=== PATIENT | female | born 1935 | race Caucasian/White ===

== ENCOUNTER 2021-02-10 12:30 | Inpatient (IN) | payer MEDICARE, MEDICAID, SELFPAY ==
[2021-02-10] VITALS (8 sets, daily range): BP systolic 115–154; BP diastolic 71–98; PULSE 78–94; RESP 16–22; TEMP 36.4–37.2; O2SAT 92–98; BMI 27.4
--- NOTE | 2021-02-10 12:38 | W.ED.FALL ---
HPI - Fall General: Chief Complaint: Fall Stated Complaint: FALL, DEFORMITY Time Seen by Provider: 02/10/21 12:37 History of Present Illness: HPI Narrative: Ms. Alston is a 85-year-old lady with history of stroke not on anticoagulation presents emergency department due to fall and hip pain. She reports being at her baseline health yesterday and at about 7 PM was taking her nighttime medications. She tripped and fell on the ground primarily landing on her right side. There was head strike but no loss of consciousness. She immediately had pain which was sharp and severe in the right hip and worse with movement. She was unable to get up and laid on the ground overnight until being found this morning just prior to coming in. No associated chest pain or shortness of breath. No dizziness or lightheadedness. She reports longstanding decline in balance though no other neurologic symptoms. Prehospitally the patient received 100 mcg fentanyl intramuscularly and an additional 100 mcg intranasally with improvement in pain. Additional information obtained endorses history of hypertension, hyperlipidemia, history of sudden cardiac in 1985 and history of Brugada currently on quinidine. 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 Eyes - PERRL, no conjunctival injection ENMT - Atraumatic external nose and ears. Moist mucous membranes NECK - c-collar in place. trachea midline CARDIOVASCULAR - regular rate and rhythm. Peripheral pulses 2+ and equal RESPIRATORY - diminished to auscultation bilaterally. No retractions or accessory muscle use. ABDOMEN/GI - Nontender/Nondistended. No tenderness to percussion or evidence of peritonitis MSK - tenderness palpation of right hip region, tenderness/pain reproducible with minimal movement. Distal CMS intact. SKIN - Warm, Dry NEURO - alert and appropriately oriented. Moves all extremities equally. Course ED course: - Patient was seen and evaluated by me at bedside - Patient placed on cardiac monitors, IV access obtained - Initial evaluation notable for exam as above - Labs notable for leukocytosis which is likely reactive. Metabolic panel with evidence of dehydration. 2-hour troponin negative. 6 hours troponin pending at time of admission. Negative urinalysis - Imaging notable for negative head CT, CT neck with chronic appearing changes, the patient denies acute neurologic changes secondary to fall. Hip with fracture noted. - Upon serial reexamination after treatment the patient was improved with analgesia - Based on patient history, evaluation, labs, and imaging as interpreted the most likely cause of the patient's condition is fall, rhabdomyolysis, transcervical hip fracture. Discussed with orthopedics. - The results of ED evaluation were discussed with the patient including plan for admission due to requirement for level of care not available if discharged to prevent significant worsening/deterioration. -Hospitalist service contacted and agreed with the patient - Patient was admitted without further deterioration or significant events. Vital Signs: Vital signs: Vital Signs Temperature 98.5 F 02/16/21 15:37 Pulse Rate 75 02/16/21 15:37 Respiratory Rate 16 02/16/21 18:16 Blood Pressure 124/73 02/16/21 15:37 Pulse Oximetry 97 02/16/21 15:37 MDM - Fall Medical Records: Attestation: I reviewed the patient's medical records. Lab Data: Attestation: I reviewed the patient's lab results. Labs: Lab Results 02/10/21 02/10/21 02/10/21 13:15 13:15 13:15 WBC 13.0 10^3/uL H 10 ^3/uL (4.0-10.0) RBC 4.69 10^6/uL 10^6 /uL (4.1-5.3) Hgb 14.5 g/dL g/dL (11.5-15.3) Hct 43.7 % % (37.0-47.0) MCV 93.2 fl fl (81-99) MCH 30.9 pg pg (28.0-34.0) MCHC 33.2 g/dL g/dL (30.0-36.0) RDW 13.6 % % (12.1-15.1) Plt Count 289 10^3/cmm 10^3 /cmm (130-400) MPV 8.6 fL fL (7.4-10.4) Neut % (Auto) 88.3 % % Lymph % (Auto) 4.1 % % [place] % (Auto) 6.9 % % Eos % (Auto) 0.0 % % Baso % (Auto) 0.2 % % Neut # (Auto) 11.49 10^3/uL H 1 0^3/uL (1.8-7.7) Lymph # (Auto) 0.5 10^3/uL L 10^ 3/uL (0.8-4.8) [place] # (Auto) 0.9 10^3/uL 10^3/ uL (0.2-0.9) Eos # (Auto) 0.0 10^3/uL 10^3/ uL (0.0-0.8) Baso # (Auto) 0.0 10^3/uL 10^3/ uL (0.0-0.1) Nucleated RBC % (a uto) 0 % % Nucleated RBCs # 0.0 /100WBC /100W BC Sodium 136 mmol/L mmol/L (136-145) Potassium 3.7 mmol/L mmol/L (3.5-5.1) Chloride 100 mmol/L mmol/L (98-107) Carbon Dioxide 19 mmol/L L mmol/ L (22-29) Anion Gap 20.7 H (5-19) BUN 11 mg/dL mg/dL (8-23) Creatinine 0.6 mg/dL mg/dL (0.5-0.9) GFR Calculation Not Reportable Glucose 123 mg/dL H mg/dL (65-115) Calculated Osmolal ity 283 mOsm/kg L mOs m/kg (285-295) Calcium 8.8 mg/dL mg/dL (8.5-10.5) Total Bilirubin 1.3 mg/dL H mg/dL (0.15-1.2) AST 41 U/L H U/L (0-32) ALT 21 U/L U/L (0-33) Alkaline Phosphata se 80 IU/L IU/L (35-105) Creatine Kinase 337 U/L H* U/L (26-192) Troponin T Baselin e 18 ng/L H ng/L (0-10) NT-Pro-B Natriuret Pep Total Protein 7.0 g/dL g/dL (6.6-8.7) Albumin 4.2 g/dL g/dL (3.5-5.2) Globulin 2.8 g/dL g/dL (1.3-4.6) 02/10/21 13:15 WBC RBC Hgb Hct MCV MCH MCHC RDW Plt Count MPV Neut % (Auto) Lymph % (Auto) [place] % (Auto) Eos % (Auto) Baso % (Auto) Neut # (Auto) Lymph # (Auto) [place] # (Auto) Eos # (Auto) Baso # (Auto) Nucleated RBC % (a uto) Nucleated RBCs # Sodium Potassium Chloride Carbon Dioxide Anion Gap BUN Creatinine GFR Calculation Glucose Calculated Osmolal ity Calcium Total Bilirubin AST ALT Alkaline Phosphata se Creatine Kinase Troponin T Baselin e NT-Pro-B Natriuret Pep 383 pg/mL pg/mL (0-450) Total Protein Albumin Globulin EKG Data^: EKG 1: Attestation: I personally reviewed and interpreted this EKG as follows: EKG interpretation date: 02/10/21 EKG interpretation time: 14:00 Interpretation: Twelve-lead EKG regular rhythm at a rate of 88. WV interval 244, QRS duration 165, QTc 475. Left axis deviation. Interpretation: Sinus rhythm. First-degree AV block. Left bundle branch block. EKG 2: Attestation: I personally reviewed and interpreted this EKG as follows: EKG interpretation date: 02/10/21 EKG interpretation time: 15:41 Interpretation: Twelve-lead EKG shows an irregular rhythm at a rate of 77. WV interval 250, QRS duration 164, QTc 468. Left axis deviation. Interpretation: Sinus rhythm. Irregularity, PVC, first-degree AV block. Left bundle branch block. Discharge Plan Discharge Patient Disposition: Admitted As Inpatient Admit Provider: Gil Abbott Clinical Impression: Closed hip fracture, Fall, Elevated CK Condition: Stable Discharge Diet: Advance as tolerated and Usual diet Discharge Activity: Increase activity as tolerated, Limit activity as instructed and Use walker/crutches as instructed Coding Level of Care Code ED Commercial Property Manager for Jens Wheeler
--- NOTE | 2021-02-10 12:43 | XRR_ITS ---
PROCEDURE INFORMATION: Exam: XR Chest Exam date and time: 02/10/2021 12:43 PM Age: 85 years old Clinical indication: Fall with blunt trauma. Tachypnea. Diminished breath sounds. TECHNIQUE: Imaging protocol: XR of the chest. Views: 1 view. COMPARISON: No relevant prior studies available. FINDINGS: Lungs: There are multiple pulmonary nodules identified bilaterally measuring up to 0.6 cm. There is patchy left basilar opacity. There is smooth bulging of the right hilum that may reflect an ascending thoracic aortic aneurysm. Pleural spaces: Small left pleural effusion. No pneumothorax. Heart/Mediastinum: The heart appears enlarged. No gross evidence of pneumomediastinum. Bones/joints: No gross fracture. XR/XR chest 1V portable [id number] IMPRESSION: 1. Patchy left basilar opacity with small left pleural effusion. 2. Cardiomegaly with smooth bulging of the right hilum that may reflect an ascending thoracic aortic aneurysm. 3. Multiple pulmonary nodules identified bilaterally measuring up to 0.[address] chest to further assess.
--- NOTE | 2021-02-10 12:43 | XRR_ITS ---
PROCEDURE INFORMATION: Exam: XR Right Hip Exam date and time: 02/10/2021 12:43 PM Age: 85 years old Clinical indication: Fall with blunt trauma. Right hip pain. TECHNIQUE: Imaging protocol: XR Right hip. Views: 1 view hip with pelvis when performed. COMPARISON: No relevant prior studies available. FINDINGS: Bones/joints: There is a displaced transcervical fracture involving the proximal right femur. Soft tissues: There is mild soft tissue swelling. XR/XR hip RT 2-3V wo/w pel* [id number] IMPRESSION: 1. Displaced transcervical fracture involving the proximal right femur. 2. Mild soft tissue swelling.
--- NOTE | 2021-02-10 12:43 | CT_ITS ---
WS: [id number] CT CERVICAL SPINE HISTORY: fall, neck pain TECHNIQUE: Contiguous 2.5 mm axial imaging performed through the entire cervical spine. Sagittal and coronal reformats also performed. All CT scans at [facility] use at least one of these dose o ptimization techniques: automated exposure control; mA and/or kV adjustment per patient size (include s targeted exams where dose is matched to clinical indication); or iterative reconstruction. DLP: 532.43 mGy.cm COMPARISON: None available. Markedly abnormal alignment of the cervical spine. C4 anterolisthesis by 6.6 mm. There is bony fusion across the disc space of C5-6. Severe disc space narrowing at C6-7. Fusion across the facet joints o f C3-4 bilateral. Lateral masses of C1 and C2 are aligned. Craniocervical junction is normally aligned. C2-C3: Osteophytic ridging and severe facet arthritis. Moderate foraminal stenosis. C3-C4: Marked facet joint arthritis. C4-C5: Severe encroachment upon the ventral thecal sac by the reversal of normal curvature and the an terolisthesis of C4. Severe central and bilateral foraminal stenosis. No fracture. C5-C6: Central and foraminal stenosis. C6-C7: Normal. C7-T1: Normal. Soft tissues are normal. Lung apices are clear. CT/CT cervical spin wo con* [id number] IMPRESSION: 1. Marked reversal of the normal cervical lordosis with C4 anterolisthesis by 6.6 mm. There is significant compression upon the ventral thecal sac and stenos is. No acute fractures identified. There are no prior studies for comparison bu t I suspect these findings are all chronic. No widening of the facet joints. 2. Severe central and bilateral foraminal stenosis at C4-5. 3. Ankylosis across the facet joints of C3-4 and the C5-6 disc.
--- NOTE | 2021-02-10 12:43 | CT_ITS ---
WS: [id number] CT HEAD NONCONTRAST HISTORY: fall TECHNIQUE: Contiguous axial imaging performed through the brain in 2.5 mm imaging. Bone and soft tiss ue windows. Sagittal and coronal reformats reviewed. All CT scans at [facility] use at least one of these dose optimization techniques: automated exposure control; mA and/or kV adjustment per pa tient size (includes targeted exams where dose is matched to clinical indication); or iterative recon struction. DLP: 895.25 mGy.cm COMPARISON: None available. No acute intracranial hemorrhage, midline shift or mass effect. Mild atrophy and moderate chronic microvascular ischemic disease. Ventricles: Mild ventriculomegaly on the basis of atrophy. Paranasal sinuses: As visualized are clear. Mastoid air cells: Normal LEFT mastoid air cells. There is a very small amount of soft tissue associa luis with the LEFT inner air ossicles. Postsurgical changes are noted in the RIGHT mastoid air cells. Calvarium and scalp: Skull is intact with no soft tissue edema or swelling. CT/CT head wo con* [id number] IMPRESSION: 1. No acute intracranial hemorrhage or edema. 2. Atrophy and moderate chronic microvascular ischemic disease.
--- NOTE | 2021-02-10 12:57 | ECG_ITS ---
[facility] Test Date: 2021-02-10 Pat Name: Medina Alston Department: Room: Gender: Female E Learning Manager: : 1935 Requested By: Jeff Burkett Order Number: [id number] Donnie MD: Ryan Sanchez M.D. Measurements Intervals [place] Rate: 88 P: 77 WV: 244 QRS: -60 QRSD: 165 T: 123 QT: 429 QTc: 521 Interpretive Statements SINUS RHYTHM WITH FIRST DEGREE AV BLOCK LEFT AXIS DEVIATION [QRS AXIS < -30] LEFT BUNDLE BRANCH BLOCK [120+ ms QRS DURATION, 80+ ms Q/S IN V1/V2, 85+ ms R IN I/aVL/V5/V6] No previous ECG available for comparison Electronically Signed On 02-10-2021 20:37:13 JIG BORING MACHINE SET UP OPERATOR by Ryan Sanchez M.D. [email or web address] [id number]
[2021-02-10 13:32] LABS: Basophils % 0.2 %; Hematocrit 43.7 % (37.0-47.0); Hemoglobin 14.5 g/dL (11.5-15.3); Lymphocytes # 0.5 10^3/uL (0.8-4.8); Lymphocytes % 4.1 %; Mean Corpuscular HGB Conc 33.2 g/dL (30.0-36.0); Mean Corpuscular Hemoglobin 30.9 pg (28.0-34.0); Mean Corpuscular Volume 93.2 fl (81-99); Mean Platelet Volume 8.6 fL (7.4-10.4); Monocytes # 0.9 10^3/uL (0.2-0.9); Monocytes % 6.9 %; Neutrophils # 11.49 10^3/uL (1.8-7.7); Neutrophils % 88.3 %; Nucleated Red Blood Cells % 0 %; Platelet Count 289 10^3/cmm (130-400); Red Blood Count 4.69 10^6/uL (4.1-5.3); Red Cell Distribution Width 13.6 % (12.1-15.1)
[2021-02-10 14:01] LABS: Troponin(5th) Baseline 18 ng/L (0-10)
[2021-02-10 14:24] LABS: Anion Gap 20.7 (5-19); Blood Urea Nitrogen 11 mg/dL (8-23); Carbon Dioxide 19 mmol/L (22-29); Chloride 100 mmol/L (98-107); Creatinine Clr Calc Pharmacy 47.3319; Glucose 123 mg/dL (65-115); Osmolality Calculated 283 mOsm/kg (285-295); Potassium 3.7 mmol/L (3.5-5.1); Sodium 136 mmol/L (136-145)
[2021-02-10 14:25] LABS: Alanine Aminotransferase 21 U/L (0-33); Albumin Level 4.2 g/dL (3.5-5.2); Alkaline Phosphatase 80 IU/L (35-105); Aspartate Amino Transferase 41 U/L (0-32); Calcium 8.8 mg/dL (8.5-10.5); Globulin 2.8 g/dL (1.3-4.6); Total Bilirubin 1.3 mg/dL (0.15-1.2)
[2021-02-10 14:26] LABS: Creatine Phosphokinase 337 U/L (26-192)
--- NOTE | 2021-02-10 14:57 | ECG_ITS ---
[facility] Test Date: 2021-02-10 Pat Name: Medina Alston Department: Room: Gender: Female Clinical Field Specialist: : 1935 Requested By: Jeff Burkett Order Number: [id number] Donnie MD: Ryan Sanchez M.D. Measurements Intervals [place] Rate: 77 P: 74 GA: 250 QRS: -61 QRSD: 164 T: 123 QT: 437 QTc: 495 Interpretive Statements LEFT AXIS DEVIATION [QRS AXIS < -30] LEFT BUNDLE BRANCH BLOCK [120+ ms QRS DURATION, 80+ ms Q/S IN V1/V2, 85+ ms R IN I/aVL/V5/V6] Compared to ECG 02/10/2021 13:58:40 Sinus rhythm no longer present First degree AV block no longer present Electronically Signed On 02-10-2021 20:40:09 LANDMAN by Ryan Sanchez M.D. [id number]
--- NOTE | 2021-02-10 14:57 | PM.HP ---
Providers/Chief Complaint Chief Complaint: FALL, DEFORMITY History of Present Illness Medina Alston is a 85 year old female, presenting today after sustaining a fall at home. Patient stating that yesterday around 7 PM she went to the kitchen when she lost her balance and fell just next to her sink, because excruciating pain she could not get up, she stayed on the floor until her care provider came in the morning, because of her history of fibromyalgia she attributed her pain to muscle/joint disorder, she did not call 911 last night. She did not experience prodromal symptoms, no chest pain, nausea, vomiting or syncopal event. 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 In the ER she was diagnosed with right-sided hip fracture, EKG showing left bundle branch block, baseline troponin XVIII without significant delta BNP 383 Patient is chest pain-free no active shortness of breath, saturating well on room air She does have a pansystolic murmur Recommended cardiac clearance before her surgery, echo with serial troponin and EKGs I did speak with her sister was trying to convince her to go for the surgery, patient is reluctant for the surgery in the morning, she is stating that there are 2 family members who are probably not going to make it and she wants to spend some time at [place] with them Review of Systems Const: Reports: fatigue and malaise; Denies: fever(s) or chills Eyes: Denies: change in vision ENMT: Denies: throat pain Card: Denies: chest pain Resp: Denies: dyspnea GI: Denies: abdominal pain : Denies: flank pain Musc: Reports: back pain, extremity pain and joint redness; Denies: neck pain Skin/Breast: Denies: rash Neuro: Denies: headache(s) Psych: Denies: anxiety Endo: Denies: polyuria José Miguel/Lymph: Denies: easy bruising All/Imm: Denies: urticaria Medications/Allergies Home Medications Medication Instructions Recorded Confirmed Last Taken Type acetaminophen-codeine 1 tab PO Q4H PRN 02/10/21 02/10/21 Unknown History amlodipine 5 mg PO DAILY 02/10/21 02/10/21 02/09/21 History duloxetine 30 mg PO DAILY 02/10/21 02/10/21 02/09/21 History duloxetine 60 mg PO DAILY 02/10/21 02/10/21 02/09/21 History levothyroxine 75 mcg PO DAILY 02/10/21 02/10/21 02/09/21 History pantoprazole 40 mg PO BID 02/10/21 02/10/21 02/09/21 History potassium chloride 20 meq PO DAILY 02/10/21 02/10/21 02/09/21 History pravastatin 40 mg PO DAILY 02/10/21 02/10/21 02/09/21 History quinidine gluconate 324 mg PO TID 02/10/21 02/10/21 02/09/21 History Allergies Allergy/AdvReac Type Severity Reaction Status Date / Time NSAIDS (Non-Steroidal Allergy Unknown Unknown Verified 02/10/21 15:27 Anti-Inflamma vancomycin Allergy Unknown Unknown Verified 02/10/21 15:27 PFSH Acute PFSH: Medical History (Updated 02/10/21 @ 17:08 by Gil Abbott MD) Brugada syndrome CAD (coronary artery disease) Cardiac arrest 1985 CVA (cerebral vascular accident) Fibromyalgia HTN (hypertension) LBBB (left bundle branch block) burgada syndrome Lymphocytic colitis SLE (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 Surgical History (Updated 02/10/21 @ 17:06 by Gil Abbott MD) H/O: hysterectomy History of appendectomy Hx of cholecystectomy Family History (Updated 02/10/21 @ 14:58 by Gil Abbott MD) Other Family history non-contributory Social History (Updated 02/10/21 @ 14:59 by Gil Abbott MD) Smoking and tobacco status: current some day smoker Housing: House Vitals/I&O/Wt Last Vital Signs Temp 97.6 F 02/10/21 12:33 Pulse 78 02/10/21 13:16 Resp 20 H 02/10/21 13:16 BP 154/94 02/10/21 12:33 Pulse Ox 96 02/10/21 13:16 Weight last 48 hrs Weight 68.039 kg Physical Exam Narrative: EXAM NARRATIVE: elderly female Severe joint deformities/arthritis S1, S2, pansystolic murmur Clinically dehydrated Abdomen is soft Right leg is short however not rotated upwards No vascular compromise EOMI, PERRLA Nonfocal neuro exam Hess catheter draining concentrated urine Data : 02/10/21 13:15 02/10/21 13:15 A&P Assessment and plan (1) Subcapital fracture of right hip: Status: Acute (2) Closed hip fracture: Status: Acute (3) Fall: Status: Acute (4) Elevated CK: Status: Acute Additional A&P Information Mechanical fall Right hip fracture History of Brugada syndrome, left bundle branch block Pansystolic murmur Takes quinidine at home 3 times a day History of cardiac arrest 1985 Plan Patient will need preoperative cardiac clearance will consult Dr. Sepulveda Echo before surgery QTc 495, 521, QTc prolongation noted Troponin XVIII without significant delta Continue antiarrhythmic medication for now, will follow up with Dr. Sepulveda's recommendation We will request records from [facility] Dr. Alford has been updated, I spoke with front end web developer as well Patient has not decided to go for the surgery yet, Dr. Alford planning to come talk with the patient tonight We will keep her n.p.o. after midnight DVT prophylaxis: SCDs Continue IV fluids, CPK 337, trend CPK Serial troponin and EKG Stat echo requested in the ER She carries high risk for perioperative complications, this was conveyed to the patient and her family, Patient does not want any chest compressions or intubation, she is DNR/DNI, her sister is aware of her wishes I have told the patient that she definitely needs hip surgery and putting off surgery for next 1 to 2 weeks would do more harm and put her life at risk perioperative complication risk is high because of her underlying multiple comorbid conditions such as SLE, left bundle branch, Brugada, deconditioning Attestations Medical Necessity Statement*: More than 2 midnights anticipated Time Spent in Patient Care: Greater than 35 minutes Coding Level of Care Code Acute Senior Software Developer for Chg Fwd Diagnoses Subcapital fracture of right hip S72.011A Closed hip fracture S72.009A Fall W19.XXXA Elevated CK R74.8
[2021-02-10] MEDS: morphine 4 mg/mL SDV 1 mL IVP ×2 (15:13→19:27)
[2021-02-10] MEDS: sodium chloride 0.9% 500 ML 999 ML IV (15:13)
--- NOTE | 2021-02-10 15:14 | P.CONIM_ITS ---
Providers/Reason For Consult Consulting Physician/Specialty*: Brittany Alford MD Reason for Consult*: Right subcapital hip fracture, displaced Requesting Physician: Dr. Jeff Burkett Attending Physician: Dr. Gil Abbott History of Present Illness History of Present Illness Medina Alston is a 85 year old female who was in her usual state of health when she tripped at home and fell. 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 I was called by the emergency room physician who suggested admission to the medical service for optimization. She was diagnosed in the emergency department with a right subcapital hip fracture. This is displaced. The patient is seen in her room with nursing present. She is adamant that she wants to delay her surgery for 1 to 2 weeks as she does not want it before the holiday. Review of Systems General: Reports: 10 or more systems reviewed and unremarkable except in HPI and below Const: Reports: fatigue and malaise; Denies: fever(s) or chills Eyes: Denies: change in vision ENMT: Denies: throat pain Card: Denies: chest pain Resp: Denies: dyspnea GI: Denies: abdominal pain : Denies: flank pain Musc: Reports: back pain, extremity pain and joint redness; Denies: neck pain Skin/Breast: Denies: rash Neuro: Denies: headache(s) Psych: Denies: anxiety Endo: Denies: polyuria José Miguel/Lymph: Denies: easy bruising All/Imm: Denies: urticaria Meds/Allergies Home Medications and Allergies Home Medications Medication Instructions Recorded Confirmed Last Taken Type acetaminophen-codeine 1 tab PO Q4H PRN 02/10/21 02/10/21 Unknown History amlodipine 5 mg PO DAILY 02/10/21 02/10/21 02/09/21 History duloxetine 30 mg PO DAILY 02/10/21 02/10/21 02/09/21 History duloxetine 60 mg PO DAILY 02/10/21 02/10/21 02/09/21 History levothyroxine 75 mcg PO DAILY 02/10/21 02/10/21 02/09/21 History pantoprazole 40 mg PO BID 02/10/21 02/10/21 02/09/21 History potassium chloride 20 meq PO DAILY 02/10/21 02/10/21 02/09/21 History pravastatin 40 mg PO DAILY 02/10/21 02/10/21 02/09/21 History quinidine gluconate 324 mg PO TID 02/10/21 02/10/21 02/09/21 History Allergies Allergy/AdvReac Type Severity Reaction Status Date / Time NSAIDS (Non-Steroidal Allergy Unknown Unknown Verified 02/10/21 15:27 Anti-Inflamma vancomycin Allergy Unknown Unknown Verified 02/10/21 15:27 PFSH Acute PFSH: Medical History Brugada syndrome CAD (coronary artery disease) Cardiac arrest 1985 CVA (cerebral vascular accident) Fibromyalgia HTN (hypertension) LBBB (left bundle branch block) burgada syndrome Lymphocytic colitis SLE (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) 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 involvement Surgical History H/O: hysterectomy History of appendectomy Hx of cholecystectomy Family History Other Family history non-contributory Social History Smoking and tobacco status: current some day smoker Housing: House Vitals/I&O/Wt Last Vital Signs Temp 97.6 F 02/10/21 12:33 Pulse 78 02/10/21 13:16 Resp 20 H 02/10/21 13:16 BP 154/94 02/10/21 12:33 Pulse Ox 96 02/10/21 13:16 Weight last 48 hrs Weight 150 lb Physical Exam Const: COMMON NORMALS: no acute distress, average body habitus, patient oriented x3 and alert GENERAL APPEARANCE: cooperative and comfortable ORIENTATION/CONSCIOUSNESS: Yes awake HENMT: COMMON NORMALS: normocephalic and atraumatic HEAD & SCALP: normocephalic and atraumatic Eye: GENERAL EYE: appearance normal, both eyes and all related structures Chest: COMMONS NORMALS: normal inspection of the chest Resp: COMMON NORMALS: normal respiratory effort EFFORT & INSPECTION: Yes able to speak in complete sentences and Yes symmetric chest movement Extremity: RIGHT LOWER EXTREMITY: Yes hip joint Right hip: Yes inspection (Patient is laying in bed without moving.), Yes ROM (Not evaluated secondary to fracture) and Yes neurovascular exam (Able to move her toes) Neuro: COMMON NORMALS: patient oriented x3 SENSORIUM/ORIENTATION: Yes alert Psych: COMMON NORMALS: mental status grossly normal APPEARANCE: Yes grossly normal ATTITUDE: Yes calm and Yes engaged ATTENTION/CONCENTRATION: Yes attention grossly intact Skin: COMMON NORMALS: no rashes or lesions noted GENERAL SKIN EXAM: no rashes or lesions noted Data Imaging^: Xray Ortho: I personally reviewed and interpreted this imaging study as follows: My impression: 2 views of the patient's right hip were reviewed. There is a 100% displaced angulated subcapital hip fracture. No other evidence of fracture is noted on these 2 imaging studies. A&P Assessment and plan (1) Subcapital fracture of right hip: Patient was admitted through the emergency department this evening. She was diagnosed with a right subcapital hip fracture by x-ray after being admitted through the emergency department. The patient will be seen and evaluated and optimized for possible surgical intervention tomorrow, February 11. I have personally reviewed the x-rays and confirmed that this is a displaced subcapital right hip fracture. Once patient is admitted to the hospital, she states that she absolutely does not want surgery over the holidays. She states that she has several issues in her family, and she wants to go home and come back in 1 to 2 weeks for surgical intervention. I had a very lengthy extended discussion with her as well as associated providers regarding the risks of doing this. Also, I discussed with her the impact on her family as she would not be able to weight-bear or even transition comfortably from laying to sitting. We talked about the medical risks of urinary tract infection, pressure sores, and pneumonias. The patient stated she understood, but even after all the discussion, she stated that she still wanted to be home with her family for . We extended that discussion even more. To allow the patient to evaluate the wisdom of her choices, she will be allowed to get up to the bedside commode to see whether or not she can functionally and safely carry unnecessary activities of daily living. This was also discussed with Dr. Abbott. The meantime, she will be left on the surgical schedule for possible surgery. I advised her that provided she had no medical issues after the surgery, she could go home as early as early morning or even tomorrow evening for Yany ellyn. Status: Acute Consult Attestations Medical Necessity Statement: Patient has a subcapital hip fracture which is displaced. This will require surgical intervention. Coding Level of Care Code New Pt Acute Military Nurse for Chg Fwd Patient Type New Exam Comprehensive Medical Decision Making High Complexity Diagnoses Subcapital fracture of right hip S72.011A Time Spent (min) 60 Comment Extended discussion of risks, complications, and reasons for not delaying surgery
[2021-02-10 15:17] LABS: NT Pro B Type Natriuretic Pept 383 pg/mL (0-450)
[2021-02-10 15:33] LABS: Troponin 5 2HR 20.87 ng/L (0-10); Troponin 5 2HR Delta 2.87 ABS# (0-10)
[2021-02-10 15:44] LABS: INR 0.95 (0.8-1.2)
[2021-02-10 17:09] LABS: Add Urine Microscopic? NO; Charge for UA Resulting for Rev
[2021-02-10 17:11] LABS: Urine Appearance Clear (CLEAR); Urine Color Yellow (Yellow); pH Urine 6 (5-7)
[2021-02-10 17:12] LABS: Bilirubin Urine Neg (Negative); Blood Urine Neg (Negative); Glucose Urine UA Norm (Normal); Ketones Urine 1+ (Negative); Leukocyte Esterase Urine Negative (Negative); Nitrate Urine Negative (Negative); Protein Urine Neg (Negative); Specific Gravity, Urine 1.015 (1.005-1.030); Urobilinogen Urine Norm (Negative)
[2021-02-10 17:46] LABS: Magnesium 1.9 mg/dL (1.7-2.3); Thyroid Stimulating Hormone 1.96 uIU/mL (0.27-4.20)
--- NOTE | 2021-02-10 18:50 | P.CONIM_ITS ---
Providers/Reason For Consult Consulting Physician/Specialty*: Dr. Sepulveda, cardiology Reason for Consult*: Preop clearance, history of Brugada syndrome Attending Physician: Gil Abbott MD History of Present Illness History of Present Illness Medina Alston is a 85 year old female with past medical history of Brugada syndrome, hypothyroidism, history of cardiac arrest in 1985, OA, h/o lupus. She underwent EP study and was started on quinidine. No ICD implanted as she was doing well on medications. She sees Dr. Stanley Moore at [facility] and last saw him about 2 years back. She presented after falling yesterday around 7 PM and lost her balance and fell just next to her sink. She could not get up d/t pain and stayed on the floor until her caregiver came in the morning. No chest pain, dizziness, SOB, nausea, vomiting or syncopal event. She lives by herself but does need assistance for most of her daily activities. She was found to have displaced transcervical fracture involving proximal right femur. Chest x-ray showed patchy left basilar opacity with small left pleural effusion. Cardiomegaly with small bulging of right hilum that may reflect his thoracic ascending aortic aneurysm. EKG on arrival showed sinus rhythm with first-degree AV block at 244 ms. Left axis deviation. Left bundle branch block. Review of Systems Const: Reports: fatigue and malaise; Denies: fever(s) or chills Eyes: Denies: change in vision ENMT: Denies: throat pain Card: Denies: chest pain Resp: Denies: dyspnea GI: Denies: abdominal pain : Denies: flank pain Musc: Reports: back pain, extremity pain and joint redness; Denies: neck pain Skin/Breast: Denies: rash Neuro: Denies: headache(s) Psych: Denies: anxiety Endo: Denies: polyuria José Miguel/Lymph: Denies: easy bruising All/Imm: Denies: urticaria Meds/Allergies Home Medications and Allergies Home Medications Medication Instructions Recorded Confirmed Last Taken Type acetaminophen-codeine 1 tab PO Q4H PRN 02/10/21 02/10/21 Unknown History amlodipine 5 mg PO DAILY 02/10/21 02/10/21 02/09/21 History duloxetine 30 mg PO DAILY 02/10/21 02/10/21 02/09/21 History duloxetine 60 mg PO DAILY 02/10/21 02/10/21 02/09/21 History levothyroxine 75 mcg PO DAILY 02/10/21 02/10/21 02/09/21 History pantoprazole 40 mg PO BID 02/10/21 02/10/21 02/09/21 History potassium chloride 20 meq PO DAILY 02/10/21 02/10/21 02/09/21 History pravastatin 40 mg PO DAILY 02/10/21 02/10/21 02/09/21 History quinidine gluconate 324 mg PO TID 02/10/21 02/10/21 02/09/21 History Allergies Allergy/AdvReac Type Severity Reaction Status Date / Time NSAIDS (Non-Steroidal Allergy Unknown Unknown Verified 02/10/21 15:27 Anti-Inflamma vancomycin Allergy Unknown Unknown Verified 02/10/21 15:27 Current Medications Current Medications Generic Name Dose Route Start Last Admin Trade Name Freq PRN Reason Stop Dose Admin Morphine Sulfate 4 mg 02/10/21 14:33 02/10/21 15:13 Morphine 4 Mg/Ml Sdv 1 Ml IVP 4 mg Q1H PRN Administration pain PFSH Acute PFSH: Medical History (Updated 02/10/21 @ 18:57 by Marcie Sepulveda MD) Brugada syndrome CAD (coronary artery disease) Cardiac arrest 1985 CVA (cerebral vascular accident) Fibromyalgia HTN (hypertension) LBBB (left bundle branch block) burgada syndrome Lymphocytic colitis SLE (systemic 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) w 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 No pallor or icterus. NECK: No JVD, No carotid bruit. CARDIOVASCULAR SYSTEM: S1-S2 regular. Systolic murmur + RESPIRATORY SYSTEM: Chest clear to auscultation. No wheezes heard. No use of accessory muscles. ABDOMEN: Soft, nontender and nondistended. Normal bowel sounds present. EXTREMITIES: No cyanosis or edema. No signs of chronic venous insufficiency. DATABASE ADMINISTRATION MANAGER: Patient is alert oriented ?3. Urinary Catheter Management^: Hess: Cath Placed During This Visit: yes Urinary Catheter Date of Insertion: 02/10/21 Urinary Catheter Time of Insertion: 16:10 Data Labs: Other Labs: Baseline troponin T of 18 at 2 hours 21. NT proBNP 383. Normal TSH. A&P Assessment and plan (1) Pre-operative cardiovascular examination: F/u on records and plan for echo. -Further management based on clinical progression Status: Acute (2) Subcapital fracture of right hip: Status: Acute (3) Brugada syndrome: Status: Acute (4) LBBB (left bundle branch block): Chronic Status: Acute Additional A&P Information First-degree AV block Hypertension Hypothyroidism Gastroesophageal reflux disease Thank you like me to participate in patient's care. Please feel free to call with questions or concerns. Consult Attestations Time Spent in Patient Care: 16 - 35 minutes (>than 50% of time spent in counselling and/or direct pt care on unit) . Coding Level of Care Code Acute Dedenter for Jens Wheeler Diagnoses Pre-operative cardiovascular examination Z01.810 Subcapital fracture of right hip S72.011A Brugada syndrome I49.8 LBBB (left bundle branch block) I44.7
[2021-02-10] MEDS: pantoprazole DR 40 mg Tablet PO (19:29)
[2021-02-10] MEDS: sodium chloride 0.9% 1,000 ML 75 ML IV (19:30)
[2021-02-10 19:41] LABS: Troponin 5 6HR 31.57 ng/L (0-10)
[2021-02-10 20:01] LABS: Troponin 5 6HR Delta 13.57 ng/L (0-12)
[2021-02-11] VITALS (25 sets, daily range): BP systolic 91–150; BP diastolic 50–88; PULSE 68–103; RESP 14–18; TEMP 36.3–37.7; O2SAT 92–99
[2021-02-11] MEDS: morphine 4 mg/mL SDV 1 mL IVP ×2 (00:38→04:09)
--- NOTE | 2021-02-11 01:01 | PC.NURSE ---
no SCD due to pain from hip fx.
--- NOTE | 2021-02-11 01:03 | PC.NURSE ---
right hip externall rotated. braced with pillow.
[2021-02-11 05:02] LABS: Basophils % 0.3 %; Eosinophils # 0.1 10^3/uL (0.0-0.8); Eosinophils % 0.7 %; Hematocrit 38.9 % (37.0-47.0); Hemoglobin 12.9 g/dL (11.5-15.3); Lymphocytes # 0.8 10^3/uL (0.8-4.8); Lymphocytes % 7.6 %; Mean Corpuscular HGB Conc 33.2 g/dL (30.0-36.0); Mean Corpuscular Hemoglobin 31.2 pg (28.0-34.0); Mean Corpuscular Volume 94.2 fl (81-99); Mean Platelet Volume 8.6 fL (7.4-10.4); Monocytes # 0.8 10^3/uL (0.2-0.9); Monocytes % 7.2 %; Neutrophils # 8.83 10^3/uL (1.8-7.7); Neutrophils % 83.5 %; Nucleated Red Blood Cells % 0 %; Platelet Count 216 10^3/cmm (130-400); Red Blood Count 4.13 10^6/uL (4.1-5.3); Red Cell Distribution Width 14.1 % (12.1-15.1); White Blood Count 10.6 10^3/uL (4.0-10.0)
[2021-02-11 05:37] LABS: Anion Gap 18.6 (5-19); Blood Urea Nitrogen 11 mg/dL (8-23); Carbon Dioxide 19 mmol/L (22-29); Chloride 103 mmol/L (98-107); Creatine Phosphokinase 201 U/L (26-192); Creatinine Clr Calc Pharmacy 47.3319; Glucose 124 mg/dL (65-115); Osmolality Calculated 285 mOsm/kg (285-295); Potassium 3.6 mmol/L (3.5-5.1); Sodium 137 mmol/L (136-145)
--- NOTE | 2021-02-11 07:17 | PC.NURSE ---
Surgery Pt taken down for surgery.
--- NOTE | 2021-02-11 07:21 | P.ANESASSM_ITS ---
Pre-Anesthetic Assessment Pre-Anesthetic Assessment: Height/Weight: Height 1.57 m Weight 68.039 kg Temp Pulse Resp BP Pulse Ox 99.8 F H 83 18 113/70 93 02/11/21 04:29 02/11/21 04:29 02/11/21 04:29 02/11/21 04:29 02/11/21 04:29 Preop Diagnosis: Right subcapital hip fracture Proposed Procedure: Hemiarthroplasty hip Familial anesthetic complications: None Was Beta Cheikh taken within 24 hours: N/A Was Clonidine taken within 24 hours: N/A Last intake: Intake Last Liquid Date 02/10/21 Last Liquid Time 23:17 Last Solid Date 02/10/21 Last Solid Time 23:16 Social: Social History: No alcohol and No tobacco Exam: Pre-Anes Outpt Exam: alert, oriented x 3, clear to auscultation bilaterally and regular rate & rhythm Airway: Cervical ROM: WNL MP: 1 Dentition: Other (very poor dentition) Additional comments: patient misisng multiple teeth d/t osteonecrosis jaw - patient informed of risk of dental injury with intubation and during extubation CV/HEM: Comments: Brugada syndrome w/ hx of sudden cardiac in 1985. No ICD in place. Take quinidine. Occassional symtpoms include palpitations and shortness of breath. LBBB Metabolic: Comments: lupus Neuropsych: Neuropsych: CVA (year ago - residual deficits include R face) Anesthetic Plan: ASA status: 4 Anesthesia: General Risk of > 500 ml blood loss (7ml/kg in children): No Meds/Allergies Current Medications: Current Medications Generic Name Dose Route Start Last Admin Trade Name Freq PRN Reason Stop Dose Admin Sodium Chloride 1,000 mls @ 75 ml s/hr 02/10/21 18:37 02/10/21 19:30 Sodium Chloride 0.9% IV 75 mls/hr .[id number] ELIGIO Administration Morphine Sulfate 4 mg 02/10/21 14:33 02/11/21 04:09 Morphine 4 Mg/Ml Sdv 1 Ml IVP 4 mg Q1H PRN Administration pain Non-Formulary Medi cation 324 mg 02/10/21 21:00 02/10/21 21:28 Quinidine Glucon ate PO Not Given TID ELIGIO Pantoprazole Sodiu m 40 mg 02/10/21 18:37 02/10/21 19:[address] 40 Mg Tablet PO 40 mg BID ELIGIO Administration PFSH Anesthesia PFSH: Medical History (Updated 02/10/21 @ 18:57 by Marcie Sepulveda MD) Brugada syndrome CAD (coronary artery disease) Cardiac arrest 1985 CVA (cerebral vascular accident) Fibromyalgia HTN (hypertension) LBBB (left bundle branch block) burgada syndrome Lymphocytic colitis 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 Surgical History H/O: hysterectomy History of appendectomy Hx of cholecystectomy Family History Other Family history non-contributory Social History Smoking and tobacco status: current some day smoker Housing: House Data Anesthesia CBC & Chem 7: 02/11/21 04:32 02/11/21 04:32 Other Labs: Laboratory Results - last 48 hr 02/10/21 02/10/21 02/10/21 13:15 13:15 13:15 WBC 13.0 H RBC 4.69 Hgb 14.5 Hct 43.7 MCV 93.2 MCH 30.9 MCHC 33.2 RDW 13.6 Plt Count 289 MPV 8.6 Neut % (Auto) 88.3 Lymph % (Auto) 4.1 [place] % (Auto) 6.9 Eos % (Auto) 0.0 Baso % (Auto) 0.2 Neut # (Auto) 11.49 H Lymph # (Auto) 0.5 L [place] # (Auto) 0.9 Eos # (Auto) 0.0 Baso # (Auto) 0.0 Nucleated RBC % (auto) 0 Nucleated RBCs # 0.0 PT INR Sodium 136 Potassium 3.7 Chloride 100 Carbon Dioxide 19 L Anion Gap 20.7 H BUN 11 Creatinine 0.6 GFR Calculation Not Reportable Glucose 123 H Calculated Osmolality 283 L Calcium 8.8 Magnesium Total Bilirubin 1.3 H AST 41 H ALT 21 Alkaline Phosphatase 80 Creatine Kinase 337 H* Troponin T Baseline 18 H Troponin T 120 Minute Delta Troponin T Troponin T Hi Sens 6Hr Troponin T Hi Sens 6Hr Delta NT-Pro-B Natriuret Pep Total Protein 7.0 Albumin 4.2 Globulin 2.8 TSH Urine Color Urine Appearance Urine pH Ur Specific [place] Urine Protein Urine Glucose (UA) Urine Ketones Urine Blood Urine Nitrate Urine Bilirubin Urine Urobilinogen Ur Leukocyte Esterase 02/10/21 02/10/21 02/10/21 13:15 15:05 15:05 WBC RBC Hgb Hct MCV MCH MCHC RDW Plt Count MPV Neut % (Auto) Lymph % (Auto) [place] % (Auto) Eos % (Auto) Baso % (Auto) Neut # (Auto) Lymph # (Auto) [place] # (Auto) Eos # (Auto) Baso # (Auto) Nucleated RBC % (auto) Nucleated RBCs # PT INR Sodium Potassium Chloride Carbon Dioxide Anion Gap BUN Creatinine GFR Calculation Glucose Calculated Osmolality Calcium Magnesium 1.9 Total Bilirubin AST ALT Alkaline Phosphatase Creatine Kinase Troponin T Baseline Troponin T 120 Minute 20.87 H Delta Troponin T 2.87 Troponin T Hi Sens 6Hr Troponin T Hi Sens 6Hr Delta NT-Pro-B Natriuret Pep 383 Total Protein Albumin Globulin TSH 1.96 Urine Color Urine Appearance Urine pH Ur Specific [place] Urine Protein Urine Glucose (UA) Urine Ketones Urine Blood Urine Nitrate Urine Bilirubin Urine Urobilinogen Ur Leukocyte Esterase 02/10/21 02/10/21 02/10/21 15:29 16:49 19:12 WBC RBC Hgb Hct MCV MCH MCHC RDW Plt Count MPV Neut % (Auto) Lymph % (Auto) [place] % (Auto) Eos % (Auto) Baso % (Auto) Neut # (Auto) Lymph # (Auto) [place] # (Auto) Eos # (Auto) Baso # (Auto) Nucleated RBC % (auto) Nucleated RBCs # PT 13.00 INR 0.95 Sodium Potassium Chloride Carbon Dioxide Anion Gap BUN Creatinine GFR Calculation Glucose Calculated Osmolality Calcium Magnesium Total Bilirubin AST ALT Alkaline Phosphatase Creatine Kinase Troponin T Baseline Troponin T 120 Minute Delta Troponin T Troponin T Hi Sens 6Hr 31.57 H Troponin T Hi Sens 6Hr Delta 13.57 H* NT-Pro-B Natriuret Pep Total Protein Albumin Globulin TSH Urine Color Yellow Urine Appearance Clear Urine pH 6 Ur Specific [place] 1.015 Urine Protein Neg Urine Glucose (UA) Norm Urine Ketones 1+ H Urine Blood Neg Urine Nitrate Negative Urine Bilirubin Neg Urine Urobilinogen Norm Ur Leukocyte Esterase Negative 02/11/21 02/11/21 04:32 04:32 WBC 10.6 H RBC 4.13 Hgb 12.9 Hct 38.9 MCV 94.2 MCH 31.2 MCHC 33.2 RDW 14.1 Plt Count 216 MPV 8.6 Neut % (Auto) 83.5 Lymph % (Auto) 7.6 [place] % (Auto) 7.2 Eos % (Auto) 0.7 Baso % (Auto) 0.3 Neut # (Auto) 8.83 H Lymph # (Auto) 0.8 [place] # (Auto) 0.8 Eos # (Auto) 0.1 Baso # (Auto) 0.0 Nucleated RBC % (auto) 0 Nucleated RBCs # 0.0 PT INR Sodium 137 Potassium 3.6 Chloride 103 Carbon Dioxide 19 L Anion Gap 18.6 BUN 11 Creatinine 0.7 GFR Calculation Not Reportable Glucose 124 H Calculated Osmolality 285 Calcium 8.0 L Magnesium Total Bilirubin AST ALT Alkaline Phosphatase Creatine Kinase 201 H Troponin T Baseline Troponin T 120 Minute Delta Troponin T Troponin T Hi Sens 6Hr Troponin T Hi Sens 6Hr Delta NT-Pro-B Natriuret Pep Total Protein Albumin Globulin TSH Urine Color Urine Appearance Urine pH Ur Specific [place] Urine Protein Urine Glucose (UA) Urine Ketones Urine Blood Urine Nitrate Urine Bilirubin Urine Urobilinogen Ur Leukocyte Esterase Cardiac Studies: No Data to Display
[2021-02-11] MEDS: acetaminophen 1,000 MG/100 ML PIGGYBACK 400 MG IV ×2 (07:39→15:49)
[2021-02-11] MEDS: sodium chloride 0.9% 1,000 ML 30 ML IV (07:47)
--- NOTE | 2021-02-11 07:49 | PM.PN ---
Subjective Subjective: Interval history: No events overnight Medications: Reviewed: Yes Vitals/I&O/Wt Last Vital Signs Temp 98.6 F 02/11/21 07:33 Pulse 75 02/11/21 07:33 Resp 18 02/11/21 07:33 BP 116/88 02/11/21 07:33 Pulse Ox 94 02/11/21 07:33 02/10/21 02/11/21 02/11/21 22:59 06:59 14:59 Intake Total 500 / 500 Output Total 475 / 475 Balance 500 / 500 -475 / 25 Weight last 48 hrs Weight 150 lb Physical Exam Narrative: EXAM NARRATIVE: Patient was taken to OR before being seen this morning Urinary Catheter Management^: Hess: Cath Placed During This Visit: yes Reason for Continuing Indwelling Catheter: Required Immobilization for Trauma or Surgery or Anesthesia Urinary Catheter Date of Insertion: 02/10/21 Urinary Catheter Time of Insertion: 16:10 Data : 02/11/21 04:32 02/11/21 04:32 A&P Assessment and plan (1) Pre-operative cardiovascular examination: No records obtained and echo showed normal LV function, mild and moderate TR. SEvere pHTN. -May proceed with hip sx with perioperative management targeted towards Brugada syndrome. Last Lexiscan sestamibi myocardial perfusion imaging in July 2019 was normal (records were obtained from [facility] and reviewed). -Avoid beta blockers, metoclopramide. -May use propofol and volatile anesthetics per anesthesia. Maintain electrolytes in normal range and prepare for cardioversion if needed -Maintain normothermia. Will need close intra op and 24-36 hr post op telemetery monitoring. Status: Acute (2) Subcapital fracture of right hip: Status: Acute (3) Brugada syndrome: She used to be on quinidine 324 mg 3 times a day the dose was recently was decreased to twice a day last year. continue Quinidine 324 mg twice daily Status: Acute (4) LBBB (left bundle branch block): Chronic Status: Acute Additional A&P Information First-degree AV block History of SVT Hypertension Hypothyroidism Gastroesophageal reflux disease History of anal cancer status post surgery History of lupus Osteoarthritis Anxiety History of CVA Thank you like me to participate in patient's care. Please feel free to call with questions or concerns. Attestations Medical Necessity Statement*: As per primary team Time Spent in Patient Care: 16 - 35 minutes Coding Level of Care Code Acute Net Front End Developer for Danteg Fweloy Diagnoses Pre-operative cardiovascular examination Z01.810 Subcapital fracture of right hip S72.011A Brugada syndrome I49.8 LBBB (left bundle branch block) I44.7
[2021-02-11] MEDS: clindamycin 600 MG/50 ML PREMIX 100 MG IV (07:57)
[2021-02-11 08:22] LABS: Magnesium 1.9 mg/dL (1.7-2.3)
[2021-02-11] MEDS: ceFAZolin 1,000 mg SDV 1000 MG IRRIGATION ×2 (09:27→09:28)
--- NOTE | 2021-02-11 09:57 | P.OP_ITS ---
Operative Report Date of procedure: February 11, 2021 Pre-op Diagnosis: Right subcapital hip fracture Post-op diagnosis: same Post-op Findings: Displaced comminuted subcapital right hip fracture Procedure Done: Right bipolar hip arthroplasty Implants: The Jack hip system with the following implants: The Accolade II 127 degree neck angle size 4 femoral stem with a V40 LFIT femoral head size 28 mm x -4 mm and a universal head component bipolar size 46 mm outer diameter by 28 mm inner diameter Specimens removed/disposition: Femoral head, disposed of Pathology: none sent Surgeon: Brittany Alford Spinner Hand: [facility] operating room technicians Anesthesia: General (Intubated, ASA 4) Estimated blood loss (mL): 300 IV fluids (mL): 600 Urine output (mL): 25 Complications: None Findings: Displaced right subcapital hip fracture. Following surgical procedure, I was able to flex the hip to 90 degrees internally rotate 80 degrees and adduction 30 degrees without dislocation. She was stable to external rotation as well. Leg lengths were felt to be appropriately restored. Condition: stable Disposition: PACU (Then return to floor for postoperative care and pain management) Brief History: Medina Alston is a 85 year old female who was in her usual state of health when she tripped at home and fell. 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 I was called by the emergency room physician who suggested admission to the medical service for optimization. She was diagnosed in the emergency department with a right subcapital hip fracture. This is displaced. The patient is seen in her room with nursing present. After an extended discussion, she agreed to the surgical intervention and had an understanding of the risks and benefits of the surgical procedure. She also had preoperative cardiac work-up. Procedure: The patient was brought to the operating theater, and after undergoing adequate general anesthesia, intubated a 4, she was transferred to the operating room table. The patient was placed in the full lateral position and held in place with the pegboard. Patient's right lower extremity was draped free and was subsequently prepped and further draped free. A surgical pause was performed prior to commencement of the surgical procedure. During the surgical pause, we confirmed the site and side of surgery as well as availability of equipment. Additionally, we confirmed preoperative surgical markings. X-rays are also reviewed during this time. Preoperatively, the patient was given clindamycin 600 mg as well as 1 g of TXA. Following the surgical pause, an incision was made centering over the greater trochanter continuing proximally and distally as necessary to allow access to the hip joint. Dissection continued through skin and soft tissue using scalpel. Hemostasis was obtained using electrocautery. Tensor fascia arsenio was identified and incised longitudinally. Sciatic nerve was identified and protected throughout the surgical procedure. A Charnley U retractor was placed with care being taken to protect the sciatic nerve during placement. The hip was internally rotated. Piriformis muscle was then identified, tagged, and subsequently incised from the posterior aspect of the hip joint. The remaining short external rotators were also incised. These were then elevated off the capsule and the capsule was entered in a T-type fashion. Each side of the capsule was then tagged. The proximal femur was brought into an appropriate position of the femoral neck osteotomy was accomplished. This was in appropriate position for placement of the prosthetic component. Femoral head was then removed from the acetabulum utilizing a corkscrew. It was subsequently measured. The appropriate size trial was chosen. This was a size 46 mm. Initially, we tried with both a 44, 45, and 46 mm outer diameter femoral head. Head size was based on the removed femoral head. 46 mm outer diameter gave us the best stability. Therefore, this was the chosen size for implantation. The femoral robot technician was then placed and attention was directed to the proximal femur. An oscillating saw was used to excise excess bone from the femoral neck. Initially, the proximal femur was addressed with a box chisel, and this was followed by a canal finder and subsequently broaches. The hip was broached to a size 4 which was noted to fit nicely and have good fit and fill. Therefore this was to be the chosen component. Trial reduction was then accomplished with a 46 mm by 28 mm universal bipolar head component, a +0mm by 28 mm femoral head. This was felt to over lengthen the leg, therefore, we performed a subsequent trial with a -4 mm offset femoral head. With this, the above-noted stabilities were accomplished. This was felt to be appropriate and therefore trial compo nents were removed and the hip was irrigated. Acetabulum was evaluated for any loose bodies or other soft tissues requiring resection. We then prepared for implantation. The size 4 Accolade II 127 degree neck angle hip stem was then impacted into position. On the back table, we assembled the 46 mm universal bipolar head component with a -4 mm offset by 28 mm femoral head. Care was taken to ensure that this was appropriately assembled. This was placed onto the trunnion of the femoral component. It was impacted into position and pulled upon to assure that there was no dissociation. Once again the hip was irrigated and suctioned dry and was reduced. We then irrigated the hip further with 20 mL of Betadine mixed into 500 mL of normal saline. This was allowed to remain in the wound for appr oximately 3 minutes. It was then suctioned dry and irrigated with normal saline. This was suctioned dry again and closure was accomplished with 0 Vicryl in the capsular tissues followed by reattachment of the piriformis with 0 Vicryl. Additionally, the tensor was closed with 0 Vicryl in an interrupted fashion. Subcutaneous tissues were closed with 2-0 Monocryl. Skin was closed with 3-0 Monocryl. This was followed by Dermabond and Steri-Strips. A sterile dressing was placed consisting of Opsite. The patient was returned the Recovery Room in satisfactory condition. There were no complications. The patient will be discharged to the floor for postoperative rehabilitation and pain management. Associated Problem List Diagnoses (1) Subcapital fracture of right hip: Qualifiers: Encounter type: initial encounter Fracture type: closed Qualified Code(s): S72.011A - Unspecified intracapsular fracture of right femur, initial encounter for closed fracture
--- NOTE | 2021-02-11 10:08 | XR_ITS ---
WS: [id number] PELVIS: AP VIEW SUBMITTED HISTORY: S/P RT BIPOLAR HIP ARTHROPLASTY COMPARISON: 02/10/2021 Interval placement of a RIGHT hip bipolar arthroplasty. Components are in good position and alignment on this single AP radiograph. Appropriate soft tissue changes from the surgery are noted. Mild narro wing of the LEFT hip joint. Calcifications in the pelvis are probably related to fibroids. XR/XR pelvis 1-2V* [id number] IMPRESSION: Satisfactory appearance of RIGHT hip arthroplasty.
[2021-02-11] MEDS: fentaNYL 50 mcg/mL INJ 2mL IVP (10:12)
--- NOTE | 2021-02-11 10:30 | SUR.PHASEI ---
PT AWAKE ALERT FOLLOWS COMMANDS PT ORIENTED X 3 PT STATES PAIN IS BETTER, SEE PAIN MED GIVEN BY POCKETBOOK MAKER AT BEDSIDE AND DURING X RAY PT SLEEPS NOW, REPORT CALLED TO FLOOR PT HAS RT HIP DRESSING D/I ABD PILLOW, RT FOOT PINK WARM WITH STRONG REGULAR PULSE MARKED AND NOTED FOOT PUMP TO LT FOOT. HICKMAN PATENT ON YELLOW URINE TO TUBING AND BAG STATLOCK TO LT THIGH.
--- NOTE | 2021-02-11 11:45 | P.PN_ITS ---
Subjective Subjective: Interval history: Seen post - op hip surgery. says she is able to move a bit better after surgery, when seen she in process of working with physical therapy. offers no complaints Vitals/I&O/Wt Last Vital Signs Temp 97.4 F L 02/11/21 10:30 Pulse 88 02/11/21 10:30 Resp 18 02/11/21 10:30 BP 125/60 02/11/21 10:30 Pulse Ox 95 02/11/21 10:30 02/10/21 02/11/21 02/11/21 22:59 06:59 14:59 Intake Total 500 / 500 160 / 160 Output Total 475 / 475 350 / 350 Balance 500 / 500 -475 / 25 -190 / -190 Weight last 48 hrs Weight 68.039 kg Physical Exam Narrative: EXAM NARRATIVE: elderly female Severe joint deformities/arthritis S1, S2, pansystolic murmur Abdomen is soft, non tender Right leg s/p surgery, surgical bandage in place EOMI, PERRLA Nonfocal neuro exam Urinary Catheter Management^: Hess: Cath Placed During This Visit: yes Reason for Continuing Indwelling Catheter: Required Immobilization for Trauma or Surgery or Anesthesia Urinary Catheter Date of Insertion: 02/10/21 Urinary Catheter Time of Insertion: 16:10 Data : 02/12/21 04:59 02/12/21 04:59 A&P Assessment and plan (1) Subcapital fracture of right hip: Status: Acute Qualifiers: Encounter type: initial encounter Fracture type: closed Qualified Code(s): S72.011A - Unspecified intracapsular fracture of right femur, initial encounter for closed fracture (2) Closed hip fracture: Status: Acute (3) Fall: Status: Acute (4) Elevated CK: Status: Acute Additional A&P Information #Mechanical fall with hip fracture on right side s/p surgery today. #History of Brugada syndrome, left bundle branch block, Cardiology on board. Pansystolic murmur Takes quinidine at home 3 times a day History of cardiac arrest 1985 Plan Patient seen by cardiology. Recommend to monitor on telemetry for 24-36 hours post op. Echo shows: severe pulm HTN, normal LVEF, no regional wall motion abnormalities QTc 495, 521, QTc prolongation noted Troponin slightly elevated without significant delta Continue antiarrhythmic medication for now, will follow up with Dr. Sepulveda's recommendation. Avoid BB, reglan. She is now s/p surgery. Order physical therapy. Allergic to NSAIDS, unsure about aspirin. WIll discuss with patient for DVT ppx after surgery. Continue to monitor in hospital. DVT prophylaxis: SCDs Continue IV fluids, CPK 337, trend CPK Code status: DNR/DNI. She carries high risk for perioperative complications, this was conveyed to the patient and her family by admitting physician., Perioperative complication risk is high because of her underlying multiple comorbid conditions such as SLE, left bundle branch, Brugada, deconditioning Attestations Medical Necessity Statement*: > 24 hours Coding Level of Care Code Acute Health Management Consult[facility] Diagnoses Subcapital fracture of right hip S72.011A Encounter type: initial encounter Fracture type: closed Closed hip fracture S72.009A Fall W19.XXXA Elevated CK R74.8
--- NOTE | 2021-02-11 11:51 | PC.CHAP ---
Pastoral Care Encounter/Spiritual Assessment Type of Contact [] Declined well service pump equipment operator visit [] Patient/Family/Request visit [] Outpatient visit [] Follow-up visit [] Physician referral [] Code/Alert [] Routine visit [] Staff referral [] Actively dying [] Patient sleeping [] Family support [] [xx] Out of room [] Palliative care [] [] Receiving care in room [] Pre-surgical visit [] Trauma [] Long length of stay [] ICU visit [] Other: Relational/Emotional Strength [] Patient feels connected with others/family/visitors/staff [] Distress [] Loneliness/isolation [] Abandonment Spirituality of Patient [] Person of Bonnie [] Attends Bahai of their Bonnie [] Believes in Prayer [] Reads Bible or Caodaism materials [] There are Spiritual issues to be addressed Ballistician Interventions [] Prayer [] Active listening [] Non-anxious presence [] Spiritual/emotional support [] Crisis/trauma care [] Spiritual counseling [] Bereavement support [] Provided bereavement packet [] Provided Bible/devotional materials [] Provided toy/stuffed animal, coloring book to patient or family member [] Provided Communion [] Anointing/[place] [] Salvation [] Completed spiritual assessment [] Other: Impact on Illness or Injury [] Angry [] Fearful [] Anxious [] Often cries [] Exhaustion [] Unable to work [] Unable to attend orthodoxy [] Unable to walk/stand [] Unable to read [] Unable to drive [] Unable to eat/drink [] Unable to sleep [] Unable to be with family [] Patient intubated [] Other: Summary Follow up needed Time spent with patient
[2021-02-11] MEDS: oxyCODONE 5 mg IR Tab/Cap PO ×2 (13:40→21:20)
[2021-02-11] MEDS: chlorhexidine gluconate 0.12% Btl 473 mL 30 ML MUCOUS MEM ×3 (13:40→21:31)
[2021-02-11] MEDS: clindamycin 900 MG/50 ML PREMIX 100 MG IV (16:19)
--- NOTE | 2021-02-11 17:03 | USCV_ITS ---
Alston Medina Age: 85 Gender: F : 1935 Exam Date: 02/11/2021 06:15 Ordering Phys: Jeff Burkett MD Technologist: Lorraine Ferris Exam Location: [facility] [place] Indication: BRUGAD, LBBB, PRE HIP REPAIR BP: 113 / 70 HR: 79 Rhythm: Sinus Technical Quality: Adequate MEASUREMENTS (Male / Female) Normal Values 2D ECHO LV Diastolic Diameter PLAX 2.1 cm 4.2 - 5.9 / 3.9 - 5.3 cm LV Systolic Diameter PLAX 1.8 cm IVS Diastolic Thickness 1.0 cm 0.6 - 1.0 / 0.6 - 0.9 cm IVS Systolic Thickness 1.5 cm LVPW Diastolic Thickness 1.1 cm 0.6 - 1.0 / 0.6 - 0.9 cm LVPW Systolic Thickness 1.3 cm LVOT Diameter 2.0 cm LV Ejection Fraction 2D Teich 27.0 % LV Ejection Fraction MOD 2C 40.4 % LV Ejection Fraction 2C AL 37.8 % LA Diameter 2.8 cm LA Width 3.2 cm LA Height 2.9 cm RA Width 3.0 cm RA Height 4.1 cm Aorta at Sinotubular Diameter 3.3 cm M-MODE LV Diastolic Diameter MM 4.8 cm 4.2 - 5.9 / 3.9 - 5.3 cm LV Systolic Diameter MM 2.9 cm LV Ejection Fraction MM Teich 71.3 % IVS Diastolic Thickness MM 1.3 cm 0.6 - 1.0 / 0.6 - 0.9 cm IVS Systolic Thickness MM 1.3 cm LVPW Diastolic Thickness MM 1.1 cm 0.6 - 1.0 / 0.6 - 0.9 cm LVPW Systolic Thickness MM 1.8 cm Aortic Annulus Diameter 3.5 cm LA Ao Ratio MM 0.9 MV E Point Septal Separation 0.4 cm DOPPLER AV Peak Velocity 247.0 cm/s LVOT Peak Velocity 116.0 cm/s AV Area Cont Eq vti 1.4 cm squared AV Area Cont Eq pk 1.5 cm squared MV Area PHT 8.1 cm squared Mitral E to A Ratio 0.9 MV E' Velocity 45.0 cm/s Mitral E to MV E' Ratio 6.1 Mitral E to LV E' Lateral Ratio 6.0 Mitral E to LV E' Septal Ratio 6.3 TR Peak Velocity 381.4 cm/s TR Peak Gradient 58.2 mmHg TR Mean Velocity 262.6 cm/s TR Mean Gradient 32.5 mmHg TR Velocity Time Integral 107.0 cm TV Peak E Velocity 77.0 cm/s Right Atrial Pressure 3.0 mmHg Pulmonary Artery Systolic Pressu 61.2 mmHg PV Peak Velocity 94.0 cm/s RV Acceleration Time 0.2 s RV Ejection Time 0.3 s RV AcT/ET 0.5 FINDINGS Left Ventricle Normal left ventricular size, systolic function and mildly increased wall thickness, with no regional wall motion abnormalities. Left ventricular ejection fraction is estimated at 65 %. Normal diastolic function. Abnormal septal motion consistent with conduction abnormality. Right Ventricle Normal right ventricular size and systolic function. Right ventricular systolic pressure 57 mmHg. Right Atrium Mildly increased right atrial size. Left Atrium Mildly increased left atrial size. Mitral Valve Mitral annular calcification. Thickened mitral valve. No mitral valve stenosis. Trace mitral valve regurgitation. Aortic Valve Thickened trileaflet aortic valve. Mild aortic valve stenosis, mean gradient 12.3 mmHg, DES 1.4 cm squared. No aortic valve regurgitation. Tricuspid Valve Structurally normal tricuspid valve. At least moderate somewhat eccentric tricuspid valve regurgitation. Pulmonic Valve Pulmonic valve not well visualized. Trace pulmonary valve regurgitation. Pericardium No pericardial effusion. Prominent epicardial fat. Aorta Normal size aortic root and proximal ascending aorta. CONCLUSIONS 1. Normal left ventricular size, systolic function and mildly increased wall thickness, with no regional wall motion abnormalities. Left ventricular ejection fraction is estimated at 65 %. Normal diastolic function. 2. Mild biatril enlargement. 3. Mild aortic valve stenosis, mean gradient 12.3 mmHg, DES 1.4 cm squared. 4. At least moderate somewhat eccentric tricuspid valve regurgitation. 5. Severe pulmonary hypertension with pulmonary artery pressure estimated at 57 mm Hg. 6. No prior similar studies to compare. Marcie Sepulveda MD (Electronically Signed) Final Date: 11 February 2021 07:45 S
[2021-02-11] MEDS: mupirocin oint 22 gm 1 APPLIC NASAL (17:59)
[2021-02-11] MEDS: iron polysaccharide complex 150 mg Capsule PO (18:00)
[2021-02-11] MEDS: pantoprazole DR 40 mg Tablet PO (18:00)
[2021-02-11] MEDS: sennosides-docusate Tablet 2 TAB PO (18:00)
[2021-02-11] MEDS: calcium carbonate 500 mg Chew Tablet 1000 MG PO (18:00)
--- NOTE | 2021-02-11 18:11 | P.PN_ITS ---
Subjective Subjective: Interval history: Seen post - op hip surgery. Patient is doing well. She states she is in less pain than she was preoperatively. She had difficulty with physical therapy, however. She will continue to work with them and be ready for discharge from my perspective when she is felt safe and functional. Medications: Reviewed: Yes Vitals/I&O/Wt Last Vital Signs Temp 98 F 02/11/21 17:50 Pulse 73 02/11/21 17:50 Resp 16 02/11/21 17:50 BP 94/57 02/11/21 17:50 Pulse Ox 96 02/11/21 17:50 02/11/21 02/11/21 02/11/21 06:59 14:59 22:59 Intake Total 280 / 280 270 / 550 Output Total 475 / 475 350 / 350 Balance -475 / 25 -70 / -70 270 / 200 Weight last 48 hrs Weight 150 lb Physical Exam Const: COMMON NORMALS: no acute distress, average body habitus, patient oriented x3 and alert GENERAL APPEARANCE: cooperative and comfortable ORIENTATION/CONSCIOUSNESS: Yes awake HENMT: COMMON NORMALS: normocephalic and atraumatic HEAD & SCALP: n ormocephalic and atraumatic Eye: GENERAL EYE: appearance normal, both eyes and all related structures Chest: COMMONS NORMALS: normal inspection of the chest Resp: COMMON NORMALS: normal respiratory effort EFFORT & INSPECTION: Yes able to speak in complete sentences and Yes symmetric chest movement Extremity: RIGHT LOWER EXTREMITY: Yes hip joint (No swelling or ecchymosis) Right hip: Yes inspection (Dressing is clean and dry), Yes palpation (Minimal tenderness), Yes ROM (Not evaluated) and Yes neurovascular exam (Intact distally) Neuro: COMMON NORMALS: patient oriented x3 SENSORIUM/ORIENTATION: Yes alert Psych: COMMON NORMALS: mental status grossly normal APPEARANCE: Yes grossly normal ATTITUDE: Yes calm and Yes engaged ATTENTION/CONCENTRATION: Yes attention grossly intact Skin: COMMON NORMALS: no rashes or lesions noted GENERAL SKIN EXAM: no rashes or lesions noted Urinary Catheter Management^: Hess: Cath Placed During This Visit: yes Reason for Continuing Indwelling Catheter: Required Immobilization for Trauma or Surgery or Anesthesia Urinary Catheter Date of Insertion: 02/10/21 Urinary Catheter Time of Insertion: 16:10 Data : 02/11/21 04:32 02/11/21 04:32 A&P Assessment and plan (1) Subcapital fracture of right hip: Patient is several hours post right bipolar hip arthroplasty for displaced subcapital hip fracture. She notes that she does feel improved when compared with preoperative pain level. She did have some difficulty attempting to get up with physical therapy, but she made improvement from her first to her second session. She is encouraged. She is willing to spend time in the hospital until she is functional and independent, and I am in agreement with this. I have written a discharge order from my perspective as she may be discharged when she works with physical therapy and is felt to be ambulatory and safe. Status: Acute Qualifiers: Encounter type: initial encounter Fracture type: closed Qualified C ode(s): S72.011A - Unspecified intracapsular fracture of right femur, initial encounter for closed fracture Attestations Medical Necessity Statement*: Patient requires postoperative pain management and physical therapy for independent ambulation. Coding Level of Care Code Acute Irrigation Service Technician for Jens Wheeler Diagnoses Subcapital fracture of right hip S72.011A Encounter type: initial encounter Fracture type: closed
[2021-02-12] VITALS (14 sets, daily range): BP systolic 99–131; BP diastolic 50–69; PULSE 62–76; RESP 14–20; TEMP 36.8–37.3; O2SAT 93–99
[2021-02-12] MEDS: acetaminophen 1,000 MG/100 ML PIGGYBACK 400 MG IV ×2 (00:37→07:41)
[2021-02-12] MEDS: oxyCODONE 5 mg IR Tab/Cap PO ×5 (02:15→22:10)
[2021-02-12] MEDS: clindamycin 900 MG/50 ML PREMIX 100 MG IV ×2 (03:31→14:02)
[2021-02-12 05:28] LABS: Basophils % 0.3 %; Eosinophils % 0.4 %; Hematocrit 36.2 % (37.0-47.0); Hemoglobin 11.9 g/dL (11.5-15.3); Lymphocytes # 0.7 10^3/uL (0.8-4.8); Lymphocytes % 7.3 %; Mean Corpuscular HGB Conc 32.9 g/dL (30.0-36.0); Mean Corpuscular Volume 94.3 fl (81-99); Mean Platelet Volume 9.2 fL (7.4-10.4); Monocytes # 0.8 10^3/uL (0.2-0.9); Monocytes % 8.8 %; Neutrophils # 7.38 10^3/uL (1.8-7.7); Neutrophils % 82.6 %; Nucleated Red Blood Cells % 0 %; Platelet Count 185 10^3/cmm (130-400); Red Blood Count 3.84 10^6/uL (4.1-5.3); White Blood Count 8.9 10^3/uL (4.0-10.0)
[2021-02-12 05:46] LABS: Blood Urea Nitrogen 8 mg/dL (8-23); Calcium 7.9 mg/dL (8.5-10.5); Carbon Dioxide 20 mmol/L (22-29); Chloride 103 mmol/L (98-107); Creatinine Clr Calc Pharmacy 47.3319; Glucose 120 mg/dL (65-115); Magnesium 1.9 mg/dL (1.7-2.3); Osmolality Calculated 282 mOsm/kg (285-295); Sodium 136 mmol/L (136-145)
[2021-02-12 05:51] LABS: Anion Gap 16.7 (5-19); Potassium 3.7 mmol/L (3.5-5.1)
[2021-02-12] MEDS: calcium carbonate 500 mg Chew Tablet 1000 MG PO ×2 (07:37→18:34)
[2021-02-12] MEDS: levothyroxine 75 mcg Tablet PO (07:37)
[2021-02-12] MEDS: cholecalciferol (vitamin D3) 1,000 unit Tablet 1000 UNIT PO (07:38)
[2021-02-12] MEDS: magnesium lactate 84 mg Tablet PO (07:38)
[2021-02-12] MEDS: iron polysaccharide complex 150 mg Capsule PO ×2 (07:38→18:35)
[2021-02-12] MEDS: multivitamin therapeutic Tablet 1 TAB PO (07:38)
[2021-02-12] MEDS: sennosides-docusate Tablet 2 TAB PO ×2 (07:38→18:35)
[2021-02-12] MEDS: pantoprazole DR 40 mg Tablet PO ×2 (07:39→18:35)
--- NOTE | 2021-02-12 08:00 | ECG_ITS ---
[facility] Test Date: 2021-02-12 Pat Name: Medina Alston Department: Room: 273 Gender: Female Denture Packer: : 1935 Requested By: Janette Barnes Order Number: [id number] Donnie MD: Marcie Sepulveda M.D. Measurements Intervals [place] Rate: 78 P: 97 CO: 229 QRS: -62 QRSD: 159 T: 116 QT: 432 QTc: 494 Interpretive Statements SINUS RHYTHM WITH FIRST DEGREE AV BLOCK LEFT AXIS DEVIATION [QRS AXIS < -30] LEFT BUNDLE BRANCH BLOCK [120+ ms QRS DURATION, 80+ ms Q/S IN V1/V2, 85+ ms R IN I/aVL/V5/V6] Compared to ECG 02/10/2021 15:39:23 First degree AV block now present Electronically Signed On 02-12-2021 17:11:56 LIGHT TRUCK DRIVER by Marcie Sepulveda M.D. [id number]
[2021-02-12] MEDS: lidocaine 1% 5 ML in potassium chloride premix 100 ML 50 ML IV (08:30)
[2021-02-12] MEDS: chlorhexidine gluconate 0.12% Btl 473 mL 30 ML MUCOUS MEM ×4 (11:13→22:11)
[2021-02-12] MEDS: mupirocin oint 22 gm 1 APPLIC NASAL ×2 (11:13→18:41)
--- NOTE | 2021-02-12 15:27 | PM.PN ---
Subjective Subjective: Interval history: Patient continues to work with physical therapy postoperatively. She is concerned about managing at home, and she is considering transfer to group home. Medications: Reviewed: Yes Vitals/I&O/Wt Last Vital Signs Temp 98.4 F 02/12/21 11:24 Pulse 71 02/12/21 11:24 Resp 18 02/12/21 14:35 BP 105/58 02/12/21 11:24 Pulse Ox 98 02/12/21 11:24 02/12/21 02/12/21 02/12/21 06:59 14:59 22:59 Intake Total 150.000 / 3040.000 405 / 405 Output Total 800 / 1675 Balance -650.000 / 1365.000 405 / 405 Physical Exam Const: COMMON NORMALS: no acute distress, average body habitus, patient oriented x3 and alert GENERAL APPEARANCE: cooperative and comfortable ORIENTATION/CONSCIOUSNESS: Yes awake HENMT: COMMON NORMALS: normocephalic and atraumatic HEAD & SCALP: normocephalic and atraumatic Eye: GENERAL EYE: appearance normal, both eyes and all related structures Chest: COMMONS NORMALS: normal inspection of the chest Resp: COMMON NORMALS: normal respiratory effort EFFORT & INSPECTION: Yes able to speak in complete sentences and Yes symmetric chest movement Extremity: RIGHT LOWER EXTREMITY: Yes hip joint (No significant swelling or ecchymosis.) Right hip: Yes inspection (Minimal tenderness to palpation.), Yes palpation (Slight swelling.), Yes ROM (Not evaluated.) and Yes neurovascular exam (Intact distally.) Neuro: COMMON NORMALS: patient oriented x3 SENSORIUM/ORIENTATION: Yes alert Psych: COMMON NORMALS: mental status grossly normal APPEARANCE: Yes grossly normal ATTITUDE: Yes calm and Yes engaged ATTENTION/CONCENTRATION: Yes attention grossly intact Skin: COMMON NORMALS: no rashes or lesions noted GENERAL SKIN EXAM: no rashes or lesions noted Urinary Catheter Management^: Hess: Cath Placed During This Visit: yes Reason for Continuing Indwelling Catheter: Required Immobilization for Trauma or Surgery or Anesthesia Urinary Catheter Date of Insertion: 02/10/21 Urinary Catheter Time of Insertion: 16:10 Data : 02/12/21 04:59 02/12/21 04:59 A&P Assessment and plan (1) Subcapital fracture of right hip: This is postop day 1 following right bipolar hip arthroplasty. The patient is doing well. She continues to work with physical therapy, but she states that she now recognizes her issues with being able to manage at home. She notes that she does feel improved when compared with preoperative pain level. She did have some difficulty attempting to get up with physical therapy, but she continues to improve with each session. She is encouraged. She is willing to spend time in the hospital until she is functional and independent, and I am in agreement with this. She has also considered group home at the time of discharge as she has concerns about returning home. At this point, she is not strong enough to be able to return home. I have written a discharge order from my perspective as she may be discharged when she works with physical therapy and is felt to be ambulatory and safe. Status: Acute Qualifiers: Encounter type: initial encounter Fracture type: closed Qualified Code(s): S72.011A - Unspecified intracapsular fracture of right femur, initial encounter for closed fracture Attestations Medical Necessity Statement*: Patient continues to require inpatient rehabilitation for safety and ambulation. Coding Level of Care Code Acute Secondary Set Up Man for Jens Wheeler Exam Comprehensive Diagnoses Subcapital fracture of right hip S72.011A Encounter type: initial encounter Fracture type: closed
--- NOTE | 2021-02-12 15:44 | PM.PN ---
Subjective Subjective: Interval history: Seen this morning. Patient states she has tried to call her family member to bring over her quinidine from home but they cannot do so till tomorrow morning. She is aware that is an important medication that she needs to take. She was told that we do not have it on formulary in the hospital. Outpatient pharmacies are closed today as well. Patient has not received it during this hospital stay. She states the pain is a little bit better in her right hip and she feels she is getting better but still requires assistance with moving around and is looking forward to going to a [place] [facility] for rehab. Patient would like to keep the Hess catheter in for another day. Vitals/I&O/Wt Last Vital Signs Temp 98.4 F 02/12/21 11:24 Pulse 71 02/12/21 11:24 Resp 18 02/12/21 14:35 BP 105/58 02/12/21 11:24 Pulse Ox 98 02/12/21 11:24 02/12/21 02/12/21 02/12/21 06:59 14:59 22:59 Intake Total 150.000 / 3040.000 405 / 405 Output Total 800 / 1675 Balance -650.000 / 1365.000 405 / 405 Physical Exam Narrative: EXAM NARRATIVE: General: Alert oriented x3, patient seen laying in bed appearing comfortable at this time. HEENT: Normocephalic, atraumatic, EOMI, breathing on room air, missing a lot of teeth Cardio: Regular rate rhythm, normal S1-S2, no murmurs Respiratory: Good bilateral air entry, no wheezes no rhonchi appreciated GI: Abdomen soft, nontender, nondistended, bowel sounds + Behavior: Appropriate and cooperative Extremities: Pulses 2+, no edema, no cyanosis, small area of ecchymosis that medial right thigh area. Area minimally tender to palpation. Urinary Catheter Management^: Hess: Cath Placed During This Visit: yes Reason for Continuing Indwelling Catheter: Required Immobilization for Trauma or Surgery or Anesthesia Urinary Catheter Date of Insertion: 02/10/21 Urinary Catheter Time of Insertion: 16:10 Data : 02/12/21 04:59 02/12/21 04:59 A&P Assessment and plan (1) Subcapital fracture of right hip: Status: Acute Qualifiers: Encounter type: initial encounter Fracture type: closed Qualified Code(s): S72.011A - Unspecified intracapsular fracture of right femur, initial encounter for closed fracture (2) Closed hip fracture: Status: Acute (3) Fall: Status: Acute (4) Elevated CK: Status: Acute Additional A&P Information #Mechanical fall with hip fracture on right side s/p surgery POD2 #History of Brugada syndrome, left bundle branch block, Cardiology on board. Pansystolic murmur Takes quinidine at home 3 times a day. Not getting during this hospital stay since it is nonformulary and patient did not bring it from home. She has informed her family however will bring it in tomorrow morning. History of cardiac arrest 1986 Plan Patient seen by cardiology. Recommend to monitor on telemetry for 24-36 hours post op. Echo shows: severe pulm HTN, normal LVEF, no regional wall motion abnormalities QTc 495, 521, QTc prolongation noted Troponin slightly elevated without significant delta Continue antiarrhythmic medication for now, will follow up with Dr. Sepulveda's recommendation. Avoid BB, reglan. She is now s/p surgery., Postop day 2. Physical therapy recommended rehab. Allergic to NSAIDS, unsure about aspirin. WIll discuss with patient for DVT ppx after surgery. Discussed with patient in detail and she is not interested in taking aspirin or any other NSAIDs since she had a GI bleed where she had to be hospitalized. Hemoglobin has been stable. I will place her on Lovenox 40 subcu daily and cover her for a total of 3 weeks. Continue to monitor in hospital. Continue to monitor on telemetry. Quinidine will be here tomorrow morning by family as per patient. DVT prophylaxis: SCDs Continue IV fluids, CPK 337, trend CPK Code status: DNR/DNI. She carries high risk for perioperative complications, this was conveyed to the patient and her family by admitting physician., Perioperative complication risk is high because of her underlying multiple comorbid conditions such as SLE, left bundle branch, Brugada, deconditioning Attestations Medical Necessity Statement*: > 24 hour stay. [place] [facility] [place]. Coding Level of Care Code Acute Housekeeper/Laundry Assistant for Jens Wheeler Diagnoses Subcapital fracture of right hip S72.011A Encounter type: initial encounter Fracture type: closed Closed hip fracture S72.009A Fall W19.XXXA Elevated CK R74.8
[2021-02-12] MEDS: acetaminophen 500 mg Tablet 1000 MG PO (17:30)
[2021-02-12] MEDS: enoxaparin 40 mg/0.4 mL Syringe SUBCUT (17:30)
--- NOTE | 2021-02-12 17:36 | P.PN_ITS ---
Subjective Subjective: Interval history: Patient complains of pain near her shoulder and hip. Isolated PVCs on telemetry. (Now that finally she is on telemetry monitor) Medications: Reviewed: Yes Vitals/I&O/Wt Last Vital Signs Temp 98.8 F 02/12/21 15:54 Pulse 72 02/12/21 15:54 Resp 18 02/12/21 15:54 BP 111/50 02/12/21 15:54 Pulse Ox 97 02/12/21 15:54 02/12/21 02/12/21 02/12/21 06:59 14:59 22:59 Intake Total 150.000 / 3040.000 605 / 605 50 / 655 Output Total 800 / 1675 200 / 200 Balance -650.000 / 1365.000 605 / 605 -150 / 455 Physical Exam Narrative: EXAM NARRATIVE: GENERAL: Pleasant elderly lady laying in bed in no acute distress HEENT: No pallor or icterus. NECK: No JVD, No carotid bruit. CARDIOVASCULAR SYSTEM: S1-S2 regular. Systolic murmur LLSB+ RESPIRATORY SYSTEM: Chest clear to auscultation. No wheezes heard. No use of accessory muscles. EXTREMITIES: No cyanosis or edema. Right hip dressing present HOSPICE PLAN ADMINISTRATOR: Patient is alert oriented ?3. Urinary Catheter Management^: Hess: Cath Placed During This Visit: yes Reason for Continuing Indwelling Catheter: Required Immobilization for Trauma or Surgery or Anesthesia Urinary Catheter Date of Insertion: 02/10/21 Urinary Catheter Time of Insertion: 16:10 Data : 02/12/21 04:59 02/12/21 04:59 A&P Assessment and plan (1) Pre-operative cardiovascular examination: No records obtained and echo showed normal LV function, mild and moderate TR. SEvere pHTN. -Patient did well with hip sx. Last Lexiscan sestamibi myocardial perfusion imaging in July 2019 was normal (records were obtained from [facility] and reviewed). -PT and postop management as per primary team. Status: Acute (2) Subcapital fracture of right hip: Mechanical fall. POD #2 Status: Acute Qualifiers: Encounter type: initial encounter Fracture type: closed Qualified Code(s): S72.011A - Unspecified intracapsular fracture of right femur, initial encounter for closed fracture (3) Brugada syndrome: She used to be on quinidine 324 mg 3 times a day the dose was was decreased to twice a day last year. -Unfortunately quinidine is unavailable at our pharmacy and in spite of multiple attempts her family member was unable to bring quinidine yesterday . -Restart quinidine 324 mg twice daily tomorrow morning Status: Acute (4) LBBB (left bundle branch block): Chronic Status: Acute Additional A&P Information First-degree AV block History of SVT Hypertension Hypothyroidism Gastroesophageal reflux disease History of anal cancer status post surgery History of lupus Osteoarthritis Anxiety History of CVA Thank you like me to participate in patient's care. Please feel free to call with questions or concerns. Attestations Medical Necessity Statement*: As per primary team Time Spent in Patient Care: 16 - 35 minutes (>than 50% of time spent in counselling and/or direct pt care on unit) . Coding Level of Care Code Acute Design Printer Balloon for Jens Wheeler Diagnoses Pre-operative cardiovascular examination Z01.810 Subcapital fracture of right hip S72.011A Encounter type: initial encounter Fracture type: closed Brugada syndrome I49.8 LBBB (left bundle branch block) I44.7
--- NOTE | 2021-02-12 20:04 | PC.NURSE ---
Shift report received from Kathy CHAO. Patient in bed/ awake/watching TV. Rates pain at a 6/10. PRN administered recently. Telemetry monitoring present. O2 2L NC. IV patent/SL. Bed linens changed at this time. No needs voiced at this time.
[2021-02-12] MEDS: acetaminophen 500 mg Tablet PO (21:30)
[2021-02-12] MEDS: duloxetine 60 mg Capsule PO (22:10)
[2021-02-12] MEDS: duloxetine 30 mg Capsule PO (22:10)
[2021-02-13] VITALS (14 sets, daily range): BP systolic 100–137; BP diastolic 62–75; PULSE 71–86; RESP 14–20; TEMP 36.4–37.1; O2SAT 93–99
--- NOTE | 2021-02-13 00:41 | PC.NURSE ---
patient sleeping at this time/ no s/s of pain or discomfort
--- NOTE | 2021-02-13 03:13 | PC.NURSE ---
Patient rates pain at a 04/28/ PRN at this time.
--- NOTE | 2021-02-13 03:48 | PC.NURSE ---
Patient's bed linen and gown changed at this time
[2021-02-13 04:34] LABS: Basophils % 0.5 %; Eosinophils # 0.3 10^3/uL (0.0-0.8); Eosinophils % 4.4 %; Hemoglobin 11.5 g/dL (11.5-15.3); Lymphocytes # 0.9 10^3/uL (0.8-4.8); Mean Corpuscular HGB Conc 32.9 g/dL (30.0-36.0); Mean Corpuscular Hemoglobin 31.3 pg (28.0-34.0); Mean Corpuscular Volume 95.4 fl (81-99); Mean Platelet Volume 9.5 fL (7.4-10.4); Monocytes # 0.7 10^3/uL (0.2-0.9); Monocytes % 11.1 %; Neutrophils # 4.55 10^3/uL (1.8-7.7); Neutrophils % 69.4 %; Nucleated Red Blood Cells % 0 %; Platelet Count 209 10^3/cmm (130-400); Red Blood Count 3.67 10^6/uL (4.1-5.3); Red Cell Distribution Width 14.1 % (12.1-15.1); White Blood Count 6.6 10^3/uL (4.0-10.0)
[2021-02-13 05:01] LABS: Anion Gap 13.6 (5-19); Blood Urea Nitrogen 9 mg/dL (8-23); Calcium 7.8 mg/dL (8.5-10.5); Carbon Dioxide 24 mmol/L (22-29); Chloride 107 mmol/L (98-107); Creatinine Clr Calc Pharmacy 47.3319; Glucose 117 mg/dL (65-115); Magnesium 1.8 mg/dL (1.7-2.3); Osmolality Calculated 292 mOsm/kg (285-295); Potassium 3.6 mmol/L (3.5-5.1); Sodium 141 mmol/L (136-145)
[2021-02-13] MEDS: oxyCODONE 5 mg IR Tab/Cap PO ×4 (06:42→21:06)
--- NOTE | 2021-02-13 08:00 | ECG_ITS ---
[facility] Test Date: 2021-02-13 Pat Name: Medina Alston Department: Room: 273 Gender: Female Director Manufacturing Engineering: : [id number] Requested By: Marcie Sepulveda Order Number: [id number] Donnie MD: Marcie Sepulveda M.D. Measurements Intervals [place] Rate: 71 P: 74 DE: 217 QRS: -62 QRSD: 157 T: 117 QT: 434 QTc: 473 Interpretive Statements SINUS RHYTHM WITH FIRST DEGREE AV BLOCK LEFT AXIS DEVIATION [QRS AXIS < -30] LEFT BUNDLE BRANCH BLOCK [120+ ms QRS DURATION, 80+ ms Q/S IN V1/V2, 85+ ms R IN I/aVL/V5/V6] Compared to ECG 02/12/2021 07:12:08 No significant changes Electronically Signed On 02-14-2021 16:58:21 VETERAN APPEALS REVIEWER by Marcie Sepulveda M.D. [id number]
[2021-02-13] MEDS: iron polysaccharide complex 150 mg Capsule PO ×2 (09:05→16:18)
[2021-02-13] MEDS: multivitamin therapeutic Tablet 1 TAB PO (09:05)
[2021-02-13] MEDS: sennosides-docusate Tablet 2 TAB PO ×2 (09:05→16:18)
[2021-02-13] MEDS: atorvastatin 40 mg Tablet 20 MG PO (09:06)
[2021-02-13] MEDS: potassium chloride ER 20 mEq Tablet PO (09:06)
[2021-02-13] MEDS: acetaminophen 500 mg Tablet 1000 MG PO ×2 (09:06→16:18)
[2021-02-13] MEDS: magnesium lactate 84 mg Tablet PO (09:06)
[2021-02-13] MEDS: pantoprazole DR 40 mg Tablet PO ×2 (09:07→16:18)
[2021-02-13] MEDS: calcium carbonate 500 mg Chew Tablet 1000 MG PO ×2 (09:07→16:18)
[2021-02-13] MEDS: levothyroxine 75 mcg Tablet PO (09:07)
[2021-02-13] MEDS: cholecalciferol (vitamin D3) 1,000 unit Tablet 1000 UNIT PO (09:08)
--- NOTE | 2021-02-13 09:40 | PC.SOCIAL ---
IMM Update pg 2 of IMM updated and reviewed w/ patient. Copy provided.
[2021-02-13] MEDS: mupirocin oint 22 gm 1 APPLIC NASAL ×2 (10:03→16:23)
[2021-02-13] MEDS: chlorhexidine gluconate 0.12% Btl 473 mL 30 ML MUCOUS MEM ×3 (10:04→20:37)
--- NOTE | 2021-02-13 16:18 | PM.PN ---
Subjective Subjective: Interval history: Seen this morning. Patient states she feels a little bit better compared to before but states is good ready to go to a assisted for rehab. Her clonidine also arrived today from home. We will restart that today. No acute events overnight. He does not report any other issues today. Vitals/I&O/Wt Last Vital Signs Temp 98.4 F 02/13/21 16:00 Pulse 77 02/13/21 16:00 Resp 18 02/13/21 16:00 BP 100/68 02/13/21 16:00 Pulse Ox 97 02/13/21 16:00 Physical Exam Narrative: EXAM NARRATIVE: General: Alert oriented x3, patient seen laying in bed appearing comfortable at this time. HEENT: Normocephalic, atraumatic, EOMI, breathing on room air, missing a lot of teeth Cardio: Regular rate rhythm, normal S1-S2, no murmurs Respiratory: Good bilateral air entry, no wheezes no rhonchi appreciated GI: Abdomen soft, nontender, nondistended, bowel sounds + Behavior: Appropriate and cooperative Extremities: Pulses 2+, no edema, no cyanosis, small area of ecchymosis that medial right thigh area. Area minimally tender to palpation. Urinary Catheter Management^: Hess: Cath Placed During This Visit: yes, but has since been removed by the nurse Reason for Continuing Indwelling Catheter: Not indwelling catheter Urinary Catheter Date of Insertion: 02/10/21 Urinary Catheter Time of Insertion: 16:10 Date Urinary Catheter Removed: 02/12/21 Time Urinary Catheter Discontinued: 18:12 Data : 02/13/21 03:27 02/13/21 03:27 A&P Assessment and plan (1) Subcapital fracture of right hip: Status: Acute Qualifiers: Encounter type: initial encounter Fracture type: closed Qualified Code(s): S72.011A - Unspecified intracapsular fracture of right femur, initial encounter for closed fracture (2) Closed hip fracture: Status: Acute (3) Fall: Status: Acute (4) Elevated CK: Status: Acute Additional A&P Information #Mechanical fall with hip fracture on right side s/p surgery POD2 #History of Brugada syndrome, left bundle branch block, Cardiology on board. Pansystolic murmur Takes quinidine at home 3 times a day. Not getting during this hospital stay since it is nonformulary and patient did not bring it from home. She has informed her family however will bring it in tomorrow morning. History of cardiac arrest 1986 Plan Patient seen by cardiology. Recommend to monitor on telemetry for 24-36 hours post op. Echo shows: severe pulm HTN, normal LVEF, no regional wall motion abnormalities QTc 495, 521, QTc prolongation noted Troponin slightly elevated without significant delta Continue antiarrhythmic medication for now, will follow up with Dr. Sepulveda's recommendation. Avoid BB, reglan. She is now s/p surgery., Postop day 3. Physical therapy recommended rehab. Allergic to NSAIDS, unsure about aspirin. WIll discuss with patient for DVT ppx after surgery. Discussed with patient in detail and she is not interested in taking aspirin or any other NSAIDs since she had a GI bleed where she had to be hospitalized. Hemoglobin has been stable. I will place her on Lovenox 40 subcu daily and cover her for a total of 3 weeks. Continue to monitor in hospital. Continue to monitor on telemetry. Continue quinidine home dose. Discussed with cardiology. If everything looking okay on telemetry by tomorrow she may go to her assisted. She is pending placement.. Please get cardiac clearance before discharging the patient DVT prophylaxis: SCDs Code status: DNR/DNI. She carries high risk for perioperative complications, this was conveyed to the patient and her family by admitting physician., Perioperative complication risk is high because of her underlying multiple comorbid conditions such as SLE, left bundle branch, Brugada, deconditioning Attestations Medical Necessity Statement*: >24 hr stay, pending placement Coding Level of Care Code Acute Crimping Press Operator for Jens Wheeler Diagnoses Subcapital fracture of right hip S72.011A Encounter type: initial encounter Fracture type: closed Closed hip fracture S72.009A Fall W19.XXXA Elevated CK R74.8
[2021-02-13] MEDS: enoxaparin 40 mg/0.4 mL Syringe SUBCUT (16:20)
--- NOTE | 2021-02-13 17:38 | PM.PN ---
Subjective Subjective: Interval history: No new complaints. Medications: Reviewed: Yes Vitals/I&O/Wt Last Vital Signs Temp 98.4 F 02/13/21 16:00 Pulse 77 02/13/21 16:00 Resp 18 02/13/21 16:19 BP 100/68 02/13/21 16:00 Pulse Ox 97 02/13/21 16:00 Physical Exam Narrative: EXAM NARRATIVE: GENERAL: Pleasant elderly lady laying in bed in no acute distress HEENT: No pallor or icterus. NECK: No JVD, No carotid bruit. CARDIOVASCULAR SYSTEM: S1-S2 regular. Systolic murmur LLSB+ RESPIRATORY SYSTEM: Chest clear to auscultation. No wheezes heard. No use of accessory muscles. EXTREMITIES: No cyanosis or edema. Right hip dressing present OFFICE CASHIER: Patient is alert oriented ?3. Urinary Catheter Management^: Hess: Cath Placed During This Visit: yes, but has since been removed by the nurse Reason for Continuing Indwelling Catheter: Not indwelling catheter Urinary Catheter Date of Insertion: 02/10/21 Urinary Catheter Time of Insertion: 16:10 Date Urinary Catheter Removed: 02/12/21 Time Urinary Catheter Discontinued: 18:12 Data : 02/13/21 03:27 02/13/21 03:27 A&P Assessment and plan (1) Pre-operative cardiovascular examination: No records obtained and echo showed normal LV function, mild and moderate TR. SEvere pHTN. -Patient did well with hip sx. Last Lexiscan sestamibi myocardial perfusion imaging in July 2019 was normal (records were obtained from [facility] and reviewed). -PT and postop management as per primary team. -placement as per primary team. Status: Acute (2) Subcapital fracture of right hip: Mechanical fall. POD #3 Status: Acute Qualifiers: Encounter type: initial encounter Fracture type: closed Qualified Code(s): S72.011A - Unspecified intracapsular fracture of right femur, initial encounter for closed fracture (3) Brugada syndrome: She used to be on quinidine 324 mg 3 times a day the dose was was decreased to twice a day last year. -Unfortunately quinidine is unavailable at our pharmacy and in spite of multiple attempts her family member was unable to bring quinidine yesterday . -Restarted quinidine 324 mg twice daily this morning (once her family member was able to bring it.) -I will sign off. -f/u in 1 month in [facility]. Status: Acute (4) LBBB (left bundle branch block): Chronic Status: Acute Additional A&P Information First-degree AV block History of SVT Hypertension Hypothyroidism Gastroesophageal reflux disease History of anal cancer status post surgery History of lupus Osteoarthritis Anxiety History of CVA Thank you like me to participate in patient's care. Please feel free to call with questions or concerns. Attestations Medical Necessity Statement*: As per primary team Time Spent in Patient Care: 16 - 35 minutes (>than 50% of time spent in counselling and/or direct pt care on unit). Coding Level of Care Code Acute Behaviour Support Teacher for Jens Wheeler Diagnoses Pre-operative cardiovascular examination Z01.810 Subcapital fracture of right hip S72.011A Encounter type: initial encounter Fracture type: closed Brugada syndrome I49.8 LBBB (left bundle branch block) I44.7
--- NOTE | 2021-02-13 18:54 | PC.NURSE ---
Shift report received from Kimberly ESTRADA. Patient awake in bed/watching TV. IV patent/SL. Foot pumps bilaterally. Rates pain at a 4/10. No needs voiced at this time.
[2021-02-13] MEDS: duloxetine 60 mg Capsule PO (20:35)
[2021-02-13] MEDS: duloxetine 30 mg Capsule PO (20:36)
--- NOTE | 2021-02-13 23:19 | PC.NURSE ---
Patient resting at this time. No s/s of pain or discomfort.
[2021-02-14] VITALS (13 sets, daily range): BP systolic 118–134; BP diastolic 68–77; PULSE 72–87; RESP 16–20; TEMP 36.4–37.2; O2SAT 94–98
[2021-02-14] MEDS: oxyCODONE 5 mg IR Tab/Cap PO ×5 (03:59→21:40)
--- NOTE | 2021-02-14 06:09 | PC.NURSE ---
patient sleeping / no s/s of pain or discomfort at this time
[2021-02-14 06:25] LABS: Basophils % 0.5 %; Eosinophils # 0.3 10^3/uL (0.0-0.8); Eosinophils % 4.5 %; Lymphocytes # 0.8 10^3/uL (0.8-4.8); Lymphocytes % 12.5 %; Mean Corpuscular HGB Conc 32.4 g/dL (30.0-36.0); Mean Corpuscular Hemoglobin 30.4 pg (28.0-34.0); Mean Corpuscular Volume 93.9 fl (81-99); Mean Platelet Volume 9.2 fL (7.4-10.4); Monocytes # 0.8 10^3/uL (0.2-0.9); Monocytes % 11.6 %; Neutrophils # 4.52 10^3/uL (1.8-7.7); Neutrophils % 69.7 %; Nucleated Red Blood Cells % 0 %; Platelet Count 245 10^3/cmm (130-400); Red Blood Count 3.62 10^6/uL (4.1-5.3); Red Cell Distribution Width 14.1 % (12.1-15.1); White Blood Count 6.5 10^3/uL (4.0-10.0)
[2021-02-14 06:46] LABS: Anion Gap 12.7 (5-19); Blood Urea Nitrogen 11 mg/dL (8-23); Calcium 7.9 mg/dL (8.5-10.5); Carbon Dioxide 24 mmol/L (22-29); Chloride 106 mmol/L (98-107); Glucose 112 mg/dL (65-115); Magnesium 1.9 mg/dL (1.7-2.3); Osmolality Calculated 288 mOsm/kg (285-295); Potassium 3.7 mmol/L (3.5-5.1); Sodium 139 mmol/L (136-145)
[2021-02-14 06:57] LABS: Creatinine Clr Calc Pharmacy 47.3319
[2021-02-14] MEDS: acetaminophen 500 mg Tablet 1000 MG PO ×2 (08:34→17:14)
[2021-02-14] MEDS: calcium carbonate 500 mg Chew Tablet 1000 MG PO ×2 (08:34→17:13)
[2021-02-14] MEDS: sennosides-docusate Tablet 2 TAB PO ×2 (08:34→17:14)
[2021-02-14] MEDS: potassium chloride ER 20 mEq Tablet PO (08:35)
[2021-02-14] MEDS: levothyroxine 75 mcg Tablet PO (08:35)
[2021-02-14] MEDS: iron polysaccharide complex 150 mg Capsule PO ×2 (08:35→17:14)
[2021-02-14] MEDS: pantoprazole DR 40 mg Tablet PO ×2 (08:35→17:14)
[2021-02-14] MEDS: cholecalciferol (vitamin D3) 1,000 unit Tablet 1000 UNIT PO (08:35)
[2021-02-14] MEDS: magnesium lactate 84 mg Tablet PO (08:35)
[2021-02-14] MEDS: atorvastatin 40 mg Tablet 20 MG PO (08:36)
[2021-02-14] MEDS: chlorhexidine gluconate 0.12% Btl 473 mL 30 ML MUCOUS MEM ×3 (08:37→17:18)
[2021-02-14] MEDS: mupirocin oint 22 gm 1 APPLIC NASAL ×2 (08:39→17:18)
[2021-02-14] MEDS: multivitamin therapeutic Tablet 1 TAB PO (08:51)
--- NOTE | 2021-02-14 13:01 | PM.PN ---
Subjective Subjective: Interval history: Seen this AM. She is pending penitentiary placement. Quinidine restarted 02/13. Cardiology has signed off. She offers no complaints today. Vitals/I&O/Wt Last Vital Signs Temp 98.4 F 02/14/21 07:20 Pulse 83 02/14/21 08:35 Resp 18 02/14/21 08:39 BP 126/75 02/14/21 07:20 Pulse Ox 94 02/14/21 08:35 02/13/21 02/14/21 02/14/21 22:59 06:59 14:59 Intake Total 120 / 120 Output Total 200 / 650 Balance -80 / -530 Physical Exam Narrative: EXAM NARRATIVE: General: Alert oriented x3, patient seen laying in bed appearing comfortable at this time. HEENT: Normocephalic, atraumatic, EOMI, breathing on room air, missing a lot of teeth Cardio: Regular rate rhythm, normal S1-S2, no murmurs Respiratory: Good bilateral air entry, no wheezes no rhonchi appreciated GI: Abdomen soft, nontender, nondistended, bowel sounds + Behavior: Appropriate and cooperative Extremities: Pulses 2+, no edema, no cyanosis, small area of ecchymosis that medial right thigh area. Area minimally tender to palpation. Urinary Catheter Management^: Hess: Cath Placed During This Visit: yes, but has since been removed by the nurse Reason for Continuing Indwelling Catheter: Not indwelling catheter Urinary Catheter Date of Insertion: 02/10/21 Urinary Catheter Time of Insertion: 16:10 Date Urinary Catheter Removed: 02/12/21 Time Urinary Catheter Discontinued: 18:12 Data : 02/14/21 05:20 02/14/21 05:20 A&P Assessment and plan (1) Subcapital fracture of right hip: Status: Acute Qualifiers: Encounter type: initial encounter Fracture type: closed Qualified Code(s): S72.011A - Unspecified intracapsular fracture of right femur, initial encounter for closed fracture (2) Closed hip fracture: Status: Acute (3) Fall: Status: Acute (4) Elevated CK: Status: Acute Additional A&P Information #Mechanical fall with hip fracture on right side s/p surgery POD2 #History of Brugada syndrome, left bundle branch block, Cardiology on board. Pansystolic murmur Takes quinidine at home twice a day. Pt unable to get quinidine for 3 days due to family member not able to bring it in. However it was brought in on 02/13 and restarted at bid dosing after discussion with cardiology. History of cardiac arrest 1986 Plan Patient seen by cardiology. Recommend to monitor on telemetry for 24-36 hours post op. Cardiology has signed off. Echo shows: severe pulm HTN, normal LVEF, no regional wall motion abnormalities QTc 495, 521, QTc prolongation noted at admission.. Physical therapy recommended rehab. Pending placement. Lovenox 40 subcu daily and cover her for a total of 3 weeks for DVT PPX after hip surgery. Pt in agreement. Continue to monitor in hospital. Continue to monitor on telemetry. Continue quinidine home dose at BID after discussion with cardiology. Pt pending placement. DVT prophylaxis: SCDs , lovenox 40 daily. Code status: DNR/DNI. Attestations Medical Necessity Statement*: Pending penitentiary placement. Coding Level of Care Code Acute Ditch Rider for Jens Wheeler Diagnoses Subcapital fracture of right hip S72.011A Encounter type: initial encounter Fracture type: closed Closed hip fracture S72.009A Fall W19.XXXA Elevated CK R74.8
--- NOTE | 2021-02-14 14:01 | PM.PN ---
Subjective Subjective: Interval history: Seen this AM. She is pending intermediate placement. Quinidine restarted 02/13. Cardiology has signed off. She offers no complaints today. She seems in good spirits. Medications: Reviewed: Yes Vitals/I&O/Wt Last Vital Signs Temp 98.4 F 02/14/21 07:20 Pulse 83 02/14/21 08:35 Resp 18 02/14/21 13:09 BP 126/75 02/14/21 07:20 Pulse Ox 94 02/14/21 08:35 02/13/21 02/14/21 02/14/21 22:59 06:59 14:59 Intake Total 120 / 120 Output Total 200 / 650 Balance -80 / -530 Physical Exam Const: COMMON NORMALS: no acute distress, average body habitus, patient oriented x3 and alert GENERAL APPEARANCE: cooperative and comfortable ORIENTATION/CONSCIOUSNESS: Yes awake HENMT: COMMON NORMALS: normocephalic and atraumatic HEAD & SCALP: normocephalic and atraumatic Eye: GENERAL EYE: appearance normal, both eyes and all related structures Chest: COMMONS NORMALS: normal inspection of the chest Resp: COMMON NORMALS: normal respiratory effort EFFORT & INSPECTION: Yes able to speak in complete sentences and Yes symmetric chest movement Extremity: RIGHT LOWER EXTREMITY: Yes hip joint (Thigh is soft and nontender.) Right hip: Yes inspection (No ecchymosis.), Yes palpation (Minimal tenderness), Yes ROM (Not evaluated) and Yes neurovascular exam (Intact) Neuro: COMMON NORMALS: patient oriented x3 SENSORIUM/ORIENTATION: Yes alert Psych: COMMON NORMALS: mental status grossly normal APPEARANCE: Yes grossly normal ATTITUDE: Yes calm and Yes engaged ATTENTION/CONCENTRATION: Yes attention grossly intact Skin: COMMON NORMALS: no rashes or lesions noted GENERAL SKIN EXAM: no rashes or lesions noted Urinary Catheter Management^: Hess: Cath Placed During This Visit: yes, but has since been removed by the nurse Reason for Continuing Indwelling Catheter: Not indwelling catheter Urinary Catheter Date of Insertion: 02/10/21 Urinary Catheter Time of Insertion: 16:10 Date Urinary Catheter Removed: 02/12/21 Time Urinary Catheter Discontinued: 18:12 Data : 02/14/21 05:20 02/14/21 05:20 A&P Assessment and plan (1) Subcapital fracture of right hip: The patient continues to do well. She continues to work with physical therapy, but she states that she now recognizes her issues with being able to manage at home. She notes that she does feel improved when compared with preoperative pain level. She did have some difficulty attempting to get up with physical therapy, but she continues to improve with each session. She is encouraged. She is willing to spend time in the hospital until she is functional and independent, and I am in agreement with this. She has also considered longterm at the time of discharge as she has concerns about returning home. At this point, she is not strong enough to be able to return home. I have written a discharge order from my perspective as she may be discharged when she works with physical therapy and is felt to be ambulatory and safe. Status: Acute Qualifiers: Encounter type: initial encounter Fracture type: closed Qualified Code(s): S72.011A - Unspecified intracapsular fracture of right femur, initial encounter for closed fracture Attestations Medical Necessity Statement*: Ongoing inpatient needs secondary to deconditioning and inability to aggressively participate with physical therapy. Coding Level of Care Code Acute Insulation Batting Machine Operator for Jens Wheeler Diagnoses Subcapital fracture of right hip S72.011A Encounter type: initial encounter Fracture type: closed
[2021-02-14] MEDS: enoxaparin 40 mg/0.4 mL Syringe SUBCUT (17:13)
[2021-02-14] MEDS: duloxetine 60 mg Capsule PO (21:29)
[2021-02-14] MEDS: duloxetine 30 mg Capsule PO (21:29)
[2021-02-14] MEDS: lanolin oint 7 gm 1 APPLIC TOPICAL (21:40)
[2021-02-15] VITALS (15 sets, daily range): BP systolic 127–151; BP diastolic 64–85; PULSE 64–98; RESP 16–19; TEMP 36.4–37; O2SAT 95–98
[2021-02-15] MEDS: acetaminophen 500 mg Tablet 1000 MG PO ×4 (01:06→23:36)
[2021-02-15] MEDS: oxyCODONE 5 mg IR Tab/Cap PO ×3 (02:30→10:42)
[2021-02-15 06:17] LABS: Basophils % 0.8 %; Eosinophils # 0.3 10^3/uL (0.0-0.8); Eosinophils % 5.9 %; Hematocrit 33.7 % (37.0-47.0); Hemoglobin 11.1 g/dL (11.5-15.3); Lymphocytes % 18.9 %; Mean Corpuscular HGB Conc 32.9 g/dL (30.0-36.0); Mean Corpuscular Hemoglobin 30.7 pg (28.0-34.0); Mean Corpuscular Volume 93.4 fl (81-99); Mean Platelet Volume 8.9 fL (7.4-10.4); Monocytes # 0.6 10^3/uL (0.2-0.9); Monocytes % 12.2 %; Neutrophils # 3.17 10^3/uL (1.8-7.7); Neutrophils % 60.7 %; Nucleated Red Blood Cells % 0 %; Platelet Count 265 10^3/cmm (130-400); Red Blood Count 3.61 10^6/uL (4.1-5.3); Red Cell Distribution Width 13.9 % (12.1-15.1); White Blood Count 5.2 10^3/uL (4.0-10.0)
[2021-02-15 06:31] LABS: Anion Gap 14.9 (5-19); Blood Urea Nitrogen 10 mg/dL (8-23); Calcium 7.8 mg/dL (8.5-10.5); Carbon Dioxide 23 mmol/L (22-29); Chloride 106 mmol/L (98-107); Creatinine Clr Calc Pharmacy 47.3319; Glucose 102 mg/dL (65-115); Magnesium 1.9 mg/dL (1.7-2.3); Osmolality Calculated 289 mOsm/kg (285-295); Potassium 3.9 mmol/L (3.5-5.1); Sodium 140 mmol/L (136-145)
[2021-02-15] MEDS: levothyroxine 75 mcg Tablet PO (08:13)
[2021-02-15] MEDS: iron polysaccharide complex 150 mg Capsule PO (08:13)
[2021-02-15] MEDS: pantoprazole DR 40 mg Tablet PO ×2 (08:13→17:52)
[2021-02-15] MEDS: potassium chloride ER 20 mEq Tablet PO (08:13)
[2021-02-15] MEDS: multivitamin therapeutic Tablet 1 TAB PO (08:14)
[2021-02-15] MEDS: magnesium lactate 84 mg Tablet PO (08:14)
[2021-02-15] MEDS: sennosides-docusate Tablet 2 TAB PO ×2 (08:14→17:52)
[2021-02-15] MEDS: calcium carbonate 500 mg Chew Tablet 1000 MG PO (08:14)
[2021-02-15] MEDS: atorvastatin 40 mg Tablet 20 MG PO (08:14)
[2021-02-15] MEDS: cholecalciferol (vitamin D3) 1,000 unit Tablet 1000 UNIT PO (08:15)
[2021-02-15] MEDS: mupirocin oint 22 gm 1 APPLIC NASAL ×2 (08:20→17:50)
--- NOTE | 2021-02-15 08:21 | PC.NURSE ---
Patient refuses scheduled morning dose of perigard states, It dries out my mouth, I cannot tolerate it.
--- NOTE | 2021-02-15 10:46 | PC.NURSE ---
DANITZA Abdi reports to this nurse patient pulled IV out, this nurse in to see patient states, I do not want another IV, it is a source for infection. Dr. Abbott notified and okay with patient not having a new IV placed.
--- NOTE | 2021-02-15 11:36 | PC.SOCIAL ---
IMM update IMM updated with patient. Copy Pg 2 provided. Verbalized an understanding. Initialled, dated, timed, and placed in chart.
--- NOTE | 2021-02-15 11:57 | P.PN_ITS ---
Subjective Subjective: Interval history: Patient is stating that she does not feel like eating breakfast, she is constipated, passing excessive flatus, will give her bowel regimen this morning, she wants to avoid enema because of her cancer history Vitals/I&O/Wt Last Vital Signs Temp 98.2 F 02/15/21 07:18 Pulse 68 02/15/21 07:18 Resp 16 02/15/21 10:42 BP 145/77 02/15/21 07:18 Pulse Ox 95 02/15/21 07:18 02/14/21 02/15/21 02/15/21 22:59 06:59 14:59 Intake Total 120 / 120 Output Total 200 / 750 400 / 1150 Balance -80 / -630 -400 / -1030 Physical Exam Narrative: EXAM NARRATIVE: Patient was laying supine Abdomen is soft Bowel sounds hyperactive No signs of rigidity or peritonitis Doing well on room air Clinical looks slightly dehydrated No hip pain EOMI, PERRLA No audible stridor or wheezing Urinary Catheter Management^: Hess: Cath Placed During This Visit: yes, but has since been removed by the nurse Reason for Continuing Indwelling Catheter: Not indwelling catheter Urinary Catheter Date of Insertion: 02/10/21 Urinary Catheter Time of Insertion: 16:10 Date Urinary Catheter Removed: 02/12/21 Time Urinary Catheter Discontinued: 18:12 Data : 02/15/21 05:54 02/15/21 05:54 A&P Assessment and plan (1) LBBB (left bundle branch block): Status: Acute (2) Brugada syndrome: Status: Acute (3) Closed hip fracture: Status: Acute (4) Fall: Status: Acute (5) Elevated CK: Status: Acute (6) Subcapital fracture of right hip: Status: Acute Qualifiers: Encounter type: initial encounter Fracture type: closed Qualified Code(s): S72.011A - Unspecified intracapsular fracture of right femur, initial encounter for closed fracture Additional A&P Information Hip fracture status post intervention No postoperative or perioperative complications Started quinidine for her Brugada syndrome, she will follow up with radio/tv technician in a month Appreciate cardiology recommendations 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
[2021-02-15] MEDS: magnesium hydroxide 30 mL UDC 15 ML PO (12:11)
[2021-02-15] MEDS: lactulose oral liq 20 gm/30 mL UDC PO (12:11)
[2021-02-15] MEDS: enoxaparin 40 mg/0.4 mL Syringe SUBCUT (15:05)
[2021-02-15] MEDS: morphine IR 15 mg Tablet PO ×2 (17:50→22:15)
[2021-02-15] MEDS: magnesium oxide 400 mg tablet PO (17:51)
[2021-02-15] MEDS: duloxetine 60 mg Capsule PO (20:29)
[2021-02-15] MEDS: duloxetine 30 mg Capsule PO (20:31)
[2021-02-15] MEDS: acetaminophen 500 mg Tablet PO (20:32)
--- NOTE | 2021-02-15 21:09 | PM.PN ---
Subjective Subjective: Interval history: Patient continues to work with physical therapy. She is preparing for discharge to assisted, but we are still waiting approval. Medications: Reviewed: Yes Vitals/I&O/Wt Last Vital Signs Temp 97.7 F 02/15/21 20:00 Pulse 98 02/15/21 20:00 Resp 18 02/15/21 20:00 BP 148/85 02/15/21 20:00 Pulse Ox 98 02/15/21 20:00 02/15/21 02/15/21 02/15/21 06:59 14:59 22:59 Intake Total 236 / 236 Output Total 400 / 1150 Balance -400 / -1030 236 / 236 Physical Exam Const: COMMON NORMALS: no acute distress, average body habitus, patient oriented x3 and alert GENERAL APPEARANCE: cooperative and comfortable ORIENTATION/CONSCIOUSNESS: Yes awake HENMT: COMMON NORMALS: normocephalic and atraumatic HEAD & SCALP: normocephalic and atraumatic Eye: GENERAL EYE: appearance normal, both eyes and all related structures Chest: COMMONS NORMALS: normal inspection of the chest Resp: COMMON NORMALS: normal respiratory effort EFFORT & INSPECTION: Yes able to speak in complete sentences and Yes symmetric chest movement Extremity: RIGHT LOWER EXTREMITY: Yes hip joint (Dressings are dry and intact) Right hip: Yes inspection (No ecchymosis), Yes palpation (Soft with minimal tenderness), Yes ROM (Not evaluated) and Yes neurovascular exam (Intact distally with no DVT) LEFT LOWER EXTREMITY: Yes hip joint Neuro: COMMON NORMALS: patient oriented x3 SENSORIUM/ORIENTATION: Yes alert Psych: COMMON NORMALS: mental status grossly normal APPEARANCE: Yes grossly normal ATTITUDE: Yes calm and Yes engaged ATTENTION/CONCENTRATION: Yes attention grossly intact Skin: COMMON NORMALS: no rashes or lesions noted GENERAL SKIN EXAM: no rashes or lesions noted Urinary Catheter Management^: Hess: Cath Placed During This Visit: yes, but has since been removed by the nurse Reason for Continuing Indwelling Catheter: Not indwelling catheter Urinary Catheter Date of Insertion: 02/10/21 Urinary Catheter Time of Insertion: 16:10 Date Urinary Catheter Removed: 02/12/21 Time Urinary Catheter Discontinued: 18:12 Data : 02/15/21 05:54 02/15/21 05:54 A&P Assessment and plan (1) Subcapital fracture of right hip: The patient continues to do well. She continues to work with physical therapy, but she states that she now recognizes her issues with being able to manage at home. She notes that she does feel improved when compared with preoperative pain level. She did have some difficulty attempting to get up with physical therapy, but she continues to improve with each session. She is encouraged. She is willing to spend time in the hospital until she is functional and independent, and I am in agreement with this. She has agreed to assisted at the time of discharge as she has concerns about returning home. At this point, she is not strong enough to be able to return home. I have written a discharge order from my perspective as she may be discharged when she works with physical therapy and is felt to be ambulatory and safe. Status: Acute Qualifiers: Encounter type: initial encounter Fracture type: closed Qualified Code(s): S72.011A - Unspecified intracapsular fracture of right femur, initial encounter for closed fracture Attestations Medical Necessity Statement*: Ongoing physical therapy is for safety and improvement in independence. Coding Level of Care Code Acute Trauma Registrar for Jens Wheeler Diagnoses Subcapital fracture of right hip S72.011A Encounter type: initial encounter Fracture type: closed
[2021-02-16] VITALS (7 sets, daily range): BP systolic 115–143; BP diastolic 55–78; PULSE 60–78; RESP 16–19; TEMP 36.6–37.1; O2SAT 93–97
[2021-02-16] MEDS: pantoprazole DR 40 mg Tablet PO (10:42)
[2021-02-16] MEDS: levothyroxine 75 mcg Tablet PO (10:42)
[2021-02-16] MEDS: magnesium oxide 400 mg tablet PO (10:42)
[2021-02-16] MEDS: cholecalciferol (vitamin D3) 1,000 unit Tablet 1000 UNIT PO (10:42)
[2021-02-16] MEDS: sennosides-docusate Tablet 2 TAB PO (10:42)
[2021-02-16] MEDS: potassium chloride ER 20 mEq Tablet PO (10:43)
[2021-02-16] MEDS: mupirocin oint 22 gm 1 APPLIC NASAL (10:43)
[2021-02-16] MEDS: multivitamin therapeutic Tablet 1 TAB PO (10:43)
[2021-02-16] MEDS: atorvastatin 40 mg Tablet 20 MG PO (10:43)
[2021-02-16] MEDS: acetaminophen 500 mg Tablet 1000 MG PO (10:43)
--- NOTE | 2021-02-16 10:53 | PM.DCS ---
Discharge Providers Date of Admission: 02/10/21 14:59 Date of Discharge: February 16, 2021 Attending Provider at Admission: Gil Abbott MD Attending Provider at Discharge: Gil Abbott MD Primary Care Provider: Kylee Pederson MD Diagnoses at Discharge Discharge Diagnosis (1) Subcapital fracture of right hip: Status: Acute Qualifiers: Encounter type: initial encounter Fracture type: closed Qualified Code(s): S72.011A - Unspecified intracapsular fracture of right femur, initial encounter for closed fracture Reason for Visit Reason for Visit: FALL, DEFORMITY Hospital Course Hospital Course Pt was admitted on 02/10 for management and evaluation of hip fracture. She carries history of Brugada syndrome left bundle branch block. Before surgery cardiac clearance was obtained. Patient went for surgery on 02/11. No perioperative or postoperative complications. She was resumed on her Quinidine twice daily regimen. This regimen has been recommended by motion and time study teacher at [facility]. Patient could not afford deductible for [place] expenditure hence decided to go home with home health services. She does have a walker at home. She takes potassium supplementation on daily basis, I will add magnesium as well. for dvt ppx we will add Eliquis as she has allergies to nonsteroidals. Physical Exam Narrative: EXAM NARRATIVE: Patient was laying supine Abdomen is soft Bowel sounds hyperactive No signs of rigidity or peritonitis Doing well on room air Clinical looks slightly dehydrated No hip pain EOMI, PERRLA No audible stridor or wheezing Urinary Catheter Management^: Hess: Cath Placed During This Visit: yes, but has since been removed by the nurse Reason for Continuing Indwelling Catheter: Not indwelling catheter Urinary Catheter Date of Insertion: 02/10/21 Urinary Catheter Time of Insertion: 16:10 Date Urinary Catheter Removed: 02/12/21 Time Urinary Catheter Discontinued: 18:12 Discharge Data Data Completed and Pending: Completed Studies During Hospitalization Category Date Time Status CT cervical spin wo con* [id number] Urge nt Cat Scan 02/10/21 12:[address] head wo con* 7 0450 Urgent Cat Scan 02/10/21 12:43 Completed XR chest 1V palak ble [id number] Urgent Exams 02/10/21 12:43 Completed XR hip RT 2-3V wo /w pel* [id number] Urge nt Exams 02/10/21 12:43 Completed XR pelvis 1-2V* 7 2170 Routine Exams 02/11/21 10:08 Completed CV. echo complete * [id number] Urgent Ultrasound 02/11/21 17:03 Completed Vitals: Last Vital Signs Temp 98.8 F 02/16/21 07:40 Pulse 60 02/16/21 07:40 Resp 18 02/16/21 07:40 BP 143/78 02/16/21 07:40 Pulse Ox 95 02/16/21 07:40 Discharge Plan Discharge Patient Disposition: Home Health Service Condition: Stable Prescriptions: New acetaminophen 500 mg Tablet 500 mg PO Q4H PRN (Reason: fever) Qty: 60 RF: 0 oxycodone 5 mg tablet 5 mg PO Q4H PRN (Reason: pain) 7 Days Qty: 30 RF: 0 Stool Softener-Laxative 8.6-50 mg Tablet 2 tab PO BID Qty: 30 RF: 0 magnesium oxide 400 mg magnesium tablet 400 mg PO BID Qty: 10 RF: 0 Eliquis 2.5 mg tablet 2.5 mg PO BID Qty: 28 RF: 0 Continued pravastatin 40 mg tablet 40 mg PO DAILY RF: 0 amlodipine 5 mg tablet 5 mg PO DAILY RF: 0 levothyroxine 75 mcg tablet 75 mcg PO DAILY RF: 0 quinidine gluconate 324 mg tablet extended release 324 mg PO TID RF: 0 potassium chloride 20 mEq tablet,ER particles/crystals 20 meq PO DAILY RF: 0 pantoprazole 40 mg tablet,delayed release (DR/EC) 40 mg PO BID RF: 0 duloxetine 30 mg capsule,delayed release(DR/EC) 30 mg PO DAILY RF: 0 duloxetine 60 mg capsule,delayed release(DR/EC) 60 mg PO DAILY RF: 0 Discontinued acetaminophen-codeine 300-60 mg tablet 1 tab PO Q4H PRN (Reason: Pain) RF: 0 Discharge Orders: Discharge Order (Routine); Ordered 02/16/21 Ordered By: Brittany Alford Referrals: Brittany Alford MD [Physician] - 03/03/21 3:00 pm ( MATTHEW ) Discharge Diet: Advance as tolerated and Usual diet Discharge Activity: Increase activity as tolerated, Limit activity as instructed and Use walker/crutches as instructed Patient Instructions: Oxycodone/Acetaminophen (By mouth), Laxative, Stool Softeners (By mouth), Magnesium Oxide (By mouth), Opioid Safety Activity Restrictions/Additional Instructions: Posterior hip precautions as instructed. Weight-bear as tolerated right lower extremity. Maintain clear plastic dressing. Discharge Attestations Time Spent in Discharge Care*: less than 30 min Quality Metrics Clinical Quality Measures During this hospital stay, did patient experience: None Coding Level of Care Code Acute [facility] [place] note Diagnoses Subcapital fracture of right hip S72.011A Encounter type: initial encounter Fracture type: closed
[2021-02-16] MEDS: morphine IR 15 mg Tablet PO (16:33)
--- NOTE | 2021-02-16 17:10 | PM.PN ---
Subjective Subjective: Interval history: Patient continues to work with physical therapy. She was waiting for clearance for [facility], however, she now feels that she is safe for home. Physical therapy also feels that she will be able to manage at home. She will be scheduled for home PT. Medications: Reviewed: Yes Vitals/I&O/Wt Last Vital Signs Temp 98.5 F 02/16/21 15:37 Pulse 75 02/16/21 15:37 Resp 16 02/16/21 16:33 BP 124/73 02/16/21 15:37 Pulse Ox 97 02/16/21 15:37 02/16/21 02/16/21 02/16/21 06:59 14:59 22:59 Intake Total 360 / 596 540 / 540 Balance 360 / 596 540 / 540 Physical Exam Const: COMMON NORMALS: no acute distress, average body habitus, patient oriented x3 and alert GENERAL APPEARANCE: cooperative and comfortable ORIENTATION/CONSCIOUSNESS: Yes awake HENMT: COMMON NORMALS: normocephalic and atraumatic HEAD & SCALP: normocephalic and atraumatic Eye: GENERAL EYE: appearance normal, both eyes and all related structures Chest: COMMONS NORMALS: normal inspection of the chest Resp: COMMON NORMALS: normal respiratory effort EFFORT & INSPECTION: Yes able to speak in complete sentences and Yes symmetric chest movement Extremity: RIGHT LOWER EXTREMITY: Yes hip joint (Dressing is dry and intact.) Right hip: Yes inspection (No significant swelling or ecchymosis.), Yes palpation (No significant tenderness.), Yes ROM (Not evaluated.) and Yes neurovascular exam (Intact distally.) Neuro: COMMON NORMALS: patient oriented x3 SENSORIUM/ORIENTATION: Yes alert Psych: COMMON NORMALS: mental status grossly normal APPEARANCE: Yes grossly normal ATTITUDE: Yes calm and Yes engaged ATTENTION/CONCENTRATION: Yes attention grossly intact Skin: COMMON NORMALS: no rashes or lesions noted GENERAL SKIN EXAM: no rashes or lesions noted Urinary Catheter Management^: Hess: Cath Placed During This Visit: yes, but has since been removed by the nurse Reason for Continuing Indwelling Catheter: Not indwelling catheter Urinary Catheter Date of Insertion: 02/10/21 Urinary Catheter Time of Insertion: 16:10 Date Urinary Catheter Removed: 02/12/21 Time Urinary Catheter Discontinued: 18:12 Data : 02/15/21 05:54 02/15/21 05:54 A&P Assessment and plan (1) Subcapital fracture of right hip: The patient continues to do well. The patient has now decided that she wants to be discharged to home. She has had enough physical therapy and conditioning that physical therapy also feels that she is safe for discharge home. This will be arranged for her. She will follow up with me in the office as previously scheduled. She understands her posterior hip precautions. Status: Acute Qualifiers: Encounter type: initial encounter Fracture type: closed Qualified Code(s): S72.011A - Unspecified intracapsular fracture of right femur, initial encounter for closed fracture Attestations Medical Necessity Statement*: Patient is ready for discharge to [facility]. Coding Level of Care Code Acute Regional Marketing Manager for [facility] Fwd Exam Comprehensive Diagnoses Subcapital fracture of right hip S72.011A Encounter type: initial encounter Fracture type: closed
== END 2021-02-16 18:00 | disposition home health service (06) | DRG 522 ==
LOC: ER 15:46 → MEDSURG 16:25
PROVIDERS: Internal Medicine; Internal Medicine Cardiovascular Disease; Specialist; Admitting Provider Internal Medicine; Emergency Provider Emergency Medicine; PCP Family Medicine; Visit Provider Internal Medicine
PROC: 0SRR0JZ Replacement of Right Hip Joint, Femoral Surface with Synthetic Substitute, Open Approach (ICD-10-PCS; CPT 27125; principal; 2021-02-11 08:00)
DX: S72.031A Displaced midcervical fracture of right femur, initial encounter for closed fracture (principal); W01.0XXA Fall on same level from slipping, tripping and stumbling without subsequent striking against object, initial encounter; Z86.73 Personal history of transient ischemic attack (TIA), and cerebral infarction without residual deficits; I49.8 Other specified cardiac arrhythmias; I44.7 Left bundle-branch block, unspecified; I25.10 Atherosclerotic heart disease of native coronary artery without angina pectoris; Z86.74 Personal history of sudden cardiac arrest; M79.7 Fibromyalgia; I10 Essential (primary) hypertension; M32.19 Other organ or system involvement in systemic 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; F17.210 Nicotine dependence, cigarettes, uncomplicated; M19.90 Unspecified osteoarthritis, unspecified site; I34.0 Nonrheumatic mitral (valve) insufficiency; E03.9 Hypothyroidism, unspecified; I71.6 Thoracoabdominal aortic aneurysm, without rupture; I44.0 Atrioventricular block, first degree; K21.9 Gastro-esophageal reflux disease without esophagitis; Z66 Do not resuscitate; K59.00 Constipation, unspecified; I27.20 Pulmonary hypertension, unspecified; I07.1 Rheumatic tricuspid insufficiency
CPT/HCPCS: 36415; 51702; 70450; 71045; 72125; 72170; 73502; 80048; 80053; 81003; 82550; 83735; 83880; 84443; 84484; 85025; 85610; 93005; 93306; 94640; 94664; 96372; 97110; 97116; 97162; 97166; 97530; 97535; 99285; C1776; J0690; J1100; J1650; J2270; J2370; J2405; J2704; J3010; J3480; J3490; J7030; J7040

== ENCOUNTER 2021-02-18 06:00 | Outpatient (RCR) | payer MEDICARE, MEDICAID, SELFPAY | END 2021-02-18 23:59 | disposition home or self-care (01) | LOC: WPT 06:00 | PROVIDERS: PCP Family Medicine; Referring Provider Internal Medicine; Visit Provider Internal Medicine | DX: S72.011A Unspecified intracapsular fracture of right femur, initial encounter for closed fracture (principal); X58.XXXA Exposure to other specified factors, initial encounter | CPT/HCPCS: 97162 ==

== ENCOUNTER 2021-02-19 06:00 | Outpatient (RCR) | payer MEDICARE, MEDICAID, SELFPAY | END 2021-03-21 23:59 | disposition home or self-care (01) | LOC: WPT 06:00 | PROVIDERS: PCP Family Medicine; Referring Provider Internal Medicine; Visit Provider Internal Medicine | DX: S72.011D Unspecified intracapsular fracture of right femur, subsequent encounter for closed fracture with routine healing (principal); X58.XXXD Exposure to other specified factors, subsequent encounter | CPT/HCPCS: 97110; 97112; 97116; 97530 ==

== ENCOUNTER → 2021-03-03 08:14 | Outpatient (BNVA) | payer MEDICARE, MEDICAID, SELFPAY | PROVIDERS: PCP Family Medicine; Visit Provider Specialist | DX: Z47.89 Encounter for other orthopedic aftercare (principal); Z96.641 Presence of right artificial hip joint | CPT/HCPCS: 73502 ==

== ENCOUNTER 2021-03-22 06:00 | Outpatient (RCR) | payer MEDICARE, MEDICAID, SELFPAY | END 2021-04-18 23:59 | disposition home or self-care (01) | LOC: WPT 06:00 | PROVIDERS: PCP Family Medicine; Referring Provider Internal Medicine; Visit Provider Internal Medicine | DX: S72.011D Unspecified intracapsular fracture of right femur, subsequent encounter for closed fracture with routine healing (principal); X58.XXXD Exposure to other specified factors, subsequent encounter | CPT/HCPCS: 97110; 97112; 97116; 97164; 97530 ==

== ENCOUNTER 2021-04-19 06:00 | Outpatient (RCR) | payer MEDICARE, MEDICAID, SELFPAY | END 2021-05-19 23:59 | disposition home or self-care (01) | LOC: WPT 06:00 | PROVIDERS: PCP Family Medicine; Referring Provider Internal Medicine; Visit Provider Internal Medicine | DX: S72.011D Unspecified intracapsular fracture of right femur, subsequent encounter for closed fracture with routine healing (principal); X58.XXXD Exposure to other specified factors, subsequent encounter | CPT/HCPCS: 97110; 97112; 97530 ==

== ENCOUNTER 2021-05-20 06:00 | Outpatient (RCR) | payer MEDICARE, MEDICAID, SELFPAY | END 2021-06-18 23:59 | disposition home or self-care (01) | LOC: WPT 06:00 | PROVIDERS: PCP Family Medicine; Referring Provider Internal Medicine; Visit Provider Internal Medicine | DX: S72.011D Unspecified intracapsular fracture of right femur, subsequent encounter for closed fracture with routine healing (principal) | CPT/HCPCS: 97110; 97112; 97530 ==

== ENCOUNTER 2021-06-19 06:00 | Outpatient (RCR) | payer MEDICARE, MEDICAID, SELFPAY | END 2021-07-19 23:59 | disposition home or self-care (01) | LOC: WPT 06:00 | PROVIDERS: PCP Family Medicine; Referring Provider Internal Medicine; Visit Provider Internal Medicine | DX: S72.011A Unspecified intracapsular fracture of right femur, initial encounter for closed fracture (principal) | CPT/HCPCS: 97110; 97112; 97164; 97530 ==

== ENCOUNTER 2021-07-07 10:01 | Emergency (ER) | payer MEDICARE, MEDICAID, SELFPAY ==
[2021-07-07 10:07] VITALS: BP 111/52; PULSE 63; RESP 16; TEMP 36.4; O2SAT 97
--- NOTE | 2021-07-07 10:13 | W.ED.NEUROSD ---
HPI - Neuro Symptoms/Deficit General: Chief Complaint: General Medical Stated Complaint: L SIDED FACIAL NUMBNESS Time Seen by Provider: 07/07/21 10:10 Source: patient Mode of arrival: ambulatory Limitations: no limitations History of Present Illness: 85-year-old female presents emergency room complaining of left-sided facial weakness on the lower side and some pain anterior to her ear. Is been going on for several days she is concerned about poor blood flow in her head. She is to relates that because when she had pain in her legs they told her it was because of poor blood flow in her legs. She denies any chest pain or shortness of breath no difficulty speaking or swallowing. No change in vision. She has been able to walk without difficulty no ataxia no falls. Onset (ago): day(s) (-) Location: left face (Lower face only) History of same: No Severity: mild Quality: weak and tingling Relieving factors: none Exacerbating factors: none Context: sudden onset Associated symptoms: Deny chest pain, cough, diaphoresis, fevers/chills, headache(s), anorexia, malaise, nausea, seizures, short of breath, syncope, tingling, vertigo, vomiting or weakness Treatments Prior to Arrival: none Review of Systems Const: Denies: fever(s), chills, body aches, malaise or diaphoresis ENMT: Denies: throat pain, ear or mastoid pain, nasal discharge or nasal congestion Card: Denies: chest pain or syncope Resp: Denies: dyspnea, productive cough or non-productive cough GI: Denies: nausea or vomiting : Denies: flank pain, difficulty voiding, dysuria, urinary frequency or urinary urgency Musc: Denies: neck pain or back pain Skin/Breast: Denies: rash or pruritus Neuro: Denies: headache(s) or vertigo PFSH ED PFSH: Medical History Brugada syndrome CAD (coronary artery disease) Cardiac arrest 1985 Closed hip fracture CVA (cerebral vascular accident) Elevated CK Fall Fibromyalgia HTN (hypertension) LBBB (left bundle branch block) burgada syndrome Lymphocytic colitis Pre-operative cardiovascular examination SLE (systemic 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) w NURSING INFORMATION SYSTEMS COORDINATOR involvement Subcapital fracture of right hip (02/10/21) Surgical History H/O: hysterectomy History of appendectomy Hx of cholecystectomy Family History Other Family history non-contributory Social History Smoking and tobacco status: never smoked Housing: [place] NIH stroke score NIHSS: Level Of Consciousness - 1a: 0 Level Of Consciousness Questions - 1b: Both Correct Level Of Consciousness Commands - 1c: Both Correct Best Gaze - 2: Normal Visual Coughlin - 3: No Visual Loss Facial Palsy - 4: Minor Paralysis Motor Arm Right - 5: No Drift Motor Arm Left - 5: No Drift Motor Leg Right - 6: No Drift Motor Leg Left - 6: No Drift Limb Ataxia - 7: Absent Sensory - 8: Normal Best Language - 9: No Aphasia Dysarthia - 10: Normal Extinction And Inattention - 11: 0 Score: Total Score: 1 Physical Exam Const: COMMON NORMALS: no acute distress GENERAL APPEARANCE: cooperative and comfortable ORIENTATION/CONSCIOUSNESS: Yes awake, Yes oriented to person, Yes oriented to place and Yes oriented to time HENMT: COMMON NORMALS: normocephalic, atraumatic and hearing grossly normal bilaterally HEAD & SCALP: normocephalic and atraumatic Neck/C-Spine: COMMON NORMALS: no JVD Resp: COMMON NORMALS: normal respiratory effort, No retractions, No use of accessory muscles and clear to auscultation bilaterally AUSCULTATION: clear to auscultation bilaterally Cardio: COMMON NORMALS: no JVD, regular rate, regular rhythm and No murmurs present (Cardio) RATE: regular rate RHYTHM: regular rhythm GI: COMMON NORMALS: Soft to palpation and No hepatosplenomegaly present AUSCULTATION: Yes normoactive bowel sounds PALPATION: Yes Soft to palpation, No Tenderness to palpation present (GI), No Guarding due to palpation present (GI) and Yes No hepatosplenomegaly present Extremity: COMMON NORMALS: normal to inspection, capillary refill normal, no clubbing, cyanosis or edema, no calf tenderness and no pedal edema Neuro: SENSORIUM/ORIENTATION: Yes oriented to person, Yes oriented to place and Yes oriented to time Skin: COMMON NORMALS: no rashes or lesions noted GENERAL SKIN EXAM: no rashes or lesions noted Course Vital Signs: Vital signs: Vital Signs Temperature 97.6 F 07/07/21 13:00 Pulse Rate 63 07/07/21 13:00 Respiratory Rate 16 07/07/21 13:00 Blood Pressure 111/52 07/07/21 13:00 Pulse Oximetry 97 07/07/21 13:00 MDM - Neuro Symptoms/Deficit Medical Decision Making CT shows old stroke but nothing that appears to be subacute or recent. Discussed the patient she would prefer to go home I suspect she may have a partial High's palsy we will see you pain in the lower facial numbness and weakness does not extend to the upper portion of her face she has no drooping on the eyelid. At this point I discussed possible observation she would prefer to go home her stroke score is 1. I suspect it is a High's palsy but will complete work-up for stroke she prefer to do it as an outpatient we will set her up for echocardiogram carotids and 48-hour Holter as well as MRI of the head. Numbness started Plavix also started on atorvastatin she has any worsening or change symptoms return to the emergency room. Medical Records I reviewed the patient's medical records. Lab Data I reviewed the patient's lab results. : 07/07/21 11:40 07/07/21 11:[address] 07/07/21 10:14 IMPRESSION: 1. No evidence of intracranial hemorrhage or mass effect. 2. Moderate small vessel changes. Moderate parenchymal loss 3. Prior postoperative changes RIGHT canal wall up mastoidectomy. 4. No acute intracranial findings. Notified Alexi Maddox DO at 07/07/2021 11:00 AM. Laboratory Results WBC 5.5 10^3/uL (4.0-10.0) 07/07/21 11:40 RBC 4.41 10^6/uL (4.1-5.3) 07/07/21 11:40 Hgb 13.4 g/dL (11.5-15.3) 07/07/21 11:40 Hct 42.6 % (37.0-47.0) 07/07/21 11:40 MCV 96.6 fl (81-99) 07/07/21 11:40 MCH 30.4 pg (28.0-34.0) 07/07/21 11:40 MCHC 31.5 g/dL (30.0-36.0) 07/07/21 11:40 RDW 14.6 % (12.1-15.1) 07/07/21 11:40 Plt Count 263 10^3/cmm (130-400) 07/07/21 11:40 MPV 8.6 fL (7.4-10.4) 07/07/21 11:40 Neut % (Auto) 66.5 % 07/07/21 11:40 Lymph % (Auto) 17.0 % 07/07/21 11:40 [place] % (Auto) 11.4 % 07/07/21 11:40 Eos % (Auto) 4.0 % 07/07/21 11:40 Baso % (Auto) 0.7 % 07/07/21 11:40 Neut # (Auto) 3.69 10^3/uL (1.8-7.7) 07/07/21 11:40 Lymph # (Auto) 0.9 10^3/uL (0.8-4.8) 07/07/21 11:40 [place] # (Auto) 0.6 10^3/uL (0.2-0.9) 07/07/21 11:40 Eos # (Auto) 0.2 10^3/uL (0.0-0.8) 07/07/21 11:40 Baso # (Auto) 0.0 10^3/uL (0.0-0.1) 07/07/21 11:40 Nucleated RBC % (auto) 0 % 07/07/21 11:40 Nucleated RBCs # 0.0 /100WBC 07/07/21 11:40 PT 12.70 SECONDS (12.1-14.9) 07/07/21 11:40 INR 0.93 (0.8-1.2) 07/07/21 11:40 APTT 30.3 SECONDS (23.9-36.7) 07/07/21 11:40 Sodium 140 mmol/L (136-145) 07/07/21 11:40 Potassium 4.0 mmol/L (3.5-5.1) 07/07/21 11:40 Chloride 105 mmol/L (98-107) 07/07/21 11:40 Carbon Dioxide 22 mmol/L (22-29) 07/07/21 11:40 Anion Gap 17.0 (5-19) 07/07/21 11:40 BUN 14 mg/dL (8-23) 07/07/21 11:40 Creatinine 0.6 mg/dL (0.5-0.9) 07/07/21 11:40 GFR Calculation Not Reportable 07/07/21 11:40 Glucose 104 mg/dL (65-115) 07/07/21 11:40 Calculated Osmolality 291 mOsm/kg (285-295) 07/07/21 11:40 Calcium 8.6 mg/dL (8.5-10.5) 07/07/21 11:40 Total Bilirubin 0.6 mg/dL (0.15-1.2) 07/07/21 11:40 AST 22 U/L (0-32) 07/07/21 11:40 ALT 18 U/L (0-33) 07/07/21 11:40 Alkaline Phosphatase 94 IU/L (35-105) 07/07/21 11:40 Total Protein 5.9 g/dL (6.6-8.7) L 07/07/21 11:40 Albumin 4.2 g/dL (3.5-5.2) 07/07/21 11:40 Globulin 1.7 g/dL (1.3-4.6) 07/07/21 11:40 Discharge Plan Discharge Patient Disposition: Home Clinical Impression: CVA (cerebrovascular accident), Facial nerve palsy Condition: Stable Prescriptions: New atorvastatin 40 mg tablet 40 mg PO QPM Qty: 30 0RF clopidogrel 75 mg tablet 75 mg PO DAILY Qty: 30 0RF aspirin 81 mg tablet,delayed release (DR/EC) 81 mg PO DAILY Qty: 30 0RF No Action pravastatin 40 mg tablet 40 mg PO DAILY 0RF amlodipine 5 mg tablet 5 mg PO DAILY 0RF levothyroxine 75 mcg tablet 75 mcg PO DAILY 0RF quinidine gluconate 324 mg tablet extended release 324 mg PO TID 0RF potassium chloride 20 mEq tablet,ER particles/crystals 20 meq PO DAILY 0RF pantoprazole 40 mg tablet,delayed release (DR/EC) 40 mg PO BID 0RF duloxetine 30 mg capsule,delayed release(DR/EC) 30 mg PO DAILY 0RF Rx Instructions: take with 60mg po daily to equal 90mg duloxetine 60 mg capsule,delayed release(DR/EC) 60 mg PO DAILY 0RF Rx Instructions: take with 30mg po daily to equal 90 mg daily acetaminophen 500 mg Tablet 500 mg PO Q4H PRN (Reason: fever) Qty: 60 0RF Stool Softener-Laxative 8.6-50 mg Tablet 2 tab PO BID Qty: 30 0RF magnesium oxide 400 mg magnesium tablet 400 mg PO BID Qty: 10 0RF Eliquis 2.5 mg tablet 2.5 mg PO BID Qty: 28 0RF Discharge Orders: Discharge ED (Routine); Ordered 07/07/21 Ordered By: Alexi Maddox Referrals: Kylee Pederson MD [Primary Care Provider] - Discharge Diet: Usual diet Discharge Activity: Resume usual activity Patient Instructions: Opioid Safety Activity Restrictions/Additional Instructions: Start aspirin Plavix and atorvastatin. Case management will call to make follow-up appointment with neurology and outpatient testing for MRI of the head carotid duplex and Holter monitor Coding Level of Care Code ED Circuit Court Clerk for Jens Wheeler
--- NOTE | 2021-07-07 10:14 | ECG_ITS ---
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 Measurements Intervals [place] Rate: 59 P: 41 AK: 225 QRS: -62 QRSD: 156 T: 112 QT: 497 QTc: 493 Interpretive Statements SINUS BRADYCARDIA WITH FIRST DEGREE AV BLOCK LEFT AXIS DEVIATION [QRS AXIS < -30] LEFT BUNDLE BRANCH BLOCK [120+ ms QRS DURATION, 80+ ms Q/S IN V1/V2, 85+ ms R IN I/aVL/V5/V6] Compared to ECG 02/13/2021 07:41:55 Sinus rhythm no longer present Electronically Signed On 07-07-2021 17:16:59 CDT by Ryan Sanchez M.D. [id number]
--- NOTE | 2021-07-07 10:14 | CT_ITS ---
WS: [id number] CT HEAD TECHNIQUE: Noncontrast CT of the head obtained from the skullbase to the vertex. CLINICAL INFORMATION: Symptoms of Acute Stroke COMPARISON: None. DLP: 752.[address] scans at [facility] use at least one of these dose optimization techniques: automated e xposure control; mA and/or kV adjustment per patient size (includes targeted exams where dose is matc hed to clinical indication); or iterative reconstruction. FINDINGS: No evidence of intracranial hemorrhage or mass effect. Ventricular system and basal cisterns are ulrich nt. Moderate small vessel changes with moderate parenchymal volume loss. No extra-axial fluid collect ions. No evidence of mass or mass effect. Paranasal sinuses are well aerated. Trace mucosal thickening ethmoid air cells. Prior postoperative c hanges RIGHT canal wall up mastoidectomy. LEFT mastoid air cells well aerated. RIGHT mastoid bowl is well aerated. CT/CT head wo con* [id number] IMPRESSION: 1. No evidence of intracranial hemorrhage or mass effect. 2. Moderate small vessel changes. Moderate parenchymal loss 3. Prior postoperative changes RIGHT canal wall up mastoidectomy. 4. No acute intracranial findings. Notified Alexi Maddox DO at 07/07/2021 11:00 AM.
[2021-07-07 10:19] VITALS: BP 111/52; PULSE 63; RESP 16; TEMP 36.4; O2SAT 97
[2021-07-07 11:50] LABS: Basophils % 0.7 %; Eosinophils # 0.2 10^3/uL (0.0-0.8); Hematocrit 42.6 % (37.0-47.0); Hemoglobin 13.4 g/dL (11.5-15.3); Lymphocytes # 0.9 10^3/uL (0.8-4.8); Mean Corpuscular HGB Conc 31.5 g/dL (30.0-36.0); Mean Corpuscular Hemoglobin 30.4 pg (28.0-34.0); Mean Corpuscular Volume 96.6 fl (81-99); Mean Platelet Volume 8.6 fL (7.4-10.4); Monocytes # 0.6 10^3/uL (0.2-0.9); Monocytes % 11.4 %; Neutrophils # 3.69 10^3/uL (1.8-7.7); Neutrophils % 66.5 %; Nucleated Red Blood Cells % 0 %; Platelet Count 263 10^3/cmm (130-400); Red Blood Count 4.41 10^6/uL (4.1-5.3); Red Cell Distribution Width 14.6 % (12.1-15.1); White Blood Count 5.5 10^3/uL (4.0-10.0)
[2021-07-07 11:58] LABS: INR 0.93 (0.8-1.2)
[2021-07-07 11:59] LABS: Partial Thromboplastin Time 30.3 SECONDS (23.9-36.7)
[2021-07-07 12:26] LABS: Alanine Aminotransferase 18 U/L (0-33); Albumin Level 4.2 g/dL (3.5-5.2); Alkaline Phosphatase 94 IU/L (35-105); Aspartate Amino Transferase 22 U/L (0-32); Blood Urea Nitrogen 14 mg/dL (8-23); Calcium 8.6 mg/dL (8.5-10.5); Carbon Dioxide 22 mmol/L (22-29); Chloride 105 mmol/L (98-107); Globulin 1.7 g/dL (1.3-4.6); Glucose 104 mg/dL (65-115); Osmolality Calculated 291 mOsm/kg (285-295); Sodium 140 mmol/L (136-145); Total Bilirubin 0.6 mg/dL (0.15-1.2); Total Protein 5.9 g/dL (6.6-8.7)
[2021-07-07 13:00] VITALS: BP 111/52; PULSE 63; RESP 16; TEMP 36.4; O2SAT 97
[2021-07-08 01:02] LABS: Glucose Point of Care 108 mg/dL (70-110)
== END 2021-07-07 13:01 | disposition home or self-care (01) ==
PROVIDERS: Emergency Provider Family Medicine; PCP Family Medicine
DX: G51.0 Bell's palsy (principal); Z86.73 Personal history of transient ischemic attack (TIA), and cerebral infarction without residual deficits; Z79.01 Long term (current) use of anticoagulants
CPT/HCPCS: 36415; 36416; 70450; 80053; 82962; 85025; 85610; 85730; 93005; 99284

== ENCOUNTER 2021-07-20 06:00 | Outpatient (RCR) | payer MEDICARE, MEDICAID, SELFPAY | END 2021-08-18 23:59 | disposition home or self-care (01) | LOC: WPT 06:00 | PROVIDERS: PCP Family Medicine; Referring Provider Internal Medicine; Visit Provider Internal Medicine | DX: S72.011D Unspecified intracapsular fracture of right femur, subsequent encounter for closed fracture with routine healing (principal); X58.XXXD Exposure to other specified factors, subsequent encounter | CPT/HCPCS: 97110; 97112 ==

== ENCOUNTER 2021-12-15 13:29 | Emergency (ER) | payer MEDICARE, MEDICAID, SELFPAY ==
[2021-12-15 13:32] VITALS: BP 142/87; PULSE 75; RESP 16; TEMP 36.9; O2SAT 94; BMI 24.9
--- NOTE | 2021-12-15 13:42 | XR_ITS ---
WS: [id number] Exam: XR chest 1V portable [id number] Date/Time of Exam: 12/15/2021 1:43 PM Reason For Exam: chest pain Comparison 02/10/2021. The lungs are fully expanded. No acute infiltrates. Chronic changes in the left base. The heart is no t enlarged for technique. No pleural effusions. Scattered calcified granulomas in both lungs. The med iastinum is normal in contour. Monitoring leads superimpose the chest. Degenerative change and mild s coliosis of the thoracic spine. XR/XR chest 1V portable [id number] IMPRESSION: 1. Chronic changes in the left lung base. No acute cardiopulmonary finding.
--- NOTE | 2021-12-15 13:42 | ECG_ITS ---
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 Measurements Intervals [place] Rate: 68 P: 60 ND: 223 QRS: -59 QRSD: 162 T: 113 QT: 479 QTc: 510 Interpretive Statements SINUS RHYTHM WITH FIRST DEGREE AV BLOCK LEFT AXIS DEVIATION [QRS AXIS < -30] LEFT BUNDLE BRANCH BLOCK [120+ ms QRS DURATION, 80+ ms Q/S IN V1/V2, 85+ ms R IN I/aVL/V5/V6] Compared to ECG 07/07/2021 10:31:21 Sinus bradycardia no longer present Electronically Signed On 12-15-2021 18:03:49 CDT by Marcie Sepulveda M.D. [email or web address].oort Incjohn [facility].[email or web address]/store/[id number] f
[2021-12-15 14:00] VITALS: BP 144/88
[2021-12-15 14:20] LABS: Basophils % 0.2 %; Eosinophils % 0.2 %; Hematocrit 42.8 % (37.0-47.0); Hemoglobin 13.8 g/dL (11.5-15.3); Lymphocytes # 1.1 10^3/uL (0.8-4.8); Lymphocytes % 12.3 %; Mean Corpuscular HGB Conc 32.2 g/dL (30.0-36.0); Mean Corpuscular Hemoglobin 31.3 pg (28.0-34.0); Mean Corpuscular Volume 97.1 fl (81-99); Mean Platelet Volume 8.3 fL (7.4-10.4); Monocytes % 10.5 %; Neutrophils # 7.07 10^3/uL (1.8-7.7); Neutrophils % 76.2 %; Nucleated Red Blood Cells % 0 %; Platelet Count 320 10^3/cmm (130-400); Red Blood Count 4.41 10^6/uL (4.1-5.3); Red Cell Distribution Width 14.9 % (12.1-15.1); White Blood Count 9.3 10^3/uL (4.0-10.0)
[2021-12-15 14:37] LABS: Alanine Aminotransferase 17 U/L (0-33); Albumin Level 3.7 g/dL (3.5-5.2); Alkaline Phosphatase 83 U/L (35-105); Anion Gap 15.9 (5-19); Aspartate Amino Transferase 21 U/L (0-32); Blood Urea Nitrogen 12 mg/dL (8-23); Calcium 9.3 mg/dL (8.5-10.5); Carbon Dioxide 22 mmol/L (22-29); Chloride 107 mmol/L (98-107); Globulin 2.8 g/dL (1.3-4.6); Glucose 105 mg/dL (65-115); Osmolality Calculated 292 mOsm/kg (285-295); Potassium 3.9 mmol/L (3.5-5.1); Sodium 141 mmol/L (136-145); Total Bilirubin 0.5 mg/dL (0.15-1.2); Total Protein 6.5 g/dL (6.6-8.7)
[2021-12-15 14:40] LABS: Troponin(5th) Baseline 15 ng/L (0-10)
[2021-12-15 15:00] VITALS: BP 128/74; PULSE 84; O2SAT 96
--- NOTE | 2021-12-15 15:19 | W.ED.CHESTPA ---
HPI - Chest Pain General: Chief Complaint: Chest Pain Stated Complaint: SOB Time Seen by Provider: 12/15/21 13:41 Source: patient Mode of arrival: ambulatory History of Present Illness: 86-year-old female with a history of coronary artery disease. She presents emergency room today with chest discomfort for the last several weeks is worse when she gets up and walks. She has not really taken anything for it she is not having any chest pain or discomfort at this time. MD complaint: chest pain Pertinent past history: other (Patient reports history of Brugada syndrome) Onset (ago): week(s) Timing of current episode: episodic Onset: during exertion Pain location: substernal Pain radiation: none Severity: mild Relieving factors: nothing Exacerbating factors: nothing Associated symptoms: Deny abdominal pain, diaphoresis, dyspnea, fever(s), leg edema, nausea, palpitations, sense of impending doom, syncope or vomiting Treatment prior to arrival: none Review of Systems Const: Denies: fever(s), chills, fatigue, malaise or diaphoresis ENMT: Denies: throat pain, ear or mastoid pain, nasal discharge or nasal congestion Card: Denies: chest pain, palpitations or syncope Resp: Denies: dyspnea, productive cough or non-productive cough GI: Denies: abdominal pain, nausea or vomiting : Denies: flank pain, difficulty voiding, dysuria, urinary frequency or urinary urgency Skin/Breast: Denies: rash or pruritus PFS ED PFSH: Medical History Brugada syndrome CAD (coronary artery disease) Cardiac arrest 1985 Closed hip fracture CVA (cerebral vascular accident) Elevated CK Fall Fibromyalgia HTN (hypertension) LBBB (left bundle branch block) burgada syndrome Lymphocytic colitis Pre-operative cardiovascular examination SLE (systemic 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) w HAIRSPRING TRUING INSPECTOR involvement Subcapital fracture of right hip (02/10/21) Surgical History H/O: hysterectomy History of appendectomy Hx of cholecystectomy Family History Other Family history non-contributory Social History Smoking and tobacco status: never smoked Housing: House Physical Exam Const: COMMON NORMALS: no acute distress GENERAL APPEARANCE: cooperative and comfortable ORIENTATION/CONSCIOUSNESS: Yes awake, Yes oriented to person, Yes oriented to place and Yes oriented to time HENMT: COMMON NORMALS: normocephalic, atraumatic and hearing grossly normal bilaterally HEAD & SCALP: normocephalic and atraumatic Resp: COMMON NORMALS: normal respiratory effort, No retractions, No use of accessory muscles and clear to auscultation bilaterally AUSCULTATION: clear to auscultation bilaterally Cardio: COMMON NORMALS: regular rate, regular rhythm and No murmurs present (Cardio) RATE: regular rate RHYTHM: regular rhythm GI: COMMON NORMALS: Soft to palpation and No hepatosplenomegaly present AUSCULTATION: Yes normoactive bowel sounds PALPATION: Yes Soft to palpation, No Tenderness to palpation present (GI), No Guarding due to palpation present (GI) and Yes No hepatosplenomegaly present Extremity: COMMON NORMALS: normal to inspection, capillary refill normal, no clubbing, cyanosis or edema, no calf tenderness and no pedal edema Neuro: SENSORIUM/ORIENTATION: Yes oriented to person, Yes oriented to place and Yes oriented to time Skin: COMMON NORMALS: no rashes or lesions noted GENERAL SKIN EXAM: no rashes or lesions noted Course Vital Signs: Vital signs: Vital Signs Temperature 98.4 F 12/15/21 13:32 Pulse Rate 84 12/15/21 15:00 Respiratory Rate 16 12/15/21 13:32 Blood Pressure 145/74 12/15/21 16:15 Pulse Oximetry 96 12/15/21 15:00 Oxygen Delivery Me thod 12/15/21 13:32 MDM - Chest Pain Medical Decision Making Reviewed findings with patient and EKG remains unchanged from previous she has normal troponins with a no significant delta she is asymptomatic at this time. She has had the symptoms intermittently for several months. At this point I do not examining she would need to be hospitalized for. We offered her referral to our [facility] versus follow-up with her cardiology office that she has been seeing in [place] she prefers to follow-up with them. Will add isosorbide mononitrate 30 mg daily, continue her current medications return to the ER if she has further problems. Medical Records I reviewed the patient's medical records. Lab Data I reviewed the patient's lab results. : 12/15/21 14:12 12/15/21 14:12 Radiology Impressions Chest X-Ray 12/15/21 13:42 IMPRESSION: 1. Chronic changes in the left lung base. No acute cardiopulmonary finding. Laboratory Results WBC 9.3 10^3/uL (4.0-10.0) 12/15/21 14:12 RBC 4.41 10^6/uL (4.1-5.3) 12/15/21 14:12 Hgb 13.8 g/dL (11.5-15.3) 12/15/21 14:12 Hct 42.8 % (37.0-47.0) 12/15/21 14:12 MCV 97.1 fl (81-99) 12/15/21 14:12 MCH 31.3 pg (28.0-34.0) 12/15/21 14:12 MCHC 32.2 g/dL (30.0-36.0) 12/15/21 14:12 RDW 14.9 % (12.1-15.1) 12/15/21 14:12 Plt Count 320 10^3/cmm (130-400) 12/15/21 14:12 MPV 8.3 fL (7.4-10.4) 12/15/21 14:12 Neut % (Auto) 76.2 % 12/15/21 14:12 Lymph % (Auto) 12.3 % 12/15/21 14:12 Love % (Auto) 10.5 % 12/15/21 14:12 Eos % (Auto) 0.2 % 12/15/21 14:12 Baso % (Auto) 0.2 % 12/15/21 14:12 Neut # (Auto) 7.07 10^3/uL (1.8-7.7) 12/15/21 14:12 Lymph # (Auto) 1.1 10^3/uL (0.8-4.8) 12/15/21 14:12 Love # (Auto) 1.0 10^3/uL (0.2-0.9) H 12/15/21 14:12 Eos # (Auto) 0.0 10^3/uL (0.0-0.8) 12/15/21 14:12 Baso # (Auto) 0.0 10^3/uL (0.0-0.1) 12/15/21 14:12 Nucleated RBC % (auto) 0 % 12/15/21 14:12 Nucleated RBCs # 0.0 /100WBC 12/15/21 14:12 Sodium 141 mmol/L (136-145) 12/15/21 14:12 Potassium 3.9 mmol/L (3.5-5.1) 12/15/21 14:12 Chloride 107 mmol/L (98-107) 12/15/21 14:12 Carbon Dioxide 22 mmol/L (22-29) 12/15/21 14:12 Anion Gap 15.9 (5-19) 12/15/21 14:12 BUN 12 mg/dL (8-23) 12/15/21 14:12 Creatinine 0.7 mg/dL (0.5-0.9) 12/15/21 14:12 GFR Calculation Not Reportable 12/15/21 14:12 Glucose 105 mg/dL (65-115) 12/15/21 14:12 Calculated Osmolality 292 mOsm/kg (285-295) 12/15/21 14:12 Calcium 9.3 mg/dL (8.5-10.5) 12/15/21 14:12 Total Bilirubin 0.5 mg/dL (0.15-1.2) 12/15/21 14:12 AST 21 U/L (0-32) 12/15/21 14:12 ALT 17 U/L (0-33) 12/15/21 14:12 Alkaline Phosphatase 83 U/L (35-105) 12/15/21 14:12 Troponin T Baseline 15 ng/L (0-10) H 12/15/21 14:12 Troponin T 120 Minute 17.27 ng/L (0-10) H 12/15/21 16:40 Delta Troponin T 2.27 ABS# (0-10) 12/15/21 16:40 Total Protein 6.5 g/dL (6.6-8.7) L 12/15/21 14:12 Albumin 3.7 g/dL (3.5-5.2) 12/15/21 14:12 Globulin 2.8 g/dL (1.3-4.6) 12/15/21 14:12 Discharge Plan Discharge Patient Disposition: Home Clinical Impression: Atypical chest pain Condition: Stable Prescriptions: New isosorbide mononitrate 30 mg tablet extended release 24 hr 30 mg PO DAILY Qty: 30 0RF No Action pravastatin 40 mg tablet 40 mg PO DAILY amlodipine 5 mg tablet 5 mg PO DAILY levothyroxine 75 mcg tablet 75 mcg PO DAILY quinidine gluconate 324 mg tablet extended release 324 mg PO TID potassium chloride 20 mEq tablet,ER particles/crystals 20 meq PO DAILY pantoprazole 40 mg tablet,delayed release (DR/EC) 40 mg PO BID duloxetine 30 mg capsule,delayed release(DR/EC) 30 mg PO DAILY Rx Instructions: take with 60mg po daily to equal 90mg duloxetine 60 mg capsule,delayed release(DR/EC) 60 mg PO DAILY Rx Instructions: take with 30mg po daily to equal 90 mg daily sennosides-docusate sodium [Stool Softener-Laxative] 8.6-50 mg Tablet 2 tab PO BID Qty: 30 0RF hydrocodone-acetaminophen 5-325 mg tablet 2 tab PO TID pregabalin 75 mg capsule 75 mg PO BID PRN (Reason: Pain) zinc acetate 50 mg (zinc) Capsule 50 mg PO DAILY Vitamin B-12 500 mcg Tablet 500 mcg PO DAILY Vitamin B-6 100 mg Tablet 100 mg PO DAILY Miralax 17 gram/dose Powder 4 g PO DAILY PRN (Reason: Constipation) folic acid 800 mcg Tablet 0.8 mg PO DAILY Vitamin D3 25 mcg (1,000 unit) Tablet 25 mcg PO DAILY copper gluconate 2 mg Capsule 2 mg PO DAILY Women's 50 Plus Multivitamin 400 mcg-500 mg calcium-20 mcg Tablet 1 tab PO DAILY magnesium oxide 400 mg magnesium Tablet 400 mg PO DAILY Discharge Orders: Discharge ED (Routine); Ordered 12/15/21 Ordered By: Alexi Maddox Referrals: Kylee Pederson MD [Primary Care Provider] - Discharge Diet: Usual diet Discharge Activity: Limit activity as instructed Patient Instructions: Opioid Safety, Pain Management Activity Restrictions/Additional Instructions: Avoid exertional activity. 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 Return to the ER if you have further problems. Continue all of your other medications as previously prescribed. Coding Level of Care Code ED It Technical Architect for Chg Fwd Exam Detailed
--- NOTE | 2021-12-15 15:42 | ECG_ITS ---
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 Measurements Intervals [place] Rate: 60 P: 259 [place]: 212 QRS: -57 QRSD: 157 T: 111 QT: 496 QTc: 499 Interpretive Statements ECTOPIC ATRIAL RHYTHM WITH FIRST DEGREE AV BLOCK LEFT AXIS DEVIATION [QRS AXIS < -30] LEFT BUNDLE BRANCH BLOCK [120+ ms QRS DURATION, 80+ ms Q/S IN V1/V2, 85+ ms R IN I/aVL/V5/V6] Compared to ECG 12/15/2021 13:43:42 Ectopic atrial rhythm now present Sinus rhythm no longer present Electronically Signed On 12-15-2021 18:04:55 CDT by Marcie Sepulveda M.D. [id number]
[2021-12-15 16:15] VITALS: BP 145/74
[2021-12-15 17:04] LABS: Troponin 5 2HR 17.27 ng/L (0-10)
[2021-12-15 17:06] LABS: Troponin 5 2HR Delta 2.27 ABS# (0-10)
[2021-12-15 18:33] VITALS: BP 145/74; PULSE 84; O2SAT 96
== END 2021-12-15 18:34 | disposition home or self-care (01) ==
PROVIDERS: Emergency Provider Family Medicine; PCP Family Medicine
DX: R07.89 Other chest pain (principal); I25.10 Atherosclerotic heart disease of native coronary artery without angina pectoris; Z86.73 Personal history of transient ischemic attack (TIA), and cerebral infarction without residual deficits; I10 Essential (primary) hypertension; M32.9 Systemic 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, unspecified
CPT/HCPCS: 36415; 71045; 80053; 84484; 85025; 93005; 99285

== ENCOUNTER → 2022-12-12 12:12 | Outpatient (BNVA) | payer MEDICARE, MEDICAID, SELFPAY | PROVIDERS: PCP Family Medicine; Visit Provider Dermatology | DX: L82.1 Other seborrheic keratosis (principal); Z85.828 Personal history of other malignant neoplasm of skin; D48.5 Neoplasm of uncertain behavior of skin; L73.8 Other specified follicular disorders; L57.0 Actinic keratosis; D17.23 Benign lipomatous neoplasm of skin and subcutaneous tissue of right leg; L82.0 Inflamed seborrheic keratosis | CPT/HCPCS: 11102; 17000; 17110; 99203 ==

== ENCOUNTER 2024-06-29 22:53 | Emergency (ER) | payer OTHER, MEDICAID, SELFPAY ==
[2024-06-29 22:55] VITALS: BP 150/77; PULSE 67; RESP 16; TEMP 36.7; O2SAT 96; BMI 22.8
--- NOTE | 2024-06-29 23:21 | CTR_ITS ---
PROCEDURE INFORMATION: Exam: CT Head Without Contrast Exam date and time: 06/29/2024 11:31 PM Age: 88 years old Clinical indication: Injury or trauma; Blunt trauma (contusions or hematomas); Patient fell from standing falling face first onto kitchen floor. Contusion/hematoma to left orbit and maxilla with laceration to upper lip. ; Additional info: Fall TECHNIQUE: Imaging protocol: Computed tomography of the head without contrast. Radiation optimization: All CT scans at this facility use at least one of these dose optimization techniques: automated exposure control; mA and/or kV adjustment per patient size (includes targeted exams where dose is matched to clinical indication); or iterative reconstruction. COMPARISON: CT head wo con* [id number] 07/07/2021 10:49 AM RADIATION DOSE METRICS: Total DLP (mGy-cm): 998.19 FINDINGS: Brain: Large amount of diffuse white matter disease likely reflecting chronic microvascular ischemic changes. Cerebral ventricles: No ventriculomegaly. Paranasal sinuses: Visualized sinuses are unremarkable. No fluid levels. Mastoid air cells: Visualized mastoid air cells are well aerated. Bones: Unremarkable. No acute fracture. Soft tissues: Unremarkable. CT/CT head wo con* [id number] IMPRESSION: Negative for intracranial hemorrhage or mass effect
--- NOTE | 2024-06-29 23:21 | CTR_ITS ---
PROCEDURE INFORMATION: Exam: CT Cervical Spine Without Contrast Exam date and time: 06/29/2024 11:36 PM Age: 88 years old Clinical indication: Injury or trauma; Blunt trauma; Patient fell from standing falling face first onto kitchen floor. Contusion/hematoma to left orbit and maxilla with laceration to upper lip. ; Additional info: Fall TECHNIQUE: Imaging protocol: Computed tomography of the cervical spine without contrast. Radiation optimization: All CT scans at this facility use at least one of these dose optimization techniques: automated exposure control; mA and/or kV adjustment per patient size (includes targeted exams where dose is matched to clinical indication); or iterative reconstruction. COMPARISON: CT cervical spin wo con* [id number] 02/10/2021 1:44 PM RADIATION DOSE METRICS: Total DLP (mGy-cm): 123.47 FINDINGS: Bones/joints: Stable retrolisthesis of C5 relative to C4 of 7.3 mm with localized kyphosis at this level, similar to prior exam. Multilevel severe disc space narrowing and productive endplate changes throughout the spine. C2-C3: No significant disc bulge or herniation. No severe spinal canal stenosis. No significant neural foraminal narrowing. C3-C4: No significant disc bulge or herniation. No severe spinal canal stenosis. No significant neural foraminal narrowing. C4-C5: No significant disc bulge or herniation. No severe spinal canal stenosis. No significant neural foraminal narrowing. C5-C6: No significant disc bulge or herniation. No severe spinal canal stenosis. No significant neural foraminal narrowing. C6-C7: No significant disc bulge or herniation. No severe spinal canal stenosis. No significant neural foraminal narrowing. C7-T1: No significant disc bulge or herniation. No severe spinal canal stenosis. No significant neural foraminal narrowing. Lungs: Lung apices are normal. Vasculature: Carotid artery atherosclerotic calcifications. Soft tissues: Unremarkable. CT/CT cervical spin wo con* [id number] IMPRESSION: 1. Negative for fracture or dislocation. 2. Stable retrolisthesis of C5 relative to C4 of 7.3 mm with localized kyphosis at this level, similar to prior exam. 3. Multilevel severe disc space narrowing and productive endplate changes throughout the spine. 4. Carotid artery atherosclerotic calcifications.
--- NOTE | 2024-06-29 23:21 | CTR_ITS ---
PROCEDURE INFORMATION: Exam: CT Maxillofacial Without Contrast Exam date and time: 06/29/2024 11:34 PM Age: 88 years old Clinical indication: Injury or trauma; Blunt trauma (contusions or hematomas); Orbit/periorbital and maxilla and lip/oral cavity; Patient fell from standing falling face first onto kitchen floor. Contusion/hematoma to left orbit and maxilla with laceration to upper lip. ; Additional info: Fall TECHNIQUE: Imaging protocol: Computed tomography of the face without contrast. Radiation optimization: All CT scans at this facility use at least one of these dose optimization techniques: automated exposure control; mA and/or kV adjustment per patient size (includes targeted exams where dose is matched to clinical indication); or iterative reconstruction. COMPARISON: CT head wo con* [id number] 06/29/2024 11:31 PM RADIATION DOSE METRICS: Total DLP (mGy-cm): 530.49 FINDINGS: Paranasal sinuses: No air-fluid levels. Orbital cavities: Orbits are normal. Globes are unremarkable. Teeth: Diffuse chronic odontogenic disease. Bones: No acute fracture. Soft tissues: Left cheek [address]/CT facial bones wo con* [id number] IMPRESSION: 1. Negative for fracture or dislocation. 2. Left cheek 17 mm subcutaneous hematoma. 3. Diffuse chronic odontogenic disease.
--- NOTE | 2024-06-29 23:24 | ECG_ITS ---
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 Measurements Intervals [place] Rate: 69 P: 55 [place]: 259 QRS: -49 QRSD: 165 T: 125 QT: 477 QTc: 513 Interpretive Statements SINUS RHYTHM WITH FIRST DEGREE AV BLOCK LEFT AXIS DEVIATION [QRS AXIS < -30] LEFT BUNDLE BRANCH BLOCK [120+ ms QRS DURATION, 80+ ms Q/S IN V1/V2, 85+ ms R IN I/aVL/V5/V6] Compared to ECG 12/15/2021 16:09:31 Ectopic atrial rhythm no longer present Electronically Signed On 06-30-2024 15:20:55 CDT by Keiko Post M.D. [id number]
[2024-06-29 23:32] VITALS: BP 145/62; PULSE 76; O2SAT 91
[2024-06-30 00:02] VITALS: BP 152/62; PULSE 73; O2SAT 95
--- NOTE | 2024-06-30 00:14 | W.ED.FALL ---
HPI - Fall General: Chief Complaint: Fall Stated Complaint: FALL Time Seen by Provider: 06/29/24 23:31 History of Present Illness: 88-year-old female who usually walks with a cane. She forgot it, and on the way back into the kitchen, had a mechanical fall, falling to hit her face on the hard linoleum floor. She sustained injuries to her left cheek, upper lip, and head. She denies neck pain. She is not on blood thinners, but does take Plavix. She was not knocked unconscious. She has not been ill otherwise. Related Data Home Medications ?Medication ?Instructions ?Recorded ?Confirmed amlodipine 5 mg tablet 5 mg PO DAILY 02/10/21 12/15/21 duloxetine 30 mg capsule,delayed 30 mg PO DAILY 02/10/21 12/15/21 release duloxetine 60 mg capsule,delayed 60 mg PO DAILY 02/10/21 12/15/21 release levothyroxine 75 mcg tablet 75 mcg PO DAILY 02/10/21 12/15/21 pantoprazole 40 mg tablet,delayed 40 mg PO BID 02/10/21 12/15/21 release potassium chloride 20 mEq 20 meq PO DAILY 02/10/21 12/15/21 tablet,extended release(part/cryst) pravastatin 40 mg tablet 40 mg PO DAILY 02/10/21 12/15/21 quinidine gluconate 324 mg 324 mg PO TID 02/10/21 12/15/21 tablet,extended release cholecalciferol (vitamin D3) 25 25 mcg PO DAILY 12/15/21 12/15/21 mcg (1,000 unit) tablet (Vitamin D3) copper gluconate 2 mg capsule 2 mg PO DAILY 12/15/21 12/15/21 cyanocobalamin (vitamin B-12) 500 500 mcg PO DAILY 12/15/21 12/15/21 mcg tablet (Vitamin B-12) folic acid 800 mcg tablet 0.8 mg PO DAILY 12/15/21 12/15/21 hydrocodone 5 mg-acetaminophen 325 2 tab PO TID 12/15/21 12/15/21 mg tablet magnesium oxide 400 mg PO DAILY 12/15/21 12/15/21 undccikb-qbg-ebppz ac 400 1 tab PO DAILY 12/15/21 12/15/21 mcg-calcium carb 500 mg-vit K1 20 mcg tablet (Women's 50 Plus Multivitamin) polyethylene glycol 3350 17 4 g PO DAILY PRN Constipation 12/15/21 12/15/21 gram/dose oral powder (Miralax) pregabalin 75 mg capsule 75 mg PO BID PRN Pain 12/15/21 12/15/21 pyridoxine (vitamin B6) 100 mg 100 mg PO DAILY 12/15/21 12/15/21 tablet (Vitamin B-6) zinc acetate 50 mg (zinc) capsule 50 mg PO DAILY 12/15/21 12/15/21 Previous Rx's ?Medication ?Instructions ?Recorded sennosides 8.6 mg-docusate sodium 2 tab PO BID #30 tabs 02/16/21 50 mg tablet (Stool Softener-Laxative) isosorbide mononitrate 30 mg 30 mg PO DAILY #30 tabs 12/15/21 tablet,extended release 24 hr Allergies Allergy/AdvReac Type Severity Reaction Status Date / Time NSAIDS (Non-Steroidal Allergy Unknown Unknown Verified 12/15/21 14:41 Anti-Inflamma vancomycin Allergy Unknown Unknown Verified 12/15/21 14:41 PFSH ED PFSH: Medical History Brugada syndrome CAD (coronary artery disease) Cardiac arrest 1985 Closed hip fracture CVA (cerebral vascular accident) Elevated CK Fall Fibromyalgia HTN (hypertension) LBBB (left bundle branch block) burgada syndrome Lymphocytic colitis Pre-operative cardiovascular examination 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 Subcapital fracture of right hip (02/10/21) Surgical History H/O: hysterectomy History of appendectomy Hx of cholecystectomy Family History Other Family history non-contributory Social History Smoking and tobacco/nicotine status: never used tobacco/nicotine Substance/Drug Use: never Housing: House Physical Exam Const: COMMON NORMALS: no acute distress GENERAL APPEARANCE: cooperative and frail appearing (mildly) HENMT: FACE & SINUS: ecchymosis, erythema, edema and laceration (3cm upper lip) Neck/C-Spine: OTHER: non tender Chest: CHEST: Yes Symmetrical chest wall rise Resp: COMMON NORMALS: normal respiratory effort and clear to auscultation bilaterally AUSCULTATION: clear to auscultation bilaterally Cardio: COMMON NORMALS: regular rate and regular rhythm RATE: regular rate RHYTHM: regular rhythm Extremity: NARRATIVE EXTREMITY EXAM: atraumatic Procedures Laceration Laceration 1: Site: lip Size (cm): 3 Description: linear Depth: simple, single layer Local Anesthetic: lidocaine 1% Amount of anesthesia used (mL): 4 Skin layer closed with: other (5-0 prolene) Size (cm): 5-0 Number of sutures: 5 Technique: simple, interrupted Course Vital Signs: Vital signs: Vital Signs Temperature 98.0 F 06/29/24 22:55 Pulse Rate 71 06/30/24 01:30 Respiratory Rate 16 06/29/24 22:55 Blood Pressure 145/86 06/30/24 01:30 Pulse Oximetry 94 06/30/24 01:30 Oxygen Delivery Me thod Room Air 06/29/24 22:55 MDM - Fall Medical Decision Making Laceration repaired. No complication. CTs are negative for fracture, bleeding, etc. Will discharge home. Sutures out in a week. Return for any new symptoms Lab Data Radiology Impressions Cervical Spine CT 06/29/24 23:21 IMPRESSION: 1. Negative for fracture or dislocation. 2. Stable retrolisthesis of C5 relative to C4 of 7.3 mm with localized kyphosis at this level, similar to prior exam. 3. Multilevel severe disc space narrowing and productive endplate changes throughout the spine. 4. Carotid artery atherosclerotic calcifications. Face CT 06/29/24 23:21 IMPRESSION: 1. Negative for fracture or dislocation. 2. Left cheek 17 mm subcutaneous hematoma. 3. Diffuse chronic odontogenic disease. Head CT 06/29/24 23:21 IMPRESSION: Negative for intracranial hemorrhage or mass effect All radiology interpretation(s) finalized by discharge Discharge Plan Discharge Patient Disposition: Home Clinical Impression: Contusion of face, Facial hematoma, Laceration of lip Condition: Stable Prescriptions: No Action pravastatin 40 mg tablet 40 mg PO DAILY amlodipine 5 mg tablet 5 mg PO DAILY levothyroxine 75 mcg tablet 75 mcg PO DAILY quinidine gluconate 324 mg tablet extended release 324 mg PO TID potassium chloride 20 mEq tablet,ER particles/crystals 20 meq PO DAILY pantoprazole 40 mg tablet,delayed release (DR/EC) 40 mg PO BID duloxetine 30 mg capsule,delayed release(DR/EC) 30 mg PO DAILY Rx Instructions: take with 60mg po daily to equal 90mg duloxetine 60 mg capsule,delayed release(DR/EC) 60 mg PO DAILY Rx Instructions: take with 30mg po daily to equal 90 mg daily sennosides-docusate sodium [Stool Softener-Laxative] 8.6-50 mg Tablet 2 tab PO BID Qty: 30 0RF hydrocodone-acetaminophen 5-325 mg tablet 2 tab PO TID pregabalin 75 mg capsule 75 mg PO BID PRN (Reason: Pain) zinc acetate 50 mg (zinc) Capsule 50 mg PO DAILY Vitamin B-12 500 mcg Tablet 500 mcg PO DAILY Vitamin B-6 100 mg Tablet 100 mg PO DAILY Miralax 17 gram/dose Powder 4 g PO DAILY PRN (Reason: Constipation) folic acid 800 mcg Tablet 0.8 mg PO DAILY Vitamin D3 25 mcg (1,000 unit) Tablet 25 mcg PO DAILY copper gluconate 2 mg Capsule 2 mg PO DAILY Women's 50 Plus Multivitamin 400 mcg-500 mg calcium-20 mcg Tablet 1 tab PO DAILY magnesium oxide 400 mg magnesium Tablet 400 mg PO DAILY isosorbide mononitrate 30 mg tablet extended release 24 hr 30 mg PO DAILY Qty: 30 0RF Discharge Orders: Discharge ED (Routine); Ordered 06/30/24 Ordered By: Betito Meng Referrals: Kylee Pederson MD [Primary Care Provider, [facility]] - 4-7 days Patient Instructions: Facial Contusion (ED), Facial Laceration (ED), Opioid Safety, Pain Management Activity Restrictions/Additional Instructions: You may clean with soap and running water. Sutures out in 7 days. Call your for a follow-up appointment. Return for any problems. Print Language: Kazakh Coding Level of Care Code ED Brand Leader for Jens Wheeler
[2024-06-30 00:30] VITALS: BP 141/52; PULSE 73; O2SAT 94
[2024-06-30 01:00] VITALS: BP 145/65; PULSE 71; O2SAT 95
[2024-06-30] MEDS: ondansetron 2 mg/ML SDV 2 mL 4 MG IVP (01:01)
[2024-06-30] MEDS: morphine 4 mg/mL SDV 1 mL 2 MG IVP (01:02)
[2024-06-30 01:30] VITALS: BP 145/86; PULSE 71; O2SAT 94
[2024-06-30 03:57] VITALS: BP 145/96; PULSE 65; O2SAT 97
== END 2024-06-30 01:50 | disposition home or self-care (01) ==
PROVIDERS: Emergency Provider Emergency Medicine; PCP Family Medicine
DX: S01.511A Laceration without foreign body of lip, initial encounter (principal); I25.10 Atherosclerotic heart disease of native coronary artery without angina pectoris; Z86.73 Personal history of transient ischemic attack (TIA), and cerebral infarction without residual deficits; W19.XXXA Unspecified fall, initial encounter
CPT/HCPCS: 12013; 70450; 70486; 72125; 93005; 96374; 96375; 99285; J2270; J2405

== ENCOUNTER 2024-08-20 08:30 | Inpatient (IN) | payer OTHER, MEDICAID, SELFPAY ==
[2024-08-20] VITALS (9 sets, daily range): BP systolic 110–149; BP diastolic 60–75; PULSE 68–83; RESP 15–18; TEMP 36.5–36.7; O2SAT 91–96; BMI 23.4; BMI 23.2
--- NOTE | 2024-08-20 08:33 | XR_ITS ---
WS: [email or web address] XR elbow RT min 3V* [id number] REASON FOR EXAM: fall FINDINGS: There is displacement of the anterior fat pad indicating joint effusion. This is associated with nondisplaced transverse compression fracture of the radial head, subarticular with no involvement of the articular surface. Mild osteoarthritic changes in the medial elbow joint. XR/XR elbow RT min 3V* [id number] IMPRESSION: Radial head fracture and joint effusion as above.
--- NOTE | 2024-08-20 08:33 | XR_ITS ---
WS: [id number] XR hip RT 2-3V wo/w pel* [id number] REASON FOR EXAM: fall FINDINGS: Total right hip arthroplasty. Components of the arthroplasty are intact and in proper position and alignment. No acute fracture identified. XR/XR hip RT 2-3V wo/w pel* [id number] IMPRESSION: Right TKA without acute abnormality.
--- NOTE | 2024-08-20 08:33 | XR_ITS ---
WS: [id number] XR shoulder RT min 2V* [id number] REASON FOR EXAM: fall FINDINGS: No acute fracture. The acromioclavicular joint is intact with normal alignment. Significant osteoarthritic change in the glenohumeral joint and decreased humeral acromial interval. Moderate sclerotic and cystic change in the greater biceps tuberosity. XR/XR shoulder RT min 2V* [id number] IMPRESSION: No acute abnormality. 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 Probable significant chronic rotator cuff tendinosis/tear.
--- NOTE | 2024-08-20 08:33 | W.ED.FALL ---
HPI - Fall General: Chief Complaint: Fall Stated Complaint: Fall, R hip/shouldeer pain Time Seen by Provider: 08/20/24 08:30 Source: patient and EMS Mode of arrival: EMS Limitations: no limitations History of Present Illness: 88-year-old female states that she tripped and fell at home this morning. States she landed on her right side she has right hip pain along with right elbow and shoulder pain. States pain is worse with movement was not able to bear weight she denies any head or neck pain or injuries. Associated symptoms-after fall: Denies abdominal pain, chest pain, headache(s) or neck pain Related Data Home Medications ?Medication ?Instructions ?Recorded ?Confirmed amlodipine 5 mg tablet 5 mg PO QAM 02/10/21 08/20/24 duloxetine 30 mg capsule,delayed 30 mg PO DAILY 02/10/21 08/20/24 release duloxetine 60 mg capsule,delayed 60 mg PO DAILY 02/10/21 08/20/24 release levothyroxine 75 mcg tablet 75 mcg PO QAM 02/10/21 08/20/24 pantoprazole 40 mg tablet,delayed 40 mg PO BID 02/10/21 08/20/24 release potassium chloride 20 mEq 20 meq PO QAM 02/10/21 08/20/24 tablet,extended release(part/cryst) pravastatin 40 mg tablet 40 mg PO BEDTIME 02/10/21 08/20/24 quinidine gluconate 324 mg 324 mg PO TID 02/10/21 08/20/24 tablet,extended release cholecalciferol (vitamin D3) 25 25 mcg PO QAM 12/15/21 08/20/24 mcg (1,000 unit) tablet (Vitamin D3) cyanocobalamin (vitamin B-12) 500 500 mcg PO QAM 12/15/21 08/20/24 mcg tablet (Vitamin B-12) folic acid 800 mcg tablet 0.8 mg PO QAM 12/15/21 08/20/24 magnesium oxide 400 mg PO DAILY 12/15/21 08/20/24 tkkiyuud-gfw-wfmur ac 400 1 tab PO BEDTIME 12/15/21 08/20/24 mcg-calcium carb 500 mg-vit K1 20 mcg tablet (Women's 50 Plus Multivitamin) pregabalin 75 mg capsule 75 mg PO BID Pain 12/15/21 08/20/24 pyridoxine (vitamin B6) 100 mg 100 mg PO QAM 12/15/21 08/20/24 tablet (Vitamin B-6) zinc acetate 50 mg (zinc) capsule 50 mg PO BEDTIME 12/15/21 08/20/24 biotin 10,000 mcg capsule 10,000 mcg PO BEDTIME 08/20/24 08/20/24 budesonide 3 mg See Rx Instructions .Route .COMPLEX 08/20/24 08/20/24 capsule,delayed,extended release bupropion HCl 300 mg 24 hr tablet, 300 mg PO QAM 08/20/24 08/20/24 extended release coenzyme Q10 100 mg capsule (Co 100 mg PO QAM 08/20/24 08/20/24 Q-10) docusate sodium 100 mg capsule 100 mg PO BEDTIME 08/20/24 08/20/24 (Colace) isosorbide mononitrate 30 mg 30 mg PO QAM 08/20/24 08/20/24 tablet,extended release 24 hr lidocaine 5 % topical patch 1 patch transdermal Q24H 08/20/24 08/20/24 loperamide 2 mg capsule See Rx Instructions .Route 08/20/24 08/20/24 .COMPLEX PRN Diarrhea mupirocin 2 % topical ointment 1 applic topical DAILY PRN Skin 08/20/24 08/20/24 Irritation nitroglycerin 0.4 mg sublingual See Rx Instructions .Route .COMPLEX 08/20/24 08/20/24 tablet oxycodone-acetaminophen 10 mg-325 1 tab PO Q6H PRN Severe Pain 08/20/24 08/20/24 mg tablet (Scale Score 7-10) trazodone 150 mg tablet 150 mg PO BEDTIME 08/20/24 08/20/24 vitamin E 268 mg (400 unit) capsule 268 mg PO BEDTIME 08/20/24 08/20/24 Allergies Allergy/AdvReac Type Severity Reaction Status Date / Time NSAIDS (Non-Steroidal Allergy Unknown Unknown Verified 12/15/21 14:41 Anti-Inflamma vancomycin Allergy Unknown Unknown Verified 12/15/21 14:41 Review of Systems Const: Denies: fever(s), chills, body aches or change in appetite ENMT: Denies: throat pain or dental pain Card: Denies: chest pain Resp: Denies: dyspnea GI: Denies: abdominal pain, nausea, vomiting or diarrhea Musc: Reports: extremity pain; Denies: neck pain or back pain Skin/Breast: Denies: rash Neuro: Denies: headache(s) PFSH ED PFSH: Medical History Pre-operative cardiovascular examination 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 Cardiac arrest 1985 Brugada syndrome Fibromyalgia Lymphocytic colitis LBBB (left bundle branch block) burgada syndrome Elevated CK Fall Closed hip fracture HTN (hypertension) CVA (cerebral vascular accident) CAD (coronary artery disease) Subcapital fracture of right hip (02/10/21) Surgical History H/O: hysterectomy History of appendectomy Hx of cholecystectomy Family History Other Family history non-contributory Social History Smoking and tobacco/nicotine status: never used tobacco/nicotine Substance/Drug Use: never Housing: House Physical Exam Const: COMMON NORMALS: patient oriented x3 HENMT: COMMON NORMALS: normocephalic and atraumatic HEAD & SCALP: normocephalic and atraumatic Eye: COMMON NORMALS: Equal, round and reactive pupils present and EOMs intact bilaterally PUPIL: Yes Equal, round and reactive pupils present Neck/C-Spine: COMMON NORMALS: full ROM and supple CERVICAL SPINE: Yes cervical ROM normal and No Cervical spine tenderness Chest: COMMONS NORMALS: normal inspection of the chest and normal palpation of entire chest wall Resp: COMMON NORMALS: normal respiratory effort, No retractions, No use of accessory muscles and clear to auscultation bilaterally AUSCULTATION: clear to auscultation bilaterally Cardio: COMMON NORMALS: regular rate, regular rhythm and No murmurs present (Cardio) RATE: regular rate RHYTHM: regular rhythm Extremity: COMMON NORMALS: full ROM NARRATIVE EXTREMITY EXAM: Tenderness noted to right hip from right elbow no obvious deformities Neuro: COMMON NORMALS: patient oriented x3, moves all extremities and no focal motor deficits Psych: COMMON NORMALS: mental status grossly normal, Normal thought process present and cooperative THOUGHT PROCESS: Normal thought process present Skin: COMMON NORMALS: no rashes or lesions noted and no wounds GENERAL SKIN EXAM: no rashes or lesions noted Course Vital Signs: Vital signs: Vital Signs Temperature 97.7 F 08/20/24 08:31 Pulse Rate 83 08/20/24 08:31 Respiratory Rate 16 08/20/24 08:37 Blood Pressure 126/65 08/20/24 08:31 Pulse Oximetry 95 08/20/24 08:37 Oxygen Delivery Me thod Room Air 08/20/24 08:37 MDM - Fall Medical Decision Making Patient presents here with right hip fracture along with right radial head fracture from a fall. Spoke to hospitalist along with orthopedics and will admit at this time. Medical Records I reviewed the patient's medical records. Lab Data I reviewed the patient's lab results. 08/20/24 10:43 Radiology Impressions Elbow X-Ray 08/20/24 08:33 IMPRESSION: Radial head fracture and joint effusion as above. Hip/Pelvis X-Ray 08/20/24 08:33 IMPRESSION: Right TKA without acute abnormality. Shoulder X-Ray 08/20/24 08:33 IMPRESSION: No acute abnormality. 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 Probable significant chronic rotator cuff tendinosis/tear. Hip CT 08/20/24 09:26 IMPRESSION: Some images degraded due to beam hardening artifact from hardware 1. Slightly comminuted fracture involving the greater trochanter. 2. Nondisplaced fracture extends from the lateral greater trochanter into the femoral shaft extending to the tip of the femoral georgina. 3. Osteopenia. Knee X-Ray 08/20/24 09:27 IMPRESSION: No acute abnormality. Moderate osteoarthritis. Laboratory Results WBC 7.19 10^3/uL (3.29-11.43) 08/20/24 10:43 RBC 3.74 10^6/uL (3.85-5.65) L 08/20/24 10:43 Hgb 12.10 g/dL (11.27-16.99) 08/20/24 10:43 Hct 38.5 % (36-47) 08/20/24 10:43 MCV 102.9 fl (85-98) H 08/20/24 10:43 MCH 32.4 pg (27-33) 08/20/24 10:43 MCHC 31.4 g/dL (30-55) 08/20/24 10:43 RDW 15.0 % (12.1-15.1) 08/20/24 10:43 Plt Count 215 10^3/cmm (157-399) 08/20/24 10:43 MPV 8.4 fL (7.4-10.4) 08/20/24 10:43 Neut % (Auto) 76.0 % 08/20/24 10:43 Lymph % (Auto) 11.3 % 08/20/24 10:43 Hinds % (Auto) 9.9 % 08/20/24 10:43 Eos % (Auto) 2.1 % 08/20/24 10:43 Baso % (Auto) 0.3 % 08/20/24 10:43 Neut # (Auto) 5.47 10^3/uL (1.8-7.7) 08/20/24 10:43 Lymph # (Auto) 0.8 10^3/uL (0.8-4.8) 08/20/24 10:43 Hinds # (Auto) 0.7 10^3/uL (0.2-0.9) 08/20/24 10:43 Eos # (Auto) 0.2 10^3/uL (0.0-0.8) 08/20/24 10:43 Baso # (Auto) 0.0 10^3/uL (0.0-0.1) 08/20/24 10:43 Nucleated RBC % (auto) 0 % 08/20/24 10:43 Nucleated RBCs # 0.0 /100WBC 08/20/24 10:43 All radiology interpretation(s) finalized by discharge Discharge Plan Discharge Patient Disposition: Admitted As Inpatient Clinical Impression: Closed fracture of right hip, Closed fracture of head of right radius, Fall Condition: Stable Coding Level of Care Code ED Weapons Mechanic for Jens Wheeler
--- OUTSIDE RECORDS SUMMARY | 2024-08-20 08:40 | XMS_ITS | Encounter Summary ---
Author Organization [facility] Address [address] [place] [address] Care Team Providers Care Potato Bucker Name Role Phone Kylee Pederson MD Primary Care Provider Reason for Visit * Reason Comments Medication Refill Encounter Details Date Type Department Care Team (Late st Contact Info) Description 11/01/2015 Refill [facility] Telemedicine Confidential - [place] [address] [place] [phone] Miguelito Jackson Jr., MD NO ADDRESS ON FILE Social History Tobacco Use Types Packs/Day Years Used Date Smoking Tobacco: Never Smokeless Tobacco: Never Alcohol Use Standard Drinks/Week Comments No 0 (1 standard drink = 0.6 oz pur e alcohol) social drinker years ago Comments No Sex and Gender Information Value Date Recorded Sex Assigned at Not on file Legal Sex Female 3:23 AM PET CAREGIVER Gender Identity Not on file Sexual Orientation Not on file documented as of this encounter Miscellaneous Notes * Telephone Encounter - [place] - 11/01/2015 4:03 PM CDT Ativan called into [facility] documented in this encounter Plan of Treatment Not on file documented as of this encounter Visit Diagnoses Not on filedocumented in this encounter Additional Health Concerns Infection Onset Date Last Indicated Resolved Time R/O C. diff 04/16/2020 04/16/2020 04/16/2020 10:2 7 PM PET CAREGIVER documented as of this encounter Care Teams Potato Bucker Relationship Specialty Start Date End Date Kylee Pederson MD [address] [phone] PCP - General Family Practice 10/18/17 documented as of this encounter
--- OUTSIDE RECORDS SUMMARY | 2024-08-20 08:40 | XMS_ITS | Encounter Summary ---
Author Organization [facility] Address [address] [place] [address] Care Team Providers Care Vocational Nurse Lvn Name Role Phone Kylee Pederson MD Primary Care Provider Reason for Visit * Reason Comments Medication Refill Encounter Details Date Type Department Care Team (Late st Contact Info) Description 01/05/2015 Refill [facility] Telemedicine Confidential - [place] [address] [facility] [address] [place] [phone] Miguelito Jackson Jr., MD NO ADDRESS ON FILE Social History Tobacco Use Types Packs/Day Years Used Date Smoking Tobacco: Never Smokeless Tobacco: Never Alcohol Use Standard Drinks/Week Comments No 0 (1 standard drink = 0.6 oz pur e alcohol) social drinker years ago Comments No Sex and Gender Information Value Date Recorded Sex Assigned at Not on file Legal Sex Female 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 diff 04/16/2020 04/16/2020 04/16/2020 10:2 7 PM INSPECTION MACHINE TENDER documented as of this encounter Care Teams Vocational Nurse Lvn Relationship Specialty Start Date End Date Kylee Pederson MD [address] [place] [phone] PCP - General Family Practice 10/18/17 documented as of this encounter
--- OUTSIDE RECORDS SUMMARY | 2024-08-20 08:40 | XMS_ITS | Encounter Summary ---
Author Organization [facility] Address [address] [place] [address] Care Team Providers Care Hotel Administrative Assistant Name Role Phone Kylee Pederson MD Primary Care Provider Encounter Details Date Type Department Care Team (Late st Contact Info) Description 06/21/[address] [facility] Oral and Maxillo Surgery[address] [place] [address] Luke Preciado, Cal Gardiner, BELKIS NO ADDRESS ON FILE Other specified disorders of bone, unspecified site (Primary Dx) Social History Tobacco Use Types Packs/Day Years Used Date Smoking Tobacco: Never Smokeless Tobacco: Never Alcohol Use Standard Drinks/Week Comments No 0 (1 standard drink = 0.6 oz pur e alcohol) social drinker years ago Comments No Sex and Gender Information Value Date Recorded Sex Assigned at Not on file Legal Sex Female 3:23 AM DROSS SKIMMER Gender Identity Not on file Sexual Orientation Not on file documented as of this encounter Plan of Treatment Not on file documented as of this encounter Results * XR PANOREX (06/28/2015 3:15 PM CDT) Anatomical Region Laterality Modality Head Computed Radiogr aphy Narrative 08/15/2015 10:32 PM CDT Condylar heads in the fossa No signs of any bony pathology No signs of condylar hyperplasia or hypoplasia DJD Cal Butler Jr., BELKIS DIAGNOSTIC IMAGING ORDERABLES Final Result documented in this encounter Visit Diagnoses Diagnosis Other specified disorders of bone, unspecified site- Primary documented in this encounter Additional Health Concerns Infection Onset Date Last Indicated Resolved Time R/O C. diff 04/16/2020 04/16/2020 04/16/2020 10:2 7 PM DROSS SKIMMER documented as of this encounter Care Teams Hotel Administrative Assistant Relationship Specialty Start Date End Date Kylee Pederson MD [address] [phone] PCP - General Family Practice 10/18/17 documented as of this encounter
--- OUTSIDE RECORDS SUMMARY | 2024-08-20 08:40 | XMS_ITS | Encounter Summary ---
Author Organization [facility] Address [address] [place] [address] Care Team Providers Care Secondary School Teacher Librarian Name Role Phone Kylee Pederson MD Primary Care Provider Encounter Details Date Type Department Care Team (Late st Contact Info) Description 10/05/2014 Ancillary Orders [facility] Oral and Maxillo Surgery[address] [place] [address] Luke Preciado, Cal Gardiner, BELKIS NO ADDRESS ON FILE Other disorders of bone and cartilage(733.99) (Primary Dx) Social History Tobacco Use Types Packs/Day Years Used Date Smoking Tobacco: Never Smokeless Tobacco: Never Alcohol Use Standard Drinks/Week Comments No 0 (1 standard drink = 0.6 oz pur e alcohol) social drinker years ago Comments No Sex and Gender Information Value Date Recorded Sex Assigned at Not on file Legal Sex Female 3:23 AM POLICE DISPATCHER Gender Identity Not on file Sexual Orientation Not on file documented as of this encounter Plan of Treatment Not on file documented as of this encounter Results * XR PANOREX (10/08/2014 11:59 AM CDT) Anatomical Region Laterality Modality Head Computed Radiogr aphy Narrative 10/17/2014 10:00 PM CDT Condyles in the fossa No signs of condylar hyper or hypoplasia No bony pathology us Cal Butler Jr., DMD DIAGNOSTIC IMAGING ORDERABLES Final Result documented in this encounter Visit Diagnoses Diagnosis Other disorders of bone and cartilage(733.99)- Primary Other disorders of bone and cartilage documented in this encounter Additional Health Concerns Infection Onset Date Last Indicated Resolved Time R/O C. diff 04/16/2020 04/16/2020 04/16/2020 10:2 7 PM POLICE DISPATCHER documented as of this encounter Care Teams Secondary School Teacher Librarian Relationship Specialty Start Date End Date Kylee Pederson MD [address] [phone] PCP - General Family Practice 10/18/17 documented as of this encounter
--- OUTSIDE RECORDS SUMMARY | 2024-08-20 08:40 | XMS_ITS | Encounter Summary ---
Author Organization [employer] [facility] Address [address] [place] [address] Care Team Providers Care Anvil Seating Press Operator Name Role Phone Kylee Pederson MD Primary Care Provider [phone] Reason for Visit * Reason Comments Medication Refill Encounter Details Date Type Department Care Team (Late st Contact Info) Description 02/23/2017 Refill [facility] Telemedicine Confidential - [place] [address] [facility] [address] [place] [phone] Miguelito Jackson Jr., MD NO ADDRESS ON FILE Social History Tobacco Use Types Packs/Day Years Used Date Smoking Tobacco: Never Smokeless Tobacco: Never Alcohol Use Standard Drinks/Week Comments No 0 (1 standard drink = 0.6 oz pur e alcohol) social drinker years ago Comments No Sex and Gender Information Value Date Recorded Sex Assigned at Not on file Legal Sex Female 3:23 AM BACK GRAY CLOTH WASHER Gender Identity Not on file Sexual Orientation Not on file documented as of this encounter Plan of Treatment Not on file documented as of this encounter Visit Diagnoses Not on filedocumented in this encounter Additional Health Concerns Infection Onset Date Last Indicated Resolved Time R/O C. diff 04/16/2020 04/16/2020 04/16/2020 10:2 7 PM BACK GRAY CLOTH WASHER Assessment Noted Time PHQ-9 Depression Total Score: 1 11/07/19 17 11:00 AM CDT documented as of this encounter Care Teams Anvil Seating Press Operator Relationship Specialty Start Date End Date Kylee Pederson MD [address] [facility] [address] [place] [phone] PCP - General Family Practice 10/18/17 documented as of this encounter
--- OUTSIDE RECORDS SUMMARY | 2024-08-20 08:40 | XMS_ITS | Clinical Summary ---
Author Organization [facility] Address [address] [place] [address] Phone Care Team Providers Care Fresh Food Manager Name Role Phone Kylee Pederson MD Primary Care Provider Allergies Active Allergy Reactions Criticality Noted Date Comments Tricyclic Antidepressants And Tricyclic Compounds Other (See Comments) 02/25/2014 Reports near Medications diclofenac sodium (VOLTAREN) 1 % Topical gel Apply to affected area 4 times daily. Active LIDOCAINE (LIDODERM TOPICAL) Apply to affected area. Active pravastatin (PRAVACHOL) 40 mg tablet Take 40 mg by mouth late in the day . Active amLODIPine (NORVASC) 5 mg Oral tablet Take 5 mg by mouth daily. Active potassium chloride (K-DUR) 20 mEq Extended Release tablet Take 20 mEq by mouth daily. 6 Active quiNIDine gluconate (QUINAGLUTE) 324 mg Extended Release tablet Take 1 Tablet (324 mg) by mouth every 8 hours. 270 Tablet 3 7 Active Cholecalciferol , Vitamin D3, 2,000 unit Capsule Take 2,000 Units by mouth 2 times daily. Active cyanocobalamin 1,000 mcg Tablet Take 1,000 mcg by mouth daily. Active folic acid (FOLVITE) 1 mg tablet Take 1 mg by mouth daily. Active COPPER ORAL Take 2 mg by mouth 2 times daily. Active escitalopram oxalate (LEXAPRO) 10 mg tablet Take 10 mg by mouth daily. Active lidocaine (LIDODERM) 5 % Adhesive Patch, Medicated Apply 1 Patch to affected area every 24 hours. Active budesonide (ENTOCORT EC) 3 mg Enteric Coated 24 hour capsule Take 3 mg by mouth daily. 3 capsults daily for 60 days, then 2 capsules for 60 days then [address] Sheridan Active acetaminophen-c odeine (TYLENOL #4) 300-60 mg tablet Take 1 Tablet by mouth every 6 hours as needed for Pain, Moderate. Dr. Mendes Active diphenoxylate-a tropine 2.5-0.025 mg tablet Take 2 Tablets by mouth 4 times daily as needed for Diarrhea/Loose Stools. Dr. Sheridan Active DULoxetine (CYMBALTA) 30 mg Capsule, Delayed Release(E.C.) Take 30 mg by mouth daily. Dr. Jimenez. Take along with 60mg. Active DULoxetine (CYMBALTA) 60 mg Capsule, Delayed Release(E.C.) Take 60 mg by mouth daily. Dr. Jimenez, take along with 30 mg. Active pregabalin (Lyrica) 75 mg Capsule Take 1 Capsule (75 mg) by mouth every 12 hours. 60 Capsule 1 1 Active levothyroxine 75 mcg tablet Take 1 Tablet (75 mcg) by mouth daily in the morning. 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 Sudden in 1985. 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 Attention deficit hyperactiv ity disorder (ADHD), predominantly inattentive type 11/04/2014 1 03/08/2014 ADHD (attention deficit hype ractivity disorder) 10/07/2014 11/04/2014 Osteonecrosis of mandible 06/24/2014 Major depressive disorder, r ecurrent severe without psychotic features 02/25/2014 09/22/2015 Insomnia 02/25/2014 12/09/2014 Immunizations Immunization Administration Dates Next Due (ADACEL/BOOSTRIX)(10 YR UP) TDAP VACCINE, 0.5ML, IM 07/23/2018 (TDVAX)(7 YRS UP) TETANUS AN D DIPHTHERIA TOXOIDS, ADSORBED (2 LF OF TETANUS TOXOID AND 2 LF OF DIPHTHERIA TOXOID), 0.5ML (PF), IM 01/06/2006 Influenza Seasonal Unspecifi ed Formulation IM 12/17/2019,12/02/1996,12/28/1995 Influenza Vaccine High Dose 65+ Yrs IM 8 PNEUMOVAX (PPSV23) pneumococ imtiaz polysaccharide 23-valent Vaccine 05/10/2014 PREVNAR (PCV13) pneumococcal 13-valent conjugate Vaccine 12/17/2019 Family History Medical History Relation Name Comments Other Father TB Other Maternal Grandfather arthrit is Other Maternal Grandmother flu epi demic Other Mother famile tremors Unknown Paternal Grandfather Other Paternal Grandmother TB Breast Cancer Neg Hx Colon Cancer Neg Hx Relation Name Status Comments Father Maternal Grandfather Maternal Grandmother Mother Paternal Grandfather Paternal Grandmother Social History Tobacco Use Types Packs/Day Years Used Date Smoking Tobacco: Never Smokeless Tobacco: Never Tobacco Cessation:Counseling Given: No Alcohol Use Standard Drinks/Week Comments No 0 (1 standard drink = 0.6 oz pur e alcohol) social drinker years ago Comments No Sex and Gender Information Value Date Recorded Sex Assigned at Not on file Legal Sex Female 3:23 AM TAX REPRESENTATIVE Gender Identity Not on file Sexual Orientation Not on file Last Filed Vital Signs Vital Sign Reading Time Taken Comments Blood Pressure 136/70 05/31/2020 3:43 PM CDT Pulse 83 05/31/2020 3:43 PM CDT Temperature 36.7 C (98.1 F) 05/31/2020 3:43 PM CDT Respiratory Rate 16 09/19/2019 1:55 PM CDT Oxygen Saturation 94% 05/31/2020 3:43 PM CDT Inhaled Oxygen Concentration - - Weight 60.3 kg (133 lb) 05/31/2020 3:43 PM CDT Height 152.4 cm (5') 05/31/2020 3:43 PM CDT Body Mass Index 25.97 05/31/2020 3:43 PM CDT Plan of Treatment Health Maintenance Due Date Last Done Comments ZOSTER VACCINE (1 of 2) 1986 RSV VACCINE (60+ or ) (1 - 1-dose 75+ series) 10/26/2011 [place] Preventative Visit/Annual Wellness Visit 02/20/2024 INFLUENZA VACCINE (#1) 2024 0, 10/19/2017, 12/02/1996, Additional history exists OSTEOPOROSIS SCREENING 10/11/2026 2, 05/17/2017, 07/22/2015 DTAP/TDAP/TD VACCINES (2 - T d or Tdap) 07/23/2028 07/23/2018, 01/06/2006 PNEUMOCOCCAL VACCINE 50+ YEARS Completed 12/17/2019 , 05/10/2014 Insurance [place] [address] [place] [id number] [facility] DUAL COMPLETE MCR PPO D-SNP [place]ICA[place] DUAL COMPLETE MCR PPO D-SNP Care Teams Fresh Food Manager Relationship Specialty Start Date End Date Kylee Pederson MD [address] [phone] PCP - General Family Practice 10/18/17
--- OUTSIDE RECORDS SUMMARY | 2024-08-20 08:40 | XMS_ITS | Encounter Summary ---
Author Organization [facility] Address [address] [place] [address] Care Team Providers Care Print Shop Manager Name Role Phone Kylee Pederson MD Primary Care Provider [phone] Reason for Visit * Reason Comments Medication Refill Encounter Details Date Type Department Care Team ([facility] Contact Info) Description 05/10/2016 Refill [facility] Telemedicine Confidential - [place] [address] [place] [phone] Miguelito Jackson Jr., MD NO ADDRESS ON FILE Social History Tobacco Use Types Packs/Day Years Used Date Smoking Tobacco: Never Smokeless Tobacco: Never Alcohol Use Standard Drinks/Week Comments No 0 (1 standard drink = 0.6 oz pur e alcohol) social drinker years ago Comments No Sex and Gender Information Value Date Recorded Sex Assigned at Not on file Legal Sex Female 3:23 AM CATTLE MANAGER Gender Identity Not on file Sexual Orientation Not on file documented as of this encounter Miscellaneous Notes * Telephone Encounter - Brown Curtis CMA - 05/11/2016 11:18 AM CDT Called into documented in this encounter Plan of Treatment Not on file documented as of this encounter Visit Diagnoses Not on filedocumented in this encounter Additional Health Concerns Infection Onset Date Last Indicated Resolved Time R/O C. diff 04/16/2020 04/16/2020 04/16/2020 10:2 7 PM CATTLE MANAGER documented as of this encounter Care Teams Print Shop Manager Relationship Specialty Start Date End Date Kylee Pederson MD [address] [phone] PCP - General Family Practice 10/18/17 documented as of this encounter
--- OUTSIDE RECORDS SUMMARY | 2024-08-20 08:40 | XMS_ITS | Encounter Summary ---
Author Organization [employer] Address [address] [place] [address] Care Team Providers Care Software Educator Name Role Phone Kylee Pederson MD Primary Care Provider Encounter Details Date Type Department Care Team (Late st Contact Info) Description 04/13/2004 Outpatient Historical [facility] [place], [address] [address] Social History Tobacco Use Types Packs/Day Years Used Date Smoking Tobacco: Never Assessed Comments Unknown Sex and Gender Information Value Date Recorded Sex Assigned at Not on file Legal Sex Female 3:23 AM HIDE CURER Gender Identity Not on file Sexual Orientation Not on file documented as of this encounter Plan of Treatment Not on file documented as of this encounter Visit Diagnoses Not on filedocumented in this encounter Additional Health Concerns Infection Onset Date Last Indicated Resolved Time R/O C. diff 04/16/2020 04/16/2020 04/16/2020 10:2 7 PM HIDE CURER documented as of this encounter Care Teams Software Educator Relationship Specialty Start Date End Date Kylee Pederson MD [address] [phone] PCP - General Family Practice 10/18/17 documented as of this encounter
--- OUTSIDE RECORDS SUMMARY | 2024-08-20 08:40 | XMS_ITS | Encounter Summary ---
Author Organization [employer] [facility] Address [address] [place] [address] Care Team Providers Care Compound Specialist Name Role Phone Kylee Pederson MD Primary Care Provider Reason for Visit * Reason Comments Medication Refill Encounter Details Date Type Department Care Team ([facility] st Contact Info) Description 09/07/2016 Refill [facility] Telemedicine Confidential - [place] [address] [place] [phone] Manuel Preciado, Miguelito Christie MD NO ADDRESS ON FILE Social History Tobacco Use Types Packs/Day Years Used Date Smoking Tobacco: Never Smokeless Tobacco: Never Alcohol Use Standard Drinks/Week Comments No 0 (1 standard drink = 0.6 oz pur e alcohol) social drinker years ago Comments No Sex and Gender Information Value Date Recorded Sex Assigned at Not on file Legal Sex Female 3:23 AM STORE DETECTIVE Gender Identity Not on file Sexual Orientation Not on file documented as of this encounter Miscellaneous Notes * Telephone Encounter - Vlad Meadows - 09/07/2016 2:49 PM CDT Ativan called into [facility] [id number] * Telephone Encounter - Vlad Meadows - 09/07/2016 1:09 PM CDT Last seen 07/26/16 Future appointment: 09/20/16 documented in this encounter Plan of Treatment Not on file documented as of this encounter Visit Diagnoses Not on filedocumented in this encounter Additional Health Concerns Infection Onset Date Last Indicated Resolved Time R/O C. diff 04/16/2020 04/16/2020 04/16/2020 10:2 7 PM STORE DETECTIVE documented as of this encounter Care Teams Compound Specialist Relationship Specialty Start Date End Date Kylee Pederson MD [address] [phone] PCP - General Family Practice 10/18/17 documented as of this encounter
--- OUTSIDE RECORDS SUMMARY | 2024-08-20 08:40 | XMS_ITS | Encounter Summary ---
Author Organization [facility] Address [address] [place] [address] Care Team Providers Care Tool Engine Lathe Set Up Operator Name Role Phone Kylee Pederson MD Primary Care Provider Reason for Visit * Reason Comments Medication Refill Encounter Details Date Type Department Care Team (Late Contact Info) Description 12/12/[address] [facility] Telemedicine Confidential - [place] [address] [address] Miguelito Jackson Jr., MD NO ADDRESS ON FILE Major depressive disorder, recurrent, in partial remission Social History Tobacco Use Types Packs/Day Years Used Date Smoking Tobacco: Never Smokeless Tobacco: Never Alcohol Use Standard Drinks/Week Comments No 0 (1 standard drink = 0.6 oz pur e alcohol) social drinker years ago Comments No Sex and Gender Information Value Date Recorded Sex Assigned at Not on file Legal Sex Female 3:23 AM EMERY GRINDER Gender Identity Not on file Sexual Orientation Not on file documented as of this encounter Plan of Treatment Not on file documented as of this encounter Visit Diagnoses Diagnosis Major depressive disorder, recurrent, in partial remission Major depressive disorder, recurrent episode, in partial or unspecified remission documented in this encounter Additional Health Concerns Infection Onset Date Last Indicated Resolved Time R/O C. diff 04/16/2020 04/16/2020 04/16/2020 10:2 7 PM EMERY GRINDER Assessment Noted Time PHQ-9 Depression Total Score: 1 11/07/19 17 11:00 AM CDT documented as of this encounter Care Teams Tool Engine Lathe Set Up Operator Relationship Specialty Start Date End Date Kylee Pederson MD [address] [facility] [address] [place] [address] PCP - General Family Practice 10/18/17 documented as of this encounter
--- OUTSIDE RECORDS SUMMARY | 2024-08-20 08:40 | XMS_ITS | Encounter Summary ---
Author Organization [employer] [facility] Address [address] [place] [address] Care Team Providers Care Valet Name Role Phone Kylee Pederson MD Primary Care Provider [phone] Reason for Visit * Reason Comments Medication Refill Encounter Details Date Type Department Care Team ([facility] Contact Info) Description 06/20/[address] [facility] Telemedicine Confidential - [place] [address] [place] [phone] Miguelito Jackson Jr., MD NO ADDRESS ON FILE Social History Tobacco Use Types Packs/Day Years Used Date Smoking Tobacco: Never Smokeless Tobacco: Never Alcohol Use Standard Drinks/Week Comments No 0 (1 standard drink = 0.6 oz pur e alcohol) social drinker years ago Comments No Sex and Gender Information Value Date Recorded Sex Assigned at Not on file Legal Sex Female 3:23 AM SAND OPERATOR Gender Identity Not on file Sexual Orientation Not on file documented as of this encounter Miscellaneous Notes * Telephone Encounter - Holly Smith CMA - 06/21/2016 9:48 AM CDT Called in with Jacqui gomez [facility] documented in this encounter Plan of Treatment Not on file documented as of this encounter Visit Diagnoses Not on filedocumented in this encounter Additional Health Concerns Infection Onset Date Last Indicated Resolved Time R/O C. diff 04/16/2020 04/16/2020 04/16/2020 10:2 7 PM SAND OPERATOR documented as of this encounter Care Teams Valet Relationship Specialty Start Date End Date Kylee Pederson MD [address] [phone] PCP - General Family Practice 10/18/17 documented as of this encounter
--- OUTSIDE RECORDS SUMMARY | 2024-08-20 08:40 | XMS_ITS | Encounter Summary ---
Author Organization [facility] Address [address] [place] [address] Care Team Providers Care Director Of Student Financial Services Name Role Phone Kylee Pederson MD Primary Care Provider Encounter Details Date Type Department Care Team (Late st Contact Info) Description 10/14/2004 Outpatient Historical [facility] FY06 Non-Staff, Physician NO ADDRESS ON FILE Social History Tobacco Use Types Packs/Day Years Used Date Smoking Tobacco: Never Assessed Comments Unknown Sex and Gender Information Value Date Recorded Sex Assigned at Not on file Legal Sex Female 3:23 AM MINILAB OPERATOR Gender Identity Not on file Sexual Orientation Not on file documented as of this encounter Plan of Treatment Not on file documented as of this encounter Procedures Procedure Name Priority Date/Time Associated Diagnosis Comments T3 FREE Routine 10/14/2004 10:38 AM CDT documented in this encounter Results * T3 FREE (10/14/2004 10:38 AM CDT) T3 FREE See Sep Report INTERFACE SYSTEM 10/14/2004 10:3 8 AM CDT us Physician Non-Staff CHEMISTRY ORDERABLES Final R esult INTERFACE SYSTEM Refer to clinic/hospital department documented in this encounter Visit Diagnoses Not on filedocumented in this encounter Additional Health Concerns Infection Onset Date Last Indicated Resolved Time R/O C. diff 04/16/2020 04/16/2020 04/16/2020 10:2 7 PM MINILAB OPERATOR documented as of this encounter Care Teams Director Of Student Financial Services Relationship Specialty Start Date End Date Kylee Pederson MD [address] [phone] PCP - General Family Practice 10/18/17 documented as of this encounter
--- OUTSIDE RECORDS SUMMARY | 2024-08-20 08:40 | XMS_ITS | Encounter Summary ---
Author Organization [employer] [facility] Address [address] [place] [address] Care Team Providers Care Party Host/Hostess Name Role Phone Kylee Pederson MD Primary Care Provider Reason for Visit * Reason Comments Medication Refill Encounter Details Date Type Department Care Team ([facility] Contact Info) Description 04/17/2014 Refill [facility] Telemedicine Confidential - [place] [address] [facility] [address] [place] [phone] Miguelito Jackson Jr., MD NO ADDRESS ON FILE Social History Tobacco Use Types Packs/Day Years Used Date Smoking Tobacco: Never Smokeless Tobacco: Never Comments No Sex and Gender Information Value Date Recorded Sex Assigned at Not on file Legal Sex Female 3:23 AM PRODUCT BUILDER Gender Identity Not on file Sexual Orientation Not on file documented as of this encounter Plan of Treatment Not on file documented as of this encounter Visit Diagnoses Not on filedocumented in this encounter Additional Health Concerns Infection Onset Date Last Indicated Resolved Time R/O C. diff 04/16/2020 04/16/2020 04/16/2020 10:2 7 PM PRODUCT BUILDER documented as of this encounter Care Teams Party Host/Hostess Relationship Specialty Start Date End Date Kylee Pederson MD [address] [facility] [address] [place] [phone] PCP - General Family Practice 10/18/17 documented as of this encounter
--- OUTSIDE RECORDS SUMMARY | 2024-08-20 08:40 | XMS_ITS | Encounter Summary ---
Author Organization [facility] [facility] Address [address] [place] [address] Care Team Providers Care Furniture Repairer Name Role Phone Kylee Pederson MD Primary Care Provider Reason for Visit * Reason Comments Medication Refill Encounter Details Date Type Department Care Team ([facility] Contact Info) Description 10/17/2016 Refill [facility] Telemedicine Confidential - [place] [address] [place] [address] Miguelito Jackson Jr., MD NO ADDRESS [...] on file Legal Sex Female 3:23 AM BALL HOLDER Gender Identity Not on file Sexual Orientation Not on file documented as of this encounter Miscellaneous Notes * Telephone Encounter - harman Ambrocio - 10/18/2016 11:17 AM CDT Called Ativan into [facility] [phone] documented in this encounter Plan of Treatment Not on file documented as of this encounter Visit Diagnoses Not on filedocumented in this encounter Additional Health Concerns Infection Onset Date Last Indicated Resolved Time R/O C. diff 04/16/2020 04/16/2020 04/16/2020 10:2 7 PM BALL HOLDER documented as of this encounter Care Teams Furniture Repairer Relationship Specialty Start Date End Date Kylee Pederson MD [address] [phone] PCP - General Family Practice 10/18/17 documented as of this encounter
--- OUTSIDE RECORDS SUMMARY | 2024-08-20 08:40 | XMS_ITS | Encounter Summary ---
Author Organization [employer] [facility] Address [address] [place] [address] Care Team Providers Care Rim Fire Priming Tool Setter Name Role Phone Kylee Pederson MD Primary Care Provider [phone] Reason for Visit * Reason Comments Medication Refill Encounter Details Date Type Department Care Team (Late st Contact Info) Description 10/19/2014 Refill [facility] Telemedicine Confidential - [place] [address] [facility] [address] [place] [phone] Miguelito Jackson Jr., MD NO ADDRESS ON FILE Social History Tobacco Use Types Packs/Day Years Used Date Smoking Tobacco: Never Smokeless Tobacco: Never Alcohol Use Standard Drinks/Week Comments No 0 (1 standard drink = 0.6 oz pur e alcohol) social drinker years ago Comments No Sex and Gender Information Value Date Recorded Sex Assigned at Not on file Legal Sex Female 3:23 AM OPTICIANRY TEACHER Gender Identity Not on file Sexual Orientation Not on file documented as of this encounter Plan of Treatment Not on file documented as of this encounter Visit Diagnoses Not on filedocumented in this encounter Additional Health Concerns Infection Onset Date Last Indicated Resolved Time R/O C. diff 04/16/2020 04/16/2020 04/16/2020 10:2 7 PM OPTICIANRY TEACHER documented as of this encounter Care Teams Rim Fire Priming Tool Setter Relationship Specialty Start Date End Date Kylee Pederson MD [address] [place] [phone] PCP - General Family Practice 10/18/17 documented as of this encounter
[2024-08-20] MEDS: HYDROcodone-acetaminophen 5-325 mg Tablet 1 TAB PO (08:56)
--- NOTE | 2024-08-20 09:03 | PC.PHAR ---
[phone] Nurse sets up her medications at home. They are faxing current med list 08/20/24 9:04am
--- NOTE | 2024-08-20 09:26 | CT_ITS ---
WS: [id number] Noncontrast CT RIGHT hip TECHNIQUE: Noncontrast CT RIGHT hip with coronal and sagittal reformatted images. CLINICAL INFORMATION: fx DLP: 266.[address] scans at [facility] use at least one of these dose optimization techniques: automated exposure control; mA and/or kV adjustment per patient size (includes targeted exams where dose is matched to clinical indication); or iterative reconstruction. FINDINGS: Prior postoperative changes RIGHT MARY. Osteopenia. Slightly comminuted fracture involving the greater trochanter. This has an acute appearance. Additional nondisplaced cortical fracture extending from the lateral greater trochanter into the femoral shaft. This extends to the mid femoral shaft along the posterior cortex. Acetabulum appears normal considering the morning artifact degrades images. Normal visualized RIGHT pubic ramus. Sigmoid diverticulosis. Urine distended bladder. Sebaceous cyst in the upper dorsal thigh. CT/CT hip RT wo con* [id number] IMPRESSION: Some images degraded due to beam hardening artifact from hardware 1. Slightly comminuted fracture involving the greater trochanter. 2. Nondisplaced fracture extends from the lateral greater trochanter into the femoral shaft extending to the tip of the femoral georgina. 3. Osteopenia.
--- NOTE | 2024-08-20 09:27 | XR_ITS ---
WS: [id number] XR knee RT 3V* [id number] REASON FOR EXAM: fall FINDINGS: No acute fracture, tibial plateaus and patella intact. Moderate changes of osteoarthritis in the 3 joint spaces of the knee. Calcified menisci medially and laterally. No radiopaque soft tissue foreign body. XR/XR knee RT 3V* [id number] IMPRESSION: No acute abnormality. Moderate osteoarthritis.
--- NOTE | 2024-08-20 09:48 | PC.PHAR ---
Pt has several medications on her list from [facility] that have not been filled since 2020-I did not add them to her current list. Pt has 2 sets of am medications . She has taken her first set this morning but did not get her second set taken prior to arrival.
--- NOTE | 2024-08-20 10:31 | ECG_ITS ---
[facility] Test Date: 2024-08-20 Pat Name: Medina Alston Department: Room: Gender: Female Fruit Packer Face And Fill: : 1935 Requested By: Kavitha Marcos Order Number: [id number] Donnie MD: Ryan Sanchez M.D. Measurements Intervals [place] Rate: 82 P: 65 WY: 268 QRS: -65 QRSD: 154 T: 110 QT: 457 QTc: 535 Interpretive Statements SINUS RHYTHM WITH SINUS ARRHYTHMIA WITH FIRST DEGREE AV BLOCK LEFT AXIS DEVIATION [QRS AXIS < -30] LEFT BUNDLE BRANCH BLOCK [120+ ms QRS DURATION, 80+ ms Q/S IN V1/V2, 85+ ms R IN I/aVL/V5/V6] Compared to ECG 06/29/2024 23:24:05 No significant changes Electronically Signed On 08-21-2024 08:54:58 CDT by Ryan Sanchez M.D. [email or web address]
[2024-08-20 10:50] LABS: Hematocrit 38.5 % (36-47); Hemoglobin 12.10 g/dL (11.27-16.99); Mean Corpuscular HGB Conc 31.4 g/dL (30-55); Mean Corpuscular Hemoglobin 32.4 pg (27-33); Mean Corpuscular Volume 102.9 fl (85-98); Nucleated Red Blood Cells % 0 %; Platelet Count 215 10^3/cmm (157-399); Red Blood Count 3.74 10^6/uL (3.85-5.65); White Blood Count 7.19 10^3/uL (3.29-11.43)
[2024-08-20] MEDS: morphine 4 mg/mL SDV 1 mL IVP (10:54)
[2024-08-20] MEDS: ondansetron 2 mg/ML SDV 2 mL 4 MG IVP (10:54)
[2024-08-20 11:20] LABS: INR 0.88 (0.8-1.2); Prothrombin Time 12.60 SECONDS (12.1-14.9)
[2024-08-20 11:28] LABS: Alanine Aminotransferase 60 U/L (0-33); Albumin Level 3.7 g/dL (3.5-5.2); Alkaline Phosphatase 87 U/L (35-105); Anion Gap 14.5 (5-19); Aspartate Amino Transferase 49 U/L (0-32); Blood Urea Nitrogen 16 mg/dL (8-23); Calcium 9.3 mg/dL (8.5-10.5); Carbon Dioxide 27 mmol/L (22-29); Chloride 105 mmol/L (98-107); Creatinine Clr Calc Pharmacy 38.3804; Globulin 2.1 g/dL (1.3-4.6); Glucose 94 mg/dL (65-115); Osmolality Calculated 295 mOsm/kg (285-295); Potassium 4.5 mmol/L (3.5-5.1); Sodium 142 mmol/L (136-145); Total Protein 5.8 g/dL (6.6-8.7)
--- OUTSIDE RECORDS SUMMARY | 2024-08-20 12:08 | XMS_ITS | Encounter Summary ---
Author Organization [employer] [facility] Address [address] [place] [address] Care Team Providers Care Spanish Medical Interpreter Name Role Phone Kylee Pederson MD Primary Care Provider Reason for Visit * Reason Comments Medication Refill Encounter Details Date Type Department Care Team ([facility] Contact Info) Description 05/10/2016 Refill [facility] Telemedicine Confidential - [place] [address] [place] [phone] Miguelito Jackson Jr., MD NO ADDRESS ON FILE Social History Tobacco Use Types Packs/Day Years Used Date Smoking Tobacco: Never Smokeless Tobacco: Never Alcohol Use Standard Drinks/Week Comments No 0 (1 standard drink = 0.6 oz pur e alcohol) social drinker years ago Comments No Sex and Gender Information Value Date Recorded Sex Assigned at Not on file Legal Sex Female 3:23 AM CAREGIVER ASSISTED LIVING Gender Identity Not on file Sexual Orientation [...] diff 04/16/2020 04/16/2020 04/16/2020 10:2 7 PM CAREGIVER ASSISTED LIVING documented as of this encounter Care Teams Spanish Medical Interpreter Relationship Specialty Start Date End Date Kylee Pederson MD [address] [phone] PCP - General Family Practice 10/18/17 documented as of this encounter
--- OUTSIDE RECORDS SUMMARY | 2024-08-20 12:08 | XMS_ITS | Encounter Summary ---
Author Organization [employer] [facility] Address [address] [place] [address] Care Team Providers Care Shaper And Presser Name Role Phone Kylee Pederson MD Primary Care Provider Reason for Visit * Reason Comments Medication Refill Encounter Details Date Type Department Care Team (Late st Contact Info) Description 01/05/2015 Refill [facility] Telemedicine Confidential - [place] [address] [facility] [address] [place] [phone] Miguelito Jackson Jr., MD NO ADDRESS ON FILE Social History Tobacco Use Types Packs/Day Years Used Date Smoking Tobacco: Never Smokeless Tobacco: Never Alcohol Use Standard Drinks/Week Comments No 0 (1 standard drink = 0.6 oz pur e alcohol) social drinker years ago Comments No Sex and Gender Information Value Date Recorded Sex Assigned at Not on file Legal Sex Female 3:23 AM WATER SAFETY TEACHER Gender Identity Not on file Sexual Orientation Not on file documented as of this encounter Plan of Treatment Not on file documented as of this encounter Visit Diagnoses Not on filedocumented in this encounter Additional Health Concerns Infection Onset Date Last Indicated Resolved Time R/O C. diff 04/16/2020 04/16/2020 04/16/2020 10:2 7 PM WATER SAFETY TEACHER documented as of this encounter Care Teams Shaper And Presser Relationship Specialty Start Date End Date Kylee Pederson MD [address] [place] [phone] PCP - General Family Practice 10/18/17 documented as of this encounter
--- OUTSIDE RECORDS SUMMARY | 2024-08-20 12:08 | XMS_ITS | Encounter Summary ---
Author Organization [facility] Address [address] [place] [address] Care Team Providers Care Diamond Sizer And Sorter Name Role Phone Kylee Pederson MD Primary Care Provider Encounter Details Date Type Department Care Team (Late st Contact Info) Description 10/05/2014 Ancillary Orders [facility] Oral and Maxillo Surgery[address] [place] [address] Luke Preciado, Cal Gardiner, BELKIS [...] on file Legal Sex Female 3:23 AM MOTOR LODGE CLERK Gender Identity Not on file Sexual Orientation [...] diff 04/16/2020 04/16/2020 04/16/2020 10:2 7 PM MOTOR LODGE CLERK documented as of this encounter Care Teams Diamond Sizer And Sorter Relationship Specialty Start Date End Date Kylee Pederson MD [address] [phone] PCP - General Family Practice 10/18/17 documented as of this encounter
--- OUTSIDE RECORDS SUMMARY | 2024-08-20 12:08 | XMS_ITS | Encounter Summary ---
Author Organization [employer] [facility] Address [address] [place] [address] Care Team Providers Care Public Safety Police Name Role Phone Kylee Pederson MD Primary Care Provider [phone] Reason for Visit * Reason Comments Medication Refill Encounter Details Date Type Department Care Team (Late Contact Info) Description 12/12/2016 Refill [facility] Telemedicine Confidential - [place] [address] [address] Miguelito Jackson Jr., MD NO [...] on file Legal Sex Female 3:23 AM SYSTEMS DEVELOPMENT MANAGER Gender Identity Not on file Sexual [...] diff 04/16/2020 04/16/2020 04/16/2020 10:2 7 PM SYSTEMS DEVELOPMENT MANAGER Assessment Noted Time PHQ-9 Depression Total Score: 1 11/07/19 17 11:00 AM CDT documented as of this encounter Care Teams Public Safety Police Relationship Specialty Start Date End Date Kylee Pederson MD [address] [facility] [address] [place] [address] PCP - General Family Practice 10/18/17 documented as of this encounter
--- OUTSIDE RECORDS SUMMARY | 2024-08-20 12:08 | XMS_ITS | Encounter Summary ---
Author Organization [employer] [facility] Address [address] [place] [address] Care Team Providers Care Devops Architect Name Role Phone Kylee Pederson MD Primary Care Provider Reason for Visit * Reason Comments Medication Refill Encounter Details Date Type Department Care Team ([facility] Contact Info) Description 10/17/2016 Refill [facility] Telemedicine Confidential - [place] [address] [place] [address] Miguelito Jackson Jr., MD NO [...] on file Legal Sex Female 3:23 AM TILE APPLICATOR Gender Identity Not on file Sexual Orientation Not on file documented as of this encounter Miscellaneous Notes * Telephone Encounter - harman Ambrocio - 10/18/2016 11:17 AM CDT Called Ativan into [facility] @ [facility] [phone] documented in this encounter Plan of Treatment Not on file documented as of this encounter Visit Diagnoses Not on filedocumented in this encounter Additional Health Concerns Infection Onset Date Last Indicated Resolved Time R/O C. diff 04/16/2020 04/16/2020 04/16/2020 10:2 7 PM TILE APPLICATOR documented as of this encounter Care Teams Devops Architect Relationship Specialty Start Date End Date Kylee Pederson MD [address] [phone] PCP - General Family Practice 10/18/17 documented as of this encounter
--- OUTSIDE RECORDS SUMMARY | 2024-08-20 12:08 | XMS_ITS | Encounter Summary ---
Author Organization [employer] [facility] Address [address] [place] [address] Care Team Providers Care Operations Recruiter Name Role Phone Kylee Pederson MD Primary Care Provider Reason for Visit * Reason Comments Medication Refill Encounter Details Date Type Department Care Team (Late st Contact Info) Description 10/19/2014 Refill [facility] Telemedicine Confidential - [place] [address] [facility] [address] [place] [phone] Miguelito Jackson Jr., MD NO ADDRESS ON FILE Social History Tobacco Use Types Packs/Day Years Used Date Smoking Tobacco: Never Smokeless Tobacco: Never Alcohol Use Standard Drinks/Week Comments No 0 (1 standard drink = 0.6 oz pur e alcohol) social drinker years ago Comments No Sex and Gender Information Value Date Recorded Sex Assigned at Not on file Legal Sex Female 3:23 AM SQUARING MACHINE OPERATOR Gender Identity Not on file Sexual Orientation Not on file documented as of this encounter Plan of Treatment Not on file documented as of this encounter Visit Diagnoses Not on filedocumented in this encounter Additional Health Concerns Infection Onset Date Last Indicated Resolved Time R/O C. diff 04/16/2020 04/16/2020 04/16/2020 10:2 7 PM SQUARING MACHINE OPERATOR documented as of this encounter Care Teams Operations Recruiter Relationship Specialty Start Date End Date Kylee Pederson MD [address] [place] [phone] PCP - General Family Practice 10/18/17 documented as of this encounter
--- OUTSIDE RECORDS SUMMARY | 2024-08-20 12:08 | XMS_ITS | Encounter Summary ---
Author Organization [facility] Address [address] [place] [address] Care Team Providers Care Supervisor Contingents Name Role Phone Kylee Pederson MD Primary Care Provider [phone] Encounter Details Date Type Department Care Team (Late st Contact Info) Description 04/13/2004 Outpatient Historical [facility] [place], [address] [address] Social History Tobacco Use Types Packs/Day Years Used Date Smoking Tobacco: Never Assessed Comments Unknown Sex and Gender Information Value Date Recorded Sex Assigned at Not on file Legal Sex Female 3:23 AM DRAW FIRE OPERATOR Gender Identity Not on file Sexual Orientation Not on file documented as of this encounter Plan of Treatment Not on file documented as of this encounter Visit Diagnoses Not on filedocumented in this encounter Additional Health Concerns Infection Onset Date Last Indicated Resolved Time R/O C. diff 04/16/2020 04/16/2020 04/16/2020 10:2 7 PM DRAW FIRE OPERATOR documented as of this encounter Care Teams Supervisor Contingents Relationship Specialty Start Date End Date Kylee Pederson MD [address] [phone] PCP - General Family Practice 10/18/17 documented as of this encounter
--- OUTSIDE RECORDS SUMMARY | 2024-08-20 12:08 | XMS_ITS | Clinical Summary ---
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 Sudden in 1985. Persistent atrial fibrillation 11/23/2015 [...] on file Legal Sex Female 3:23 AM MACHINE CLOTHING WORKER Gender Identity Not on file Sexual Orientation [...] - 1-dose 75+ series) 10/26/2011 [place] Preventative Visit/Annual Wellness Visit 02/20/2024 INFLUENZA VACCINE (#1) 2024 0, 10/19/2017, 12/02/1996, Additional history exists OSTEOPOROSIS SCREENING 10/11/2026 2, 05/17/2017, 07/22/2015 DTAP/TDAP/TD VACCINES (2 - T d or Tdap) 07/23/2028 07/23/2018, 01/06/2006 PNEUMOCOCCAL VACCINE 50+ YEARS Completed 12/17/2019 , 05/10/2014 Insurance MEDICAID [facility] DUAL COMPLETE MCR PPO D-SNP [place]ID [place] DUAL COMPLETE MCR PPO D-SNP Care Teams Manager Line Relationship Specialty Start Date End Date Kylee Pederson MD [address] [phone] PCP - General Family Practice 10/18/17
--- OUTSIDE RECORDS SUMMARY | 2024-08-20 12:08 | XMS_ITS | Encounter Summary ---
Author Organization [employer] [facility] Address [address] [place] [address] Care Team Providers Care Brewing Director Name Role Phone Kylee Pederson MD Primary Care Provider Reason for Visit * Reason Comments Medication Refill Encounter Details Date Type Department Care Team (Late st Contact Info) Description 11/01/2015 Refill [facility] Telemedicine Confidential - [place] [address] [place] [phone] Miguelito Jackson Jr., MD NO ADDRESS ON FILE Social History Tobacco Use Types Packs/Day Years Used Date Smoking Tobacco: Never Smokeless Tobacco: Never Alcohol Use Standard Drinks/Week Comments No 0 (1 standard drink = 0.6 oz pur e alcohol) social drinker years ago Comments No Sex and Gender Information Value Date Recorded Sex Assigned at Not on file Legal Sex Female 3:23 AM SPACE ENGINEER Gender Identity Not on file Sexual Orientation Not on file documented as of this encounter Miscellaneous Notes * Telephone Encounter - [place] - 11/01/2015 4:03 PM CDT Ativan called into [facility] documented in this encounter Plan of Treatment Not on file documented as of this encounter Visit Diagnoses Not on filedocumented in this encounter Additional Health Concerns Infection Onset Date Last Indicated Resolved Time R/O C. diff 04/16/2020 04/16/2020 04/16/2020 10:2 7 PM SPACE ENGINEER documented as of this encounter Care Teams Brewing Director Relationship Specialty Start Date End Date Kylee Pederson MD [address] [phone] PCP - General Family Practice 10/18/17 documented as of this encounter
--- OUTSIDE RECORDS SUMMARY | 2024-08-20 12:08 | XMS_ITS | Encounter Summary ---
Author Organization [employer] [facility] Address [address] [place] [address] Care Team Providers Care Senior Controls Technician Name Role Phone Kylee Pederson MD Primary Care Provider Reason for Visit * Reason Comments Medication Refill Encounter Details Date Type Department Care Team ([facility] Contact Info) Description 06/20/2016 Refill [facility] Telemedicine Confidential - [place] [address] [place] [phone] Miguelito Jackson Jr., MD NO ADDRESS ON FILE Social History Tobacco Use Types Packs/Day Years Used Date Smoking Tobacco: Never Smokeless Tobacco: Never Alcohol Use Standard Drinks/Week Comments No 0 (1 standard drink = 0.6 oz pur e alcohol) social drinker years ago Comments No Sex and Gender Information Value Date Recorded Sex Assigned at Not on file Legal Sex Female 3:23 AM DIRECTOR FUNERAL Gender Identity Not on file Sexual Orientation Not on file documented as of this encounter Miscellaneous Notes * Telephone Encounter - Holly Smith CMA - 06/21/2016 9:48 AM CDT Called in with Jacqui gomez [facility] documented in this encounter Plan of Treatment Not on file documented as of this encounter Visit Diagnoses Not on filedocumented in this encounter Additional Health Concerns Infection Onset Date Last Indicated Resolved Time R/O C. diff 04/16/2020 04/16/2020 04/16/2020 10:2 7 PM DIRECTOR FUNERAL documented as of this encounter Care Teams Senior Controls Technician Relationship Specialty Start Date End Date Kylee Pedreson MD [address] [phone] PCP - General Family Practice 10/18/17 documented as of this encounter
--- OUTSIDE RECORDS SUMMARY | 2024-08-20 12:08 | XMS_ITS | Encounter Summary ---
Author Organization [facility] Address [address] [place] [address] Care Team Providers Care Custom Shoemaker Name Role Phone Kylee Pederson MD Primary Care Provider Encounter Details Date Type Department Care Team (Late st Contact Info) Description 06/21/2015 Ancillary Orders [facility] Oral and Maxillo Surgery[address] [place] [address] Luke Preciado, Cal Gardiner, BELKIS [...] on file Legal Sex Female 3:23 AM CAR DEALER Gender Identity Not on file Sexual Orientation [...] diff 04/16/2020 04/16/2020 04/16/2020 10:2 7 PM CAR DEALER documented as of this encounter Care Teams Custom Shoemaker Relationship Specialty Start Date End Date Kylee Pederson MD [address] [phone] PCP - General Family Practice 10/18/17 documented as of this encounter
--- OUTSIDE RECORDS SUMMARY | 2024-08-20 12:08 | XMS_ITS | Encounter Summary ---
Author Organization [employer] [facility] Address [address] [place] [address] Care Team Providers Care Director Of Scout Work Name Role Phone Kylee Pederson MD Primary Care Provider Reason for Visit * Reason Comments Medication Refill Encounter Details Date Type Department Care Team ([facility] Contact Info) Description 04/17/2014 Refill [facility] Telemedicine Confidential - [place] [address] [facility] [address] [place] [phone] Miguelito Jackson Jr., MD NO ADDRESS ON FILE Social History Tobacco Use Types Packs/Day Years Used Date Smoking Tobacco: Never Smokeless Tobacco: Never Comments No Sex and Gender Information Value Date Recorded Sex Assigned at Not on file Legal Sex Female 3:23 AM CIVIL ATTORNEY Gender Identity Not on file Sexual Orientation Not on file documented as of this encounter Plan of Treatment Not on file documented as of this encounter Visit Diagnoses Not on filedocumented in this encounter Additional Health Concerns Infection Onset Date Last Indicated Resolved Time R/O C. diff 04/16/2020 04/16/2020 04/16/2020 10:2 7 PM CIVIL ATTORNEY documented as of this encounter Care Teams Director Of Scout Work Relationship Specialty Start Date End Date Kylee Pederson MD [address] [facility] [address] [place] [phone] PCP - General Family Practice 10/18/17 documented as of this encounter
--- OUTSIDE RECORDS SUMMARY | 2024-08-20 12:08 | XMS_ITS | Encounter Summary ---
Author Organization [facility] Address [address] [place] [address] Care Team Providers Care Prekindergarten Teacher Name Role Phone Kylee Pederson MD Primary Care Provider Encounter Details Date Type Department Care Team (Late st Contact Info) Description 10/14/2004 Outpatient Historical [facility] FY06 Non-Staff, Physician NO ADDRESS ON FILE Social History Tobacco Use Types Packs/Day Years Used Date Smoking Tobacco: Never Assessed Comments Unknown Sex and Gender Information Value Date Recorded Sex Assigned at Not on file Legal Sex Female 3:23 AM INSIDE TESTER Gender Identity Not on file Sexual Orientation [...] diff 04/16/2020 04/16/2020 04/16/2020 10:2 7 PM INSIDE TESTER documented as of this encounter Care Teams Prekindergarten Teacher Relationship Specialty Start Date End Date yKlee Pederson MD [address] [phone] PCP - General Family Practice 10/18/17 documented as of this encounter
--- OUTSIDE RECORDS SUMMARY | 2024-08-20 12:08 | XMS_ITS | Encounter Summary ---
Author Organization [employer] [facility] Address [address] [place] [address] Care Team Providers Care Air Conditioning Engineer Name Role Phone Kylee Pederson MD Primary Care Provider [phone] Reason for Visit * Reason Comments Medication Refill Encounter Details Date Type Department Care Team (Late st Contact Info) Description 02/23/2017 Refill [facility] Telemedicine Confidential - [place] [address] [facility] [address] [place] [phone] Miguelito Jackson Jr., MD NO ADDRESS ON FILE Social History Tobacco Use Types Packs/Day Years Used Date Smoking Tobacco: Never Smokeless Tobacco: Never Alcohol Use Standard Drinks/Week Comments No 0 (1 standard drink = 0.6 oz pur e alcohol) social drinker years ago Comments No Sex and Gender Information Value Date Recorded Sex Assigned at Not on file Legal Sex Female 3:23 AM CLASS C TRUCK DRIVER Gender Identity Not on file Sexual Orientation Not on file documented as of this encounter Plan of Treatment Not on file documented as of this encounter Visit Diagnoses Not on filedocumented in this encounter Additional Health Concerns Infection Onset Date Last Indicated Resolved Time R/O C. diff 04/16/2020 04/16/2020 04/16/2020 10:2 7 PM CLASS C TRUCK DRIVER Assessment Noted Time PHQ-9 Depression Total Score: 1 11/07/19 17 11:00 AM CDT documented as of this encounter Care Teams Air Conditioning Engineer Relationship Specialty Start Date End Date Kylee Pederson MD [address] [facility] [address] [place] [phone] PCP - General Family Practice 10/18/17 documented as of this encounter
--- OUTSIDE RECORDS SUMMARY | 2024-08-20 12:08 | XMS_ITS | Encounter Summary ---
Author Organization [employer] [facility] Address [address] [place] [address] Care Team Providers Care Tube Bender Name Role Phone Kylee Pederson MD Primary Care Provider Reason for Visit * Reason Comments Medication Refill Encounter Details Date Type Department Care Team ([facility] st Contact Info) Description 09/07/2016 Refill [facility] Telemedicine Confidential - [place] [address] [place] [id number] Manuel Preciado, Miguelito Christie MD NO ADDRESS [...] on file Legal Sex Female 3:23 AM MANAGING COGNITIVE ENGINEER Gender Identity Not on file Sexual Orientation Not on file documented as of this encounter Miscellaneous Notes * Telephone Encounter - Vlad Meadows - 09/07/2016 2:49 PM CDT Ativan called into [employer] [id number] * Telephone Encounter - Vlad Meadows - 09/07/2016 1:09 PM CDT Last seen 07/26/16 Future appointment: 09/20/16 documented in this encounter Plan of Treatment Not on file documented as of this encounter Visit Diagnoses Not on filedocumented in this encounter Additional Health Concerns Infection Onset Date Last Indicated Resolved Time R/O C. diff 04/16/2020 04/16/2020 04/16/2020 10:2 7 PM MANAGING COGNITIVE ENGINEER documented as of this encounter Care Teams Tube Bender Relationship Specialty Start Date End Date Kylee Pederson MD [address] [id number] PCP - General Family Practice 10/18/17 documented as of this encounter
--- NOTE | 2024-08-20 12:19 | PM.HP ---
Providers/Chief Complaint Admitting Physician: Cyrus Nguyen Primary Care Provider: Kylee Pederson MD Chief Complaint: Fall, R hip/shouldeer pain History of Present Illness Medina Alston is a 88 year old patient with a history of systemic 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, coronary artery disease with prior stent placement (July last year), microscopic colitis, hypertension, osteopenia, remote cardiac arrest in 1985, left bundle branch block/Brugada-type conduction abnormality, 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 She immediately noted pain in the right hip, elbow and shoulder but denied any head trauma or loss of consciousness. There have been no fevers, chills, sore throat, shortness of breath, chest pain, abdominal pain, vomiting, urinary symptoms or rash. 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 No history of diabetes. Home supports include a home-health aide five days per week for three hours and a helpful neighbor; she lives alone. She reports chronic balance problems and hearing impairment. Pain in the right shoulder radiates into the neck. No current swelling of the legs and no recent weight gain. She confirms a cousin (Heidi Merrill [phone]) as potential surrogate decision-maker. She does not wish CPR or intubation if her heart or breathing stop, though she desires routine medical/surgical care including hip repair. Review of Systems Const: Denies: fever(s), chills, body aches or malaise ENMT: Denies: throat pain Card: Denies: chest pain, edema, pre-syncope or dyspnea on exertion Resp: Denies: dyspnea, productive cough, change in phlegm color or hemoptysis GI: Denies: abdominal pain, nausea, vomiting, diarrhea, constipation, hematochezia or melena : Denies: flank pain, urinary frequency or hematuria Musc: Denies: back pain, joint swelling or joint redness Skin/Breast: Denies: rash or new lesions Neuro: Reports: frequent falls and other; Denies: headache(s) or confusion Medications/Allergies Home Medications ?Medication ?Instructions ?Recorded ?Confirmed ?Last Taken ?Type amlodipine 5 mg tablet 5 mg PO QAM 02/10/21 08/20/24 08/19/24 History duloxetine 30 mg capsule,delayed 30 mg PO DAILY 02/10/21 08/20/24 02/09/21 History release duloxetine 60 mg capsule,delayed 60 mg PO DAILY 02/10/21 08/20/24 02/09/21 History release levothyroxine 75 mcg tablet 75 mcg PO QAM 02/10/21 08/20/24 08/20/24 History pantoprazole 40 mg tablet,delayed 40 mg PO BID 02/10/21 08/20/24 08/19/24 History release potassium chloride 20 mEq 20 meq PO QAM 02/10/21 08/20/24 08/19/24 History tablet,extended release(part/cryst) pravastatin 40 mg tablet 40 mg PO BEDTIME 02/10/21 08/20/24 08/19/24 History quinidine gluconate 324 mg 324 mg PO TID 02/10/21 08/20/24 08/20/24 History tablet,extended release cholecalciferol (vitamin D3) 25 25 mcg PO QAM 12/15/21 08/20/24 08/19/24 History mcg (1,000 unit) tablet (Vitamin D3) cyanocobalamin (vitamin B-12) 500 500 mcg PO QAM 12/15/21 08/20/24 08/19/24 History mcg tablet (Vitamin B-12) folic acid 800 mcg tablet 0.8 mg PO QAM 12/15/21 08/20/24 08/19/24 History magnesium oxide 400 mg PO DAILY 12/15/21 08/20/24 08/19/24 History zuhwrkhd-rfb-khzaa ac 400 1 tab PO BEDTIME 12/15/21 08/20/24 08/19/24 History mcg-calcium carb 500 mg-vit K1 20 mcg tablet (Women's 50 Plus Multivitamin) pregabalin 75 mg capsule 75 mg PO BID Pain 12/15/21 08/20/24 08/19/24 History pyridoxine (vitamin B6) 100 mg 100 mg PO QAM 12/15/21 08/20/24 08/19/24 History tablet (Vitamin B-6) zinc acetate 50 mg (zinc) capsule 50 mg PO BEDTIME 12/15/21 08/20/24 08/19/24 History biotin 10,000 mcg capsule 10,000 mcg PO BEDTIME 08/20/24 08/20/24 08/19/24 History budesonide 3 mg See Rx Instructions .Route .COMPLEX 08/20/24 08/20/24 08/19/24 History capsule,delayed,extended release bupropion HCl 300 mg 24 hr tablet, 300 mg PO QAM 08/20/24 08/20/24 08/20/24 History extended release coenzyme Q10 100 mg capsule (Co 100 mg PO QAM 08/20/24 08/20/24 08/20/24 History Q-10) docusate sodium 100 mg capsule 100 mg PO BEDTIME 08/20/24 08/20/24 08/19/24 History (Colace) isosorbide mononitrate 30 mg 30 mg PO QAM 08/20/24 08/20/24 08/20/24 History tablet,extended release 24 hr lidocaine 5 % topical patch 1 patch transdermal Q24H 08/20/24 08/20/24 Unknown History loperamide 2 mg capsule See Rx Instructions .Route 08/20/24 08/20/24 Unknown History .COMPLEX PRN Diarrhea mupirocin 2 % topical ointment 1 applic topical DAILY PRN Skin 08/20/24 08/20/24 Unknown History Irritation nitroglycerin 0.4 mg sublingual See Rx Instructions .Route .COMPLEX 08/20/24 08/20/24 Unknown History tablet oxycodone-acetaminophen 10 mg-325 1 tab PO Q6H PRN Severe Pain 08/20/24 08/20/24 Unknown History mg tablet (Scale Score 7-10) trazodone 150 mg tablet 150 mg PO BEDTIME 08/20/24 08/20/24 08/19/24 History vitamin E 268 mg (400 unit) capsule 268 mg PO BEDTIME 08/20/24 08/20/24 08/19/24 History Allergies Allergy/AdvReac Type Severity Reaction Status Date / Time NSAIDS (Non-Steroidal Allergy Unknown Unknown Verified 12/15/21 14:41 Anti-Inflamma vancomycin Allergy Unknown Unknown Verified 12/15/21 14:41 PFSH Acute PFSH: Medical History Pre-operative cardiovascular examination SLE (systemic 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) 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 Cardiac arrest 1985 Brugada syndrome Fibromyalgia Lymphocytic colitis LBBB (left bundle branch block) burgada syndrome Elevated CK Fall Closed hip fracture HTN (hypertension) CVA (cerebral vascular accident) CAD (coronary artery disease) Subcapital fracture of right hip (02/10/21) Surgical History H/O: hysterectomy History of appendectomy Hx of cholecystectomy Family History Other Family history non-contributory Social History Smoking and tobacco/nicotine status: never used tobacco/nicotine Substance/Drug Use: never Housing: House Vitals/I&O/Wt Last Vital Signs Temp 97.7 F 08/20/24 08:31 Pulse 81 08/20/24 12:16 Resp 15 08/20/24 12:16 BP 110/68 08/20/24 12:16 Pulse Ox 96 08/20/24 12:16 O2 Del Method Room Air 08/20/24 12:16 Weight last 48 hrs Weight 54.431 kg Physical Exam Narrative: Moderately hard of hearing. Pleasant, conversant. Const: COMMON NORMALS: patient oriented x3 and alert GENERAL APPEARANCE: cooperative ORIENTATION/CONSCIOUSNESS: Yes awake HENMT: COMMON NORMALS: oropharynx normal OTHER: Poor dentition Neck/C-Spine: COMMON NORMALS: no JVD Resp: COMMON NORMALS: normal respiratory effort and clear to auscultation bilaterally AUSCULTATION: clear to auscultation bilaterally Cardio: COMMON NORMALS: no JVD, regular rhythm, S1 normal heart sound present, S2 normal heart sound present and No murmurs present (Cardio) RHYTHM: regular rhythm HEART SOUNDS: S1 normal heart sound present and S2 normal heart sound present GI: COMMON NORMALS: Normal to inspection, nondistended, normoactive bowel sounds present, Soft to palpation and non-tender PALPATION: Yes Soft to palpation Extremity: COMMON NORMALS: no joint enlargement and no pedal edema NARRATIVE EXTREMITY EXAM: Right arm in a sling Neuro: COMMON NORMALS: patient oriented x3 and moves all extremities SENSORIUM/ORIENTATION: Yes alert Skin: COMMON NORMALS: no rashes or lesions noted GENERAL SKIN EXAM: no rashes or lesions noted Urinary Catheter Management: Hess: Cath Placed During This Visit: yes Urinary Catheter Date of Insertion: 08/20/24 Data 08/20/24 10:43 08/20/24 10:55 A&P Assessment and plan (1) Closed fracture of right hip: Right periprosthetic proximal femoral fracture : CT shows slightly comminuted fracture of the greater trochanter with non-displaced extension to the femoral shaft adjacent to existing right hip prosthesis. Reviewed vitals, CBC, BMP, ED provider note, discussed with ED provider, discussed with orthopedics. - Orthopedic surgery consult obtained; on preliminary assessment appears low likelihood for ability to surgically repair. Nonweightbearing for 3 to 4 weeks and subsequently repeat imaging. -At risk of bleeding, as well as VTE. Reassess blood counts. VTE prophylaxis with SCD, Lovenox. -PT, OT assessment. Case management consultation, she lives by herself, likely may need placement. She has been receiving some support from her neighbor at home. She names her cousin living in [place] by the name of Heidi Merrill as the next of kin and may wish to set up [facility] paperwork. - Discussed yazmin-operative cardiac risk with anesthesia and surgical risk. -Fall precautions. She has history of longstanding balance problems. - She is in pain. Control with acetaminophen, Percocet as needed, IV morphine for severe breakthrough pain (2) Closed fracture of head of right radius: Right radial head fracture : Non-displaced transverse compression fracture of radial head without articular involvement. - Orthopedic team to advise; likely non-operative management. - Pain control as needed. (3) Fall: History of longstanding balance issues, lost her balance in the kitchen and fell. PT, OT assessment. Case management consultation. Plan Microscopic colitis on budesonide taper : Currently on final phase of budesonide taper (1 capsule daily until ); diarrhea controlled. Continue vitamin supplementation. - Continue current dose in hospital; consider [id number] dosing as per discussion with her may pose problems with blood sugars or wound healing Right shoulder contusion with underlying osteoarthritis : X-ray shows severe glenohumeral OA; no acute fracture but significant pain after fall. - Symptomatic pain management (agent not specified?NSAIDs avoided due to allergy). - Re-evaluate after hip surgery for possible PT referral. Coronary artery disease with conduction abnormalities : History of stent (July), left bundle branch block/Brugada pattern, remote cardiac arrest; on quinidine TID. - Continue quinidine at home schedule. - Pre-op cardiac evaluation: EKG (as above) and consider repeat echocardiogram if indicated. - Baseline and post-op troponins to monitor for yazmin-operative ischemia. - Telemetry monitoring requested during hospitalization. Hypertension : Chronic; on amlodipine and other agents; no acute issues noted. Monitor blood pressures Systemic 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 : Autoimmune disease; no active flare symptoms reported. Osteopenia : Incidental finding on imaging; contributes to fracture risk. Will benefit from follow-up and further assessment given chronic corticosteroids. A number of her medications are not available here, and may need to be brought from home. PDMP PDMP Reviewed: Not Reviewed Attestations Medical Necessity Statement*: Place in observation for additional assessment management of periprostatic right hip fracture, greater trochanter fracture, right radial head fracture after a fall in a lady with multiple comorbidities including SLE, microscopic colitis on chronic corticosteroid. and High MDM includes amount and/or complexity of data reviewed/ordered [ previous or external records, resulted lab(s)/test(s), ordered lab(s)/test(s) and other healthcare professional discussion] and described risk of complication, morbidity or mortality of management as documented Diagnoses Closed fracture of right hip S72.001A Closed fracture of head of right radius S52.121A Fall W19.XXXA
[2024-08-20] MEDS: oxyCODONE-APAP 10-325 mg Tablet 1 TAB PO (15:02)
--- NOTE | 2024-08-20 15:06 | PC.NURSE ---
pt states is having family bring in non formulary medication tomorrow.
[2024-08-20] MEDS: multivitamin therapeutic Tablet 1 TAB PO (20:52)
[2024-08-20] MEDS: ATORVASTATIN 10 MG TABLET 20 MG PO (20:52)
[2024-08-21] VITALS (8 sets, daily range): BP systolic 106–180; BP diastolic 62–83; PULSE 61–81; RESP 16–20; TEMP 36.4–36.8; O2SAT 92–97
[2024-08-21 05:25] LABS: Hematocrit 39.7 % (36-47); Hemoglobin 12.40 g/dL (11.27-16.99); Mean Corpuscular HGB Conc 31.2 g/dL (30-55); Mean Corpuscular Hemoglobin 32.1 pg (27-33); Mean Corpuscular Volume 102.8 fl (85-98); Nucleated Red Blood Cells % 0 %; Platelet Count 220 10^3/cmm (157-399); Red Blood Count 3.86 10^6/uL (3.85-5.65); White Blood Count 5.58 10^3/uL (3.29-11.43)
[2024-08-21 05:44] LABS: Anion Gap 15.2 (5-19); Blood Urea Nitrogen 14 mg/dL (8-23); Calcium 8.9 mg/dL (8.5-10.5); Carbon Dioxide 27 mmol/L (22-29); Chloride 103 mmol/L (98-107); Creatinine Clr Calc Pharmacy 38.4602; Glucose 100 mg/dL (65-115); Osmolality Calculated 293 mOsm/kg (285-295); Potassium 4.2 mmol/L (3.5-5.1); Sodium 141 mmol/L (136-145)
--- NOTE | 2024-08-21 05:51 | CTR_ITS ---
PROCEDURE INFORMATION: Exam: CTA Head With Contrast, Arteriography Exam date and time: 08/21/2024 6:39 AM Age: 88 years old Clinical indication: Other: AMS; Additional info: Decreased loc TECHNIQUE: Imaging protocol: Computed tomographic angiography of the head with contrast. Exam focused on the arteries. 3D rendering (Not supervised by radiologist): MIP and/or 3D reconstructed images were created by the technologist. Radiation optimization: All CT scans at this facility use at least one of these dose optimization techniques: automated exposure control; mA and/or kV adjustment per patient size (includes targeted exams where dose is matched to clinical indication); or iterative reconstruction. Contrast material: OMNI 350; Contrast volume: 100 ml; Contrast route: INTRAVENOUS (IV); COMPARISON: CT head wo con* [id number] 06/29/2024 11:31 PM RADIATION DOSE METRICS: Total DLP (mGy-cm): 885.45 FINDINGS: ANTERIOR CIRCULATION: Right internal carotid artery: Intracranial segment is patent with no significant stenosis. No aneurysm. Right middle cerebral artery: No occlusion or significant stenosis. No aneurysm. Right anterior cerebral artery: No occlusion or significant stenosis. No aneurysm. Left internal carotid artery: Intracranial segment is patent with no significant stenosis. No aneurysm. Left middle cerebral artery: No occlusion or significant stenosis. No aneurysm. Left anterior cerebral artery: No occlusion or significant stenosis. No aneurysm. POSTERIOR CIRCULATION: Right vertebral artery: No occlusion or significant stenosis. No aneurysm. Left vertebral artery: No occlusion or significant stenosis. No aneurysm. Basilar artery: No occlusion or significant stenosis. No aneurysm. Right posterior cerebral artery: No occlusion or significant stenosis. No aneurysm. Left posterior cerebral artery: No occlusion or significant stenosis. No aneurysm. Brain: There is wcng-ch-ldabuczs small vessel disease. There is no evidence of acute parenchymal hemorrhage, extra-axial collection, or acute infarction. There is no mass effect, midline shift, or downward herniation. Cerebral ventricles: No ventriculomegaly. Mastoid air cells: The patient is status post right mastoidectomy. Bones/joints: Unremarkable. No acute fracture. Soft tissues: Unremarkable. CT/CT angio head [address] IMPRESSION: No large vessel stenosis or occlusion.
[2024-08-21] MEDS: iohexol 350 mg/mL 500 mL Btl (per mL) IV (06:43)
--- NOTE | 2024-08-21 08:27 | PC.NURSE ---
pt lethargic this am. pt woke to verbal stimuli and then right back to sleep. pt v/s at 0750 was as follows, 180/83,81,97.8,20,[address] Nguyen made aware of change of condition. pt to lethargic to take morning medication at this time. DR elam keep pt NPO until more awake. will continue to observe.
--- NOTE | 2024-08-21 10:36 | P.PN_ITS ---
Subjective 2 Subjective: Lethargic this morning, wake up to voice briefly but falls asleep shortly after. Not in pain. Vitals/I&O/Wt Last Vital Signs Temp 97.8 F 08/21/24 07:55 Pulse 81 08/21/24 07:55 Resp 17 08/21/24 07:55 BP 180/83 08/21/24 07:55 Pulse Ox 93 08/21/24 07:55 O2 Del Method Room Air 08/21/24 07:55 08/20/24 08/21/24 08/21/24 22:59 06:59 14:59 Intake Total 240 / 240 Output Total 1150 / 1150 100 / 1250 700 / 700 Balance -910 / -910 -100 / -1010 -700 / -700 Weight last 48 hrs Weight 54.686 kg Weight 53.887 kg Weight 54.431 kg Physical Exam 2 Narrative: Moderately hard of hearing. Const: GENERAL APPEARANCE: cooperative and lethargic O RIENTATION/CONSCIOUSNESS: Yes lethargic HENMT: COMMON NORMALS: oropharynx normal OTHER: Poor dentition Neck/C-Spine: COMMON NORMALS: no JVD Resp: COMMON NORMALS: normal respiratory effort and clear to auscultation bilaterally AUSCULTATION: clear to auscultation bilaterally Cardio: COMMON NORMALS: no JVD, regular rhythm, S1 normal heart sound present, S2 normal heart sound present and No murmurs present (Cardio) RHYTHM: regular rhythm HEART SOUNDS: S1 normal heart sound present and S2 normal heart sound present GI: COMMON NORMALS: Normal to inspection, nondistended, normoactive bowel sounds present, Soft to palpation and non-tender PALPATION: Yes Soft to palpation Extremity: COMMON NORMALS: no joint enlargement and no pedal edema N ARRATIVE EXTREMITY EXAM: Right arm in a sling Neuro: COMMON NORMALS: moves all extremities SENSORIUM/ORIENTATION: Yes lethargic Skin: COMMON NORMALS: no rashes or lesions noted GENERAL SKIN EXAM: no rashes or lesions noted Urinary Catheter Management: Hess: Cath Placed During This Visit: yes Urinary Catheter Date of Insertion: 08/20/24 Data 08/21/24 04:58 08/21/24 04:58 A&P Assessment and plan (1) Acute encephalopathy: Acute encephalopathy, possibly toxic encephalopathy this morning. Lethargic. Wake up to voice, but following sleep shortly after. Did not receive opioid medication this morning per discussion with her nurse. Reviewed vitals, CBC, BMP. On additional review of her home medications it is noted that she changed her pregabalin dosing to as needed herself due to it affecting her mental status. Pregabalin dosing changed to as needed. Additionally will decrease trazodone dose to 50 mg at bedtime. Monitor mental status. Transiently made n.p.o., but is starting to be more awake now. Diet and medications being resumed. (2) Closed fracture of right hip: Pending orthopedic assessment. Discussed with physical therapy mobilization but as per orthopedic recommendation nonweightbearing on the right side for the next 3 to 4 weeks. Discussed with case assembler. Pending authorization for retirement rehabilitation. Reviewed vitals, INR, CBC, hemoglobin with minimal decrease to 12.4. Reassess blood counts. Treat pain, caution with medications that may contribute to mental status changes, monitor for encephalopathy. Acetaminophen as needed for pain. Percocet for moderate, IV morphine for severe breakthrough. Additional medication adjustments as above. Right periprosthetic proximal femoral fracture : CT shows slightly comminuted fracture of the greater trochanter with non-displaced extension to the femoral shaft adjacent to existing right hip prosthesis. - Orthopedic surgery consult obtained; on preliminary assessment appears low likelihood for ability to surgically repair. Nonweightbearing for 3 to 4 weeks and subsequently repeat imaging. -At risk of bleeding, as well as VTE. Reassess blood counts. VTE prophylaxis with SCD, Lovenox. -PT, OT assessment. Case management consultation, she lives by herself, likely may need placement. She has been receiving some support from her neighbor at home. She names her cousin living in [place] by the name of Heidi Merrill as the next of kin and may wish to set up [facility] paperwork. - Fall precautions. She has history of longstanding balance problems. (3) Closed fracture of head of right radius: Right radial head fracture : Non-displaced transverse compression fracture of radial head without articular involvement. - Orthopedic team to advise; likely non-operative management. - Pain control as needed. (4) Fall: History of longstanding balance issues, lost her balance in the kitchen and fell. PT, OT assessment. Case management consultation. Plan Microscopic colitis on budesonide taper : Currently on final phase of budesonide taper (1 capsule daily until ); diarrhea controlled. Continue vitamin supplementation. - Continue current dose in hospital; consider [id number] dosing as per discussion with her may pose problems with blood sugars or wound healing Right shoulder contusion with underlying osteoarthritis : X-ray shows severe glenohumeral OA; no acute fracture but significant pain after fall. - Symptomatic pain management (agent not specified?NSAIDs avoided due to allergy). - Re-evaluate after hip surgery for possible PT referral. Coronary artery disease with conduction abnormalities : History of stent (July), left bundle branch block/Brugada pattern, remote cardiac arrest; on quinidine TID. - Continue quinidine at home schedule. - Telemetry monitoring requested during hospitalization. Hypertension : Chronic; on amlodipine and other agents; no acute issues noted. Monitor blood pressures Systemic 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 : Autoimmune disease; no active flare symptoms reported. Osteopenia : Incidental finding on imaging; contributes to fracture risk. Will benefit from follow-up and further assessment given chronic corticosteroids. A number of her medications are not available here, and may need to be brought from home. PDMP PDMP Reviewed: Not Reviewed Attestations 2 Medical Necessity Statement*: Continue hospitalization for assessment and management of periprosthetic right hip fracture with right radius head fracture after a fall, acute encephalopathy episode, in a lady with underlying microscopic colitis, additional comorbidities as above. Post discharge planning and arrangements. and High MDM includes amount and/or complexity of data reviewed/ordered [ resulted lab(s)/test(s), ordered lab(s)/test(s) and other healthcare professional discussion] and described risk of complication, morbidity or mortality of management as documented Diagnoses Acute encephalopathy G93.40 Closed fracture of right hip S72.001A Closed fracture of head of right radius S52.121A Fall W19.XXXA
[2024-08-21] MEDS: oxyCODONE-APAP 10-325 mg Tablet 1 TAB PO ×2 (11:12→17:25)
[2024-08-21 11:17] LABS: Glucose Urine UA Negative (Normal); Nitrate Urine Negative (Negative)
--- NOTE | 2024-08-21 11:17 | PC.OT ---
OT EVALUATION ATTEMPTED; PATIENT UNABLE TO STAY AWAKE AND ACTIVELY PARTICIPATE IN SKILLED OT EVALUATION. WILL ATTEMPT AGAIN IN P.M.
[2024-08-21 11:22] LABS: Add Urine Microscopic? YES
[2024-08-21 11:56] LABS: Specific Gravity, Urine 1.031 (1.005-1.030)
[2024-08-21] MEDS: morphine 4 mg/mL SDV 1 mL 2 MG IVP (13:15)
--- NOTE | 2024-08-21 14:41 | PM.CONSULT ---
Providers/Reason For Consult Consulting Physician/Specialty*: Dajuan Abebe MD Orthopedic surgery Reason for Consult*: Periprosthetic fracture right hip Radial head fracture right elbow Attending Physician: Cyrus Nguyen Primary Care Provider: Kylee Pederson MD History of Present Illness History of Present Illness Medina Alston is a 88 year old female Review of Systems Const: Denies: fever(s), chills, body aches, change in appetite or malaise ENMT: Denies: throat pain or dental pain Card: Denies: chest pain, edema, pre-syncope or dyspnea on exertion Resp: Denies: dyspnea, productive cough, change in phlegm color or hemoptysis GI: Denies: abdominal pain, nausea, vomiting, diarrhea, constipation, hematochezia or melena : Denies: flank pain, urinary frequency or hematuria Musc: Reports: extremity pain; Denies: neck pain, back pain, joint swelling or joint redness Skin/Breast: Reports: surgical incision (healing well); Denies: rash or new lesions Neuro: Reports: frequent falls and other; Denies: headache(s) or confusion Medications/Allergies Home Medications ?Medication ?Instructions ?Recorded ?Confirmed ?Last Taken ?Type amlodipine 5 mg tablet 5 mg PO QAM 02/10/21 08/20/24 08/19/24 History duloxetine 30 mg capsule,delayed 30 mg PO DAILY 02/10/21 08/20/24 02/09/21 History release duloxetine 60 mg capsule,delayed 60 mg PO DAILY 02/10/21 08/20/24 02/09/21 History release levothyroxine 75 mcg tablet 75 mcg PO QAM 02/10/21 08/20/24 08/20/24 History pantoprazole 40 mg tablet,delayed 40 mg PO BID 02/10/21 08/20/24 08/19/24 History release potassium chloride 20 mEq 20 meq PO QAM 02/10/21 08/20/24 08/19/24 History tablet,extended release(part/cryst) pravastatin 40 mg tablet 40 mg PO BEDTIME 02/10/21 08/20/24 08/19/24 History quinidine gluconate 324 mg 324 mg PO TID 02/10/21 08/20/24 08/20/24 History tablet,extended release cholecalciferol (vitamin D3) 25 25 mcg PO QAM 12/15/21 08/20/24 08/19/24 History mcg (1,000 unit) tablet (Vitamin D3) cyanocobalamin (vitamin B-12) 500 500 mcg PO QAM 12/15/21 08/20/24 08/19/24 History mcg tablet (Vitamin B-12) folic acid 800 mcg tablet 0.8 mg PO QAM 12/15/21 08/20/24 08/19/24 History magnesium oxide 400 mg PO DAILY 12/15/21 08/20/24 08/19/24 History fiedazdz-ogr-uihar ac 400 1 tab PO BEDTIME 12/15/21 08/20/24 08/19/24 History mcg-calcium carb 500 mg-vit K1 20 mcg tablet (Women's 50 Plus Multivitamin) pregabalin 75 mg capsule 75 mg PO BID Pain 12/15/21 08/20/24 08/19/24 History pyridoxine (vitamin B6) 100 mg 100 mg PO QAM 12/15/21 08/20/24 08/19/24 History tablet (Vitamin B-6) zinc acetate 50 mg (zinc) capsule 50 mg PO BEDTIME 12/15/21 08/20/24 08/19/24 History biotin 10,000 mcg capsule 10,000 mcg PO BEDTIME 08/20/24 08/20/24 08/19/24 History budesonide 3 mg See Rx Instructions .Route .COMPLEX 08/20/24 08/20/24 08/19/24 History capsule,delayed,extended release bupropion HCl 300 mg 24 hr tablet, 300 mg PO QAM 08/20/24 08/20/24 08/20/24 History extended release coenzyme Q10 100 mg capsule (Co 100 mg PO QAM 08/20/24 08/20/24 08/20/24 History Q-10) docusate sodium 100 mg capsule 100 mg PO BEDTIME 08/20/24 08/20/24 08/19/24 History (Colace) isosorbide mononitrate 30 mg 30 mg PO QAM 08/20/24 08/20/24 08/20/24 History tablet,extended release 24 hr lidocaine 5 % topical patch 1 patch transdermal Q24H 08/20/24 08/20/24 Unknown History loperamide 2 mg capsule See Rx Instructions .Route 08/20/24 08/20/24 Unknown History .COMPLEX PRN Diarrhea mupirocin 2 % topical ointment 1 applic topical DAILY PRN Skin 08/20/24 08/20/24 Unknown History Irritation nitroglycerin 0.4 mg sublingual See Rx Instructions .Route .COMPLEX 08/20/24 08/20/24 Unknown History tablet oxycodone-acetaminophen 10 mg-325 1 tab PO Q6H PRN Severe Pain 08/20/24 08/20/24 Unknown History mg tablet (Scale Score 7-10) trazodone 150 mg tablet 150 mg PO BEDTIME 08/20/24 08/20/24 08/19/24 History vitamin E 268 mg (400 unit) capsule 268 mg PO BEDTIME 08/20/24 08/20/24 08/19/24 History Allergies Allergy/AdvReac Type Severity Reaction Status Date / Time NSAIDS (Non-Steroidal Allergy Unknown Unknown Verified 12/15/21 14:41 Anti-Inflamma vancomycin Allergy Unknown Unknown Verified 12/15/21 14:41 Current Medications Generic Name Dose Route Start Last Admin Trade Name Freq PRN Reason Stop Dose Admin Acetaminophen 650 mg 08/20/24 13:18 08/21/24 13:03 Acetaminophen 325 Mg Tablet PO 650 mg Q6H PRN Administration Mild/Mod Pain Or Temp >/= 101 Atorvastatin Calcium 20 mg 08/20/24 21:00 08/20/24 20:52 Atorvastatin 10 Mg Tablet PO 20 mg BEDTIME ELIGIO Administration Bupropion HCl 300 mg 08/21/24 06:00 08/21/24 08:23 Bupropion Xl (24 Hr) 300 Mg Tablet PO Not Given QAM [facility] Cyanocobalamin 500 mcg 08/21/24 06:00 08/21/24 08:24 Cyanocobalamin 1,000 Mcg Tablet PO Not Given QAM ELIGIO Docusate Sodium 100 mg 08/20/24 21:00 08/20/24 20:52 Docusate Sodium 100 Mg Capsule PO 100 mg BEDTIME ELIGIO Administration Enoxaparin Sodium 30 mg 08/20/24 13:30 08/21/24 13:03 Enoxaparin 30 Mg/0.3 Ml Syringe SUBCUT 30 mg Q24H ELIGIO Administration Folic Acid 1 mg 08/21/24 06:00 08/21/24 08:24 Folic Acid 1 Mg Tablet PO Not Given QAM ELIGIO Isosorbide Mononitrate 30 mg 08/21/24 06:00 08/21/24 08:24 Isosorbide Mononitrate Er 30 Mg Tablet PO Not Given QAM [facility] Levothyroxine Sodium 75 mcg 08/21/24 06:00 08/21/24 08:25 Levothyroxine 75 Mcg Tablet PO Not Given QAM [facility] Magnesium Oxide 400 mg 08/21/24 09:00 08/21/24 08:25 Magnesium Oxide 400 Mg Tablet PO Not Given DAILY [facility] Multivitamins Therapeutic 1 tab 08/20/24 21:00 08/20/24 20:52 Multivitamin Therapeutic Tablet PO 1 tab BEDTIME ELIGIO Administration Oxycodone/Acetaminophen 1 tab 08/20/24 13:14 08/21/24 11:12 Oxycodone-Apap 10-325 Mg Tablet PO 1 tab Q6H PRN Administration Severe Pain (Scale Score 7-10) Pantoprazole Sodium 40 mg 08/20/24 18:00 08/21/24 08:[address] 40 Mg Tablet PO Not Given 0500,1700 [facility] Pyridoxine HCl 100 mg 08/21/24 06:00 08/21/24 08:25 Pyridoxine 50 Mg Tablet PO Not Given QAM [facility] Vitamin D 1,000 unit 08/21/24 06:00 08/21/24 08:23 Cholecalciferol (Vitamin D3) 1,000 Unit Tablet PO Not Given QAM ELIGIO PFSH Acute PFSH: Medical History Pre-operative cardiovascular examination SLE (systemic 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) w MEDICAL PRACTICE ASSISTANT involvement Cardiac arrest 1985 Brugada syndrome Fibromyalgia Lymphocytic colitis LBBB (left bundle branch block) burgada syndrome Elevated CK Fall Closed hip fracture HTN (hypertension) CVA (cerebral vascular accident) CAD (coronary artery disease) Subcapital fracture of right hip (02/10/21) Surgical History H/O: hysterectomy History of appendectomy Hx of cholecystectomy Family History Other Family history non-contributory Social History Smoking and tobacco/nicotine status: never used tobacco/nicotine Substance/Drug Use: never Housing: House Vitals/I&O/Wt Last Vital Signs Temp 98.3 F 08/21/24 11:55 Pulse 71 08/21/24 11:55 Resp 16 08/21/24 11:55 BP 152/69 08/21/24 11:55 Pulse Ox 95 08/21/24 11:55 O2 Del Method Room Air 08/21/24 11:55 08/20/24 08/21/24 08/21/24 22:59 06:59 14:59 Intake Total 240 / 240 360 / 360 Output Total 1150 / 1150 100 / 1250 1125 / 1125 Balance -910 / -910 -100 / -1010 -765 / -765 Weight last 48 hrs Weight 120 lb 9 oz Weight 118 lb 12.8 oz Weight 120 lb Physical Exam Narrative: On examination today patient has a posterior splint, long-arm splint of the right upper extremity. She is minimally tender to palpation about the proximal radius and elbow region. She is complaining of pain only down the mid forearm and up to the shoulder and neck region. Palpating better shoulder humerus and forearm she has no areas of tenderness. She is neurovascular intact in regular extremity Examination of the right hip demonstrates discomfort with manipulation. Otherwise no other gross abnormalities. Urinary Catheter Management: Hess: Cath Placed During This Visit: yes Urinary Catheter Date of Insertion: 08/20/24 Data 08/21/24 04:58 08/21/24 04:58 Other data: X-rays of her elbow demonstrate what appears to be a transverse fracture just under the subchondral bone of the radial head. There is soft tissue swelling in the area however I question if this is truly a fracture. X-rays of her hip as well as CT scan demonstrate nondisplaced fracture lines to the greater trochanter extending to the medial aspect of the femur with a endoprosthetic hip in place right now. No interval change of position of the prosthesis. No indication of collapse or widening of the fracture lines. A&P Assessment and plan (1) Radial head fracture: Patient with possible radial head fracture. X-rays demonstrate transverse line underneath the subchondral bone of the articular surface. However clinical exam is not as supportive of this. (2) Periprosthetic fracture around internal prosthetic right hip joint: Periprosthetic fracture of the greater trochanter extending over the lesser trochanter region around endoprosthesis of the right hip. Fracture lines had to be identified with CT scan. X-rays appear to be normal. No interval change of prosthesis. Plan Plan at this time is to go ahead and proceed with nonweightbearing for the next 2 to 4 weeks on the right hip. Patient should be followed up in 2 weeks for repeat x-rays to reevaluate the hip. As for the elbow we will treat this conservatively with a posterior splint and Valentin wrap as well as a sling to protect it at this time. She may use a platform walker on this side to ambulate. Repeat x-rays in 2 weeks to evaluate the radial head fracture as well as do clinical exam to see how tender this remains. May release from immobilization in 2 weeks. PDMP PDMP Reviewed: Not Reviewed Coding Level of Care Code Critical Care >/= 30 minutes Diagnoses Closed nondisplaced fracture of head of right radius, initial encounter S52.124A Encounter type: initial encounter Fracture type: closed Fracture alignment: nondisplaced Laterality: right Periprosthetic fracture around internal prosthetic right hip joint M97.01XA
[2024-08-21] MEDS: HYDROmorphone 0.5 MG/0.5 ML INJ IVP ×3 (15:15→23:27)
[2024-08-21] MEDS: multivitamin therapeutic Tablet 1 TAB PO (20:25)
[2024-08-21] MEDS: ATORVASTATIN 10 MG TABLET 20 MG PO (20:25)
[2024-08-22] VITALS (8 sets, daily range): BP systolic 102–121; BP diastolic 59–75; PULSE 73–83; RESP 17–20; TEMP 36.3–37.2; O2SAT 91–98
[2024-08-22 05:11] LABS: Hematocrit 40.1 % (36-47); Hemoglobin 12.80 g/dL (11.27-16.99); Mean Corpuscular HGB Conc 31.9 g/dL (30-55); Mean Corpuscular Hemoglobin 32.1 pg (27-33); Mean Corpuscular Volume 100.5 fl (85-98); Nucleated Red Blood Cells % 0 %; Platelet Count 224 10^3/cmm (157-399); Red Blood Count 3.99 10^6/uL (3.85-5.65); White Blood Count 6.49 10^3/uL (3.29-11.43)
[2024-08-22 05:32] LABS: Anion Gap 15.0 (5-19); Blood Urea Nitrogen 15 mg/dL (8-23); Calcium 9.2 mg/dL (8.5-10.5); Carbon Dioxide 27 mmol/L (22-29); Chloride 100 mmol/L (98-107); Creatinine Clr Calc Pharmacy 34.9232; Glucose 106 mg/dL (65-115); Osmolality Calculated 287 mOsm/kg (285-295); Potassium 4.0 mmol/L (3.5-5.1); Sodium 138 mmol/L (136-145)
[2024-08-22] MEDS: oxyCODONE-APAP 10-325 mg Tablet 1 TAB PO ×4 (07:19→21:01)
--- NOTE | 2024-08-22 08:25 | PC.SOCIAL ---
IMM Update Pg. 2 of IMM Updated and copy provided at bedside.
--- NOTE | 2024-08-22 09:24 | P.PN_ITS ---
Subjective 2 Subjective: She states she is not doing well in terms of pain. Pain has not been controlled. Dilaudid helped only partially, she would also like to establish an oral regimen before she proceeds to [facility] knowing that her pain is controlled. She understands that pain cannot be entirely relieved. Discussed with her risks of opioid medication including constipation but also more concerning risks including tolerance and dependence, further risks of mental status depression as she had had lethargy yesterday morning. She states she has been taking hydrocodone at home which has not helped relieve her pain. She does feel that the oxycodone is working better here. She takes her opioid scheduled 4 times daily at home, and so stating that this is the minimum that would be required with additional doses for breakthrough. Discussed with her consideration of nerve blocks to help reduce opioid reliance. She is agreeable for us to reach out to anesthesia. Vitals/I&O/Wt Last Vital Signs Temp 98.5 F 08/22/24 07:20 Pulse 76 08/22/24 07:20 Resp 18 08/22/24 07:20 BP 106/62 08/22/24 07:20 Pulse Ox 95 08/22/24 07:20 O2 Del Method Room Air 08/22/24 07:20 08/21/24 08/22/24 08/22/24 22:59 06:59 14:59 Intake Total 240 / 600 500 / 1100 120 / 120 Output Total 400 / 1525 575 / 2100 Balance -160 / -925 -75 / -1000 120 / 120 Weight last 48 hrs Weight 57.334 kg Weight 54.686 kg Weight 53.887 kg Physical Exam 2 Narrative: Moderately hard of hearing. Const: COMMON NORMALS: patient oriented x3 and alert GENERAL APPEARANCE: c ooperative and lethargic ORIENTATION/CONSCIOUSNESS: Yes awake and Yes lethargic HENMT: COMMON NORMALS: oropharynx normal OTHER: Poor dentition Neck/C-Spine: COMMON NORMALS: no JVD Resp: COMMON NORMALS: normal respiratory effort and clear to auscultation bilaterally AUSCULTATION: clear to auscultation bilaterally Cardio: COMMON NORMALS: no JVD, regular rhythm, S1 normal heart sound present, S2 normal heart sound present and No murmurs present (Cardio) RHYTHM: regular rhythm HEART SOUNDS: S1 normal heart sound present and S2 normal heart sound present GI: COMMON NORMALS: Normal to inspection, nondistended, normoactive bowel sounds present, Soft to palpation and non-tender PALPATION: Yes Soft to palpation Extremity: COMMON NORMALS: no joint enlargement and no pedal edema N ARRATIVE EXTREMITY EXAM: Right arm in a sling Neuro: COMMON NORMALS: patient oriented x3 and moves all extremities S ENSORIUM/ORIENTATION: Yes alert and Yes lethargic Skin: COMMON NORMALS: no rashes or lesions noted GENERAL SKIN EXAM: no rashes or lesions noted Urinary Catheter Management: Hess: Cath Placed During This Visit: yes Urinary Catheter Date of Insertion: 08/20/24 Data 08/22/24 05:00 08/22/24 05:00 A&P Assessment and plan (1) Closed fracture of right hip: She is still bothered by pain which has not been controlled by as needed oxycodone, and has not gotten relief from IV Dilaudid for breakthrough. As per discussion above she states that she takes oxycodone scheduled at home 4 times daily, and this is the baseline that she would need to at least control her chronic pain, but now with the new pain from the fractures she states that she is needing escalation of the regimen. Discussed with her consideration of regional block with anesthesia, she is agreeable to reach out, discussed with anesthesia, at this time he does not consider to give her lasting relief given she is not going to go for surgery for repair of these fractures at current time. Will focus on optimization of multimodal pain control. As per discussion with her schedule oxycodone acetaminophen with 2 additional as needed doses, additionally add scheduled acetaminophen, will reduce scheduled pregabalin dose 25 mg twice daily. Monitor for risks of recurrence of encephalopathy. IV IV Dilaudid as needed for severe breakthrough, will try to reduce reliance on IV opioids. Add naloxone as needed. Maintain fall precautions. Reviewed vitals, CBC, hemoglobin, platelets, BMP, UA. Nonweightbearing right side for 3 to 4 weeks, follow-up with orthopedics in office in 2 weeks for reassessment and repeat imaging requested. She overall did well with physical therapy. Pending placement to skilled [facility] facility with case management, awaiting authorization. Right periprosthetic proximal femoral fracture -At risk of bleeding, as well as VTE. Reassess blood counts. VTE prophylaxis with SCD, Lovenox. She has been receiving some support from her neighbor at home. She names her cousin living in [place] by the name of Heidi Merrill as the next of kin and may wish to set up [facility] paperwork. - Fall precautions. She has history of longstanding balance problems. (2) Closed fracture of head of right radius: Similarly discussed consideration of nerve block. Continue optimization of multimodal pain control as above. Continue sling support. Follow-up with orthopedics in office. Right radial head fracture : Non-displaced transverse compression fracture of radial head without articular involvement. (3) Acute encephalopathy: Resolved. She takes pregabalin as needed at home, it had been changed, she is awake and alert. Trazodone dose was also decreased to 50 mg. Reviewed vitals, CBC, BMP, UA. Head CTA. (4) Fall: History of longstanding balance issues, lost her balance in the kitchen and fell. PT, OT assessment. Case management consultation. Plan Microscopic colitis on budesonide taper : Currently on final phase of budesonide taper (1 capsule daily until ); diarrhea controlled. Continue vitamin supplementation. - Continue current dose in hospital; discussed [id number] dosing with early discontinuation as per prior discussion with her may pose problems with blood sugars or wound healing Right shoulder contusion with underlying osteoarthritis : X-ray shows severe glenohumeral OA; no acute fracture but significant pain after fall. - Symptomatic pain management (NSAIDs avoided due to allergy). Coronary artery disease with conduction abnormalities : History of stent (July), left bundle branch block/Brugada pattern, remote cardiac arrest; on quinidine TID. - Continue quinidine at home schedule. - Telemetry monitoring requested during hospitalization. Hypertension : Chronic; on amlodipine and other agents; no acute issues noted. Monitor blood pressures Systemic 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 : Autoimmune disease; no active flare symptoms reported. Osteopenia : Incidental finding on imaging; contributes to fracture risk. Will benefit from follow-up and further assessment given chronic corticosteroids. A number of her medications are not available here, and may need to be brought from home. PDMP PDMP Reviewed: Not Reviewed Attestations 2 Medical Necessity Statement*: Continue hospitalization for assessment and management of periprosthetic right hip fracture with right radius head fracture after a fall, acute encephalopathy episode, in a lady with underlying microscopic colitis, additional comorbidities as above. Post discharge planning and arrangements. and High MDM includes amount and/or complexity of data reviewed/ordered [ resulted lab(s)/test(s) and other healthcare professional discussion] and described risk of complication, morbidity or mortality of management as documented Diagnoses Closed fracture of right hip S72.001A Closed fracture of head of right radius S52.121A Acute encephalopathy G93.40 Fall W19.XXXA
--- NOTE | 2024-08-22 09:26 | P.PN_ITS ---
Subjective 2 Subjective: No interval change in orthopedic status. Minimal to no discomfort from the right hip, minimal discomfort in the right elbow. Patient is ambulating with a platform walker on the right stating she does not have any difficulties. Medications: Reviewed: Yes Vitals/I&O/Wt Last Vital Signs Temp 98.5 F 08/22/24 07:20 Pulse 76 08/22/24 07:20 Resp 18 08/22/24 07:20 BP 106/62 08/22/24 07:20 Pulse Ox 95 08/22/24 07:20 O2 Del Method Room Air 08/22/24 07:20 08/21/24 08/22/24 08/22/24 22:59 06:59 14:59 Intake Total 240 / 600 500 / 1100 120 / 120 Output Total 400 / 1525 575 / 2100 Balance -160 / -925 -75 / -1000 120 / 120 Weight last 48 hrs Weight 126 lb 6.4 oz Weight 120 lb 9 oz Weight 118 lb 12.8 oz Physical Exam 2 Narrative: On exam today patient is sitting up in the chair. She has no complaints of hip pain at this point. Gentle manipulation does not cause any pain. Patient has posterior splint and sling on her right elbow and is complaining no pain at this time. Urinary Catheter Management: Hess: Cath Placed During This Visit: yes Urinary Catheter Date of Insertion: 08/20/24 Data 08/22/24 05:00 08/22/24 05:00 A&P Assessment and plan (1) Periprosthetic fracture around internal prosthetic right hip joint: Patient with nondisplaced greater trochanteric fracture of the right hip around a prosthesis. No complaints of pain (2) Radial head fracture: Transverse subcondylar fracture of the radial head unchanged. Minimal pain Plan Plan at this time is continue on physical therapy for nonweightbearing ambulation on the right. Use of a platform walker at this time. Continued immobilization of the right elbow. [facility]. Follow-up in 2 weeks for repeat x-rays of both elbow and hip PDMP PDMP Reviewed: Not Reviewed Attestations 2 Medical Necessity Statement*: Patient in need of assistance with ADLs, pain control, and physical therapy for gait training Coding Level of Care Code 04374 Diagnoses Periprosthetic fracture around internal prosthetic right hip joint, subsequent encounter M97.01XD Encounter type: subsequent encounter Closed nondisplaced fracture of head of right radius, initial encounter S52.124A Encounter type: initial encounter Fracture type: closed Fracture alignment: nondisplaced Laterality: right
[2024-08-22] MEDS: HYDROmorphone 0.5 MG/0.5 ML INJ IVP (11:06)
[2024-08-22] MEDS: oxyCODONE-APAP 5-325 mg Tablet 1 TAB PO (16:29)
[2024-08-22] MEDS: multivitamin therapeutic Tablet 1 TAB PO (21:00)
[2024-08-22] MEDS: ATORVASTATIN 10 MG TABLET 20 MG PO (21:00)
[2024-08-23] VITALS (9 sets, daily range): BP systolic 90–125; BP diastolic 56–72; PULSE 67–79; RESP 15–19; TEMP 36.6–36.8; O2SAT 92–97
[2024-08-23] MEDS: oxyCODONE-APAP 10-325 mg Tablet 1 TAB PO ×2 (03:58→11:00)
[2024-08-23 05:23] LABS: Hematocrit 39.1 % (36-47); Hemoglobin 12.10 g/dL (11.27-16.99); Mean Corpuscular HGB Conc 30.9 g/dL (30-55); Mean Corpuscular Hemoglobin 32.2 pg (27-33); Mean Corpuscular Volume 104.0 fl (85-98); Nucleated Red Blood Cells % 0 %; Platelet Count 175 10^3/cmm (157-399); Red Blood Count 3.76 10^6/uL (3.85-5.65); White Blood Count 4.60 10^3/uL (3.29-11.43)
[2024-08-23 05:41] LABS: Anion Gap 15.1 (5-19); Blood Urea Nitrogen 15 mg/dL (8-23); Calcium 8.6 mg/dL (8.5-10.5); Carbon Dioxide 24 mmol/L (22-29); Chloride 100 mmol/L (98-107); Creatinine Clr Calc Pharmacy 39.1750; Glucose 127 mg/dL (65-115); Osmolality Calculated 282 mOsm/kg (285-295); Potassium 4.1 mmol/L (3.5-5.1); Sodium 135 mmol/L (136-145)
--- NOTE | 2024-08-23 08:53 | PC.OT ---
OT TREATMENT ATTEMPTED; PATIENT SLEEPING BUT EASILY AWAKENED. DECLINES TO PARTICIPATE IN SKILLED OT TREATMENT ALL SHE WANTS TO DO IS SLEEP.
--- NOTE | 2024-08-23 13:23 | PM.PN ---
Subjective Subjective: seen this am no acute events overnight pain mgmt has improved. she states she is more comfortable now Vitals/I&O/Wt Last Vital Signs Temp 98.2 F 08/23/24 11:35 Pulse 75 08/23/24 11:35 Resp 16 08/23/24 11:35 BP 90/56 08/23/24 11:35 Pulse Ox 97 08/23/24 11:35 O2 Del Method Room Air 08/23/24 11:35 08/22/24 08/23/24 08/23/24 22:59 06:59 14:59 Intake Total 740 / 980 238 / 238 Output Total 650 / 650 775 / 1425 Balance 90 / 330 -775 / -445 238 / 238 Weight last 48 hrs Weight 56.971 kg Weight 57.334 kg Physical Exam Narrative: Moderately hard of hearing. Const: COMMON NORMALS: patient oriented x3 and alert GENERAL APPEARANCE: cooperative ORIENTATION/CONSCIOUSNESS: Yes awake HENMT: COMMON NORMALS: oropharynx normal OTHER: Poor dentition Resp: COMMON NORMALS: normal respiratory effort and clear to auscultation bilaterally AUSCULTATION: clear to auscultation bilaterally Cardio: COMMON NORMALS: regular rhythm, S1 normal heart sound present, S2 normal heart sound present and No murmurs present (Cardio) RHYTHM: regular rhythm HEART SOUNDS: S1 normal heart sound present and S2 normal heart sound present GI: COMMON NORMALS: Normal to inspection, nondistended, normoactive bowel sounds present, Soft to palpation and non-tender PALPATION: Yes Soft to palpation Extremity: COMMON NORMALS: no joint enlargement and no pedal edema NARRATIVE EXTREMITY EXAM: Right arm in a sling Neuro: COMMON NORMALS: patient oriented x3 and moves all extremities SENSORIUM/ORIENTATION: Yes alert Skin: COMMON NORMALS: no rashes or lesions noted GENERAL SKIN EXAM: no rashes or lesions noted Urinary Catheter Management: Hess: Cath Placed During This Visit: yes Urinary Catheter Date of Insertion: 08/20/24 Data 08/23/24 04:56 08/23/24 04:56 A&P Assessment and plan (1) Closed fracture of right hip: She is still bothered by pain which has not been controlled by as needed oxycodone, and has not gotten relief from IV Dilaudid for breakthrough. As per discussion above she states that she takes oxycodone scheduled at home 4 times daily, and this is the baseline that she would need to at least control her chronic pain, but now with the new pain from the fractures she states that she is needing escalation of the regimen. Discussed with her consideration of regional block with anesthesia, she is agreeable to reach out, discussed with anesthesia, at this time he does not consider to give her lasting relief given she is not going to go for surgery for repair of these fractures at current time. Will focus on optimization of multimodal pain control. As per discussion with her schedule oxycodone acetaminophen with 2 additional as needed doses, additionally add scheduled acetaminophen, will reduce scheduled pregabalin dose 25 mg twice daily. Monitor for risks of recurrence of encephalopathy. IV IV Dilaudid as needed for severe breakthrough, will try to reduce reliance on IV opioids. Add naloxone as needed. Maintain fall precautions. Reviewed vitals, CBC, hemoglobin, platelets, BMP, UA. Nonweightbearing right side for 3 to 4 weeks, follow-up with orthopedics in office in 2 weeks for reassessment and repeat imaging requested. She overall did well with physical therapy. Pending placement to [facility] facility with case management, awaiting authorization. Right periprosthetic proximal femoral fracture -At risk of bleeding, as well as VTE. Reassess blood counts. VTE prophylaxis with SCD, Lovenox. She has been receiving some support from her neighbor at home. She names her cousin living in [place] by the name of Heidi Merrill as the next of kin and may wish to set up [facility] paperwork. - Fall precautions. She has history of longstanding balance problems. (2) Closed fracture of head of right radius: Similarly discussed consideration of nerve block. Continue optimization of multimodal pain control as above. Continue sling support. Follow-up with orthopedics in office. Right radial head fracture : Non-displaced transverse compression fracture of radial head without articular involvement. (3) Acute encephalopathy: Resolved. She takes pregabalin as needed at home, it had been changed, she is awake and alert. Trazodone dose was also decreased to 50 mg. Reviewed vitals, CBC, BMP, UA. Head CTA. (4) Fall: History of longstanding balance issues, lost her balance in the kitchen and fell. PT, OT assessment. Case management consultation. Plan Microscopic colitis on budesonide taper : Currently on final phase of budesonide taper (1 capsule daily until ); diarrhea controlled. Continue vitamin supplementation. - Continue current dose in hospital; discussed [id number] dosing with early discontinuation as per prior discussion with her may pose problems with blood sugars or wound healing Right shoulder contusion with underlying osteoarthritis : X-ray shows severe glenohumeral OA; no acute fracture but significant pain after fall. - Symptomatic pain management (NSAIDs avoided due to allergy). Coronary artery disease with conduction abnormalities : History of stent (July), left bundle branch block/Brugada pattern, remote cardiac arrest; on quinidine TID. - Continue quinidine at home schedule. - Telemetry monitoring requested during hospitalization. Hypertension : Chronic; on amlodipine and other agents; no acute issues noted. Monitor blood pressures Systemic 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 : Autoimmune disease; no active flare symptoms reported. Osteopenia : Incidental finding on imaging; contributes to fracture risk. Will benefit from follow-up and further assessment given chronic corticosteroids. A number of her medications are not available here, and may need to be brought from home. 08/23/2024 continue pain mgmt as per current orders as it is working for the patient we will continue that at this time patient awaiting to go to rehab non surgical mgmt per ortho PDMP PDMP Reviewed: Not Reviewed Attestations Medical Necessity Statement*: Patient in need of assistance with ADLs, pain control, and physical therapy for gait training Diagnoses Closed fracture of right hip S72.001A Closed fracture of head of right radius S52.121A Acute encephalopathy G93.40 Fall W19.XXXA
[2024-08-23] MEDS: ATORVASTATIN 10 MG TABLET 20 MG PO (21:21)
[2024-08-23] MEDS: multivitamin therapeutic Tablet 1 TAB PO (21:21)
[2024-08-24] VITALS (8 sets, daily range): BP systolic 106–133; BP diastolic 59–75; PULSE 63–81; RESP 15–18; TEMP 36.6–36.8; O2SAT 95–97
[2024-08-24 05:26] LABS: Hematocrit 39.4 % (36-47); Hemoglobin 12.30 g/dL (11.27-16.99); Mean Corpuscular HGB Conc 31.2 g/dL (30-55); Mean Corpuscular Hemoglobin 32.0 pg (27-33); Mean Corpuscular Volume 102.6 fl (85-98); Nucleated Red Blood Cells % 0 %; Platelet Count 221 10^3/cmm (157-399); Red Blood Count 3.84 10^6/uL (3.85-5.65); White Blood Count 5.43 10^3/uL (3.29-11.43)
[2024-08-24 05:47] LABS: Anion Gap 16.1 (5-19); Blood Urea Nitrogen 15 mg/dL (8-23); Calcium 8.8 mg/dL (8.5-10.5); Carbon Dioxide 25 mmol/L (22-29); Chloride 102 mmol/L (98-107); Creatinine Clr Calc Pharmacy 39.5724; Glucose 107 mg/dL (65-115); Magnesium 2.5 mg/dL (1.7-2.3); Osmolality Calculated 289 mOsm/kg (285-295); Potassium 4.1 mmol/L (3.5-5.1); Sodium 139 mmol/L (136-145)
[2024-08-24] MEDS: oxyCODONE-APAP 10-325 mg Tablet 1 TAB PO ×3 (10:02→21:51)
--- NOTE | 2024-08-24 11:00 | P.PN_ITS ---
Subjective 2 Subjective: seen this am no acute events overnight Comfortable from pain standpoint. Vitals/I&O/Wt Last Vital Signs Temp 97.8 F 08/24/24 08:00 Pulse 63 08/24/24 08:00 Resp 15 08/24/24 10:02 BP 129/62 08/24/24 08:00 Pulse Ox 96 08/24/24 10:02 O2 Del Method Room Air 08/24/24 08:00 08/23/24 08/24/24 08/24/24 22:59 06:59 14:59 Intake Total 180 / 418 240 / 240 Output Total 800 / 800 675 / 1475 Balance -620 / -382 -675 / -1057 240 / 240 Weight last 48 hrs Weight 58.241 kg Weight 56.971 kg Physical Exam 2 Narrative: Moderately hard of hearing. Const: COMMON NORMALS: patient oriented x3 and alert GENERAL APPEARANCE: c ooperative ORIENTATION/CONSCIOUSNESS: Yes awake Resp: COMMON NORMALS: normal respiratory effort and clear to auscultation bilaterally AUSCULTATION: clear to auscultation bilaterally Cardio: COMMON NORMALS: regular rhythm, S1 normal heart sound present and S2 normal heart sound present RHYTHM: regular rhythm HEART SOUNDS: S1 normal heart sound present and S2 normal heart sound present GI: COMMON NORMALS: Soft to palpation PALPATION: Yes Soft to palpation Extremity: NARRATIVE EXTREMITY EXAM: Right arm in a sling Neuro: COMMON NORMALS: patient oriented x3 and moves all extremities S ENSORIUM/ORIENTATION: Yes alert Urinary Catheter Management: Hess: Cath Placed During This Visit: yes Urinary Catheter Date of Insertion: 08/20/24 Data 08/24/24 04:54 08/24/24 04:54 A&P Assessment and plan (1) Closed fracture of right hip: She is still bothered by pain which has not been controlled by as needed oxycodone, and has not gotten relief from IV Dilaudid for breakthrough. As per discussion above she states that she takes oxycodone scheduled at home 4 times daily, and this is the baseline that she would need to at least control her chronic pain, but now with the new pain from the fractures she states that she is needing escalation of the regimen. Discussed with her consideration of regional block with anesthesia, she is agreeable to reach out, discussed with anesthesia, at this time he does not consider to give her lasting relief given she is not going to go for surgery for repair of these fractures at current time. Will focus on optimization of multimodal pain control. As per discussion with her schedule oxycodone acetaminophen with 2 additional as needed doses, additionally add scheduled acetaminophen, will reduce scheduled pregabalin dose 25 mg twice daily. Monitor for risks of recurrence of encephalopathy. IV IV Dilaudid as needed for severe breakthrough, will try to reduce reliance on IV opioids. Add naloxone as needed. Maintain fall precautions. Reviewed vitals, CBC, hemoglobin, platelets, BMP, UA. Nonweightbearing right side for 3 to 4 weeks, follow-up with orthopedics in office in 2 weeks for reassessment and repeat imaging requested. She overall did well with physical therapy. Pending placement to [facility] with case management, awaiting authorization. Right periprosthetic proximal femoral fracture -At risk of bleeding, as well as VTE. Reassess blood counts. VTE prophylaxis with SCD, Lovenox. She has been receiving some support from her neighbor at home. She names her cousin living in [place] by the name of Heidi Merrill as the next of kin and may wish to set up [employer] paperwork. - Fall precautions. She has history of longstanding balance problems. (2) Closed fracture of head of right radius: Similarly discussed consideration of nerve block. Continue optimization of multimodal pain control as above. Continue sling support. Follow-up with orthopedics in office. Right radial head fracture : Non-displaced transverse compression fracture of radial head without articular involvement. (3) Acute encephalopathy: Resolved. She takes pregabalin as needed at home, it had been changed, she is awake and alert. Trazodone dose was also decreased to 50 mg. Reviewed vitals, CBC, BMP, UA. Head CTA. (4) Fall: History of longstanding balance issues, lost her balance in the kitchen and fell. PT, OT assessment. Case management consultation. Plan Microscopic colitis on budesonide taper : Currently on final phase of budesonide taper (1 capsule daily until ); diarrhea controlled. Continue vitamin supplementation. - Continue current dose in hospital; discussed [id number] dosing with early discontinuation as per prior discussion with her may pose problems with blood sugars or wound healing Right shoulder contusion with underlying osteoarthritis : X-ray shows severe glenohumeral OA; no acute fracture but significant pain after fall. - Symptomatic pain management (NSAIDs avoided due to allergy). Coronary artery disease with conduction abnormalities : History of stent (July), left bundle branch block/Brugada pattern, remote cardiac arrest; on quinidine TID. - Continue quinidine at home schedule. - Telemetry monitoring requested during hospitalization. Hypertension : Chronic; on amlodipine and other agents; no acute issues noted. Monitor blood pressures Systemic 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 : Autoimmune disease; no active flare symptoms reported. Osteopenia : Incidental finding on imaging; contributes to fracture risk. Will benefit from follow-up and further assessment given chronic corticosteroids. A number of her medications are not available here, and may need to be brought from home. 08/23/2024 continue pain mgmt as per current orders as it is working for the patient we will continue that at this time patient awaiting to go to rehab non surgical mgmt per ortho 08/24/2024 continue pain mgmt as per current orders as it is working for the patient we will continue that at this time patient awaiting to go to rehab non surgical mgmt per ortho PDMP PDMP Reviewed: Not Reviewed Attestations 2 Medical Necessity Statement*: Patient in need of assistance with ADLs, pain control, and physical therapy for gait training Diagnoses Closed fracture of right hip S72.001A Closed fracture of head of right radius S52.121A Acute encephalopathy G93.40 Fall W19.XXXA
--- NOTE | 2024-08-24 11:22 | P.PN_ITS ---
Subjective 2 Subjective: Patient has had difficulty with pain control since admission to the hospital. However the patient is a chronic opioid user. Medical service is attempting to get balances out at this time. Today she actually states her hip is not hurting that bad. She still is complaining of arm pain however osteoarthritic changes been found on her shoulder films and we will continue to treat for the radial head fracture of the right elbow Medications: Reviewed: Yes Vitals/I&O/Wt Last Vital Signs Temp 97.8 F 08/24/24 08:00 Pulse 63 08/24/24 08:00 Resp 15 08/24/24 10:02 BP 129/62 08/24/24 08:00 Pulse Ox 96 08/24/24 10:02 O2 Del Method Room Air 08/24/24 08:00 08/23/24 08/24/24 08/24/24 22:59 06:59 14:59 Intake Total 180 / 418 240 / 240 Output Total 800 / 800 675 / 1475 Balance -620 / -382 -675 / -1057 240 / 240 Weight last 48 hrs Weight 128 lb 6.4 oz Weight 125 lb 9.6 oz Physical Exam 2 Narrative: On exam today patient is resting comfortably in bed. She moves her right leg without any discomfort or problems. Still complains of tenderness to palpation about the right elbow and some about her right shoulder. Urinary Catheter Management: Hess: Cath Placed During This Visit: yes Urinary Catheter Date of Insertion: 08/20/24 Data 08/24/24 04:54 08/24/24 04:54 A&P Assessment and plan (1) Periprosthetic fracture around internal prosthetic right hip joint: Unchanged status of periprosthetic right hip fracture. Nondisplaced fracture (2) Radial head fracture: Unchanged status of radial head fracture still immobilized. Plan Plan at this time is continuing with pain control. We are awaiting shelter placement for her. Continue on her present physical therapy plans PDMP PDMP Reviewed: Not Reviewed Attestations 2 Medical Necessity Statement*: Patient still in need of pain control. Patient is in need of help with ADLs Coding Level of Care Code 61037 Diagnoses Periprosthetic fracture around internal prosthetic right hip joint, subsequent encounter M97.01XD Encounter type: subsequent encounter Closed nondisplaced fracture of head of right radius, initial encounter S52.124A Encounter type: initial encounter Fracture type: closed Fracture alignment: nondisplaced Laterality: right
[2024-08-24] MEDS: ATORVASTATIN 10 MG TABLET 20 MG PO (21:51)
[2024-08-24] MEDS: multivitamin therapeutic Tablet 1 TAB PO (21:51)
[2024-08-25] VITALS: BP 132/73; PULSE 66; RESP 17; TEMP 37; O2SAT 93
[2024-08-25 03:46] VITALS: RESP 17
[2024-08-25] MEDS: oxyCODONE-APAP 10-325 mg Tablet 1 TAB PO ×3 (03:46→14:37)
[2024-08-25 04:00] VITALS: BP 145/66; PULSE 62; RESP 16; TEMP 36.8; O2SAT 96
[2024-08-25 07:46] VITALS: BP 114/57; PULSE 64; RESP 18; TEMP 36.8; O2SAT 96
--- NOTE | 2024-08-25 10:25 | PC.SOCIAL ---
IMM Updated Provided pt a copy. Initialed, dated, & timed copy in chart.
--- NOTE | 2024-08-25 12:05 | P.DS_ITS ---
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 She immediately noted pain in the right hip, elbow and shoulder but denied any head trauma or loss of consciousness. There have been no fevers, chills, sore throat, shortness of breath, chest pain, abdominal pain, vomiting, urinary symptoms or rash. 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 No history of diabetes. Home supports include a home-health aide five days per week for three hours and a helpful neighbor; she lives alone. She reports chronic balance problems and hearing impairment. Pain in the right shoulder radiates into the neck. No current swelling of the legs and no recent weight gain. She confirms a cousin (Heidi Merrill [phone]) as potential surrogate decision-maker. She does not wish CPR or intubation if her heart or breathing stop, though she desires routine medical/surgical care including hip repair. Hospital Course Hospital Course She was admitted and assessed by orthopedics with finding of operative options being limited recommendation for continued conservative management with nonweightbearing on right lower extremity for subsequent 3 to 4 weeks with follow-up with orthopedics in office in 2 weeks for reassessment and repeat imaging, sling for right upper extremity. Pain regimen was optimized during hospitalization initially requiring IV opioids, pain control achieved with combination including acetaminophen, li docaine patch, oxycodone, and was resumed on low-dose pregabalin 25 mg twice daily after initially becoming encephalopathic with resumption of usual dose of 75 mg which she had changed to as needed at home by herself. De-escalate pain regimen as she continues to improve. Please follow-up for further assessment of osteopenia. Physical Exam Narrative: Moderately hard of hearing. Const: COMMON NORMALS: patient oriented x3 and alert GENERAL APPEARANCE: cooperative and lethargic ORIENTATION/CONSCIOUSNESS: Yes awake and Yes lethargic HENMT: COMMON NORMALS: oropharynx normal OTHER: Poor dentition Neck/C-Spine: COMMON NORMALS: no JVD Resp: COMMON NORMALS: normal respiratory effort and clear to auscultation bilaterally AUSCULTATION: clear to auscultation bilaterally Cardio: COMMON NORMALS: no JVD, regular rhythm, S1 normal heart sound present, S2 normal heart sound present and No murmurs present (Cardio) RHYTHM: regular rhythm HEART SOUNDS: S1 normal heart sound present and S2 normal heart sound present GI: COMMON NORMALS: Normal to inspection, nondistended, normoactive bowel sounds present, Soft to palpation and non-tender PALPATION: Yes Soft to palpation Extremity: COMMON NORMALS: no joint enlargement and no pedal edema NARRATIVE EXTREMITY EXAM: Right arm in a sling Neuro: COMMON NORMALS: patient oriented x3 and moves all extremities SENSORIUM/ORIENTATION: Yes alert and Yes lethargic Skin: COMMON NORMALS: no rashes or lesions noted GENERAL SKIN EXAM: no rashes or lesions noted Urinary Catheter Management: Hess: Cath Placed During This Visit: yes Urinary Catheter Date of Insertion: 08/20/24 Discharge Data Studies Completed and Pending Completed Studies During Hospitalization Category Date Time Status CT hip RT wo con* [id number] Stat Cat Scan 08/20/24 09:26 Completed CTA head [CT angio head [id number]] Stat Cat Scan 08/21/24 05:51 Completed XR elbow RT min 3V* [id number] Stat Exams 08/20/24 08:33 Completed XR hip RT 2-3V wo/w pel* [id number] Stat Exams 08/20/24 08:33 Completed XR knee RT 3V* [id number] Stat Exams 08/20/24 09:27 Completed XR shoulder RT min 2V* [id number] Stat Exams 08/20/24 08:33 Completed Radiology Impressions Elbow X-Ray 08/20/24 08:33 IMPRESSION: Radial head fracture and joint effusion as above. Hip/Pelvis X-Ray 08/20/24 08:33 IMPRESSION: Right TKA without acute abnormality. Shoulder X-Ray 08/20/24 08:33 IMPRESSION: No acute abnormality. 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 Probable significant chronic rotator cuff tendinosis/tear. Hip CT 08/20/24 09:26 IMPRESSION: Some images degraded due to beam hardening artifact from hardware 1. Slightly comminuted fracture involving the greater trochanter. 2. Nondisplaced fracture extends from the lateral greater trochanter into the femoral shaft extending to the tip of the femoral georgina. 3. Osteopenia. Knee X-Ray 08/20/24 09:27 IMPRESSION: No acute abnormality. Moderate osteoarthritis. Head CTA 08/21/24 05:51 IMPRESSION: No large vessel stenosis or occlusion. Laboratory Results WBC 5.43 10^3/uL (3.29-11.43) 08/24/24 04:54 RBC 3.84 10^6/uL (3.85-5.65) L 08/24/24 04:54 Hgb 12.30 g/dL (11.27-16.99) 08/24/24 04:54 Hct 39.4 % (36-47) 08/24/24 04:54 MCV 102.6 fl (85-98) H 08/24/24 04:54 MCH 32.0 pg (27-33) 08/24/24 04:54 MCHC 31.2 g/dL (30-55) 08/24/24 04:54 RDW 14.6 % (12.1-15.1) 08/24/24 04:54 Plt Count 221 10^3/cmm (157-399) 08/24/24 04:54 MPV 8.3 fL (7.4-10.4) 08/24/24 04:54 Neut % (Auto) 69.2 % 08/24/24 04:54 Lymph % (Auto) 14.4 % 08/24/24 04:54 Rolette % (Auto) 10.5 % 08/24/24 04:54 Eos % (Auto) 4.6 % 08/24/24 04:54 Baso % (Auto) 0.4 % 08/24/24 04:54 Neut # (Auto) 3.76 10^3/uL (1.8-7.7) 08/24/24 04:54 Lymph # (Auto) 0.8 10^3/uL (0.8-4.8) 08/24/24 04:54 Rolette # (Auto) 0.6 10^3/uL (0.2-0.9) 08/24/24 04:54 Eos # (Auto) 0.3 10^3/uL (0.0-0.8) 08/24/24 04:54 Baso # (Auto) 0.0 10^3/uL (0.0-0.1) 08/24/24 04:54 Nucleated RBC % (auto) 0 % 08/24/24 04:54 Nucleated RBCs # 0.0 /100WBC 08/24/24 04:54 PT 12.60 SECONDS (12.1-14.9) 08/20/24 10:55 INR 0.88 (0.8-1.2) 08/20/24 10:55 Sodium 139 mmol/L (136-145) 08/24/24 04:54 Potassium 4.1 mmol/L (3.5-5.1) 08/24/24 04:54 Chloride 102 mmol/L (98-107) 08/24/24 04:54 Carbon Dioxide 25 mmol/L (22-29) 08/24/24 04:54 Anion Gap 16.1 (5-19) 08/24/24 04:54 BUN 15 mg/dL (8-23) 08/24/24 04:54 Creatinine 0.7 mg/dL (0.5-0.9) 08/24/24 04:54 GFR Calculation Not Reportable 08/24/24 04:54 Glucose 107 mg/dL (65-115) 08/24/24 04:54 Calculated Osmolality 289 mOsm/kg (285-295) 08/24/24 04:54 Calcium 8.8 mg/dL (8.5-10.5) 08/24/24 04:54 Magnesium 2.5 mg/dL (1.7-2.3) H 08/24/24 04:54 Total Bilirubin 0.3 mg/dL (0.15-1.2) 08/20/24 10:55 AST 49 U/L (0-32) H 08/20/24 10:55 ALT 60 U/L (0-33) H 08/20/24 10:55 Alkaline Phosphatase 87 U/L (35-105) 08/20/24 10:55 Total Protein 5.8 g/dL (6.6-8.7) L 08/20/24 10:55 Albumin 3.7 g/dL (3.5-5.2) 08/20/24 10:55 Globulin 2.1 g/dL (1.3-4.6) 08/20/24 10:55 Urine Color Yellow (Yellow) 08/21/24 11:00 Urine Appearance Clear (CLEAR) 08/21/24 11:00 Urine pH 8.5 (5-7) A 08/21/24 11:00 Ur Specific [place] 1.031 (1.005-1.030) H 08/21/24 11:00 Urine Protein Negative (Negative) 08/21/24 11:00 Urine Glucose (UA) Negative (Normal) 08/21/24 11:00 Urine Ketones Negative (Negative) 08/21/24 11:00 Urine Blood Negative (Negative) 08/21/24 11:00 Urine Nitrate Negative (Negative) 08/21/24 11:00 Urine Bilirubin Negative (Negative) 08/21/24 11:00 Urine Urobilinogen 1.0 mg/dL (Negative) 08/21/24 11:00 Ur Leukocyte Esterase Negative (Negative) 08/21/24 11:00 Urine RBC 3-5 /hpf (0-2) 08/21/24 11:00 Urine WBC 0-5 /hpf (0-5) 08/21/24 11:00 Ur Squamous Epith Cells 0-5 /hpf (0-5) 08/21/24 11:00 Amorphous Sediment Not Reportable 08/21/24 11:00 Urine Bacteria None seen /hpf (NONE) 08/21/24 11:00 Hyaline Casts 0-4 /lpf H 08/21/24 11:00 Vitals Last Vital Signs Temp 98.3 F 08/25/24 07:46 Pulse 64 08/25/24 07:46 Resp 18 08/25/24 07:46 BP 114/57 08/25/24 07:46 Pulse Ox 96 08/25/24 07:46 O2 Del Method Room Air 08/25/24 07:46 Discharge Plan Discharge Patient Disposition: Xfer SNF Condition: Stable Prescriptions: New pregabalin 25 mg Capsule 25 mg PO BID Qty: 60 0RF acetaminophen 325 mg Tablet 325 mg PO Q6H 7 Days Qty: 28 0RF Continued pravastatin 40 mg tablet 40 mg PO BEDTIME levothyroxine 75 mcg tablet 75 mcg PO QAM quinidine gluconate 324 mg tablet extended release 324 mg PO TID Rx Instructions: 6am, 2pm, 10pm potassium chloride 20 mEq tablet,ER particles/crystals 20 meq PO QAM pantoprazole 40 mg tablet,delayed release (DR/EC) 40 mg PO BID zinc acetate 50 mg (zinc) Capsule 50 mg PO BEDTIME cyanocobalamin (vitamin B-12) [Vitamin B-12] 500 mcg Tablet 500 mcg PO QAM pyridoxine (vitamin B6) [Vitamin B-6] 100 mg Tablet 100 mg PO QAM folic acid 800 mcg Tablet 0.8 mg PO QAM cholecalciferol (vitamin D3) [Vitamin D3] 25 mcg (1,000 unit) Tablet 25 mcg PO QAM Women's 50 Plus Multivitamin 400 mcg-500 mg calcium-20 mcg Tablet 1 tab PO BEDTIME magnesium oxide 400 mg magnesium Tablet 400 mg PO DAILY coenzyme Q10 [Co Q-10] 100 mg Capsule 100 mg PO QAM bupropion HCl 300 mg tablet extended release 24 hr 300 mg PO QAM oxycodone-acetaminophen 10-325 mg tablet 1 tab PO Q6H MDD max of 8 tablets daily PRN (Reason: Severe Pain (Scale Score 7-10)) biotin 10,000 mcg Capsule 10,000 mcg PO BEDTIME nitroglycerin 0.4 mg tablet, sublingual See Rx Instructions .ROUTE .COMPLEX Rx Instructions: DISSOLVE 1 TABLET UNDER TONGUE EVERY 5 MINUTES NEEDED FOR CHEST PAIN. MAY TAKE UP TO 3 DOSES PER EPISODE; IF NO RELIEF AFTER 3RD DOSE, CALL 911 OR SEEK EMERGENCY CARE. docusate sodium [Colace] 100 mg Capsule 100 mg PO BEDTIME budesonide 3 mg capsule,delayed,extend.release See Rx Instructions .ROUTE .COMPLEX Rx Instructions: Take 3 capsules by mouth in the morning for 1 month, 2 capsules in the morning for 1 month, then 1 capsule in the morning for 1 month. vitamin E 268 mg (400 unit) Capsule 268 mg PO BEDTIME loperamide 2 mg capsule See Rx Instructions .ROUTE .COMPLEX PRN (Reason: Diarrhea) Rx Instructions: Take 2 capsules (4 mg total) by mouth 4 (four) times a day as needed for diarrhea trazodone 150 mg tablet 150 mg PO BEDTIME lidocaine 5 % adhesive patch,medicated 1 patch transdermal Q24H mupirocin 2 % ointment 1 applic TOPICAL DAILY PRN (Reason: Skin Irritation) isosorbide mononitrate 30 mg tablet extended release 24 hr 30 mg PO QAM Discontinued amlodipine 5 mg tablet 5 mg PO QAM duloxetine 30 mg capsule,delayed release(DR/EC) 30 mg PO DAILY Rx Instructions: take with 60mg po daily to equal 90 mg daily duloxetine 60 mg capsule,delayed release(DR/EC) 60 mg PO DAILY Rx Instructions: take with 30mg po daily to equal 90 mg daily pregabalin 75 mg capsule 75 mg PO BID Discharge Orders: Discharge Order (Routine); Ordered 08/25/24 Ordered By: Cyrus Nguyen Referrals: [facility] [Outside] Kylee Pederson MD [Primary Care Provider, Family Practice] - 4-7 days Dajuan Abebe MD [Physician, Orthopedics] - 09/01/24 11:30 am Referral Note: 10 days Patient Instructions: Pregabalin (By mouth) (Lyrica, Lyrica CR), Elbow Fracture (DC), Fall Prevention (DC), Hip Fracture (ED), Opioid Safety, Pain Management, Patient Portal & Alfredito Instructions Activity Restrictions/Additional Instructions: Continue nonweightbearing on right lower extremity. Keep in sling for radial head compression fracture. Maintain fall precautions. Follow-up with orthopedics in office in 10 days for reassessment and repeat grazyna ging. Monitor for risk of constipation and other adverse effects with opioid pain medication. De-escalate when need decreases. Pain control regimen with combination acetaminophen, lidocaine patch, oxycodone acetaminophen 10-325 as needed for breakthrough with acetaminophen for breakthrough pain, scheduled pregabalin. Limit Tylenol intake to less than 4000 mg in a day. Discharge Attestations Time Spent in Discharge Care*: greater than 30 min Quality Metrics Clinical Quality Measures [ No reported AMI, CVA or VTE this stay] Coding Level of Care Code 78243 Total time (in minutes) for Discharge: 40 Diagnoses Periprosthetic fracture around internal prosthetic right hip joint, subsequent encounter M97.01XD Encounter type: subsequent encounter Closed nondisplaced fracture of head of right radius, initial encounter S52.124A Encounter type: initial encounter Fracture alignment: nondisplaced Fracture type: closed Laterality: right
[2024-08-25 12:15] VITALS: BP 100/61; PULSE 60; RESP 18; TEMP 36.7; O2SAT 96
--- NOTE | 2024-08-25 13:35 | PC.NURSE ---
This nurse called report to SEAN Mariscal at [facility] at [phone].
--- NOTE | 2024-08-25 15:10 | PC.NURSE ---
Ready [facility] expected to be here around 1630/1700 to get pt.
[2024-08-25 16:14] VITALS: BP 130/75; PULSE 72; RESP 19; TEMP 36.7; O2SAT 95
--- NOTE | 2024-08-25 16:25 | PC.OT ---
OT TREATMENT HELD THIS DATE DUE TO SCHEDULED PATIENT D/C
== END 2024-08-25 17:11 | disposition skilled nursing facility (03) | DRG 535 ==
LOC: ER 11:02 → MEDSURG 12:06
PROVIDERS: Internal Medicine; Admitting Provider Internal Medicine; Emergency Provider Emergency Medicine; PCP Family Medicine; Visit Provider Internal Medicine
DX: S72.141A Displaced intertrochanteric fracture of right femur, initial encounter for closed fracture (principal); G92.9 Unspecified toxic encephalopathy; M97.01XA Periprosthetic fracture around internal prosthetic right hip joint, initial encounter; S52.121A Displaced fracture of head of right radius, initial encounter for closed fracture; W19.XXXA Unspecified fall, initial encounter; Y92.000 Kitchen of unspecified non-institutional (private) residence as the place of occurrence of the external cause; M32.9 Systemic 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, unspecified; I25.10 Atherosclerotic heart disease of native coronary artery without angina pectoris; K52.839 Microscopic colitis, unspecified; I10 Essential (primary) hypertension; I44.7 Left bundle-branch block, unspecified; M85.80 Other specified disorders of bone density and structure, unspecified site; Z95.5 Presence of coronary angioplasty implant and graft; Z79.52 Long term (current) use of systemic steroids; Z86.73 Personal history of transient ischemic attack (TIA), and cerebral infarction without residual deficits
CPT/HCPCS: 29105; 36415; 51702; 70496; 73030; 73080; 73502; 73562; 73700; 80048; 80053; 81001; 83735; 85025; 85610; 93005; 96372; 96374; 96375; 97110; 97162; 97167; 97530; 97535; 99285; J1171; J1650; J2270; J2405; J9999

== ENCOUNTER → 2024-09-01 11:18 | Outpatient (BNVA) | payer OTHER, MEDICAID, SELFPAY | PROVIDERS: PCP Family Medicine; Visit Provider Orthopaedic Surgery | DX: M97.01XD Periprosthetic fracture around internal prosthetic right hip joint, subsequent encounter (principal); S52.124D Nondisplaced fracture of head of right radius, subsequent encounter for closed fracture with routine healing; M25.511 Pain in right shoulder; G89.29 Other chronic pain; W18.39XD Other fall on same level, subsequent encounter | CPT/HCPCS: 99213 ==

== ENCOUNTER → 2024-09-18 14:16 | Outpatient (BNVA) | payer OTHER, MEDICAID, SELFPAY | PROVIDERS: PCP Family Medicine; Visit Provider Orthopaedic Surgery | DX: M97.01XD Periprosthetic fracture around internal prosthetic right hip joint, subsequent encounter (principal); S52.124D Nondisplaced fracture of head of right radius, subsequent encounter for closed fracture with routine healing; X58.XXXD Exposure to other specified factors, subsequent encounter | CPT/HCPCS: 73080; 73502; 99213 ==

== ENCOUNTER 2024-10-20 05:00 | Outpatient (RCR) | payer OTHER, MEDICAID, SELFPAY | END 2024-11-18 23:59 | disposition home or self-care (01) | LOC: WPT 05:00 | PROVIDERS: Visit Provider Family Medicine | DX: R29.6 Repeated falls (principal) | CPT/HCPCS: 97110; 97112; 97161; 97530 ==

== ENCOUNTER → 2024-11-07 09:47 | Outpatient (BNVA) | payer OTHER, MEDICAID, SELFPAY | PROVIDERS: Visit Provider Orthopaedic Surgery | DX: S52.121A Displaced fracture of head of right radius, initial encounter for closed fracture (principal); X58.XXXA Exposure to other specified factors, initial encounter | CPT/HCPCS: 73080 ==

== ENCOUNTER 2024-12-18 11:00 | Outpatient (RCR) | payer OTHER, MEDICAID, SELFPAY | END 2024-12-19 23:59 | disposition home or self-care (01) | LOC: WPT 11:00 | PROVIDERS: Visit Provider Family Medicine | DX: R29.6 Repeated falls (principal) | CPT/HCPCS: 97110; 97112; 97530 ==

== ENCOUNTER 2024-12-25 10:52 | Outpatient (RCR) | payer OTHER, MEDICAID, SELFPAY | END 2025-01-18 23:59 | disposition home or self-care (01) | LOC: WPT 10:52 | PROVIDERS: Visit Provider Family Medicine | DX: R26.81 Unsteadiness on feet (principal); R29.6 Repeated falls; M16.12 Unilateral primary osteoarthritis, left hip | CPT/HCPCS: 97110; 97112; 97530 ==

== ENCOUNTER 2024-12-29 11:35 | Emergency (ER) | payer MEDICARE, MEDICAID, SELFPAY ==
[2024-12-29 11:36] VITALS: BP 122/52; PULSE 79; RESP 18; TEMP 36.9; O2SAT 96
--- OUTSIDE RECORDS SUMMARY | 2024-12-29 11:41 | XMS_ITS | Encounter Summary ---
Author Organization [employer] [facility] Address [address] [place] [address] Care Team Providers Care Janitor Cleaner Name Role Phone Kylee Pederson MD Primary Care Provider [phone] Reason for Visit * Reason Comments Medication Refill Encounter Details Date Type Department Care Team ([facility] Contact Info) Description 06/20/2016 Refill [facility] Telemedicine Confidential - [place] [address] [place] [phone] Miguelito Jackson Jr., MD NO ADDRESS ON FILE Social History Tobacco Use Types Packs/Day Years Used Date Smoking Tobacco: Never Smokeless Tobacco: Never Alcohol Use Standard Drinks/Week Comments No 0 (1 standard drink = 0.6 oz pur e alcohol) social drinker years ago Comments No Sex and Gender Information Value Date Recorded Sex Assigned at Not on file Legal Sex Female 3:23 AM CASHIERS BUSSERS FOOD RUNNERS Gender Identity Not on file Sexual Orientation Not on file documented as of this encounter Miscellaneous Notes * Telephone Encounter - Holly Smith CMA - 06/21/2016 9:48 AM CDT Called in with Jacqui gomez [facility] documented in this encounter Plan of Treatment Not on file documented as of this encounter Visit Diagnoses Not on filedocumented in this encounter Additional Health Concerns Infection Onset Date Last Indicated Resolved Time R/O C. diff 04/16/2020 04/16/2020 04/16/2020 10:2 7 PM CASHIERS BUSS[employer] RUNNERS documented as of this encounter Care Teams Janitor Cleaner Relationship Specialty Start Date End Date Kylee Pederson MD [address] [address] PCP - General Family Practice 10/18/17 documented as of this encounter
--- OUTSIDE RECORDS SUMMARY | 2024-12-29 11:41 | XMS_ITS | Encounter Summary ---
Author Organization [employer] [facility] Address [address] [place] [address] Care Team Providers Care Zinc Miner Name Role Phone Kylee Pederson MD Primary Care Provider Reason for Visit * Reason Comments Medication Refill Encounter Details Date Type Department Care Team (Late Contact Info) Description 12/12/2016 Refill [facility] Telemedicine Confidential - [place] [address] [address] Miguelito Jackson Jr., MD NO [...] on file Legal Sex Female 3:23 AM LANGUAGE THERAPIST Gender Identity Not on file Sexual Orientation [...] diff 04/16/2020 04/16/2020 04/16/2020 10:2 7 PM LANGUAGE THERAPIST Assessment Noted Time PHQ-9 Depression Total Score: 1 11/07/19 17 11:00 AM CDT documented as of this encounter Care Teams Zinc Miner Relationship Specialty Start Date End Date Kylee Pederson MD [address] [facility] [address] [place] [address] PCP - General Family Practice 10/18/17 documented as of this encounter
--- OUTSIDE RECORDS SUMMARY | 2024-12-29 11:41 | XMS_ITS | Encounter Summary ---
Author Organization [employer] [facility] Address [address] [place] [address] Care Team Providers Care Child And Family Services Worker Name Role Phone Kylee Pederson MD Primary Care Provider Reason for Visit * Reason Comments Medication Refill Encounter Details Date Type Department Care Team (Late st Contact Info) Description 02/23/[address] [facility] Telemedicine Confidential - [place] [address] [facility] [address] [place] [phone] Miguelito Jackson Jr., MD NO ADDRESS ON FILE Social History Tobacco Use Types Packs/Day Years Used Date Smoking Tobacco: Never Smokeless Tobacco: Never Alcohol Use Standard Drinks/Week Comments No 0 (1 standard drink = 0.6 oz pur e alcohol) social drinker years ago Comments No Sex and Gender Information Value Date Recorded Sex Assigned at Not on file Legal Sex Female 3:23 AM TELEPHONE ANSWERER Gender Identity Not on file Sexual Orientation Not on file documented as of this encounter Plan of Treatment Not on file documented as of this encounter Visit Diagnoses Not on filedocumented in this encounter Additional Health Concerns Infection Onset Date Last Indicated Resolved Time R/O C. diff 04/16/2020 04/16/2020 04/16/2020 10:2 7 PM TELEPHONE ANSWERER Assessment Noted Time PHQ-9 Depression Total Score: 1 11/07/19 17 11:00 AM CDT documented as of this encounter Care Teams Child And Family Services Worker Relationship Specialty Start Date End Date Kylee Pederson MD [address] [facility] [address] [place] [phone] PCP - General Family Practice 10/18/17 documented as of this encounter
--- OUTSIDE RECORDS SUMMARY | 2024-12-29 11:41 | XMS_ITS | Encounter Summary ---
Author Organization [employer] [facility] Address [address] [place] [address] Care Team Providers Care Grinding And Polishing Laborer Name Role Phone Kylee Pederson MD Primary Care Provider [phone] Reason for Visit * Reason Comments Medication Refill Encounter Details Date Type Department Care Team (Late st Contact Info) Description 10/19/2014 Refill [facility] Telemedicine Confidential - [place] [address] [facility] [address] [place] [phone] Miguelito Jackson Jr., MD NO ADDRESS ON FILE Social History Tobacco Use Types Packs/Day Years Used Date Smoking Tobacco: Never Smokeless Tobacco: Never Alcohol Use Standard Drinks/Week Comments No 0 (1 standard drink = 0.6 oz pur e alcohol) social drinker years ago Comments No Sex and Gender Information Value Date Recorded Sex Assigned at Not on file Legal Sex Female 3:23 AM APPLICATION SUPPORT Gender Identity Not on file Sexual Orientation Not on file documented as of this encounter Plan of Treatment Not on file documented as of this encounter Visit Diagnoses Not on filedocumented in this encounter Additional Health Concerns Infection Onset Date Last Indicated Resolved Time R/O C. diff 04/16/2020 04/16/2020 04/16/2020 10:2 7 PM APPLICATION SUPPORT documented as of this encounter Care Teams Grinding And Polishing Laborer Relationship Specialty Start Date End Date Kylee Pederson MD [address] [place] [phone] PCP - General Family Practice 10/18/17 documented as of this encounter
--- OUTSIDE RECORDS SUMMARY | 2024-12-29 11:41 | XMS_ITS | Encounter Summary ---
Author Organization [employer] [facility] Address [address] [place] [address] Care Team Providers Care Claims Vice President Name Role Phone Kylee Pederson MD Primary Care Provider [phone] Reason for Visit * Reason Comments Medication Refill Encounter Details Date Type Department Care Team ([facility] st Contact Info) Description 09/07/2016 Refill [facility] Telemedicine Confidential - [place] [address] [place] [phone] Manuel Preciado, Miguelito Christie MD NO ADDRESS [...] on file Legal Sex Female 3:23 AM INTERLIBRARY LOAN SERVICES LIBRARIAN Gender Identity Not on file Sexual Orientation Not on file documented as of this encounter Miscellaneous Notes * Telephone Encounter - Vlad Meadows - 09/07/2016 2:49 PM CDT Ativan called into [facility] [address] * Telephone Encounter - Vlad Meadows - 09/07/2016 1:09 PM CDT Last seen 07/26/16 Future appointment: 09/20/16 documented in this encounter Plan of Treatment Not on file documented as of this encounter Visit Diagnoses Not on filedocumented in this encounter Additional Health Concerns Infection Onset Date Last Indicated Resolved Time R/O C. diff 04/16/2020 04/16/2020 04/16/2020 10:2 7 PM INTERLIBRARY LOAN SERVICES LIBRARIAN documented as of this encounter Care Teams Claims Vice President Relationship Specialty Start Date End Date Kylee Pederson MD [address] [phone] PCP - General Family Practice 10/18/17 documented as of this encounter
--- OUTSIDE RECORDS SUMMARY | 2024-12-29 11:41 | XMS_ITS | Encounter Summary ---
Author Organization [employer] [facility] Address [address] [place] [address] Care Team Providers Care Rate Quoting Operator Name Role Phone Kylee Pederson MD Primary Care Provider Reason for Visit * Reason Comments Medication Refill Encounter Details Date Type Department Care Team (Late st Contact Info) Description 01/05/[address] [facility] Telemedicine Confidential - [place] [address] [facility] [address] [place] [phone] Miguelito Jackson Jr., MD NO ADDRESS ON FILE Social History Tobacco Use Types Packs/Day Years Used Date Smoking Tobacco: Never Smokeless Tobacco: Never Alcohol Use Standard Drinks/Week Comments No 0 (1 standard drink = 0.6 oz pur e alcohol) social drinker years ago Comments No Sex and Gender Information Value Date Recorded Sex Assigned at Not on file Legal Sex Female 3:23 AM IMPLEMENTATION SERVICES ANALYST Gender Identity Not on file Sexual Orientation Not on file documented as of this encounter Plan of Treatment Not on file documented as of this encounter Visit Diagnoses Not on filedocumented in this encounter Additional Health Concerns Infection Onset Date Last Indicated Resolved Time R/O C. diff 04/16/2020 04/16/2020 04/16/2020 10:2 7 PM IMPLEMENTATION SERVICES ANALYST documented as of this encounter Care Teams Rate Quoting Operator Relationship Specialty Start Date End Date Kylee Pederson MD [address] [place] [phone] PCP - General Family Practice 10/18/17 documented as of this encounter
--- OUTSIDE RECORDS SUMMARY | 2024-12-29 11:41 | XMS_ITS | Encounter Summary ---
Author Organization [employer] [facility] Address [address] [place] [address] Care Team Providers Care Leasing Coordinator Name Role Phone Kylee Pederson MD Primary Care Provider Reason for Visit * Reason Comments Medication Refill Encounter Details Date Type Department Care Team ([facility] Contact Info) Description 10/17/2016 Refill [facility] Telemedicine Confidential - [place] [address] [place] [address] Miguelito Jackson Jr., MD NO [...] on file Legal Sex Female 3:23 AM MERCANTILE AGENT Gender Identity Not on file Sexual Orientation Not on file documented as of this encounter Miscellaneous Notes * Telephone Encounter - harman Ambrocio - 10/18/2016 11:17 AM CDT Called Ativan into [facility] [phone] documented in this encounter Plan of Treatment Not on file documented as of this encounter Visit Diagnoses Not on filedocumented in this encounter Additional Health Concerns Infection Onset Date Last Indicated Resolved Time R/O C. diff 04/16/2020 04/16/2020 04/16/2020 10:2 7 PM MERCANTILE AGENT documented as of this encounter Care Teams Leasing Coordinator Relationship Specialty Start Date End Date Kylee Pederson MD [address] [phone] PCP - General Family Practice 10/18/17 documented as of this encounter
--- OUTSIDE RECORDS SUMMARY | 2024-12-29 11:41 | XMS_ITS | Encounter Summary ---
Author Organization [facility] Address [address] [place] [address] Phone Care Team Providers Care Real Estate Sales Manager Name Role Phone Mike Lopez MD Unavailable [phone] Mingo Moore MD Unavailable Kylee Pederson MD Unavailable [phone] Kylee Pederson MD Primary Care Provider [phone] Brea Crowell MD Unavailable Encounter Details Date Type Department Care Team (Late st Contact Info) Description 12/24/2024 Telephone [facility] Medicine Gastroenterology [address] [facility] 12[address] [place] [address] [place] [id number] Nataly Rosa Social History Tobacco Use Types Packs/Day Years Used Date Smoking Tobacco: Never Passive Smoke Exposure: Never Smokeless Tobacco: Never Alcohol Use Standard Drinks/Week Comments No 0 (1 standard drink = 0.6 oz pur e alcohol) [facility] Utilities Answer Date Recorded In the past 12 months has [employer] electric, gas, oil, or water company threatened to shut off services in your home? No 05/12/2024 Social Connection and Isolation Panel Answer Date Recorded In a typical week, how many times do you talk on the phone with family, friends, or neighbors? Three times a week 05/13/19 25 How often do you get togethe r with friends or relatives? Once a week 05/12/2024 How often do you attend chur ch or hindu services? 1 to 4 times per year 05/12/2024 Active Member of Clubs or Organizations Not on f ile 05/12/2024 How often do you attend meet ings of the clubs or organizations you belong to? Never 05/12/2024 Are you , , di vorced, , never , or living with a partner? 05/12/2024 AUDIT-C Answer Date Recorded Q1: How often do you have a drink containing alc ohol? Never 09/03/2023 Average Number of Drinks Not on file 024 Frequency of Binge Drinking Not on file 08/19 Overall Financial Resource Strain (CARDIA) Answe r Date Recorded How hard is it for you to pa y for the very basics like food, housing, medical care, and heating? Not very hard 05/12/2024 Hunger Vital Sign Answer Date Recorded Within the past 12 months, y ou worried that your food would run out before you got the money to buy more. Never true 05/13/19 25 Within the past 12 months, t he food you bought just didn't last and you didn't have money to get more. Never true 05/12/2024 PRAPARE - Transportation Answer Date Re corded In the past 12 months, has l ack of transportation kept you from medical appointments or from getting medications? No 04/20 In the past 12 months, has l ack of transportation kept you from meetings, work, or from getting things needed for daily living? No 05/12/2024 Housing Stability Vital Sign Answer Florian e Recorded In the last 12 months, was t here a time when you were not able to pay the mortgage or rent on time? No 05/12/2024 In the past 12 months, how m any times have you moved where you were living? 0 05/12/2024 At any time in the past [address] [facility], were you homeless or living in a [facility] (including now)? No 05/12/2024 Personal Safety Answer Date Recorded Have you ever been in or are you currently in a harmful physical or emotional relationship or is someone making you feel afraid or unsafe? Denies 05/08/2024 Comments No Sex and Gender Information Value Date Recorded Sex Assigned at Not on file Legal Sex Female 11:31 PM [employer] Gender Identity Not on file Sexual Orientation Not on file documented as of this encounter Miscellaneous Notes * Telephone Encounter - Veronica Echevarria LPN - 12/26/2024 2:54 PM CST Spoke with patient, stated she was unable to arrange transportation for CPAP and procedure in [facility] on 01/06. Canceled case with Dr. Metz on 01/06. Rescheduled with Dr. Sheridan on 03/03/2025 at 8AM, 6AM arrival. New instructions to be mailed. Message sen to CPAP requesting new appt to be scheduled, patient aware she will need two separate appts with transportation scheduled, voiced understanding. Caregiver was present as well. NE [employer]HTER * Telephone Encounter - Nataly Rosa - 12/24/2024 3:09 PM [employer] Pt LM reporting that she has a problem with the EGD that is scheduled. Would like to discuss with Dr. Sheridan's nurse. [employer] documented in this encounter Plan of Treatment Upcoming Encounters Date Type Department Care Team (Latest Contact Info) Description 03/03/2025 8:00 AM [employer] Hospital Encounter [facility] [address] [place] [address] Megan Metz MD [address] [place] [address] Javy Sheridan MD [address] [place] [address] 03/03/2025 8:00 AM [employer] - 03/03/2025 8:30 AM [employer] Surgery [facility] [address] [place] [address] Javy Sheridan MD [address] [place] [address] ESOPHAGOGASTRODUODENOSCOPY w/possible dilation Scheduled Procedures Name Priority Associated Diagnoses Date/Ti wv ESOPHAGOGASTRODUODENOSCOPY Dysphagia, unspecified type 03/03/2025 8:00 AM [employer] documented as of this encounter Visit Diagnoses Not on filedocumented in this encounter Care Teams Real Estate Sales Manager Relationship Specialty Start Date End Date Kylee Pederson MD [address] [address] PCP - General 08/07/19 Mike Lopez MD Referring Physician Colon and Rectal Surgery 03/24/19 Mingo Moore MD Consulting Physician Cardiology 04/24/19 Kylee Pederson MD Referring Physician Family Medicine 07/30/19 Brea Crowell MD [address] [address] Radiation Oncologist Radiation Oncology 03/15/22 documented as of this encounter
--- OUTSIDE RECORDS SUMMARY | 2024-12-29 11:41 | XMS_ITS | Clinical Summary ---
Author Organization [facility] Address [address] [place] [address] Care Team Providers Care Furniture Sander Name Role Phone Mike Lopez MD Unavailable Mingo Moore MD Unavailable Kylee Pederson MD Unavailable Kylee Pederson MD Primary Care Provider [phone] Brea Crowell MD Unavailable Allergies Active Allergy Reactions Criticality Noted Date Comments Prochlorperazine Other (See comments) Low 0 Stated makes feel weird Gabapentin Dizziness Low 04/22/2021 Did not feel good/right when taking this med. Nsaids (Non-Steroidal Anti-Inflammatory Drug) Other (See comments) Low 08/08/2019 Bleeding ulcers Zoledronic Ghrx-Wpuqomsa-Hsizl Other (See comments) Low osteonecrosis Tricyclic Antidepressants And Tricyclic Compounds Other (See comments) Medium 02/25/2014 Reports near Vancomycin Anaphylaxis High Medications cholecalciferol (VITAMIN D-3) 2000 unit capsule 1 capsule (2,000 Units total) daily Active diclofenac sodium (VOLTAREN) 1 % gel APPLY TOPICALLY THREE TIMES DAILY NEEDED FOR PAIN 100 g 2 1 Active levothyroxine (SYNTHROID) 75 mcg tablet Take 1 tablet (75 mcg total) by mouth mapping technician before breakfast 1 Active copper gluconate 2 mg capsule Take by mouth Act thomas pyridoxine (VITAMIN B-6) 100 mg tablet Take 1 tablet (100 mg total) by mouth daily Active multivitamin tablet Take 1 tablet by mouth daily 2 Active zinc 50 mg tablet Take 50 mg by mouth daily 2 Active acetaminophen (TYLENOL) 325 mg tabletIndication s:Fever,Pain Take 2 tablets (650 mg total) by mouth every 4 (four) hours as needed for pain 30 tablet [address] (CYMBALTA) 30 mg capsule Take 3 capsules (90 mg total) by mouth nightly 90 capsule 11 3 Active lidocaine (LIDODERM) 5 % Place 1 patch on the skin daily 3 Active naloxone (NARCAN) 4 mg/actuation spray,non-aeroso l Administer 1 spray into affected nostril(s) as needed 3 Active oxyCODONE-acetam inophen (PERCOCET) 10-325 mg per tablet Take 1 tablet by mouth every 6 (six) hours as needed 3 Active nitroglycerin (NITROSTAT) 0.[address] 1 tablet (0.4 mg total) under the tongue every 5 (five) minutes as needed for chest pain May repeat dose q 5 min, up to 3 doses total 25 tablet 3 4 Active loperamide (IMODIUM) 2 mg capsuleIndicatio ns:diarrhea Take 2 capsules (4 mg total) by mouth 4 (four) times a day as needed for diarrhea 100 capsule 4 Active lidocaine (LMX) 4 % cream Apply 2.5 g (1 Application total) topically 4 (four) times a day as needed for pain (Anal pain) 30 g 1 4 Active traZODone (DESYREL) 50 mg tablet Take 1 tablet (50 mg total) by mouth nightly Active buPROPion XL (WELLBUTRIN XL) 150 mg 24 hr tablet Take 1 tablet (150 mg total) by mouth daily Active pravastatin (PRAVACHOL) 40 mg tablet Take 1 tablet (40 mg total) by mouth daily 30 tablet [address] (PROTONIX) 40 mg EC tabletIndication s:Gastroesophage al reflux disease with esophagitis TAKE 1 TABLET BY MOUTH TWICE DAILY 180 tablet 1 5 Active potassium chloride ER 20 mEq CR tablet TAKE 1 TABLET BY MOUTH EVERY DAY 90 tablet 3 5 Active amLODIPine (NORVASC) 5 mg tablet TAKE 1 TABLET BY MOUTH EVERY DAY 90 tablet 3 5 Active isosorbide mononitrate ER (IMDUR) 60 mg 24 hr tablet TAKE 1 TABLET BY MOUTH EVERY DAY 90 tablet 3 5 Active quiNIDine ER 324 mg CR tablet TAKE 1 TABLET BY MOUTH 3 TIMES DAILY 90 tablet 3 5 Active budesonide EC (ENTOCORT EC) 3 mg 24 hr capsuleIndicatio ns:Lymphocytic colitis Take 1 capsule (3 mg total) by mouth every morning 30 capsule 3 5 10/24/19 26 Active Active Problems Problem Noted Date Diagnosed Date Diarrhea, unspecified type 05/08/2024 Early dry stage nonexudative age-related macular degeneration of both eyes 12/10/2023 Assessment & Plan (08/19/2024 3:32 PM CDT): Stable with minimal AMD. Not impacting vision at present. Assessment & Plan (03/27/2024 12:49 PM CAD ENGINEER): Stable visual acuity (VA) today, fu for mac oct/dfe ater cornea clears Assessment & Plan (12/10/2023 11:41 AM CDT): Sent for evaluation of macular degeneration, she does have some drusen no change in the macula both eyes. Recommended multivitamin therapy, smoking avoidance, blood pressure control. I have asked that she follow up with optometry in roughly 6 months' time. 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 Unclear etiology but patient reports this has been present for many years. Possible old NAION. Will update Srx today and check vf at f/u . Assessment & Plan (03/27/2024 12:53 PM CAD ENGINEER): 2011 [facility] visit - unable to access FU for optic nerve (ON) oct and Jaeger visual field (HVF) Assessment & Plan (12/10/2023 11:42 AM CDT): Is noted to have optic atrophy/a pale optic nerve in the right eye. Recommend evaluation with Dr. Flanagan. She was seen by Dr. Varma however she has requesting care closer to the [facility]. She would like care in our [facility] system. Bilateral buttock pain 10/17/2023 Chronic hip pain 09/02/2023 Assessment & Plan (09/02/2023 8:07 AM CDT): -continue home percocet prn. Diarrhea 08/29/2023 Assessment & Plan (09/04/2023 7:00 AM CDT): Patient presenting with several weeks of watery diarrhea with some mucous. No recent travel, recent Abx or hospitalizations, or sick contacts. Flu/COVID/RSV negative. CT A/P without evidence of enteritis or colitis. 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 -Stool C. Diff, norovirus PCR, VRE and fecal leukocytes negative, stool cx NTD. Gastrin elevated to 515. VIP, 24 hr urine 5-HIAA collected and pending. Stool O&P, Giardia and crypto as well as stool elastase level pending collection (diarrhea resolved). -TSH high but w/ nl FT4. -Pt underwent EGD and colonoscopy today, d/w GI and reviewed their notes, EGD showed a zenker's diverticulum and a benign appearing esophageal stenosis that was dilated, an erythematous gastric mucosa and normal duodenum which was biopsied. Colonoscopy showed a fair bowel prep, erythematous rectal mucosa c/f radiation changes, several nodular areas in the rectum which were biopsied. F/U biopsies. -D/w private GI re: recs, ok to resume previous diet and plavix, further recs pending her diarrhea course tomorrow. -continue PRn imodium. -supportive care w/ PRN IVF and electrolyte repletion. Sjogren's syndrome 08/29/2023 Assessment & Plan (08/29/2023 10:59 PM CDT): Follows with OSH rheumatology. Not currently on medications for this. Watery diarrhea 08/29/2023 Epigastric pain 12/21/2022 Dysphagia 12/21/2022 Assessment & Plan (09/04/2023 6:59 AM CDT): Hx recurrent dysphagia iso Sjogren's, history of Zenker/s diverticulum, and benign esophageal stenosis with previous dilations. She reports some increased dysphagia over the past month with sensation of some solid foods getting stuck and eventually passing. Has missed previously ordered EGD's due to transportation issues. - GI consulted, EGD showed a zenker's diverticulum and a benign appearing esophageal stenosis that was dilated, an erythematous gastric mucosa and normal duodenum which was biopsied. - NURSING COORDINATOR eval w/ no e/o dysphagia. - On PPI bid. History of colon polyps 12/21/2022 History of anal cancer 12/21/2022 Assessment & Plan (09/03/2023 11:55 PM CDT): Follows with Dr. Lindo. 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 Surveillance colonoscopy 10/2021 with fair prep, 4 polyps and findings of radiation injury to the rectum. A 1 year follow up was recommended due to personal history, findings of polyps, and incomplete prep (unable to clear cecum). Has missed f/u c-scope due to transportation issues. Has also missed most recent onc appt. Rectal exam in ED without significant findings per documentation. -Med onc consulted and following. -CT C/A/P w/ no e/o disease recurrence. -Colonoscopy showed a fair bowel prep, erythematous rectal mucosa c/f radiation changes, several nodular areas in the rectum which were biopsied. F/U biopsies. Coronary artery disease invo lving [place] coronary artery of [place] heart without angina pectoris 04/15/2022 Assessment & Plan (09/03/2023 11:57 PM CDT): S/p PCI to RCA 06/2022. - continue statin and imdur, restart home plavix post procedure. Assessment & Plan (07/20/2022 8:01 AM CDT): Patient with significant obstructive coronary disease involving the right coronary artery with 60-70% lesion last catheterization this lesion looked unstable by Interventional evaluation and underwent successful stenting. Patient had symptoms during the intervention and resolved after intervention. She is asymptomatic and stable. Plans for dual anti-platelet therapy with the strategy of aspirin 81 mg a day for 4 weeks and then discontinuing aspirin. Plans for continuous clopidogrel therapy 75 mg a day. Thus patient will be discharged on dual antiplatelet therapy with plans for 4 weeks of aspirin and then discontinuing aspirin continuing on with the clopidogrel Instructions given to the patient OK for DC home today. We will arrange follow up Assessment & Plan (07/19/2022 11:29 AM CDT): -Nonobstructive CAD -Last [facility] in March 2022 with mild LAD disease and 60% mid RCA lesion -Management as per above Assessment & Plan (04/15/2022 8:42 AM CAD ENGINEER): I reviewed cath films with interventional and discussed with the patient. Plan for medical Rx of single vessel CAD for now. Increase isosorbide to 60 mg a day. Will not add aspirin as pt has history of bleeding ulcers in past. Continue statin. If patient's symptoms worsen, she will contact me and reevaluation of RCA possible PCI. Pt thinks symptoms are related to stress/worry/anxiety. Will increase isosorbide. Plan DC today Chest pain, unspecified type 04/13/2022 Assessment & Plan (07/19/2022 11:47 AM CDT): Admitted with left anterior chest pain with radiation to the left arm which occurred at rest and was responsive to nitroglycerin -Recent C in March 2022 with moderate mid RCA lesion (60%)-continued with medical management at that time -EKG without any acute ischemic changes -hs-troponin negative x 4 (6>7>8>7) -Hemodynamically stable, currently denies chest pain -NPO for coronary angiography with IFR of the right coronary artery today with Dr. Cobb -If she has a significant right coronary artery stenosis, intervention with a stent is recommended given the recurrent symptoms at rest leading to the hospitalization. -If not, may consider up-titration of Imdur and possibly adding Ranexa to her medical regimen -Holding off on beta-indira due to bradycardia -Continue pravastatin -Allergic to NSAIDs Assessment & Plan (04/14/2022 11:23 AM CAD ENGINEER): Has had chest pain near daily for about 1 year but reports usual chest discomfort (nonreadiating midsternal pain and pressure that occurs at rest or activity) is less severe and usually responds to SL TNG x 1. Current sx improved but did not resolve with nitrates and took several hours to resolve. Echo and NM stress test done in 12/2021; mild noted on echo and NM stress w/out myocardial ischemia. Previously concerned for vasospasm given responsiveness to nitro. -trops negative and EKG without signs of ischemia -pt reports being comfortable this am except for left shoulder pain (musculoskeletal ) with rotation -continue home imdur and stop nitro gtt -continue norvasc 5mg and increase if additional BP control needed -continue pravachol 40 -[facility] today to define anatomy and guide therapy -continue aggressive risk factor modification -tele Other chest pain 12/18/2021 Colon polyp 09/08/2021 Overview (09/08/2021): Added automatically from request for surgery [id number] Gastritis without bleeding 09/08/2021 Overview (09/08/2021): Added automatically from request for surgery [id number] Common bile duct stone 09/21/2020 Assessment & Plan (09/22/2020 10:50 AM CDT): Presented today for outpatient ERCP in usual state of health. Dr Montiel performed ERCP/EUS with sphincterotomy, duct sweep of biliary sludge (no purulence) and stent placement with no complications. She is being admitted for observation over night due to age related bleeding risk and living remotely. Observed over night with no bleeding, fever or pain. Tolerating PO well. Ready for DC. Follow up with Dr Montiel as recommended Assessment & Plan (09/21/2020 2:51 PM CDT): Presented today for outpatient ERCP in usual state of health. Dr Montiel performed ERCP/EUS with sphincterotomy, duct sweep of biliary sludge (no purulence) and stent placement with no complications. She is being admitted for observation over night due to age related bleeding risk and living remotely. Will continue IV LR and slowly advance diet as reccommended, Avoid NSAIDS and monitor for bleeding. Assuming all is well she will discharge back home as planned Melena 03/26/2020 Overview (03/26/2020): Added automatically from request for surgery [id number] Anxiety 03/11/2020 Assessment & Plan (04/14/2022 10:36 AM CAD ENGINEER): -Continue home duloxetine 90mg daily. Insomnia 03/11/2020 Fall 07/08/2019 Assessment & Plan (07/09/2019 9:07 AM CDT): No further falls since yesterday mornings due to reaching too far PT/OT evaluations will continue at home with more support through family and line out worker Discontinue fall risk medications as much as possible Discussed limited use of opiates at home to avoid falls Assessment & Plan (07/08/2019 9:13 AM CDT): Mechanical fall this am. Nursing did not witness but the patient called out when she fell She denies chest pain, palpitations or dyspnea prior to the event The patient states she was trying to get to the bathroom and reached too far leading to her fall to the floor Telemetry notes baseline SB rates 50s without ectopy or dysrhythmia Small hematoma noted on her forehead Monitor if any changes in mentation or pain will obtain imaging Nausea 07/07/2019 Assessment & Plan (07/09/2019 8:58 AM CDT): Tolerating solid diet without nausea Continue supplements per newspaper deliverer consult Assessment & Plan (07/08/2019 9:04 AM CDT): Tolerating minimal PO solids with supplements No vomiting since arrival Continue PRN phenergan ADAT Continue supplements per newspaper deliverer consult Assessment & Plan (07/07/2019 2:27 PM CDT): With unremarkable A/P CT most likely due to recent chemo/radiation for rectal cancer She has concerns about taking antiemetics with history of Brugada syndrome and prolonged Qt so has only been using dexamethasone which is possibly causing gastritis additionally to underlying nausea -pharmacy to consult on safest choice of antiemetics and dosing schedule to maximize antiemetics for nausea control -continue PPI -ADAT Skin changes due to chronic exposure to nonionizing radiation, unspecified 05/29/2019 Assessment & Plan (05/29/2019 11:32 AM CDT): -Has evidence of exoriation and irritation 2/2 ongoing radiation treatment; current. - Support with sitz baths BID -Started Miconazole topical for vaginal itching- will receive x 3 days. -Ordered [facility] chair cushion. Constipation 05/29/2019 Assessment & Plan (05/29/2019 11:38 AM CDT): -had episode of constipation with defecation and abdominal cramping. -05/28 KUB normal stool pattern. -CRS rec fiber increase -RD consult since patient has questions about her poor dentition and food intake to prevent constipation. Cough 05/28/2019 Assessment & Plan (05/28/2019 1:04 PM CDT): -On 05/27 patient with dry, nonproductive cough without other symptoms, afebrile -CXR -No cough suppressants at this time -Incentive spirometry q1h WA -OOB to walk BID -Appears non-toxic Neoplastic malignant related fatigue 05/21/2019 Assessment & Plan (05/23/2019 12:34 PM CDT): In the setting of chemo with concurrent radiation, malignancy, and poor PO intake -PT/OT recs as above Severe malnutrition 05/21/2019 Assessment & Plan (09/02/2023 8:15 AM CDT): Due to dysphagia and diarrhea. Labs w/ hypoproteinemia and hypoalbuminemia. -Treat underlying disorders as per elsewhere. -RD consulted and following. -Supportive care. Assessment & Plan (07/09/2019 9:05 AM CDT): Tolerating diet advance without nausea or diarrhea Systems Test Technician will supply some supplements to take home Assessment & Plan (07/08/2019 9:11 AM CDT): ADAT to regular, tolerating small amounts of solids with supplements without any vomiting since admit Nutrition consult for supplement recs Assessment & Plan (07/07/2019 2:41 PM CDT): ADAT to regular Start with full liquid given nausea Nutrition consult for supplement recs Assessment & Plan (05/21/2019 3:44 PM CDT): ASPEN/AND Malnutrition Screening: Acute illness or injury severe Patient Meets Criteria for Severe Malnutrition: Yes -RD consult, supplements Dysuria 05/20/2019 Assessment & Plan (05/29/2019 11:29 AM CDT): Presented with 2-3 days of burning with urination and urinary hesitancy with dark urine. - UA with reflex to micro and culture - UA dirty, suspicious for UTI. Received Ceftriaxone x3 days, Urine culture did not show significant growth. Abx stopped on 05/22. -Had urinary retention twice with dysuria, gross placed 05/20. Making plenty of clear/yellow urine and no suprapubic tenderness on 05/21. She passed a voiding trial on 05/21 and PVR was only 70 mL. She had been voiding spontaneously since. Her symptoms had resolved, however after gross was pulled c/o dysuria again, likely from insertion and discontinuation of gross. -She has been having intermittent urinary incontinence since the gross was pulled. Gross replaced given anticipated chemotherapy and radiation sotomayor to buttocks. Needs to be clamped 2 hours prior to radiation. Will need voiding trial prior to d/c. Nausea 05/07/2019 Assessment & Plan (05/29/2019 11:29 AM CDT): PRN Zofran held due to QTc 525 on admission EKG Dexamethasone 2 mg q6 hr since QTC prolonged - Reports becoming acutely confused with Compazine (this medication is on her allergy list) -Yesterday she c/o very bad nausea since starting chemotherapy but no emesis. Trial of aprepitant which was very helpful. Can be given q3 days -support with Tums, MMW swish and swallow and pantoprazone. - Avoiding QTc prolonging meds (can trial intermittent Zofran per cards, pt refused) and scop patch d/t age. Assessment & Plan (05/07/2019 1:08 PM CDT): Compazine PRN No zofran d/t concern for QTc -4mg dex PO x 1 for nausea d/t not wanting compazine Discharge planning issues 05/06/2019 Assessment & Plan (05/06/2019 4:28 PM CDT): Patient lives 3 hours away and does not have reliable transport. Rupa with SW working to find local accommodations to facilitate radiation therapy -[facility] with food vou[facility] and logisticare transport to radiation, patient agreeable to plan Headache 04/29/2019 Assessment & Plan (04/29/2019 10:35 AM CDT): With associated blurry vision -Could be 2/2 chemotherapy, if the headaches persist or worsen will consider additional w/u -Tylenol PRN H/A Chronic pain syndrome 04/28/2019 Assessment & Plan (05/20/2019 2:47 PM CDT): Multiple etiologies with history of osteoarthritis, polyneuropathy, fibromyalgia, SLE, chronic pancreatitis, and now with anal cancer with associated cancer- related pain. - Sub [place] for home tylenol/codeine - Voltaren gel PRN Assessment & Plan (05/07/2019 12:33 PM CDT): Multiple etiologies with history of osteoarthritis, polyneuropathy, fibromyalgia, SLE, chronic pancreatitis, and now with anal cancer with associated cancer- related pain. -Did not previously tolerate gabapentin or pregabalin per chart review -Sub [place] for home tylenol/codeine -Voltaren gel PRN Generalized weakness 04/08/2019 Assessment & Plan (07/09/2019 9:03 AM CDT): Improving Refuses placement Discontinued fall risk medications Now with mood improved participating in decision making and therapy SW coordinated DC home with more support in addition to PT/OT Assessment & Plan (07/08/2019 9:10 AM CDT): Failure to thrive post concurrent XRT/chemotherapy 06/04/19 Lives alone but near [place] [address] PT/OT evaluations Will discuss with patient and family safe discharge which is likely not to her home 200 miles away Assessment & Plan (07/07/2019 2:40 PM CDT): Failure to thrive post concurrent XRT/chemotherapy 06/04/19 Lives alone but near family 200 [address] away from [facility] PT/OT evaluations Plan home health if possible Assessment & Plan (05/23/2019 12:31 PM CDT): In the setting of chemo with concurrent radiation, malignancy, and poor PO intake and suspected UTI - RD consult, PT/OT eval and treat - Support with IVF -PT rec acute rehab and OT rec SNF - SW assisting with placement. Patient agreeable. Decreased appetite 04/08/2019 Malignant neoplasm of overla pping sites of rectum, anus and anal canal 04/04/2019 Cancer Staging:Clinical:Stage IIB(cT3, cN0, cM0) - Unsigned Assessment & Plan (07/09/2019 9:01 AM CDT): Recently finished definitive XRT with concurrent 5 FU 4 weeks [address] Lindo as scheduled Continue post xrt skin care Assessment & Plan (07/08/2019 9:09 AM CDT): Recently finished definitive XRT with concurrent 5 FU 4 weeks [address] Follow[address] Lindo as scheduled Continue post xrt skin care Assessment & Plan (07/07/2019 2:37 PM CDT): Recently finished definitive XRT with concurrent 5 FU 4 weeks [address] Follow[address] Lindo as scheduled Continue post xrt skin care Assessment & Plan (05/29/2019 11:28 AM CDT): 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 PET without e/o mets. Followed by Dr. Lindo (Med Onc), Dr. Persaud (Rad Onc), Dr. Finn (Cardio Onc), and Dr. Lopez (CRS). Plan for 5FU weeks 1 and 5 with concurrent radiation, with surgery reserved only if she does not have a complete response to chemoradiation. - C1D1 5FU 04/27 - C1D29 due 05/25; will plan to proceed with continuous 5FU on Sunday pending labs. - Continue daily radiation with Rad Onc. 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 PET without e/o mets. Followed by Dr. Lindo (Med Onc), Dr. Persaud (Rad Onc), Dr. Finn (Cardio Onc), and Dr. Lopez (CRS). Plan for 5FU weeks 1 and 5 with concurrent radiation, with surgery reserved only if she does not have a complete response to chemoradiation. -Plan for 5FU alone due to high-risk for toxicity per myCARG assessment with 5FU/[facility]; admitted for close cardiac monitoring w/ chemo per Cardio Onc recs -To continue daily RT inpatient w/ first tx 04/27 (AM of admit) - consult for dc planning given pt to cont daily RT at [facility] but lives >2hr away -See chemo Chronic abdominal pain 03/01/2019 GERD (gastroesophageal reflux disease) 9 Assessment & Plan (07/19/2022 11:51 AM CDT): -No alarm symptoms -Continue pantoprazole 40 mg daily -Patient has not taken aspirin in years due to history of GI bleed Assessment & Plan (05/20/2019 2:31 PM CDT): - Continue home PPI Assessment & Plan (04/28/2019 3:39 PM CDT): -Continue home pantoprazole Helicobacter pylori infection 09/27/2018 Lumbosacral radiculopathy at L5 06/20/2018 Seborrheic keratosis 06/18/2018 History of nonmelanoma skin cancer 06/18/2018 Abnormal finding on GI tract imaging 06/17/2018 Overview (06/17/2018): Added automatically from request for surgery [id number] Chronic pancreatitis 06/17/2018 Overview (06/17/2018): Added automatically from request for surgery [id number] Assessment & Plan (05/27/2019 11:10 AM CDT): Patient c/o epigastric pain and symptoms similar to her chronic pancreatitis pain -If not improving will consult GI for discussion of pancreatic enzymes. 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 Sudden in 1985. Assessment & Plan (09/02/2023 8:06 AM CDT): - continue home quinidine - quinidine level:2 Assessment & Plan (07/20/2022 8:01 AM CDT): The patient is on long-term Quinaglute therapy 324 3 times a day. QT corrected 508 milliseconds in the setting of left bundle branch block. Quinidine level pending. Assessment & Plan (07/19/2022 11:40 AM CDT): -Continue home quinidine 324mg TID -Check quinidine tough level prior to next dose -Check EKG now for QTc interval given use of quinidine -Monitor on telemetry -Maintain K >4.0, Mg >2.0, replete as indicated Assessment & Plan (04/15/2022 8:42 AM CAD ENGINEER): - Monitor on telemeetry--normal - Continue home quinidine 324mg TID Add KCL 20 meq a day. Assessment & Plan (04/13/2022 8:15 PM CAD ENGINEER): - Monitor on tele - Continue home quinidine 324mg TID - Maintain K>4, Mg>2 Assessment & Plan (09/22/2020 10:51 AM CDT): Diagnosed in 1985 after SCD. Now well controlled without recent event. Now follows with Dr Moore on quinidine Assessment & Plan (09/21/2020 2:53 PM CDT): Diagnosed in 1985 after SCD. Now well controlled without recent event. Now follows with Dr Moore on quinidine which we will borrow from [facility] to continue dosing. Assessment & Plan (05/29/2019 11:27 AM CDT): History of sudden cardiac arrest 1985. Previously followed by Dr. Moore, now under care of Cardio-Onc/Dr. Finn. Discharged 05/06 with event monitor. - Continue home quinidine, KCl 20 meq daily - Baseline EKG showed NSR with LBBB and QTc 525, with no significant changes from prior study; 05/06. Repeat EKG 05/22 showed SB with PACs, L BBB and QTc 511 - Telemetry monitoring inpatient - no acute events overnight - Monitor electrolytes; Mag and K cardiac parameters -She has been bradycardic at baseline, but recently she has been sinus logan with a LBBB 39-49 while sleeping and mid 40s to low 50s while awake -Asymptomatic -Cardio Onc aware with recs to decrease quinidine to BID and resume amlodipine. Will f/u OP. -Quinidine level 1.1, discussed with cardio-onc and no further changes needed. -Can support with intermittent zofran per cardio onc but patient refuses to take this. Appreciate her wishes. -K 3.5. Mag 1.7. Will receive 40mEq K and 400mg Mag to maintain goal of K >/=4 and Mag >/=2. Assessment & Plan (04/28/2019 4:24 PM CDT): -would continue her home quinidine regimen -would obtain daily 12 lead ECGs to monitor for any significant changes -please continue cardiac telemetry monitoring -will follow peripherally Assessment & Plan (05/06/2019 4:20 PM CDT): History of sudden cardiac arrest 1985. Previously followed by Dr. Moore, now under care of Cardio-Onc/Dr. Finn. -Continue home quinidine -Avoid QTc prolonging medications as able (ECG on admit w/ QTc 537 -Tele monitoring inpatient; 30d monitor outpatient -Cardio-Onc consult, appreciate recs -- -would continue her home quinidine regimen, would obtain daily 12 lead ECGs to monitor for any significant changes, please continue cardiac telemetry monitoring - mg and k obtained WNL - Will discharge patient with 30 day event monitor Mitral valve prolapse 11/23/2015 Overview (08/10/2017): Overview: Per pt history Sudden cardiac 11/23/2015 Overview (08/10/2017): Overview: On quinidine since 1985 after evaluation with EP study. 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 Assessment & Plan (03/27/2024 12:52 PM CAD ENGINEER): Refresh PM at bedtime (QHS) both eyes (OU) Art tears QID both eyes (OU) Monitor Attention deficit hyperactiv ity disorder (ADHD), inattentive type, moderate, in partial remission 01/06/2015 Osteoarthritis 11/17/2014 Assessment & Plan (05/20/2019 2:29 PM CDT): - Continue home Voltaren gel - Sub [place] 5/325 mg PRN for home tylenol/codeine Assessment & Plan (04/28/2019 3:28 PM CDT): -Continue home Voltaren gel -Sub [place] PRN for home tylenol/codeine Osteonecrosis of mandible 06/24/2014 HTN (hypertension) 03/25/2014 Assessment & Plan (08/29/2023 10:57 PM CDT): - continue home amlodipine Assessment & Plan (07/20/2022 8:00 AM CDT): Blood pressure stable on current therapy. Continue current therapy Assessment & Plan (07/19/2022 11:28 AM CDT): -Continue amlodipine 5 mg daily -Low salt diet Assessment & Plan (04/14/2022 10:36 AM CAD ENGINEER): -Continue home amlodipine 5mg daily and imdur Assessment & Plan (05/24/2019 10:17 AM CDT): - Continue amlodipine (resumed per cardio-onc) Assessment & Plan (04/28/2019 3:38 PM CDT): -Continue home amlodipine Depression 03/04/2014 Assessment & Plan (08/29/2023 10:57 PM CDT): - continue home duloxetine Assessment & Plan (09/22/2020 10:50 AM CDT): Mood good. Follows closely with psychiatry. Assessment & Plan (09/21/2020 2:51 PM CDT): Mood good. Follows closely with psychiatry. Continue home meds Assessment & Plan (07/09/2019 9:01 AM CDT): Mood improved this am. Engages in conversation and decision making Received PRN ativan at bedtime with unwitnessed mechanical fall this am Has not been taking any of her psychiatry medications discussed on last tele visit (prozac with vortioxetine) Resumed vortioxetine DC and avoid benzodiazepines Follow up with psychiatry in July as scheduled to discuss increasing vortioxetine Assessment & Plan (07/08/2019 9:07 AM CDT): Mood continues to be very depressed Received PRN ativan at bedtime with unwitnessed mechanical fall this am Has not been taking any of her psychiatry medications discussed on last tele visit (prozac with vortioxetine) Resumed vortioxetine DC and avoid benzodiazepines Follow up with psychiatry Assessment & Plan (07/07/2019 2:30 PM CDT): Mood very depressed Patient somewhat confused regarding medications and recent changes as all health care visits have been tele visit She stopped taking Prozac and had been transitioning to Trintellix but due to nausea and diarrhea had stopped taking all antidepressants Admits to low mood but no SI Restart vortioxetine at 5 Mg with PRN ativan as may provide antiemetic relief as well Assessment & Plan (05/20/2019 2:32 PM CDT): Significant psychiatric history including anxiety, depression, and prior suicide attempt. Denies SI or intent/plan. - Continue fluoxetine 60 mg, vortioxetine 5 mg daily - Follows with Psychiatry and [facility] Assessment & Plan (05/07/2019 12:32 PM CDT): Significant psychiatric history including anxiety, depression, and prior suicide attempt. Has recently endorses passive wishes for with current positive admission screen though denies active SI or intent/plan. -Psychiatry consult -- rec for titrating down fluoxetine and starting trintellix. Will decrease fluoxetine to 60 mg and continue trintellix 5mg daily -[facility] JAN (generalized anxiety disorder) 02/25/2014 Assessment & Plan (07/19/2022 11:28 AM CDT): - Continue duloxetine 90 mg daily Assessment & Plan (07/09/2019 9:01 AM CDT): As above stopped taking all psychiatry meds due to confusion and N/D Mood depressed but no agitation Restarted vortioxetine and received 1 mg PRN ativan at HS with mechanical fall this am No agitation, DC and avoid benzodiazapine due to fall Assessment & Plan (07/08/2019 9:08 AM CDT): As above stopped taking all psychiatry meds due to confusion and N/D Mood depressed but no agitation Restarted vortioxetine and received 1 mg PRN ativan at HS with mechanical fall this am No agitation, DC and avoid benzodiazapine due to fall Assessment & Plan (07/07/2019 2:31 PM CDT): As above stopped taking all psychiatry meds due to confusion and N/D Mood depressed but no agitation Resume vortioxetine with PRN ativan Assessment & Plan (05/20/2019 2:30 PM CDT): - Continue home fluoxetine 60 mg daily - Reports using PRN lorazepam 2 mg nightly for sleep; added ramelteon PRN for additional insomnia support - Follow with [facility] Assessment & Plan (04/28/2019 3:13 PM CDT): -Continue home fluoxetine -Reports using PRN lorazepam 4mg nightly for sleep - ordered 2mg PRN as prescribed per home med list, add ramelteon PRN for additional insomnia support PTSD (post-traumatic stress disorder) 02/25/2014 Polyneuropathy 11/12/2013 Assessment & Plan (09/22/2020 10:50 AM CDT): Symptoms stable on home lyrica. Assessment & Plan (09/21/2020 2:51 PM CDT): Symptoms stable on home lyrica. Venous stasis dermatitis 11/12/2013 Fibromyalgia 07/15/2013 Amaurosis fugax 12/29/2010 Hypothyroidism 12/27/2010 Assessment & Plan (09/02/2023 8:05 AM CDT): - TSH high but w/ nl FT4. - continue home synthroid Assessment & Plan (07/19/2022 11:27 AM CDT): -Continue synthroid 75 mcg daily Assessment & Plan (05/20/2019 2:48 PM CDT): -04/27 TSH 1.45 -Continue home levothyroxine Assessment & Plan (04/30/2019 9:59 AM CDT): -3 TSH 1.45 -Continue home levothyroxine, adjust PRN Hyperlipidemia 07/05/2010 Assessment & Plan (07/18/2022 7:44 PM CDT): - Continue pravastatin 40 mg daily Assessment & Plan (05/20/2019 3:09 PM CDT): - Continue home pravastatin Assessment & Plan (04/28/2019 3:33 PM CDT): -Continue home pravastatin Resolved Problems Problem Noted Date Diagnosed Date Resolved Date MARCELA (acute kidney injury) 09/02/2023 Assessment & Plan (09/02/2023 8:06 AM CDT): Hypovolemic. -S/p IVF w. Resolution. Diarrhea 05/02/2019 05/29/2019 Assessment & Plan (05/28/2019 10:37 AM CDT): Reports diarrhea on/off since initiating chemotherapy/XRT for anal cancer with increased frequency up to 6+ times per day over the last 2-3 days SWITCH COUPLER. Endorses brown/watery stools; denies black or bloody stools. Has not taken antidiarrheals. Likely 2/2 treatment regimen, less likely infectious. - Monitor electrolytes with daily CMP, replete as needed - Support with IVF - C-diff negative - [place] to be secondary to her treatment regimen. -ESR, CRP, Amylase and Lipase all normal -Blood cx NGTD -Can discharge on PRN antidiarrheals -Now resolved, will continue to monitor while she is on chemotherapy Assessment & Plan (05/02/2019 11:07 AM CDT): Likely 2/2 chemotherapy -will rule out C diff and start imodium Encounter for antineoplastic chemotherapy 04/28/2019 06/26/2019 Assessment & Plan (05/26/2019 1:05 PM CDT): -To receive 96h 5-FU infusion beginning 05/25, per Dr. Lindo -Will monitor on telemetry throughout admission given her cardiac history -Gross catheter as below. Assessment & Plan (04/29/2019 10:32 AM CDT): Admitted for week 1 single agent 5FU with close cardiac monitoring. No mitomycin. -To receive infusional 5FU at 80% dose level x4 doses -Support w/ steroids, sub aprepitan for ondansetron pre-med d/t QTc prolongation, compazine PRN -CTM with daily CBC & CMP -PICC for inpatient chemo given c/f vascular fragility - remove at nh -I have reviewed the labs to evaluate for chemo toxicity. The patient may continue with her current regimen. 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 2nd [address] [place] [address] Anuj Bernal, RICHARD Refractive error (Primary Dx) 11/18/2024 Orders Only [facility] Medicine Gastroenterology [address] [facility] 2[address] [place] [address] Javy Sheridan MD Dysphagia, unspecified type (Primary Dx) 11/14/2024 Telephone [facility] Medicine Gastroenterology [address] [place] [address] [place] [address] Nataly Rosa GI pre procedure screening 10/21/2024 Telephone [facility] Medicine Ophthalmology [address] [place] [address] Anuj Bernal, RICHARD mrx fax req from Last 3 Months Immunizations Immunization Administration Dates Next Due Influenza, Quadrivalent, Hig h Dose, Preservative Free, Intrr 11/07/2022,04/22/2021 Influenza, Trivalent, High D ose, Split, Preservative Free, Intramuscular 12/17/2019,10/19/2017,10/11/2016 Influenza, Trivalent, IM (MDV) 12/02/1996,1995 Influenza, Unspecified 11/19/2021,12/02/1996,09/1995 Moderna SARS-CoV-2 Monovalen t Vaccination (12+ YRS) 03/24/2020 Pneumococcal Conjugate PCV 13 12/17/2019 Pneumococcal Polysaccharide PPV23 05/10/2014 TD Preservative Free 07/25/2012,01/06/2006 Td, adsorbed 01/06/2006 Tdap 07/23/2018 Surgical History Surgery Date Site/Laterality Comments [place] NEURP MAJOR PRPH NRV ARM/ LEG OPN OTH/THN SPEC Right CATARACT EXTRACTION Bilateral APPENDECTOMY SECTION HYSTERECTOMY CHOLECYSTECTOMY FACIAL NERVE SURGERY for High's palsy UPPER GASTROINTESTINAL ENDOSCOPY COLONOSCOPY AUGMENTATION MAMMOPLASTY s/p implant removal CORONARY ANGIOPLASTY WITH ST ENT PLACEMENT 07/19/2022 Medical History Medical History Date Comments 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 Median nerve laceration - (A dded by TW Conv) Zoster ocular disease Brugada syndrome Hx sudden cardi ac arrest [address] Moore SVT (supraventricular tachycardia) s/p ablation Lymphocytic colitis 07/2017 GERD (gastroesophageal reflu x disease) Sjogren's disease Hypothyroidism Lupus (systemic lupus erythe matosus) ([facility]) History of High's palsy Fibromyalgia 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 Aortic stenosis mild to mod.-sta ble /cardiology note 01/14/19 Zenker's diverticulum Kidney disease Carcinoma in situ of skin of face 12/18/2013 Anxiety and depression COVID-19 virus detected 01/2020 Motion sickness CVA (cerebral vascular accid ent) ([facility]) 1985 in setting anticoagulation f or PE 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 s/p chemoradiation Family History Medical History Relation Name Comments Heart failure Brother 1 Sudden Cardiac Brother 1 Family history of sudden cardiac (SCD) - strong family history of sudden cardiac (Added by TW Conv) Atrial fibrillation Brother 2 Family h istory of atrial fibrillation - (Added by TW Conv) Osteoporosis Brother 3 Family history of osteoporosis - (Added by TW Conv) Osteoporosis Daughter Family history of osteoporosis - (Added by TW Conv) Dementia Mother Family history of dementia - alive at 96, with dementia (Added by TW Conv) Osteoporosis Mother Family history of osteoporosis - (Added by TW Conv) Osteoporosis Other Family history of osteoporosis - (Added by TW Conv) Osteoporosis Sister Family history of osteoporosis - (Added by TW Conv) Brain cancer Son Relation Name Status Comments Brother 1 Brother 2 Alive Brother 3 Daughter Father Mother Other Sister Son Alive Social History Tobacco Use Types Packs/Day Years Used Date Smoking Tobacco: Never Passive Smoke Exposure: Never Smokeless Tobacco: Never Tobacco Cessation:Counseling Given: Not Answered Alcohol Use Standard Drinks/Week Comments No 0 (1 standard drink = 0.6 oz pur e alcohol) [facility] Utilities Answer Date Recorded In the past 12 months has th e electric, gas, oil, or water company threatened to shut off services in your home? No 05/12/2024 Social Connection and Isolation Panel Answer Date Recorded In a typical week, how many times do you talk on the phone with family, friends, or neighbors? Three times a week 05/13/19 How often do you get togethe r with friends or relatives? Once a week 05/12/2024 How often do you attend chur ch or adventist services? 1 to 4 times per year [...] any time in the past 12 m ont, were you homeless or living in a senior living (including now)? No 05/12/2024 Personal Safety Answer Date Recorded Have you ever been in or are you currently in a harmful physical or emotional relationship or is someone making you feel afraid or unsafe? Denies 05/08/2024 Comments No Sex and Gender Information Value Date Recorded Sex Assigned at Not on file Legal Sex Female 11:31 PM CAD ENGINEER Gender Identity Not on file Sexual Orientation Not on file Last Filed Vital Signs Vital Sign Reading Time Taken Comments Blood Pressure 114/52 05/10/2024 11:00 AM CDT Pulse 71 05/10/2024 11:00 AM CDT Temperature 36.6 C (97.9 F) 05/10/2024 11:00 AM CDT Respiratory Rate 16 05/10/2024 11:00 AM CDT Oxygen Saturation 97% 05/10/2024 11:00 AM CDT Inhaled Oxygen Concentration - - Weight 57.2 kg (126 lb) 05/08/2024 6:34 PM CDT Height 152.4 cm (5') 05/08/2024 6:34 PM CDT Body Mass Index 24.61 05/08/2024 6:34 PM CDT Plan of Treatment Upcoming Encounters Date Type Department Care Team (Latest Contact Info) Description 03/03/2025 8:00 AM CAD ENGINEER Hospital Encounter [facility] [address] [place] [address] Megan Metz MD [address] [place] [address] Javy Sheridan MD [address] [place] [address] 03/03/2025 8:00 AM CAD ENGINEER - 03/03/2025 8:30 AM CAD ENGINEER Surgery [facility] [address] [place] [address] Javy Sheridan MD [address] [place] [address] ESOPHAGOGASTRODUODENOSCOPY w/possible dilation Scheduled Procedures Name Priority Associated Diagnoses Date/Ti me ESOPHAGOGASTRODUODENOSCOPY Dysphagia, unspecified type 03/03/2025 8:00 AM CAD ENGINEER Health Maintenance Due Date Last Done Comments Depression Screening 1936 Hepatitis B Screening 1953 Zoster Vaccine (1 of 2) 1986 Well Visit 65+ 2001 Covid-19 Vaccine (2 - Modern a risk series) 04/21/2020 03/24/2020 Osteoporosis Screening-Bone Density Scan 10/12/2023 10/11/2021, 10/11/2021, 05/17/2017, Additional history exists Fall Risk Assessment 05/10/2025 05/10/2024 DTaP/Tdap/Td Vaccine (2 - Td or Tdap) 07/23/2028 07/23/2018, 07/25/2012, 01/06/2006, Additional history exists Pneumococcal vaccine 65+ Completed 12/17/2019, 04/20 Influenza Vaccine Completed 11/12/2024, , 11/19/2021, Additional history exists Medical Devices Implanted Type Area Hvac Sheet Metal Installer Helper Device Identifier Shelf Expiration Date Model / Serial / Lot [employer] Rose Angio-Seal Vip 6fr Closere Device [id number] - [id number] Implanted:Qty : 1 on 07/19/2022 by Joan Cobb MD at [facility] Collagen Right: Groin [employer] Rose 02/18/2023 [id number] / / [id number] [employer] 6574 [place] Flexi-Stent 7fr 7cm Small Pigtail Flexible .035in Stent - [id number] Implanted:Qty : 1 on 09/21/2020 by Deven Montiel MD at [facility] Stent [employer] 06/18/2025 [id number] / / [id number] Medtronic Card Vasc Surgery 4.0 X 18mm Nigel [place] Rx Coronary Stent [id number] - [id number] Implanted:Qty : 1 on 07/19/2022 by Joan Cobb MD at [facility] Stent Right: Coronary Artery Medtronic Card Vasc Surgery 11/14/2024 [id number] / / [id number] Procedures Procedure Name Priority Date/Time Associated Diagnosis Comments BONE MINERAL DENSITY 05/17/2017 from Last 3 Months or Most Recently Relevant to Health Maintenance Results * BONE MINERAL DENSITY (05/17/2017) Anatomical Region Laterality Modality Radiographic Oksana ging Narrative 05/17/2017 Ordered by an unspecified provider. Historical Provider MD FOOTE DXA PROCEDURES Final Result from Last 3 Months or Most Recently Relevant to Health Maintenance [place] [employer]TE [id number] MEDICARE [facility] DIVISION [facility] CHOICE PLUS [facility] MEDICARE ADVANTAGE [facility] DUAL COMPLETE [id number] [facility] DUAL COMPLETE [id number] [facility] DIVISION [facility] MEDICARE [place]ANTAGE [place] [employer] [facility] DUAL COMPLETE [id number] Advance Directives For more information, please contact: [phone] * LIMITED - No CPR (Latest Code Status on File) Date Activated Date Inactivated Comments 05/08/2024 8:29 AM 05/10/2024 8:42 PM Question Answer Comments Provide aggressive medical m anagement before a full cardiopulmonary arrest occurs. Use antibiotics, IV Fluids, and medical treatment unless specifically selected below: No intubation * LIMITED - No CPR Date Activated Date Inactivated Comments 09/05/2023 10:06 AM 09/05/2023 7:48 PM Question Answer Comments Provide aggressive medical m anagement before a full cardiopulmonary arrest occurs. Use antibiotics, IV Fluids, and medical treatment unless specifically selected below: No intubation * Full Code Date Activated Date Inactivated Comments 09/03/2023 8:05 AM 09/05/2023 10:06 AM * Full Code Date Activated Date Inactivated Comments 08/31/2023 2:55 PM 09/03/2023 8:05 AM * LIMITED - No CPR Date Activated Date Inactivated Comments 08/30/2023 10:51 AM 08/31/2023 2:55 PM Question Answer Comments Provide aggressive medical m anagement before a full cardiopulmonary arrest occurs. Use antibiotics, IV Fluids, and medical treatment unless specifically selected below: No intubation Care Teams Furniture Sander Relationship Specialty Start Date End Date Kylee Pederson MD [address] [address] PCP - General 08/07/19 Mike Lopez MD Referring Physician Colon and Rectal Surgery 03/24/19 Mingo Moore MD Consulting Physician Cardiology 04/24/19 Kylee Pederson MD Referring Physician Family Medicine 07/30/19 Brea Crowell MD [address] [phone] Radiation Oncologist Radiation Oncology 03/15/22
--- OUTSIDE RECORDS SUMMARY | 2024-12-29 11:41 | XMS_ITS | Encounter Summary ---
Author Organization [employer] [facility] Address [address] [place] [address] Care Team Providers Care Nurse Auditor Name Role Phone Kylee Pederson MD Primary Care Provider [phone] Reason for Visit * Reason Comments Medication Refill Encounter Details Date Type Department Care Team ([facility] Contact Info) Description 04/17/2014 Refill [facility] Telemedicine Confidential - [place] [address] [facility] [address] [place] [phone] Miguelito Jackson Jr., MD NO ADDRESS ON FILE Social History Tobacco Use Types Packs/Day Years Used Date Smoking Tobacco: Never Smokeless Tobacco: Never Comments No Sex and Gender Information Value Date Recorded Sex Assigned at Not on file Legal Sex Female 3:23 AM DOORMAKER Gender Identity Not on file Sexual Orientation Not on file documented as of this encounter Plan of Treatment Not on file documented as of this encounter Visit Diagnoses Not on filedocumented in this encounter Additional Health Concerns Infection Onset Date Last Indicated Resolved Time R/O C. diff 04/16/2020 04/16/2020 04/16/2020 10:2 7 PM DOORMAKER documented as of this encounter Care Teams Nurse Auditor Relationship Specialty Start Date End Date Kylee Pederson MD [address] [facility] [address] [place] [address] PCP - General Family Practice 10/18/17 documented as of this encounter
--- OUTSIDE RECORDS SUMMARY | 2024-12-29 11:41 | XMS_ITS | Encounter Summary ---
Author Organization [facility] Address [address] [place] [address] Care Team Providers Care Special Crimes Investigator Name Role Phone Kylee Pederson MD Primary Care Provider Encounter Details Date Type Department Care Team (Late st Contact Info) Description 06/21/2015 Ancillary Orders [facility] Oral and Maxillo Surgery[address] [place] [address] Luke Preciado, Cal Gardienr, BELKIS NO ADDRESS ON FILE Other specified [...] on file Legal Sex Female 3:23 AM HELICOPTER PILOT Gender Identity Not on file Sexual Orientation [...] hyperplasia or hypoplasia DJD Cal Butler Jr., BELIKS DIAGNOSTIC IMAGING ORDERABLES Final Result documented in this encounter Visit Diagnoses Diagnosis Other specified disorders of bone, unspecified site- Primary documented in this encounter Additional Health Concerns Infection Onset Date Last Indicated Resolved Time R/O C. diff 04/16/2020 04/16/2020 04/16/2020 10:2 7 PM HELICOPTER PILOT documented as of this encounter Care Teams Special Crimes Investigator Relationship Specialty Start Date End Date Kylee Pederson MD [address] [phone] PCP - General Family Practice 10/18/17 documented as of this encounter
--- OUTSIDE RECORDS SUMMARY | 2024-12-29 11:41 | XMS_ITS ---
Author Organization [facility] Address [address] [place] [address] Care Team Providers Care Cigar Tobacco Rehandler Name Role Phone Mike Lopez MD Unavailable Mingo Moore MD Unavailable Kylee Pederson MD Unavailable Kylee Pederson MD Primary Care Provider [phone] Brea Crowell MD Unavailable Active Problems Problem Noted Date Diagnosed Date Diarrhea, unspecified type 05/08/2024 Early dry stage nonexudative age-related macular degeneration of both eyes 12/10/2023 Assessment & Plan (08/19/2024 3:32 PM CDT): Stable with minimal AMD. Not impacting vision at present. Assessment & Plan (03/27/2024 12:49 PM SECOND FACING BASTER): Stable visual acuity (VA) today, fu for [...] . 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 Recommend evaluation with Dr. Flanagan. She was seen by Dr. Varma however she has requesting care closer to the [place] area. She would like care in our [facility] system. Bilateral buttock pain 10/17/2023 Chronic hip [...] and normal duodenum which was biopsied. - FOSTER PARENT eval w/ no e/o dysphagia. - On [...] F/U biopsies. Coronary artery disease invo lving red cliff coronary artery of red cliff heart without angina pectoris 04/15/2022 Assessment & [...] (07/19/2022 11:29 AM CDT): -Nonobstructive CAD -Last [facility] in March 2022 with mild LAD disease and 60% mid RCA lesion -Management as per above Assessment & Plan (04/15/2022 8:42 AM SECOND FACING BASTER): I reviewed cath films with interventional and [...] rest and was responsive to nitroglycerin -Recent [facility] in March 2022 with moderate mid RCA [...] NSAIDs Assessment & Plan (04/14/2022 11:23 AM SECOND FACING BASTER): Has had chest pain near daily for [...] additional BP control needed -continue pravachol 40 -[facility] today to define anatomy and guide therapy -continue aggressive risk factor modification -tele Other chest pain 12/18/2021 Colon polyp 09/08/2021 Overview (09/08/2021): Added automatically from request for surgery [id number] Gastritis without bleeding 09/08/2021 Overview (09/08/2021): Added automatically from request for surgery [id number] Common bile duct stone 09/21/2020 Assessment & [...] (03/26/2020): Added automatically from request for surgery [id number] Anxiety 03/11/2020 Assessment & Plan (04/14/2022 10:36 AM SECOND FACING BASTER): -Continue home duloxetine 90mg daily. 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 -[facility]. Constipation 05/29/2019 Assessment & Plan [...] Tolerating diet advance without nausea or diarrhea Home Management Supervisor will supply some supplements to take home [...] does not have reliable transport. Rupa with CLAUDIO working to find local accommodations to facilitate [...] with associated cancer- related pain. - Sub [place] for home tylenol/codeine - Voltaren gel PRN Assessment & Plan (05/07/2019 12:33 PM CDT): Multiple etiologies with history of osteoarthritis, polyneuropathy, fibromyalgia, SLE, chronic pancreatitis, and now with anal cancer with associated cancer- related pain. -Did not previously tolerate gabapentin or pregabalin per chart review -Sub [place] for home tylenol/codeine -Voltaren gel PRN Generalized [...] but near family [place] PT/OT evaluations Will discuss with patient and family safe discharge which is likely not to her home 200 miles away Assessment & Plan (07/07/2019 2:40 PM CDT): Failure to thrive post concurrent XRT/chemotherapy 06/04/19 Lives alone but near family [address] PT/OT evaluations Plan home health if possible [...] given pt to cont daily RT at [facility] but lives >2hr away -See [...] (05/31/2018): Added automatically from request for surgery [id number] Assessment & Plan (05/05/2019 1:08 PM CDT): -in setting of narcotics and dehydration -encourage optimization of bowel regimen with senna colace BID -Loose BM on 05/04 >> decreased pericolace to 1 tab BID Abdominal pain 05/31/2018 Overview (05/31/2018): Added automatically from request for surgery [id number] Sensorineural hearing loss (SNHL) of both ears 0 05/31/2018 Confusional state 08/13/2017 Arthritis 08/10/2017 Overview (08/10/2017): Overview: osteoarthritis 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 Sudden in 1985. Assessment & Plan (09/02/2023 [...] indicated Assessment & Plan (04/15/2022 8:42 AM SECOND FACING BASTER): - Monitor on telemeetry--normal - Continue home quinidine 324mg TID Add KCL 20 meq a day. Assessment & Plan (04/13/2022 8:15 PM SECOND FACING BASTER): - Monitor on tele - Continue home [...] on quinidine which we will borrow from [facility] to continue dosing. Assessment & [...] 03/11/2015 Assessment & Plan (03/27/2024 12:52 PM SECOND FACING BASTER): Refresh PM at bedtime (QHS) both eyes (OU) Art tears QID both eyes (OU) Monitor Attention deficit hyperactiv ity disorder (ADHD), inattentive type, moderate, in partial remission 01/06/2015 Osteoarthritis 11/17/2014 Assessment & Plan (05/20/2019 2:29 PM CDT): - Continue home Voltaren gel - Sub [place] 5/325 mg PRN for home tylenol/codeine Assessment & Plan (04/28/2019 3:28 PM CDT): -Continue home Voltaren gel -Sub [place] PRN for home tylenol/codeine Osteonecrosis of mandible 06/24/2014 HTN (hypertension) 03/25/2014 Assessment & Plan (08/29/2023 10:57 PM CDT): - continue home amlodipine Assessment & Plan (07/20/2022 8:00 AM CDT): Blood pressure stable on current therapy. Continue current therapy Assessment & Plan (07/19/2022 11:28 AM CDT): -Continue amlodipine 5 mg daily -Low salt diet Assessment & Plan (04/14/2022 10:36 AM SECOND FACING BASTER): -Continue home amlodipine 5mg daily and imdur [...] mg daily - Follows with Psychiatry and [facility] Assessment & Plan (05/07/2019 12:32 PM CDT): Significant psychiatric history including anxiety, depression, and prior suicide attempt. Has recently endorses passive wishes for with current positive admission screen though denies active SI or intent/plan. -Psychiatry consult -- rec for titrating down fluoxetine and starting trintellix. Will decrease fluoxetine to 60 mg and continue trintellix 5mg daily -[facility] JAN (generalized anxiety disorder) 02/25/2014 [...] for additional insomnia support - Follow with [facility] Assessment & Plan (04/28/2019 3:13 [...] Assessment & Plan (05/20/2019 2:48 PM CDT): -3 TSH 1.45 -Continue home levothyroxine Assessment & Plan (04/30/2019 9:59 AM CDT): -3/9 TSH 1.45 -Continue home levothyroxine, adjust PRN Hyperlipidemia 07/05/2010 Assessment & Plan (07/18/2022 7:44 PM CDT): - Continue pravastatin 40 mg daily Assessment & Plan (05/20/2019 3:09 PM CDT): - Continue home pravastatin Assessment & Plan (04/28/2019 3:33 PM CDT): -Continue home pravastatin Current Treatment and Therapy Plans No current plan information found. Past Treatment and Therapy Plans Oncology Chemotherapy Treatment Plan Name Start Date Discontinue Date Treatment Medications Discontinue Reason Plan Provider Cycles Fluorouracil / MitoMYCIN with Concurrent Radiation 35 Day Cycle - Anal 04/28/2019 04/12/2020 fluorouracil (ADRUCIL) IVPB in 1,000 mL (ADRUCIL) Therapy Complete Sisi Lindo MD 1 of 1 cycle started Radiation Treatments * Course C1_Pelvis_2020 04/28/2019 - 06/06/2019 Treatment Period Energy Fraction Dose Fractions Total Dose Plans Planned PELVIS 04/28/2019 - 06/06/2019 180 30 / 5,400 Reference Points Delivered [id number] 04/28/2019 - 06/06/2019 5,400 Lifetime Dose Tracking * Chemical Lifetime Dose Automatic Entry Manual Entr y Fluoro Time 15.3 minutes 0.6 minutes 14.7 minutes Air kerma at the reference point (Ka,r) 586 mGy 3 7 mGy 549 mGy DLP 6,391 mGycm 6,391 mGycm 0 mGycm DAP 34.893 Gy-cm2 0 Gy-cm2 34.893 Gy-cm2 Resolved Problems Problem Noted Date Diagnosed Date Resolved Date MARCELA (acute kidney injury) 09/02/2023 Assessment & Plan (09/02/2023 8:06 AM CDT): Hypovolemic. -S/p IVF w. Resolution. 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 Endorses brown/watery stools; denies black or bloody stools. Has not taken antidiarrheals. Likely 2/2 treatment regimen, less likely infectious. - Monitor electrolytes with daily CMP, replete as needed - Support with IVF - C-diff negative - Ozone to be secondary to her treatment regimen. [...] given c/f vascular fragility - remove at dc -I have reviewed the labs to evaluate for chemo toxicity. The patient may continue with her current regimen. Epigastric pain 05/31/2018 04/24/2019 Black tarry stools 05/31/2018 0 Overview (05/31/2018): Added automatically from request for surgery [id number] Neoplasm of skin 08/17/2017 04/24/2019 Lymphocytic colitis 06/19/2017 04/24/19 20 Overview (08/10/2017): Overview: Diagnosed in [facility] Persistent atrial fibrillation 11/23/2015 08/27/2017 Overview (08/10/2017): Overview: status post ablation Carcinoma in situ of skin of face 12/18/2013 04/24/2019 Neoplastic disease 11/12/2013 0 Osteoarthritis of hand 05/05/200804/23
--- OUTSIDE RECORDS SUMMARY | 2024-12-29 11:41 | XMS_ITS | Encounter Summary ---
Author Organization [facility] Address [address] [place] [address] Care Team Providers Care Adolescent Psychiatrist Name Role Phone Kylee Pederson MD Primary Care Provider Reason for Visit * Reason Comments Medication Refill Encounter Details Date Type Department Care Team ([facility] Contact Info) Description 05/10/[address] [facility] Telemedicine Confidential - [place] [address] [place] [phone] Miguelito Jackson Jr., MD NO ADDRESS ON FILE Social History Tobacco Use Types Packs/Day Years Used Date Smoking Tobacco: Never Smokeless Tobacco: Never Alcohol Use Standard Drinks/Week Comments No 0 (1 standard drink = 0.6 oz pur e alcohol) social drinker years ago Comments No Sex and Gender Information Value Date Recorded Sex Assigned at Not on file Legal Sex Female 3:23 AM PRECINCT POLICE CAPTAIN Gender Identity Not on file Sexual Orientation [...] diff 04/16/2020 04/16/2020 04/16/2020 10:2 7 PM PRECINCT POLICE CAPTAIN documented as of this encounter Care Teams Adolescent Psychiatrist Relationship Specialty Start Date End Date Kylee Pederson MD [address] [phone] PCP - General Family Practice 10/18/17 documented as of this encounter
--- OUTSIDE RECORDS SUMMARY | 2024-12-29 11:41 | XMS_ITS | Encounter Summary ---
Author Organization [facility] Address [address] [place] [address] Care Team Providers Care J2Ee Developer Name Role Phone Kylee Pederson MD Primary Care Provider Reason for Visit * Reason Comments Medication Refill Encounter Details Date Type Department Care Team ([facility] st Contact Info) Description 11/01/2015 Refill [facility] Telemedicine Confidential - [place] [address] [place] [phone] Miguelito Jackson Jr., MD NO ADDRESS ON FILE Social History Tobacco Use Types Packs/Day Years Used Date Smoking Tobacco: Never Smokeless Tobacco: Never Alcohol Use Standard Drinks/Week Comments No 0 (1 standard drink = 0.6 oz pur e alcohol) social drinker years ago Comments No Sex and Gender Information Value Date Recorded Sex Assigned at Not on file Legal Sex Female 3:23 AM SPECIAL DIET COOK Gender Identity Not on file Sexual Orientation Not on file documented as of this encounter Miscellaneous Notes * Telephone Encounter - [place] - 11/01/2015 4:03 PM CDT Ativan called into [facility] documented in this encounter Plan of Treatment Not on file documented as of this encounter Visit Diagnoses Not on filedocumented in this encounter Additional Health Concerns Infection Onset Date Last Indicated Resolved Time R/O C. diff 04/16/2020 04/16/2020 04/16/2020 10:2 7 PM SPECIAL DIET COOK documented as of this encounter Care Teams J2Ee Developer Relationship Specialty Start Date End Date Kylee Pederson MD [address] [phone] PCP - General Family Practice 10/18/17 documented as of this encounter
--- OUTSIDE RECORDS SUMMARY | 2024-12-29 11:41 | XMS_ITS | Encounter Summary ---
Author Organization [facility] Address [address] [place] [address] Phone Care Team Providers Care Quiller Machine Fixer Name Role Phone Mike Lopez MD Unavailable Mingo Moore MD Unavailable Kylee Pederson MD Unavailable Kylee Pederson MD Primary Care Provider [phone]- [phone] Brea Crowell MD Unavailable Reason for Visit * Reason Onset Date Comments GI pre procedure screening 11/14/2024 Encounter Details Date Type Department Care Team (Late st Contact Info) Description 11/14/2024 Telephone [facility] Medicine Gastroenterology [address] [facility] [address] [place] [address] [place] [address] Nataly Rosa GI pre procedure screening Social History Tobacco Use Types Packs/Day Years Used Date Smoking Tobacco: Never Passive Smoke Exposure: Never Smokeless Tobacco: Never Alcohol Use Standard Drinks/Week Comments No 0 (1 standard drink = 0.6 oz pur e alcohol) [facility] Utilities Answer Date Recorded In the past 12 months has [employer], gas, oil, or water company threatened to [...] often do you attend chur ch or religion services? 1 to 4 times per year [...] any time in the past 12 m [facility], were you homeless or living in a detention (including now)? No 05/12/2024 Personal Safety Answer Date Recorded Have you ever been in or are you currently in a harmful physical or emotional relationship or is someone making you feel afraid or unsafe? Denies 05/08/2024 Comments No Sex and Gender Information Value Date Recorded Sex Assigned at Not on file Legal Sex Female 11:31 PM SUPERVISOR NUT PROCESSING Gender Identity Not on file Sexual Orientation Not on file documented as of this encounter Miscellaneous Notes * Telephone Encounter - Veronica Echevarria LPN - 12/26/2024 2:56 PM CST Spoke with patient, stated she [...] voiced understanding. Caregiver was present as well. RVISOR NUT PROCESSING * Telephone Encounter - Veronica Echevarria LPN - 11/18/2024 4:29 PM CDT Spoke with patient, Breanna was with patient as well, aware procedure cannot be done at [place] [facility] [place], will have to be done in [place]. When scheduling in OR patient has to have CPAP appt prior. Rescheduled 01/[address] Metz. CPAP requested. Patient will try to work out transportation, if unable to arrange, she will notify the office as soon as possible. New instructions mailed to patient. * Telephone Encounter - Veronica Echevarria LPN - 11/17/2024 11:02 AM CDT PROCEDURE Type: EGD w/possible dilation Indication: dysphagia Referring Physician: Arvin Date Referred: CLINICAL ASSESSMENT [x] Clinical assessment obtained via phone call with patient 11/17/2024 [x]COVID/Flu Screening questions []BMI>45, Weight >350 lbs [] Patient had GI procedure/CPAP clinic/GI clinic <30 days (if Yes, no medical screening questions needed unless new clinical issues in last 30 days) Medical screening questions: BMI/Weight: NA CARDIOVASCULAR: None RESPIRATORY/LUNG: None RENAL/LIVER/GI: None GI: Previous COLON or EGD: yes Hx of Polyps, Burkett, Barretts:no Hx of Constipation:N/A Have you ever required a two day prep? N/A BLEEDING/CLOTTING: None NEUROLOGICAL: Stroke- If within 1 month escalate to GI physician to consider CPAP referral/continuing blood thinner/reschedule. No SC if within past year or pt can't consent ENDOCRINE: None PRIOR PROCEDURE ISSUES: None DRIVER EDUCATION ROAD INSTRUCTOR/: NA IMPLANTS.: None PSYCH/Behavioral Hx: No SC has limited security Notes: CVA 1985 Cardiac stent (2022) - CAD Brugada syndrome Echo 08/2023 EF 67% Returning Officer Dr. Mingo Moore- last telemed visit 02/2023 Patient reports she is no longer taking Plavix Hx of rectal cancer, Dr. Tee oncologist- s/p radiation CPAP requested PACEMAKER/ICD Y/N: No/NA Device info: Last documented device check: Any shocks since last cards visit (if yes must see cardiology for procedure clearance): DIALYSIS Y/N: No/NA []HD- Schedule on non-HD day, see protocol []PD- Drain PD fluid AM of procedure, if colonoscopy order AB ppx, see protocol REGULAR DIABETIC MEDS Y/N: No/NA []Yes- Discuss diabetes medication management with prescribing physician GLP MEDICATIONS Y/N: No/NA None Day of the week medication taken N/A Significant GI Symptoms (Nausea, Vomiting, Indigestion, Bloating) while taking GLP-1? (choose one) [] No - Instructed to avoid taking the dose the day of their procedure. [] Yes, BUT - These GI symptoms are expected to have resolved by the day of procedure. Instructed to avoid taking a dose the day of their procedure. [] Yes, AND - These GI symptoms are expected to be present on the day of procedure. Instructed to discuss holding GLP-1 the week before their procedure with their ordering provider. Letter Sent to Ordering Physician. Diet Instructions (at minimum for all cases) [] Patient given 24-hour clear liquid diet instructions. BLOOD THINNERS/ANTICOAG/ANTIPLATELET (BESIDES ASA) Medication: NONE CONTINUE ASPIRIN INFORMATION REQUESTED []Imaging: []Medical Progress Note/H&P []Medication list []Other: PATIENT OPTIMIZATION []Physician reviewing escalation: []CPAP: Date scheduled: Outcome : [] Location limitations: Scheduling Scheduling location limitations: Bulb Brander needed [x] NA Language: POA [] NA Name: Required extended education:no SPECIAL PROCEDURE INSTRUCTIONS Scheduling Notes Procedure information Date of procedure: 03/03/2025 Time of procedure: 8AM Arrival time: 6AM Location: [facility] Proceduralist: Arvin Smith Method of instructions: Mailed Copy [x]Confirmation of ride/high rigger []Post anesthesia restrictions given [x]NPO Instructions: [x]Diet Instructions: [x]Take non-blood thinner prescription meds that morning [x]Bring med list, photo ID, insurance card, no valuables [x]Bring COVID vaccination card (if vaccinated) Bowel Prep Prep prescribed: NA Method of Bowel Prep (RX): NA RVISOR NUT PROCESSING * Telephone Encounter - Veronica Echevarria LPN - 11/17/2024 11:01 AM CDT Spoke with patient, having trouble with swallowing food & liquids- doing ok with pills. Scheduled EGD at [facility] 12/24 due to patient having to setup transportation and someone to come with her. Patient aware to eat soft foods/liquid diet if needed and supplements until procedure date. If symptoms worsen may need to go to ER. Breanna caregiver was with patient when going over instructions as well. Mailed instructions to home. * Telephone Encounter - Nataly Rosa - 11/14/2024 3:01 PM CDT Received call from Breanna. Pt would like to set up an EGD with dilation to get her throat stretched. documented in this encounter Plan of Treatment Upcoming Encounters Date Type Department Care Team (Latest Contact Info) Description 03/03/2025 8:00 AM SUPERVISOR NUT PROCESSING Hospital Encounter [facility] [address] [place] [address] Megan Metz MD [address] [address] Javy Sheridan MD [address] [address] 03/03/2025 8:00 AM SUPERVISOR NUT PROCESSING - 03/03/2025 8:30 AM SUPERVISOR NUT PROCESSING Surgery [facility] [address] [place] [address] Javy Sheridan MD [address] [address] ESOPHAGOGASTRODUODENOSCOPY w/possible dilation Scheduled Procedures Name Priority Associated Diagnoses Date/Ti tx ESOPHAGOGASTRODUODENOSCOPY Dysphagia, unspecified type 03/03/2025 8:00 AM SUPERVISOR NUT PROCESSING documented as of this encounter Visit Diagnoses Diagnosis Dysphagia, unspecified type- Primary Dysphagia- Primary Dysphagia, unspecified type documented in this encounter Discontinued Medications Medication Sig Discontinue Reason Start Date End Da te clopidogreL (PLAVIX) 75 mg tabletIndications:Thromb osis Prevention after PCI Take 1 tablet (75 mg total) by mouth daily Patient Reported 07/20/2022 11/17/2024 documented as of this encounter Care Teams Quiller Machine Fixer Relationship Specialty Start Date End Date Kylee Pederson MD [address] [place] [phone] PCP - General 08/07/19 Mike Lopez MD Referring Physician Colon and Rectal Surgery 03/24/19 Mingo Moore MD Consulting Physician Cardiology 04/24/19 Kylee Pederson MD Referring Physician Family Medicine 07/30/19 Brea Crowell MD [address] [place] [phone] Radiation Oncologist Radiation Oncology 03/15/22 documented as of this encounter
--- OUTSIDE RECORDS SUMMARY | 2024-12-29 11:41 | XMS_ITS | Encounter Summary ---
Author Organization [facility] Address [address] [place] [address] Care Team Providers Care Prekindergarten Teacher Name Role Phone Kylee Pederson MD Primary Care Provider Encounter Details Date Type Department Care Team (Late st Contact Info) Description 10/05/2014 Ancillary Orders [facility] Oral and Maxillo Surgery[address] [place] [address] Luke Preciado, Cal Gardiner, BELKIS [...] on file Legal Sex Female 3:23 AM CUTLET MAKER PORK Gender Identity Not on file Sexual Orientation [...] diff 04/16/2020 04/16/2020 04/16/2020 10:2 7 PM CUTLET MAKER PORK documented as of this encounter Care Teams Prekindergarten Teacher Relationship Specialty Start Date End Date Kylee Pederson MD [address] [phone] PCP - General Family Practice 10/18/17 documented as of this encounter
--- NOTE | 2024-12-29 11:42 | W.ED.ABDPA2 ---
HPI - Abdominal Pain General: Chief Complaint: Abdominal Pain Stated Complaint: pancreatitis flare up Time Seen by Provider: 12/29/24 11:37 History of Present Illness: 89-year-old female with reported history of pancreatitis, Brugada syndrome and left bundle branch block hypertension, stroke and coronary artery disease who presents to the emergency room with abdominal pain and vomiting. She says she started having pain a couple weeks ago but it got much worse over the last day or so. EMS reports she was in quite a bit of pain and they gave her fentanyl and Zofran and a liter of fluids. She says she has no alcohol abuse history and does not drink currently. No altered mental status. No focal motor deficits. Epigastric pain. She is quite tender to palpation. No known fevers. Related Data Home Medications ?Medication ?Instructions ?Recorded ?Confirmed levothyroxine 75 mcg tablet 75 mcg PO QAM 02/10/21 12/29/24 pantoprazole 40 mg tablet,delayed 40 mg PO BID 02/10/21 12/29/24 release potassium chloride 20 mEq 20 meq PO QAM 02/10/21 12/29/24 tablet,extended release(part/cryst) pravastatin 40 mg tablet 40 mg PO BEDTIME 02/10/21 12/29/24 quinidine gluconate 324 mg 324 mg PO TID 02/10/21 12/29/24 tablet,extended release cholecalciferol (vitamin D3) 25 25 mcg PO QAM 12/15/21 12/29/24 mcg (1,000 unit) tablet (Vitamin D3) cyanocobalamin (vitamin B-12) 500 500 mcg PO QAM 12/15/21 12/29/24 mcg tablet (Vitamin B-12) folic acid 800 mcg tablet 0.8 mg PO QAM 12/15/21 12/29/24 magnesium oxide 400 mg PO DAILY 12/15/21 12/29/24 oictvuld-sqo-epxag ac 400 1 tab PO BEDTIME 12/15/21 12/29/24 mcg-calcium carb 500 mg-vit K1 20 mcg tablet (Women's 50 Plus Multivitamin) pyridoxine (vitamin B6) 100 mg 100 mg PO QAM 12/15/21 12/29/24 tablet (Vitamin B-6) zinc acetate 50 mg (zinc) capsule 50 mg PO BEDTIME 12/15/21 12/29/24 biotin 10,000 mcg capsule 10,000 mcg PO BEDTIME 08/20/24 12/29/24 budesonide 3 mg See Rx Instructions .Route .COMPLEX 08/20/24 12/29/24 capsule,delayed,extended release bupropion HCl 300 mg 24 hr tablet, 300 mg PO QAM 08/20/24 12/29/24 extended release coenzyme Q10 100 mg capsule (Co 100 mg PO QAM 08/20/24 12/29/24 Q-10) docusate sodium 100 mg capsule 100 mg PO BEDTIME 08/20/24 12/29/24 (Colace) isosorbide mononitrate 30 mg 30 mg PO QAM 08/20/24 12/29/24 tablet,extended release 24 hr lidocaine 5 % topical patch 1 patch transdermal Q24H 08/20/24 12/29/24 loperamide 2 mg capsule See Rx Instructions .Route 08/20/24 12/29/24 .COMPLEX PRN Diarrhea mupirocin 2 % topical ointment 1 applic topical DAILY PRN Skin 08/20/24 12/29/24 Irritation nitroglycerin 0.4 mg sublingual See Rx Instructions .Route .COMPLEX 08/20/24 12/29/24 tablet oxycodone-acetaminophen 10 mg-325 1 tab PO Q6H PRN Severe Pain 08/20/24 12/29/24 mg tablet (Scale Score 7-10) trazodone 150 mg tablet 150 mg PO BEDTIME 08/20/24 12/29/24 vitamin E 268 mg (400 unit) capsule 268 mg PO BEDTIME 08/20/24 12/29/24 amlodipine 5 mg tablet 5 mg PO DAILY 12/29/24 12/29/24 clopidogrel 75 mg tablet 75 mg PO DAILY 12/29/24 12/29/24 duloxetine 30 mg capsule,delayed 30 mg PO BEDTIME 12/29/24 12/29/24 release pregabalin 75 mg capsule 75 mg PO Q12H 12/29/24 12/29/24 Previous Rx's ?Medication ?Instructions ?Recorded Platform for ceasar #1 ea 10/02/24 cefdinir 300 mg capsule 300 mg PO BID 7 days #14 caps 12/29/24 Allergies Allergy/AdvReac Type Severity Reaction Status Date / Time NSAIDS (Non-Steroidal Allergy Unknown Unknown Verified 09/18/24 14:46 Anti-Inflamma vancomycin Allergy Unknown Unknown Verified 09/18/24 14:46 Review of Systems Narrative: Constitutional symptoms: Negative except as documented in HPI. Skin symptoms: Negative except as documented in HPI. Eye symptoms: Negative except as documented in HPI. ENMT symptoms: Negative except as documented in HPI. Respiratory symptoms: Negative except as documented in HPI. Cardiovascular symptoms: Negative except as documented in HPI. Gastrointestinal symptoms: Negative except as documented in HPI. Genitourinary symptoms: Negative except as documented in HPI. Musculoskeletal symptoms: Negative except as documented in HPI. Neurologic symptoms: Negative except as documented in HPI. Psychiatric symptoms: Negative except as documented in HPI. Endocrine symptoms: Negative except as documented in HPI. PFSH ED PFSH: Medical History (Updated 12/29/24 @ 14:34 by Mimi Up MD) Pre-operative cardiovascular examination SLE (systemic 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) w SUPPLIER MANAGER involvement Cardiac arrest 1985 Brugada syndrome Fibromyalgia Lymphocytic colitis LBBB (left bundle branch block) burgada syndrome Elevated CK Fall Closed hip fracture HTN (hypertension) CVA (cerebral vascular accident) CAD (coronary artery disease) Subcapital fracture of right hip (02/10/21) Surgical History H/O: hysterectomy History of appendectomy Hx of cholecystectomy Family History Other Family history non-contributory Social History Smoking and tobacco/nicotine status: never used tobacco/nicotine Substance/Drug Use: never Housing: House Physical Exam Narrative: EXAM NARRATIVE: General: Alert, no acute distress. Skin: Warm, dry. Head: Normocephalic, atraumatic. Neck: Supple, trachea midline. Eye: Extraocular movements are intact. Ears, nose, mouth and throat: mucosa moist. Cardiovascular: Regular, Normal peripheral perfusion. Respiratory: Lungs are clear to auscultation, respirations are non-labored, breath sounds are equal, Symmetrical chest wall expansion. Gastrointestinal: Soft, moderate epigastric pain to palpation with some guarding, Non distended Musculoskeletal: Normal ROM, no deformity. Neurological: Alert and oriented, No focal neurological deficit observed. Psychiatric: Cooperative, appropriate mood & affect. Course Vital Signs: Vital signs: Vital Signs Temperature 98.5 F 12/29/24 11:36 Pulse Rate 69 12/29/24 14:51 Respiratory Rate 17 12/29/24 13:45 Blood Pressure 135/55 12/29/24 14:51 Pulse Oximetry 90 12/29/24 14:51 Oxygen Delivery Me thod Room Air 12/29/24 13:45 MDM - Abdominal Pain Medical Decision Making Medical decision making: Patient's reason for coming to the emergency room abdominal pain Social determinants: Patient is elderly and lives at home I reviewed the patient's medical record. 89-year-old female with reported history of pancreatitis, Brugada syndrome and left bundle branch block hypertension, stroke and coronary artery disease. Most recent admission was back in August with a hip fracture. She has had 2 fairly recent orthopedic visits for first back in August close periprosthetic hip fracture that was managed conservatively and then an elbow fracture in October I reviewed the patient's current home meds Reviewed the prescription monitoring program, she takes oxycodone multiple times a day. No current anticoagulation. Alternate historians: None Differential diagnosis including but not limited to and based on the above HPI, review of systems and physical exam: In this patient with epigastric pain differential would include cholelithiasis or cholecystitis. Hepatitis. Diverticulitis. Constipation. UTI. colitis. small bowel obstruction. Crohn's flare. pancreatitis. gastritis. peptic ulcer. also concern for acute cardiac event. Orders placed to evaluate differential diagnosis based on the above differential, HPI and physical exam EKG: Time 11:49 AM. Rate 74. Normal sinus rhythm, No ST-T changes, no ectopy, left bundle branch block, This was reviewed and interpreted by myself the ER physician at 11:53 AM. Patient has known left lateral branch block Lab Review: Laboratory results were reviewed and interpreted by myself the emergency room physician. No leukocytosis. No anemia. No renal failure. She does have a mild urinary tract infection with 4+ bacteria. Lipase is not elevated that combined with CT shows that she does not have any active pancreatitis. CT of the abdomen pelvis with contrast: No evidence of acute process. She does have fatty infiltrate of her pancreas but no signs of acute changes. Her lipase is not elevated either today. This was reviewed and interpreted by myself the emergency room physician. I also reviewed the radiology report. Assessment of risk: Level of risk: Moderate risk. Elderly with multiple comorbidities. She is from home. Hospitalization considerations: She has no altered mental status and no signs of sepsis or encephalopathy. Reexamination: Patient remained stable. No increased work of breathing. No altered mental status. No focal motor deficits. Assessment and plan: Urinary tract infection Abdominal pain ? IV morphine, IV Rocephin, she received fluids in the ambulance. She takes oxycodone at home. - Discharged home - Discussed plan with patient. Answered any questions. - Evaluation and treatment of this problem were appropriate in the emergency setting. Lab Data 12/29/24 11:50 12/29/24 11:50 Labs/Radiology: Radiology Impressions Abdomen/Pelvis CT 12/29/24 13:49 IMPRESSION: 1. No acute intra-abdominal or pelvic abnormalities. 2. Marked fatty replacement of the pancreas. No evidence for acute pancreatitis by imaging. 3. Gallbladder is present and negative. 4. No renal obstruction. 5. Diffuse constipation. 6. Mild increased amount of fluid in the distal small bowel with no obstruction. This may be related to mild gastroenteritis. 7. Prior appendectomy. 8. Degenerative scoliosis lumbar spine. Laboratory Results WBC 6.26 10^3/uL (3.29-11.43) 12/29/24 11:50 RBC 4.05 10^6/uL (3.85-5.65) 12/29/24 11:50 Hgb 12.30 g/dL (11.27-16.99) 12/29/24 11:50 Hct 39.4 % (36-47) 12/29/24 11:50 MCV 97.3 fl (85-98) 12/29/24 11:50 MCH 30.4 pg (27-33) 12/29/24 11:50 MCHC 31.2 g/dL (30-55) 12/29/24 11:50 RDW 15.4 % (12.1-15.1) H 12/29/24 11:50 Plt Count 291 10^3/cmm (157-399) 12/29/24 11:50 MPV 7.9 fL (7.4-10.4) 12/29/24 11:50 Neut % (Auto) 72.0 % 12/29/24 11:50 Lymph % (Auto) 14.4 % 12/29/24 11:50 [place] % (Auto) 10.5 % 12/29/24 11:50 Eos % (Auto) 2.1 % 12/29/24 11:50 Baso % (Auto) 0.5 % 12/29/24 11:50 Neut # (Auto) 4.51 10^3/uL (1.8-7.7) 12/29/24 11:50 Lymph # (Auto) 0.9 10^3/uL (0.8-4.8) 12/29/24 11:50 [place] # (Auto) 0.7 10^3/uL (0.2-0.9) 12/29/24 11:50 Eos # (Auto) 0.1 10^3/uL (0.0-0.8) 12/29/24 11:50 Baso # (Auto) 0.0 10^3/uL (0.0-0.1) 12/29/24 11:50 Nucleated RBC % (auto) 0 % 12/29/24 11:50 Nucleated RBCs # 0.0 /100WBC 12/29/24 11:50 Sodium 142 mmol/L (136-145) 12/29/24 11:50 Potassium 4.5 mmol/L (3.5-5.1) 12/29/24 11:50 Chloride 106 mmol/L (98-107) 12/29/24 11:50 Carbon Dioxide 25 mmol/L (22-29) 12/29/24 11:50 Anion Gap 15.5 (5-19) 12/29/24 11:50 BUN 13 mg/dL (8-23) 12/29/24 11:50 Creatinine 0.6 mg/dL (0.5-0.9) 12/29/24 11:50 GFR Calculation Not Reportable 12/29/24 11:50 Glucose 102 mg/dL (65-115) 12/29/24 11:50 Calculated Osmolality 294 mOsm/kg (285-295) 12/29/24 11:50 Lactic Acid 0.6 mmol/L (0.5-2.2) 12/29/24 11:50 Calcium 8.3 mg/dL (8.5-10.5) L 12/29/24 11:50 Total Bilirubin 0.3 mg/dL (0.15-1.2) 12/29/24 11:50 AST 26 U/L (0-32) 12/29/24 11:50 ALT 25 U/L (0-33) 12/29/24 11:50 Alkaline Phosphatase 110 U/L (35-105) H 12/29/24 11:50 Total Protein 5.7 g/dL (6.6-8.7) L 12/29/24 11:50 Albumin 3.8 g/dL (3.5-5.2) 12/29/24 11:50 Globulin 1.9 g/dL (1.3-4.6) 12/29/24 11:50 Lipase 10 U/L (13-60) L 12/29/24 11:50 Urine Color Yellow (Yellow) 12/29/24 11:53 Urine Appearance Clear (CLEAR) 12/29/24 11:53 Urine pH 8.0 (5-7) A 12/29/24 11:53 Ur Specific [place] 1.015 (1.005-1.030) 12/29/24 11:53 Urine Protein Negative (Negative) 12/29/24 11:53 Urine Glucose (UA) Negative (Normal) 12/29/24 11:53 Urine Ketones Negative (Negative) 12/29/24 11:53 Urine Blood Negative (Negative) 12/29/24 11:53 Urine Nitrate Negative (Negative) 12/29/24 11:53 Urine Bilirubin Negative (Negative) 12/29/24 11:53 Urine Urobilinogen 0.2 mg/dL (Negative) 12/29/24 11:53 Ur Leukocyte Esterase Negative (Negative) 12/29/24 11:53 Urine RBC 0-2 /hpf (0-2) 12/29/24 11:53 Urine WBC 0-5 /hpf (0-5) 12/29/24 11:53 Ur Squamous Epith Cells 0-5 /hpf (0-5) 12/29/24 11:53 Amorphous Sediment Not Reportable 12/29/24 11:53 Urine Bacteria 4+ /hpf (NONE) H 12/29/24 11:53 Hyaline Casts 0.40 /lpf 12/29/24 11:53 All radiology interpretation(s) finalized by discharge Discharge Plan Discharge Patient Disposition: Home Clinical Impression: Abdominal pain, Urinary tract infection Condition: Stable Prescriptions: New cefdinir 300 mg capsule 300 mg PO BID 7 Days Qty: 14 0RF No Action (DME) Platform for walker See Rx Instructions .Route .MEDSUPPLY Qty: 1 0RF Rx Instructions: As directed pravastatin 40 mg tablet 40 mg PO BEDTIME levothyroxine 75 mcg tablet 75 mcg PO QAM quinidine gluconate 324 mg tablet extended release 324 mg PO TID Rx Instructions: 6am, 2pm, 10pm potassium chloride 20 mEq tablet,ER particles/crystals 20 meq PO QAM pantoprazole 40 mg tablet,delayed release (DR/EC) 40 mg PO BID zinc acetate 50 mg (zinc) Capsule 50 mg PO BEDTIME cyanocobalamin (vitamin B-12) [Vitamin B-12] 500 mcg Tablet 500 mcg PO QAM pyridoxine (vitamin B6) [Vitamin B-6] 100 mg Tablet 100 mg PO QAM folic acid 800 mcg Tablet 0.8 mg PO QAM cholecalciferol (vitamin D3) [Vitamin D3] 25 mcg (1,000 unit) Tablet 25 mcg PO QAM Women's 50 Plus Multivitamin 400 mcg-500 mg calcium-20 mcg Tablet 1 tab PO BEDTIME magnesium oxide 400 mg magnesium Tablet 400 mg PO DAILY coenzyme Q10 [Co Q-10] 100 mg Capsule 100 mg PO QAM bupropion HCl 300 mg tablet extended release 24 hr 300 mg PO QAM oxycodone-acetaminophen 10-325 mg tablet 1 tab PO Q6H MDD max of 8 tablets daily PRN (Reason: Severe Pain (Scale Score 7-10)) biotin 10,000 mcg Capsule 10,000 mcg PO BEDTIME nitroglycerin 0.4 mg tablet, sublingual See Rx Instructions .ROUTE .COMPLEX Rx Instructions: DISSOLVE 1 TABLET UNDER TONGUE EVERY 5 MINUTES NEEDED FOR CHEST PAIN. MAY TAKE UP TO 3 DOSES PER EPISODE; IF NO RELIEF AFTER 3RD DOSE, CALL 911 OR SEEK EMERGENCY CARE. docusate sodium [Colace] 100 mg Capsule 100 mg PO BEDTIME budesonide 3 mg capsule,delayed,extend.release See Rx Instructions .ROUTE .COMPLEX Rx Instructions: Take 3 capsules by mouth in the morning for 1 month, 2 capsules in the morning for 1 month, then 1 capsule in the morning for 1 month. vitamin E 268 mg (400 unit) Capsule 268 mg PO BEDTIME loperamide 2 mg capsule See Rx Instructions .ROUTE .COMPLEX PRN (Reason: Diarrhea) Rx Instructions: Take 2 capsules (4 mg total) by mouth 4 (four) times a day as needed for diarrhea trazodone 150 mg tablet 150 mg PO BEDTIME lidocaine 5 % adhesive patch,medicated 1 patch transdermal Q24H mupirocin 2 % ointment 1 applic TOPICAL DAILY PRN (Reason: Skin Irritation) isosorbide mononitrate 30 mg tablet extended release 24 hr 30 mg PO QAM clopidogrel 75 mg tablet 75 mg PO DAILY amlodipine 5 mg tablet 5 mg PO DAILY duloxetine 30 mg capsule,delayed release(DR/EC) 30 mg PO BEDTIME pregabalin 75 mg capsule 75 mg PO Q12H Discharge Orders: Discharge ED (Routine); Ordered 12/29/24 Ordered By: Mimi Up Patient Instructions: Abdominal Pain (ED), Opioid Safety, Pain Management, Patient Portal & Alfredito Instructions Activity Restrictions/Additional Instructions: Thank you for choosing [facility] for your healthcare needs today. You have been screened and evaluated and felt safe for discharge. Health conditions do change or evolve sometimes and as such it is important that you follow up with your Primary Doctor to be re checked, 3-5 days is a general good time frame for follow up. You are always welcome to return to the ED for re assessment if your symptoms are worsening or you have new concerns Print Language: Central [place] Coding Level of Care Code ED Finished Cigar Maker for Jens Wheeler
--- OUTSIDE RECORDS SUMMARY | 2024-12-29 11:42 | XMS_ITS | Clinical Summary ---
Author Organization [facility] Address [address] [place] [address] Phone Care Team Providers Care Roll Setter Name Role Phone Kylee Pederson MD Primary Care Provider [phone] Allergies Active Allergy Reactions Criticality Noted Date [...] Lymphocytic colitis 06/19/2017 Overview (06/19/2017): Diagnosed in [facility] Brugada syndrome 05/23/2016 Overview (05/23/2016): Per evaluation at [facility]. Sudden in 1985. Persistent atrial fibrillation [...] on file Legal Sex Female 3:23 AM VETERINARY TECHNOLOGIST Gender Identity Not on file Sexual Orientation [...] - 1-dose 75+ series) 10/26/2011 Medicare Advantage ([place]) Preventative Visit/Annual Wellness Visit 02/20/2024 INFLUENZA VACCINE (#1) 2024 0, 10/19/2017, 12/02/1996, Additional history exists OSTEOPOROSIS SCREENING 10/11/2026 2, 05/17/2017, 07/22/2015 DTAP/TDAP/TD VACCINES (2 - T d or Tdap) 07/23/2028 07/23/2018, 01/06/2006 PNEUMOCOCCAL VACCINE 50+ YEARS Completed 12/17/2019 , 05/10/2014 Insurance MEDICAID [facility] [facility] DUAL COMPLETE MCR PPO D-SNP MED[id number] DUAL COM[place] MCR PPO D-SNP Care Teams Roll Setter Relationship Specialty Start Date End Date Kylee Pederson MD [address] [phone] PCP - General Family Practice 10/18/17
--- OUTSIDE RECORDS SUMMARY | 2024-12-29 11:42 | XMS_ITS | Encounter Summary ---
Author Organization [facility] Address [address] [place] [address] Care Team Providers Care Night Club Manager Name Role Phone Kylee Pederson MD Primary Care Provider Encounter Details Date Type Department Care Team (Late st Contact Info) Description 04/13/2004 Outpatient Historical [facility] [place], [address] [address] Social History Tobacco Use Types Packs/Day Years Used Date Smoking Tobacco: Never Assessed Comments Unknown Sex and Gender Information Value Date Recorded Sex Assigned at Not on file Legal Sex Female 3:23 AM PUMPER HELPER Gender Identity Not on file Sexual Orientation Not on file documented as of this encounter Plan of Treatment Not on file documented as of this encounter Visit Diagnoses Not on filedocumented in this encounter Additional Health Concerns Infection Onset Date Last Indicated Resolved Time R/O C. diff 04/16/2020 04/16/2020 04/16/2020 10:2 7 PM PUMPER HELPER documented as of this encounter Care Teams Night Club Manager Relationship Specialty Start Date End Date Kylee Pederson MD [address] [phone] PCP - General Family Practice 10/18/17 documented as of this encounter
--- OUTSIDE RECORDS SUMMARY | 2024-12-29 11:42 | XMS_ITS | Encounter Summary ---
Author Organization [email or web address] Address [address] [place] [address] Care Team Providers Care Owner Oral Surgeon Name Role Phone Kylee Pederson MD Primary Care Provider [phone] Encounter Details Date Type Department Care Team (Late st Contact Info) Description 10/14/2004 Outpatient Historical [facility] FY06 Non-Staff, Physician NO ADDRESS ON FILE Social History Tobacco Use Types Packs/Day Years Used Date Smoking Tobacco: Never Assessed Comments Unknown Sex and Gender Information Value Date Recorded Sex Assigned at Not on file Legal Sex Female 3:23 AM SENIOR SPEECH PATHOLOGIST Gender Identity Not on file Sexual Orientation [...] diff 04/16/2020 04/16/2020 04/16/2020 10:2 7 PM SENIOR SPEECH PATHOLOGIST documented as of this encounter Care Teams Owner Oral Surgeon Relationship Specialty Start Date End Date Kylee Pederson MD [address] [phone] PCP - General Family Practice 10/18/17 documented as of this encounter
--- OUTSIDE RECORDS SUMMARY | 2024-12-29 11:42 | XMS_ITS | Encounter Summary ---
Author Organization [facility] Healthcare Address [address] [place] [address] Care Team Providers Care Linux Admin Name Role Phone Mike Lopez MD Unavailable [phone] Michelle Persaud MD Unavailable Sisi Lindo MD Unavailable Jeff Finn MD Unavailable [phone] Mingo Moore MD Unavailable Kylee Pederson MD Unavailable Kylee Pederson MD Primary Care Provider Brea Crowell MD Unavailable Ambika Moe RN Unavailable [phone] Encounter Details Date Type Department Care Team (Late st Contact Info) Description 10/24/2019 Telephone [facility] [address] [place] [address] Татьяна Oreilly RN Social History Tobacco Use Types Packs/Day Years Used Date Smoking Tobacco: Never Smokeless Tobacco: Never Alcohol Use Standard Drinks/Week Comments No 0 (1 standard drink = 0.6 oz pur e alcohol) Comments No Sex and Gender Information Value Date Recorded Sex Assigned at Not on file Legal Sex Female 11:31 PM INTERNAL AUDIT MANAGER Gender Identity Not on file Sexual Orientation Not on file documented as of this encounter Plan of Treatment Upcoming Encounters Date Type Department Care Team (Latest Contact Info) Description 03/03/2025 8:00 AM INTERNAL AUDIT MANAGER Hospital Encounter [facility] [address] [place] [address] Megan Metz MD [address] [place] [address] Javy Sheridan MD [address] [place] [address] 03/03/2025 8:00 AM INTERNAL AUDIT MANAGER - 03/03/2025 8:30 AM INTERNAL AUDIT MANAGER Surgery [facility] [address] [place] [address] Javy Sheridan MD [address] [place] [address] ESOPHAGOGASTRODUODENOSCOPY w/possible dilation Scheduled Procedures Name Priority Associated Diagnoses Date/Ti az ESOPHAGOGASTRODUODENOSCOPY Dysphagia, unspecified type 03/03/2025 8:00 AM INTERNAL AUDIT MANAGER documented as of this encounter Visit Diagnoses Not on filedocumented in this encounter Additional Health Concerns Infection Onset Date Last Indicated Resolved Time COVID: Suspected 08/29/2023 08/29/2023 08/29/2023 1:57 PM CDT Norovirus suspected 08/29/2023 08/29/2023 08/30/19 24 1:34 AM CDT C. difficile suspected 08/29/2023 08/30/202308/29 3:09 PM CDT C. difficile suspected 05/08/2024 05/09/202405/09 2:46 PM CDT Norovirus suspected 05/08/2024 05/09/2024 05/10/19 25 3:27 PM CDT documented as of this encounter Care Teams Linux Admin Relationship Specialty Start Date End Date Kylee Pederson MD [address] [phone] PCP - General 08/07/19 Mike Lopez MD Referring Physician Colon and Rectal Surgery 03/24/19 Michelle Persaud MD Radiation Oncologist Radiation Oncology 04/11/19 Sisi Lindo MD Medical Oncologist/Pond Supervisor Medical Oncology 04/11/19 02/21/24 Jeff Finn MD Consulting Physician Cardiology 04/24/19 11/09/20 Mingo Moore MD Consulting Physician Cardiology 04/24/19 Kylee Pederson MD Referring Physician Family Medicine 07/30/19 Brea Crowell MD [address] [phone] Radiation Oncologist Radiation Oncology 03/15/22 Ambika Moe, RN [address] [facility] [address] [place] [address] SHOP Outpatient Nursing Secretary 05/12/24 06/08/24 documented as of this encounter
--- NOTE | 2024-12-29 11:44 | ECG_ITS ---
[facility]29 Pat Name: Medina Alston Department: Room: Gender: Female Dental Assisting Instructor: : 1935 Requested By: Mimi Alexis Order Number: [id number] Donnie MD: Keiko Post M.D. Measurements Intervals [place] Rate: 74 P: 262 AL: 220 QRS: -63 QRSD: 156 T: 115 QT: 464 QTc: 516 Interpretive Statements ECTOPIC ATRIAL RHYTHM WITH FIRST DEGREE AV BLOCK LEFT AXIS DEVIATION [QRS AXIS < -30] LEFT BUNDLE BRANCH BLOCK [120+ ms QRS DURATION, 80+ ms Q/S IN V1/V2, 85+ ms R IN I/aVL/V5/V6] Compared to ECG 08/20/2024 11:43:54 Ectopic atrial rhythm now present Sinus rhythm no longer present Sinus arrhythmia no longer present Electronically Signed On 12-29-2024 18:11:07 BEHAVIORAL SPECIALIST by Keiko Post M.D. [email or web address]
[2024-12-29 12:10] LABS: Hematocrit 39.4 % (36-47); Hemoglobin 12.30 g/dL (11.27-16.99); Mean Corpuscular HGB Conc 31.2 g/dL (30-55); Mean Corpuscular Hemoglobin 30.4 pg (27-33); Mean Corpuscular Volume 97.3 fl (85-98); Nucleated Red Blood Cells % 0 %; Platelet Count 291 10^3/cmm (157-399); Red Blood Count 4.05 10^6/uL (3.85-5.65); White Blood Count 6.26 10^3/uL (3.29-11.43)
[2024-12-29 12:12] LABS: Glucose Urine UA Negative (Normal); Nitrate Urine Negative (Negative); Specific Gravity, Urine 1.015 (1.005-1.030)
[2024-12-29 12:17] LABS: Universal Test for UA Present (0)
[2024-12-29 12:30] LABS: Alanine Aminotransferase 25 U/L (0-33); Albumin Level 3.8 g/dL (3.5-5.2); Alkaline Phosphatase 110 U/L (35-105); Aspartate Amino Transferase 26 U/L (0-32); Blood Urea Nitrogen 13 mg/dL (8-23); Calcium 8.3 mg/dL (8.5-10.5); Carbon Dioxide 25 mmol/L (22-29); Chloride 106 mmol/L (98-107); Creatinine Clr Calc Pharmacy 37.6563; Globulin 1.9 g/dL (1.3-4.6); Glucose 102 mg/dL (65-115); Lactic Sepsis W/Reflex 0.6 mmol/L (0.5-2.2); Lipase 10 U/L (13-60); Osmolality Calculated 294 mOsm/kg (285-295); Sodium 142 mmol/L (136-145); Total Protein 5.7 g/dL (6.6-8.7)
[2024-12-29 12:35] LABS: Anion Gap 15.5 (5-19); Potassium 4.5 mmol/L (3.5-5.1)
[2024-12-29 12:39] LABS: UA Slide Review UA Slide Review Perf
[2024-12-29 12:40] VITALS: BP 133/52; RESP 16; O2SAT 94
[2024-12-29 13:00] VITALS: BP 133/52; PULSE 71; O2SAT 94
[2024-12-29] MEDS: ondansetron 2 mg/ML SDV 2 mL 4 MG IVP (13:43)
[2024-12-29 13:44] VITALS: RESP 17
[2024-12-29] MEDS: morphine 4 mg/mL SDV 1 mL IVP (13:44)
[2024-12-29 13:45] VITALS: BP 135/55; PULSE 70; RESP 17; O2SAT 94
--- NOTE | 2024-12-29 13:49 | CT_ITS ---
WS: [id number] CT ABDOMEN AND PELVIS WITH CONTRAST HISTORY: Abdominal pain, history of pancreatitis. TECHNIQUE: Imaging performed of the abdomen and pelvis with IV contrast. Single phase imaging of the abdomen. Coronal and sagittal reformats are submitted. All CT scans at [facility] use at least one of these dose optimization techniques: automated exposure control; mA and/or kV adjustment per patient size (includes targeted exams where dose is matched to clinical indication); or iterative reconstruction. IV CONTRAST: Omnipaque 350; 100 mL IV. Oral contrast: No DLP: 490.23 mGy.cm COMPARISON: RIGHT hip CT 05/21/2024 Lower thorax: Bilateral lower lobe granulomas. Mild atelectasis in dependent changes at the lung bases. Heart is normal size. Small pericardial effusion. No hiatal hernia. Liver/biliary system: Normal size with no intrahepatic dilatation. Gallbladder: Normal. No gallstones or wall thickening. No pericholecystic fluid. Common bile duct is measuring top normal size which is probably related to aging. Pancreas: Severe fatty replacement pancreas. No evidence for acute pancreatitis. Spleen: Normal size spleen. No mass or infarct. Granuloma. Adrenal glands: Normal RIGHT adrenal gland. LEFT adrenal nodule measures 9.6 mm. Right kidney: No obstruction. Too small to characterize cortical hypodensities. Left kidney: No obstruction. Too small to characterize cortical hypodensities. Aorta: Moderate atherosclerosis with no aneurysm. Moderate calcifications extends into celiac axis and SMA. Lymphadenopathy: None. Free fluid: None. GI tract: No GI tract obstruction. Moderate constipation. Some increased fluid within the distal small bowel but there is no obstruction or dilatation. Mild diverticular disease. No acute diverticulitis. Prior appendectomy. Abdominal wall: Unremarkable abdominal wall. No hernia. Pelvis: Artifact from patient's hip prosthesis. Uterus appears absent. Bones: Increase lumbar lordosis. Degenerative curvature lumbar spine. Prior RIGHT hip arthroplasty. CT/CT abdomen pelvis w con* [id number] IMPRESSION: 1. No acute intra-abdominal or pelvic abnormalities. 2. Marked fatty replacement of the pancreas. No evidence for acute pancreatiti s by imaging. 3. Gallbladder is present and negative. 4. No renal obstruction. 5. Diffuse constipation. 6. Mild increased amount of fluid in the distal small bowel with no obstructio n. This may be related to mild gastroenteritis. 7. Prior appendectomy. 8. Degenerative scoliosis lumbar spine.
[2024-12-29] MEDS: cefTRIAXone 1,000 mg SDV 1000 MG IVP (14:45)
[2024-12-29 14:51] VITALS: BP 135/55; PULSE 69; O2SAT 90
== END 2024-12-29 14:54 | disposition home or self-care (01) ==
PROVIDERS: Emergency Provider Emergency Medicine
DX: N39.0 Urinary tract infection, site not specified (principal); Z79.02 Long term (current) use of antithrombotics/antiplatelets; I25.10 Atherosclerotic heart disease of native coronary artery without angina pectoris; Z86.73 Personal history of transient ischemic attack (TIA), and cerebral infarction without residual deficits; I10 Essential (primary) hypertension
CPT/HCPCS: 36415; 74177; 80053; 81001; 83605; 83690; 85025; 87040; 93005; 96374; 96375; 99285; J0696; J2270; J2405

== ENCOUNTER 2025-02-17 11:00 | Outpatient (RCR) | payer OTHER, MEDICAID, SELFPAY | END 2025-02-18 23:59 | disposition home or self-care (01) | LOC: WPT 11:00 | PROVIDERS: Visit Provider Family Medicine | DX: R26.81 Unsteadiness on feet (principal); R29.6 Repeated falls; M16.12 Unilateral primary osteoarthritis, left hip; M54.50 Low back pain, unspecified; M54.32 Sciatica, left side; M25.512 Pain in left shoulder; G89.29 Other chronic pain | CPT/HCPCS: 97110; 97112; 97530 ==